=== PATIENT | male | born 1965 | race Caucasian/White ===

== ENCOUNTER 2023-03-24 15:06 | Outpatient (AMB) | payer OTHER, SELFPAY ==
--- NOTE | 2023-03-24 15:18 | HO.NEPHOV_ITS ---
HPI HPI Comments History of Present Illness Details Matt is a longstanding diabetic who has multiple other medical issues including coronary artery disease needing CABG. He also has peripheral arterial disease. Recently he was found to have renal cell cancer and underwent nephrectomy. He was told by his primary care physician in [place] that his serum creatinine has gotten worse. He denies any nausea, vomiting or diarrhea. He does not have any hematuria, weight loss, flank pain, renal stones, edema, epistaxis, hemoptysis, paroxysmal nocturnal dyspnea, orthopnea, chest pain, excessive nonsteroidal anti-inflammatory use or any history of drug use. He has not on any HARSHAL inhibitor or ARB. His recent serum creatinine numbers were not available for review at the time of this office visit. His son works in [employer]. He is concerned about his recent rise in serum creatinine even though he does not know what the numbers are. [facility] Medical History (Updated 03/27/23 @ 20:46 by Arley Valdovinos MD) Renal cancer Peripheral arterial disease Diabetes AYANNA (obstructive sleep apnea) Dyslipidemia Labile hypertension Ischemic cardiomyopathy CAD (coronary artery disease) Surgical History History of nephrectomy Hx of CABG Family History Mother Heart disease Hypertension Diabetes Maternal Grandfather Heart disease Diabetes Hypertension Social History (Updated 03/24/23 @ 15:24 by Alejandra Almeida MA) Alcohol intake: current Patient Tobacco Use Status: Former Tobacco user Vital Signs 03/24/23 15:19 Height 6 ft Weight 260 lb BMI 35.3 BP 130/80 Blood Pressure Location Lt brachial Position Sitting Pulse 69 Pulse Source Pulse Oximeter Pulse Oximetry (%) 95 Oxygen Delivery Method Room Air Physical Exam Vital Signs: Last Vital Signs Pulse 69 03/24/23 15:19 BP 130/80 03/24/23 15:19 Pulse Ox 95 03/24/23 15:19 Oxygen Delivery Method Room Air 03/24/23 15:19 BMI result Body Mass Index 35.3 Const General: comfortable and no acute distress Orientation/consciousness: patient oriented x3 HEENT Head: Yes normocephalic Mouth: Normal oral and palatal mucosa present Eyes EOM: EOMs intact bilaterally Neck Neck: Yes supple Resp Auscultation: clear to auscultation bilaterally Cardio Jugular venous distension: no JVD Rate: regular rate GI Palpation (GI): Soft to palpation Auscultation: normal bowel sounds General: Yes no CVA tenderness Back/Spine/Pelvis Back: no CVA tenderness Skin General skin exam: no rashes or lesions noted Neuro General: patient oriented x3 and moves all extremities Extrem General: Yes no pedal edema Assessment & Plan Assessment & Plan (1) Acquired solitary kidney: Code(s): Z90.5 - Acquired absence of kidney (2) Peripheral arterial disease: Code(s): I73.9 - Peripheral vascular disease, unspecified (3) Hypertension: Code(s): I10 - Essential (primary) hypertension Qualifiers: Hypertension type: primary hypertension Qualified Code(s): I10 - Essential (primary) hypertension (4) CKD (chronic kidney disease) stage 3, GFR 30-59 ml/min: Code(s): N18.30 - Chronic kidney disease, stage 3 unspecified Qualifiers: Chronic kidney disease stage 3 subtype: stage 3a (GFR 45-59) Qualified Code(s): N18.31 - Chronic kidney disease, stage 3a Plan Geovanny has CKD stage 3 at baseline. He recently underwent unilateral nephrectomy for renal cell cancer. As per the patient, [facility] had mentioned that his serum creatinine has gone up. I have not seen the results of it. I have ordered follow-up blood work. He will need 24 hour urine collection for GFR estimation. He will be a great candidate for HARSHAL inhibitor and or Farxiga/ Jardiance ( He is not type 1 diabetic). His blood pressure needs to be maintained at goal. He needs to keep his A1c under 7. He is on statins. I did not make any medication changes today but rather is awaiting on all the forthcoming data for optimizing his management. All questions answered. Follow-up given. Orders: Orders Calcium 03/24/23 I10 - Essential (primary) hypertension, I73.9 - Peripheral vascular disease, unspecified, Z90.5 - Acquired absence of kidney Creatinine 03/24/23 I10 - Essential (primary) hypertension, I73.9 - Peripheral vascular disease, unspecified, Z90.5 - Acquired absence of kidney Blood Urea Nitrogen 03/24/23 I10 - Essential (primary) hypertension, I73.9 - Peripheral vascular disease, unspecified, Z90.5 - Acquired absence of kidney Electrolytes 03/24/23 I10 - Essential (primary) hypertension, I73.9 - Peripheral vascular disease, unspecified, Z90.5 - Acquired absence of kidney Hemoglobin A1c 03/24/23 I10 - Essential (primary) hypertension, I73.9 - Peripheral vascular disease, unspecified, Z90.5 - Acquired absence of kidney Protein Creatinine Ratio, Ur 03/24/23 I10 - Essential (primary) hypertension, I73.9 - Peripheral vascular disease, unspecified, Z90.5 - Acquired absence of kidney Coding Level of Care Code Est Pt Level 4 (33500) Diagnoses Acquired solitary kidney Z90.5 Peripheral arterial disease I73.9 Primary hypertension I10 Hypertension type: primary hypertension Stage 3a chronic kidney disease N18.31 Chronic kidney disease stage 3 subtype: stage 3a (GFR 45-59) Results Reviewed Nephrology Results: No Data to Display
[2023-03-24 15:19] VITALS: BP 130/80; PULSE 69; O2SAT 95; BMI 35.3
== END 2023-03-24 15:50 | disposition home or self-care (01) ==
PROVIDERS: PCP General Practice; Visit Provider Internal Medicine Nephrology
DX: Z90.5 Acquired absence of kidney (principal); I73.9 Peripheral vascular disease, unspecified; I10 Essential (primary) hypertension; N18.31 Chronic kidney disease, stage 3a
CPT/HCPCS: 99214

== ENCOUNTER → 2023-03-24 15:06 | Outpatient (BNVA) | payer OTHER, SELFPAY | PROVIDERS: PCP General Practice; Visit Provider Internal Medicine Nephrology | DX: I12.9 Hypertensive chronic kidney disease with stage 1 through stage 4 chronic kidney disease, or unspecified chronic kidney disease (principal); N18.31 Chronic kidney disease, stage 3a; I73.9 Peripheral vascular disease, unspecified; Z90.5 Acquired absence of kidney | CPT/HCPCS: 99212 ==

== ENCOUNTER 2023-04-26 15:27 | Outpatient (AMB) | payer OTHER, SELFPAY ==
[2023-04-26 16:04] VITALS: BP 128/80; PULSE 62; O2SAT 96; BMI 35.5
--- NOTE | 2023-04-26 16:04 | HO.NEPHOV_ITS ---
HPI HPI Comments History of Present Illness Details Matt is a longstanding diabetic who has multiple other medical issues including coronary artery disease needing CABG. He also has peripheral arterial disease. Recently he was found to have renal cell cancer and underwent L nephrectomy. He was told by his primary care physician in [place] that his serum creatinine has gotten worse ( last one 2.3). He denies any nausea, vomiting or diarrhea. He does not have any hematuria, weight loss, flank pain, renal stones, edema, epistaxis, hemoptysis, paroxysmal nocturnal dyspnea, orthopnea, chest pain, excessive nonsteroidal anti-inflammatory use or any history of drug use. He has not on any HARSHAL inhibitor or ARB. His son works in [employer]. He is concerned about his recent rise in serum creatinine. He has not had any recent blood work. He had no medications including trulicity. He was told that he is going to be started on Victoza soon. He had no new complaints. [facility] Medical History (Updated 03/27/23 @ 20:46 by Arley Valdovinos MD) Renal cancer Peripheral arterial disease Diabetes AYANNA (obstructive sleep apnea) Dyslipidemia Labile hypertension Ischemic cardiomyopathy CAD (coronary artery disease) Surgical History History of nephrectomy Hx of CABG Family History Mother Heart disease Hypertension Diabetes Maternal Grandfather Heart disease Diabetes Hypertension Social History Alcohol intake: current Patient Tobacco Use Status: Former Tobacco user Vital Signs 04/26/23 16:04 Height 6 ft Weight 262 lb BMI 35.5 BP 128/80 Blood Pressure Location Rt brachial Position Sitting Pulse 62 Pulse Source Pulse Oximeter Pulse Oximetry (%) 96 Oxygen Delivery Method Room Air Physical Exam Vital Signs: Last Vital Signs Pulse 62 04/26/23 16:04 BP 128/80 04/26/23 16:04 Pulse Ox 96 04/26/23 16:04 Oxygen Delivery Method Room Air 04/26/23 16:04 BMI result Body Mass Index 35.5 Const General: comfortable and no acute distress Orientation/consciousness: patient oriented x3 HEENT Head: Yes normocephalic Mouth: Normal oral and palatal mucosa present Eyes EOM: EOMs intact bilaterally Neck Neck: Yes supple Resp Auscultation: clear to auscultation bilaterally Cardio Jugular venous distension: no JVD Rate: regular rate GI Palpation (GI): Soft to palpation Auscultation: normal bowel sounds General: Yes no CVA tenderness Back/Spine/Pelvis Back: no CVA tenderness Skin General skin exam: no rashes or lesions noted Neuro General: patient oriented x3 and moves all extremities Extrem General: Yes no pedal edema Assessment & Plan Assessment & Plan (1) CKD (chronic kidney disease) stage 3, GFR 30-59 ml/min: Code(s): N18.30 - Chronic kidney disease, stage 3 unspecified Qualifiers: Chronic kidney disease stage 3 subtype: stage 3a (GFR 45-59) Qualified Code(s): N18.31 - Chronic kidney disease, stage 3a (2) Hypertension: Code(s): I10 - Essential (primary) hypertension Qualifiers: Hypertension type: primary hypertension Qualified Code(s): I10 - Essential (primary) hypertension Plan Geovanny has CKD stage 3 at baseline. He recently underwent unilateral nephrectomy for renal cell cancer. His last serum creatinine was 2.3. I have ordered follow-up blood work and 24 hour urine collection for GFR estimation. He will be a great candidate for HARSHAL inhibitor and or Farxiga/ Jardiance ( He is not type 1 diabetic). His blood pressure needs to be maintained at goal. He needs to keep his A1c under 7. He is on statins. I did not make any medication changes today but rather is awaiting on all the forthcoming data for optimizing his management. All questions answered. Follow-up given Orders: Orders Hemoglobin A1c Today I10 - Essential (primary) hypertension, N18.30 - Chronic kidney disease, stage 3 unspecified Creatinine Clearance Urine Today I10 - Essential (primary) hypertension, N18.30 - Chronic kidney disease, stage 3 unspecified Creatinine Today I10 - Essential (primary) hypertension, N18.30 - Chronic kidney disease, stage 3 unspecified Blood Urea Nitrogen Today I10 - Essential (primary) hypertension, N18.30 - Chronic kidney disease, stage 3 unspecified Electrolytes Today I10 - Essential (primary) hypertension, N18.30 - Chronic kidney disease, stage 3 unspecified Coding Level of Care Code Est Pt Level 4 (97960) Diagnoses Stage 3a chronic kidney disease N18.31 Chronic kidney disease stage 3 subtype: stage 3a (GFR 45-59) Primary hypertension I10 Hypertension type: primary hypertension Results Reviewed Nephrology Results: No Data to Display
== END 2023-04-26 16:30 | disposition home or self-care (01) ==
PROVIDERS: PCP General Practice; Referring Provider Internal Medicine Nephrology; Visit Provider Internal Medicine Nephrology
DX: N18.31 Chronic kidney disease, stage 3a (principal); I10 Essential (primary) hypertension
CPT/HCPCS: 99214

== ENCOUNTER → 2023-04-26 15:27 | Outpatient (BNVA) | payer OTHER, SELFPAY | PROVIDERS: PCP General Practice; Visit Provider Internal Medicine Nephrology | DX: I12.9 Hypertensive chronic kidney disease with stage 1 through stage 4 chronic kidney disease, or unspecified chronic kidney disease (principal); N18.31 Chronic kidney disease, stage 3a | CPT/HCPCS: 99212 ==

== ENCOUNTER 2023-05-24 15:05 | Outpatient (AMB) | payer OTHER, SELFPAY ==
[2023-05-24 15:47] VITALS: BP 142/80; PULSE 96; O2SAT 99; BMI 34.5
--- NOTE | 2023-05-24 15:47 | HO.NEPHOV_ITS ---
HPI HPI Comments History of Present Illness Details Matt is a longstanding diabetic who has multiple other medical issues including coronary artery disease needing CABG. He also has peripheral arterial disease. Recently he was found to have renal cell cancer and underwent L nephrectomy. His serum creatinine has improved to 1.8. His serum K is 5.5. He denies any nausea, vomiting or diarrhea. He does not have any hematuria, weight loss, flank pain, renal stones, edema, epistaxis, hemoptysis, paroxysmal nocturnal dyspnea, orthopnea, chest pain, excessive nonsteroidal anti- inflammatory use or any history of drug use. He has not on any HARSHAL inhibitor or ARB. His son works in [employer]. He had no medications including trulicity. So he was started on Victoza. He had no new complaints. [facility] Medical History (Updated 05/24/23 @ 16:33 by Arley Valdovinos MD) Renal cancer Peripheral arterial disease Diabetes AYANNA (obstructive sleep apnea) Dyslipidemia Labile hypertension Ischemic cardiomyopathy CAD (coronary artery disease) Surgical History History of nephrectomy Hx of CABG Family History Mother Heart disease Hypertension Diabetes Maternal Grandfather Heart disease Diabetes Hypertension Social History Alcohol intake: current Patient Tobacco Use Status: Former Tobacco user Vital Signs 05/24/23 15:47 Height 6 ft Weight 254 lb 6 oz BMI 34.5 BP 142/80 H Blood Pressure Location Rt brachial Position Sitting Pulse 96 Pulse Source Pulse Oximeter Pulse Oximetry (%) 99 Oxygen Delivery Method Room Air Physical Exam Vital Signs: Last Vital Signs Pulse 96 05/24/23 15:47 BP 142/80 H 05/24/23 15:47 Pulse Ox 99 05/24/23 15:47 Oxygen Delivery Method Room Air 05/24/23 15:47 BMI result Body Mass Index 34.5 Const General: comfortable and no acute distress Orientation/consciousness: patient oriented x3 HEENT Head: Yes normocephalic Mouth: Normal oral and palatal mucosa present Eyes EOM: EOMs intact bilaterally Neck Neck: Yes supple Resp Auscultation: clear to auscultation bilaterally Cardio Jugular venous distension: no JVD Rate: regular rate GI Palpation (GI): Soft to palpation Auscultation: normal bowel sounds General: Yes no CVA tenderness Back/Spine/Pelvis Back: no CVA tenderness Skin General skin exam: no rashes or lesions noted Neuro General: patient oriented x3 and moves all extremities Extrem General: Yes no pedal edema Assessment & Plan Assessment & Plan (1) CKD (chronic kidney disease) stage 3, GFR 30-59 ml/min: Code(s): N18.30 - Chronic kidney disease, stage 3 unspecified Qualifiers: Chronic kidney disease stage 3 subtype: stage 3a (GFR 45-59) Qualified Code(s): N18.31 - Chronic kidney disease, stage 3a (2) Peripheral arterial disease: Code(s): I73.9 - Peripheral vascular disease, unspecified (3) Acquired solitary kidney: Code(s): Z90.5 - Acquired absence of kidney (4) Hypertension: Code(s): I10 - Essential (primary) hypertension Qualifiers: Hypertension type: primary hypertension Qualified Code(s): I10 - Essential (primary) hypertension (5) Hyperkalemia: Code(s): E87.5 - Hyperkalemia Jose Armando Small has CKD stage 3 at baseline. He recently underwent unilateral nephrectomy for renal cell cancer. His last serum creatinine was 2.3. He had follow-up blood work and 24 hour urine collection for GFR estimation at [place] which is pending at the time of this visit. He will be a great candidate for HARSHAL inhibitor and or Farxiga/ Jardiance ( He is not type 1 diabetic). His blood pressure needs to be maintained at goal. He needs to keep his A1c under 7. He is on statins. I started him on Kayexalate 15 Gram once a week. I did not make any medication changes today but rather is awaiting on all the forthcoming data for optimizing his management. All questions answered. Follow-up given Orders: Orders Blood Urea Nitrogen Today E87.5 - Hyperkalemia, I10 - Essential (primary) hypertension, I73.9 - Peripheral vascular disease, unspecified, N18.30 - Chronic kidney disease, stage 3 unspecified, Z90.5 - Acquired absence of kidney Creatinine Today E87.5 - Hyperkalemia, I10 - Essential (primary) hypertension, I73.9 - Peripheral vascular disease, unspecified, N18.30 - Chronic kidney disease, stage 3 unspecified, Z90.5 - Acquired absence of kidney Electrolytes Today E87.5 - Hyperkalemia, I10 - Essential (primary) hypertension, I73.9 - Peripheral vascular disease, unspecified, N18.30 - Chronic kidney disease, stage 3 unspecified, Z90.5 - Acquired absence of kidney Coding Level of Care Code Est Pt Level 4 (64751) Diagnoses Stage 3a chronic kidney disease N18.31 Chronic kidney disease stage 3 subtype: stage 3a (GFR 45-59) Peripheral arterial disease I73.9 Acquired solitary kidney Z90.5 Primary hypertension I10 Hypertension type: primary hypertension Hyperkalemia E87.5 Results Reviewed Nephrology Results: No Data to Display
== END 2023-05-24 16:18 | disposition home or self-care (01) ==
PROVIDERS: PCP General Practice; Visit Provider Internal Medicine Nephrology
DX: N18.31 Chronic kidney disease, stage 3a (principal); I73.9 Peripheral vascular disease, unspecified; Z90.5 Acquired absence of kidney; I10 Essential (primary) hypertension; E87.5 Hyperkalemia
CPT/HCPCS: 99214

== ENCOUNTER → 2023-05-24 15:05 | Outpatient (BNVA) | payer OTHER, SELFPAY | PROVIDERS: PCP General Practice; Visit Provider Internal Medicine Nephrology | DX: I12.9 Hypertensive chronic kidney disease with stage 1 through stage 4 chronic kidney disease, or unspecified chronic kidney disease (principal); N18.31 Chronic kidney disease, stage 3a | CPT/HCPCS: 99212 ==

== ENCOUNTER 2023-08-23 15:49 | Outpatient (AMB) | payer OTHER, SELFPAY ==
--- NOTE | 2023-08-23 16:11 | HO.NEPHOV_ITS ---
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 Accompanied by: Self / Same As Patient Allergies acetaminophen [From Percocet] Allergy (Verified 08/23/23 16:16) Unknown amlodipine Allergy (Verified 08/23/23 16:16) Unknown atorvastatin Allergy (Verified 08/23/23 16:16) Unknown hydrochlorothiazide Allergy (Verified 08/23/23 16:16) Unknown indomethacin Allergy (Verified 08/23/23 16:16) Unknown lisinopril Allergy (Verified 08/23/23 16:16) Unknown oxycodone [From Percocet] Allergy (Verified 08/23/23 16:16) Unknown HPI Comments Details: Matt is a longstanding diabetic who has multiple other medical issues including coronary artery disease needing CABG. He also has peripheral arterial disease. He was found to have renal cell cancer and underwent L nephrectomy. His serum creatinine is 2.3. He denies any nausea, vomiting or diarrhea. He does not have any hematuria, weight loss, flank pain, renal stones, edema, epistaxis, hemoptysis, paroxysmal nocturnal dyspnea, orthopnea, chest pain, excessive nonsteroidal anti-inflammatory use or any history of drug use. He has not on any HARSHAL inhibitor or ARB. His son works in [employer]. He is trying to go back on [employer]. He had no new complaints. [facility] Medical History (Updated 05/24/23 @ 16:33 by Arley Valdovinos MD) Renal cancer Peripheral arterial disease Diabetes AYANNA (obstructive sleep apnea) Dyslipidemia Labile hypertension Ischemic cardiomyopathy CAD (coronary artery disease) Surgical History History of nephrectomy Hx of CABG Family History Mother Heart disease Hypertension Diabetes Maternal Grandfather Heart disease Diabetes Hypertension Social History Alcohol intake: current Patient Tobacco Use Status: Former Tobacco user Physical Exam Vital Signs: Last Vital Signs Pulse 72 08/23/23 16:12 BP 134/80 08/23/23 16:12 Pulse Ox 97 08/23/23 16:12 Oxygen Delivery Method Room Air 08/23/23 16:12 BMI result Body Mass Index 34.9 Const General: comfortable and no acute distress Orientation/consciousness: patient oriented x3 HEENT Head: Yes normocephalic Mouth: Normal oral and palatal mucosa present Eyes EOM: EOMs intact bilaterally Neck Neck: Yes supple Resp Auscultation: clear to auscultation bilaterally Cardio Jugular venous distension: no JVD Rate: regular rate GI Palpation (GI): Soft to palpation Auscultation: normal bowel sounds General: Yes no CVA tenderness Back/Spine/Pelvis Back: no CVA tenderness Skin General skin exam: no rashes or lesions noted Neuro General: patient oriented x3 and moves all extremities Extrem General: Yes no pedal edema Results Reviewed Nephrology Results: No Data to Display Assessment & Plan Assessment & Plan (1) CKD (chronic kidney disease) stage 3, GFR 30-59 ml/min: Code(s): N18.30 - Chronic kidney disease, stage 3 unspecified Category: Medical Qualifiers: Chronic kidney disease stage 3 subtype: stage 3a (GFR 45-59) Qualified Code(s): N18.31 - Chronic kidney disease, stage 3a (2) Acquired solitary kidney: Code(s): Z90.5 - Acquired absence of kidney Category: Medical (3) Hypertension: Code(s): I10 - Essential (primary) hypertension Category: Medical Qualifiers: Hypertension type: primary hypertension Qualified Code(s): I10 - Essential (primary) hypertension Plan Geovanny has CKD stage 3 at baseline. He recently underwent unilateral nephrectomy for renal cell cancer. His last serum creatinine is 2.3. He will be a great candidate for HARSHAL inhibitor and or Farxiga/ Jardiance ( He is not type 1 diabetic). His blood pressure needs to be maintained at goal. He needs to keep his A1c under 7. He is on statins. He is on Kayexalate 15 Gram once a week. I did not make any medication changes today but rather is awaiting on all the forthcoming data for optimizing his management. All questions answered. Follow -up given Orders: Orders Blood Urea Nitrogen Today I10 - Essential (primary) hypertension, N18.31 - Chronic kidney disease, stage 3a, Z90.5 - Acquired absence of kidney Creatinine Today I10 - Essential (primary) hypertension, N18.31 - Chronic kidney disease, stage 3a, Z90.5 - Acquired absence of kidney Electrolytes Today I10 - Essential (primary) hypertension, N18.31 - Chronic kidney disease, stage 3a, Z90.5 - Acquired absence of kidney Coding Level of Care Code Est Pt Level 4 (27234) Diagnoses Stage 3a chronic kidney disease N18.31 Chronic kidney disease stage 3 subtype: stage 3a (GFR 45-59) Acquired solitary kidney Z90.5 Primary hypertension I10 Hypertension type: primary hypertension
[2023-08-23 16:12] VITALS: BP 134/80; PULSE 72; O2SAT 97; BMI 34.9
== END 2023-08-23 16:45 | disposition home or self-care (01) ==
PROVIDERS: PCP General Practice; Visit Provider Internal Medicine Nephrology
DX: N18.31 Chronic kidney disease, stage 3a (principal); Z90.5 Acquired absence of kidney; I10 Essential (primary) hypertension
CPT/HCPCS: 99214

== ENCOUNTER → 2023-08-23 15:49 | Outpatient (BNVA) | payer OTHER, SELFPAY | PROVIDERS: PCP General Practice; Visit Provider Internal Medicine Nephrology | DX: I12.9 Hypertensive chronic kidney disease with stage 1 through stage 4 chronic kidney disease, or unspecified chronic kidney disease (principal); N18.31 Chronic kidney disease, stage 3a; Z90.5 Acquired absence of kidney | CPT/HCPCS: 99212 ==

== ENCOUNTER 2023-12-22 13:56 | Outpatient (AMB) | payer OTHER, SELFPAY ==
--- NOTE | 2023-12-22 14:11 | HO.NEPHOV ---
Vital Signs 12/22/23 14:12 Height 6 ft Weight 249 lb BMI 33.8 BP 138/70 Blood Pressure Location Rt brachial Position Sitting Pulse 66 Pulse Source Pulse Oximeter Pulse Oximetry (%) 96 Oxygen Delivery Method Room Air Intake Visit Reasons: Acquired solitary kidney- Conf Accounts Payable Or Receivable Clerk Required: No Accompanied by: Self / Same As Patient Allergies acetaminophen [From Percocet] Allergy (Verified 12/22/23 14:13) Unknown amlodipine Allergy (Verified 12/22/23 14:13) Unknown atorvastatin Allergy (Verified 12/22/23 14:13) Unknown hydrochlorothiazide Allergy (Verified 12/22/23 14:13) Unknown indomethacin Allergy (Verified 12/22/23 14:13) Unknown lisinopril Allergy (Verified 12/22/23 14:13) Unknown oxycodone [From Percocet] Allergy (Verified 12/22/23 14:13) Unknown HPI Comments Details: Matt is a longstanding diabetic who has multiple other medical issues including coronary artery disease needing CABG. He recently had NSTEMI which needed stenting in RCA. He also has peripheral arterial disease. He was found to have renal cell cancer and underwent L nephrectomy. Now the right kidney has a spot for which he may need MRI in 6 M. His serum creatinine is 1.87 He denies any nausea, vomiting or diarrhea. He does not have any hematuria, weight loss, flank pain, renal stones, edema, epistaxis, hemoptysis, paroxysmal nocturnal dyspnea, orthopnea, chest pain, excessive nonsteroidal anti-inflammatory use or any history of drug use. He has not on any HARSHAL inhibitor or ARB. His son works in [employer]. He went back on [employer]. He had no new complaints. [facility] Medical History (Updated 05/24/23 @ 16:33 by Arley Valdovinos MD) Renal cancer Peripheral arterial disease Diabetes AYANNA (obstructive sleep apnea) Dyslipidemia Labile hypertension Ischemic cardiomyopathy CAD (coronary artery disease) Surgical History History of nephrectomy Hx of CABG Family History Mother Heart disease Hypertension Diabetes Maternal Grandfather Heart disease Diabetes Hypertension Social History Alcohol intake: current Patient Tobacco Use Status: Former Tobacco user Review of Systems Const All systems reviewed & are unremarkable except as noted in HPI and below Physical Exam Vital Signs: Last Vital Signs Pulse 66 12/22/23 14:12 BP 138/70 12/22/23 14:12 Pulse Ox 96 12/22/23 14:12 Oxygen Delivery Method Room Air 12/22/23 14:12 BMI result Body Mass Index 33.8 Const General: comfortable and no acute distress Orientation/consciousness: patient oriented x3 HEENT Head: Yes normocephalic Mouth: Normal oral and palatal mucosa present Eyes EOM: EOMs intact bilaterally Neck Neck: Yes supple Resp Auscultation: clear to auscultation bilaterally Cardio Jugular venous distension: no JVD Rate: regular rate GI Palpation (GI): Soft to palpation Auscultation: normal bowel sounds General: Yes no CVA tenderness Back/Spine/Pelvis Back: no CVA tenderness Skin General skin exam: no rashes or lesions noted Neuro General: patient oriented x3 and moves all extremities Extrem General: Yes no pedal edema Results Reviewed Nephrology Results: No Data to Display Assessment & Plan Assessment & Plan (1) CKD (chronic kidney disease) stage 3, GFR 30-59 ml/min: Code(s): N18.30 - Chronic kidney disease, stage 3 unspecified Category: Medical Qualifiers: Chronic kidney disease stage 3 subtype: stage 3a (GFR 45-59) Qualified Code(s): N18.31 - Chronic kidney disease, stage 3a (2) Acquired solitary kidney: Code(s): Z90.5 - Acquired absence of kidney Category: Medical (3) Hypertension: Code(s): I10 - Essential (primary) hypertension Category: Medical Qualifiers: Hypertension type: primary hypertension Qualified Code(s): I10 - Essential (primary) hypertension Plan Geovanny has CKD stage 3 at baseline. He recently underwent unilateral nephrectomy for renal cell cancer. His last serum creatinine is 1.87. He has a new spot on the other kidney for which he going to have a F/U MRI in 6 months ( Dr Chavez). He will be a great candidate for HARSHAL inhibitor and or Farxiga/ Jardiance ( He is not type 1 diabetic). His blood pressure needs to be maintained at goal. He needs to keep his A1c under 7. He is on statins. He should continue Kayexalate 30 Gram once a week ( refilled). I did not make any medication changes today but rather is awaiting on all the forthcoming data for optimizing his management. All questions answered. Follow-up given Orders: Orders Creatinine 3 Months I10 - Essential (primary) hypertension, N18.31 - Chronic kidney disease, stage 3a, Z90.5 - Acquired absence of kidney Blood Urea Nitrogen 3 Months I10 - Essential (primary) hypertension, N18.31 - Chronic kidney disease, stage 3a, Z90.5 - Acquired absence of kidney Electrolytes 3 Months I10 - Essential (primary) hypertension, N18.31 - Chronic kidney disease, stage 3a, Z90.5 - Acquired absence of kidney Coding Level of Care Code Est Pt Level 4 (14918) Diagnoses Stage 3a chronic kidney disease N18.31 Chronic kidney disease stage 3 subtype: stage 3a (GFR 45-59) Acquired solitary kidney Z90.5 Primary hypertension I10 Hypertension type: primary hypertension
[2023-12-22 14:12] VITALS: BP 138/70; PULSE 66; O2SAT 96; BMI 33.8
== END 2023-12-22 14:51 | disposition home or self-care (01) ==
PROVIDERS: PCP General Practice; Visit Provider Internal Medicine Nephrology
DX: I12.9 Hypertensive chronic kidney disease with stage 1 through stage 4 chronic kidney disease, or unspecified chronic kidney disease (principal); N18.31 Chronic kidney disease, stage 3a; Z90.5 Acquired absence of kidney
CPT/HCPCS: 99214

== ENCOUNTER → 2023-12-22 13:56 | Outpatient (BNVA) | payer OTHER, SELFPAY | PROVIDERS: PCP General Practice; Visit Provider Internal Medicine Nephrology | DX: I12.9 Hypertensive chronic kidney disease with stage 1 through stage 4 chronic kidney disease, or unspecified chronic kidney disease (principal); N18.31 Chronic kidney disease, stage 3a; Z90.5 Acquired absence of kidney | CPT/HCPCS: 99212 ==

== ENCOUNTER 2024-03-11 11:19 | Outpatient (AMB) | payer OTHER, SELFPAY ==
--- NOTE | 2024-03-11 11:52 | HO.NEPHOV_ITS ---
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/ LVM Breaker Layer Required: No Accompanied by: Self / Same As Patient Allergies acetaminophen [From Percocet] Allergy (Verified 03/11/24 11:53) Unknown amlodipine Allergy (Verified 03/11/24 11:53) Unknown atorvastatin Allergy (Verified 03/11/24 11:53) Unknown hydrochlorothiazide Allergy (Verified 03/11/24 11:53) Unknown indomethacin Allergy (Verified 03/11/24 11:53) Unknown lisinopril Allergy (Verified 03/11/24 11:53) Unknown oxycodone [From Percocet] Allergy (Verified 03/11/24 11:53) Unknown HPI Comments Details: Matt is a longstanding diabetic who has multiple other medical issues including coronary artery disease needing CABG. He recently had NSTEMI which needed stenting in RCA. He also has peripheral arterial disease. He was found to have renal cell cancer and underwent L nephrectomy. Now the right kidney has a spot for which he may need MRI in 6 M. His serum creatinine is 1.87 He denies any nausea, vomiting or diarrhea. He does not have any hematuria, weight loss, flank pain, renal stones, edema, epistaxis, hemoptysis, paroxysmal nocturnal dyspnea, orthopnea, chest pain, excessive nonsteroidal anti-inflammatory use or any history of drug use. He has not on any HARSHAL inhibitor or ARB. His son works in [employer]. His trulicity dose is increased and his lantus was cut back & is off metformin. His last A1c was 6.9. He is going to have ablation end of the month.He had no new complaints [facility] Medical History (Updated 05/24/23 @ 16:33 by Arley Valdovinos MD) Renal cancer Peripheral arterial disease Diabetes AYANNA (obstructive sleep apnea) Dyslipidemia Labile hypertension Ischemic cardiomyopathy CAD (coronary artery disease) Surgical History History of nephrectomy Hx of CABG Family History Mother Heart disease Hypertension Diabetes Maternal Grandfather Heart disease Diabetes Hypertension Social History Alcohol intake: current Patient Tobacco Use Status: Former Tobacco user Review of Systems Const All systems reviewed & are unremarkable except as noted in HPI and below Physical Exam Vital Signs: Last Vital Signs Pulse 64 03/11/24 11:54 BP 134/60 03/11/24 11:54 Pulse Ox 96 03/11/24 11:54 Oxygen Delivery Method Room Air 03/11/24 11:54 BMI result Body Mass Index 33.8 Const General: comfortable and no acute distress Orientation/consciousness: patient oriented x3 HEENT Head: Yes normocephalic Mouth: Normal oral and palatal mucosa present Eyes EOM: EOMs intact bilaterally Neck Neck: Yes supple Resp Auscultation: clear to auscultation bilaterally Cardio Jugular venous distension: no JVD Rate: regular rate GI Palpation (GI): Soft to palpation Auscultation: normal bowel sounds General: Yes no CVA tenderness Back/Spine/Pelvis Back: no CVA tenderness Skin General skin exam: no rashes or lesions noted Neuro General: patient oriented x3 and moves all extremities Extrem General: Yes no pedal edema Results Reviewed Nephrology Results: No Data to Display Assessment & Plan Assessment & Plan (1) CKD (chronic kidney disease) stage 3, GFR 30-59 ml/min: Code(s): N18.30 - Chronic kidney disease, stage 3 unspecified Category: Medical Qualifiers: Chronic kidney disease stage 3 subtype: stage 3a (GFR 45-59) Qualified Code(s): N18.31 - Chronic kidney disease, stage 3a (2) Hyperkalemia: Code(s): E87.5 - Hyperkalemia Category: Medical (3) Hypertension: Code(s): I10 - Essential (primary) hypertension Category: Medical Qualifiers: Hypertension type: primary hypertension Qualified Code(s): I10 - Essential (primary) hypertension (4) Acquired solitary kidney: Code(s): Z90.5 - Acquired absence of kidney Category: Medical Plan Geovanny has CKD stage 3 at baseline. He has H/O unilateral nephrectomy for renal cell cancer. His last two serum creatinine were 1.82 & 2.1. He has a new spot on the other kidney for which he going to have a F/U MRI in 6 months ( Dr Chavez). He will be a great candidate for HARSHAL inhibitor and or Farxiga/ Jardiance ( He is not type 1 diabetic). His blood pressure needs to be maintained at goal. He needs to keep his A1c under 7. He is on statins. He should continue Kayexalate 30 Gram once a week ( refilled). I did not make any medication changes today but rather is awaiting on all the forthcoming data for optimizing his management. All questions answered. Follow-up given Orders: Orders Creatinine 3 Months E87.5 - Hyperkalemia, I10 - Essential (primary) hypertension, N18.31 - Chronic kidney disease, stage 3a, Z90.5 - Acquired absence of kidney Electrolytes 3 Months E87.5 - Hyperkalemia, I10 - Essential (primary) hypertension, N18.31 - Chronic kidney disease, stage 3a, Z90.5 - Acquired absence of kidney Blood Urea Nitrogen 3 Months E87.5 - Hyperkalemia, I10 - Essential (primary) hypertension, N18.31 - Chronic kidney disease, stage 3a, Z90.5 - Acquired absence of kidney Medications: New sodium polystyrene sulfonate 30 grams orally once a week; 3 months 453.6 grams 6RF Coding Level of Care Code Est Pt Level 4 (18720) Diagnoses Stage 3a chronic kidney disease N18.31 Chronic kidney disease stage 3 subtype: stage 3a (GFR 45-59) Hyperkalemia E87.5 Primary hypertension I10 Hypertension type: primary hypertension Acquired solitary kidney Z90.5
[2024-03-11 11:54] VITALS: BP 134/60; PULSE 64; O2SAT 96; BMI 33.8
--- OUTSIDE RECORDS SUMMARY | 2024-03-11 13:01 | XMS_ITS | Encounter Summary ---
Author Name [facility] Organization [facility] Address [address] [place] [address] Care Team Providers Care Buddhist Monk Name Role Phone VICKIEALEXANDER MCCRACKENYAJAIRADERICK Primary Care Provider Unavail able Insurance Providers: All historical and current Section Date Range: From patient's date of to the date document was created. This section includes the names of all active insurance providers for the patient. Insurance Provider Type of Coverage Plan Name Start of Policy Coverage End of Policy Coverage Group Number Member ID Insurance Provider's Telephone Number Policy Rice's Name Patient's Relationship to Policy Rice MEDICARE (WNR) MEDICARE (M) PART A Feb 04, 2020 PART A [id number] [facility] [place] PATIENT MEDICARE (WNR) MEDICARE (M) PART B Feb 04, 2020 PART B [id number] [facility] [place] PATIENT Selected Encounter This section includes the information on record at OR for the Encounter. Date/Time Encounter Type Encounter Description Reason Pro vider Source May 19, 2023 02:54 PM Outpatient Encounter PRIMARY CARE/MEDICINE I[facility] Encounter Template Text not used by OR Plan of Treatment: Future Appointments (+ 6 months) and Future Tests (+/- 45 days) The Plan of Treatment section includes future care activities for the patient from all [facility] treatment[facility]ilities. This section includes future appointments and future orders which are active, pending or scheduled. Future Appointments This section includes appointments that were scheduled to occur 6 months from the date of the Encounter, up to a maximum of 20 appointments. The data comes from all OR treatment facilities. Appointment Date/Time Appointment Type Appointme nt Facility Name May 22, 2023 03:00 PM AMBULATORY - MEDICINE [facility] [place] [facility] Jun 08, 2023 03:00 PM [facility]IC[facility] [place] [facility] Jun 09, 2023 10:40 AM AMBULATORY - MEDICINE [place] [facility] [place] [facility] Jul 03, 2023 01:30 PM AMBULATORY - MEDICINE [facility] Aug 07, 2023 02:30 PM AMBULATORY - MEDICINE [facility] [place] [facility] Aug 08, 2023 04:00 PM AMBULATORY - MEDICINE [facility] [place] [facility] Aug 22, 2023 03:00 PM AMBULATORY - MEDICINE [facility] [place] [facility] Sep 19, 2023 03:00 PM AMBULATORY - MEDICINE [facility] [place] [facility] Oct 09, 2023 03:00 PM AMBULATORY - MEDICINE [facility] [place] [facility] Oct 23, 2023 11:00 AM AMBULATORY - MEDICINE [facility] [place] [facility] Oct 26, 2023 11:30 AM AMBULATORY - MEDICINE [facility] Nov 09, 2023 11:20 AM AMBULATORY - MEDICINE [place] [facility] [place] [facility] Lab Results: +/- 30 days of the encounter This section includes the Chemistry and Hematology Lab Results on record with OR for the patient. Radiology Reports and Pathology Reports are provided separately, in subsequent sections. Lab Results This section contains the Chemistry/Hematology Results that were resulted 30 days before or 30 daysafter the date of the Encounter. Date/Time Source Result Type Result - Unit Interpretation Reference Range Comment May 18, 2023 02:30 PM [place] ([facility]) CREATININE CLEARANCE (24 HOUR) Specimen Type: URINE No comment entered. Ordering Provider: QUENTIN STOKES Report Released Date/Time: May 17, 2023 08:05 AM Reporting Lab: [facility] [place] [facility] [address] [address] Performing Lab: [facility] [address] [address] VOLUME 3000 mL CREATININE URINE 39.61 mg/dL COMPUTED CREATININE CLEARANCE 44.8 mL/min L 75-125 May 15, 2023 08:21 AM [place] ([facility]) HEMOGLOBIN A1C PANEL Specimen Type: BLOOD Comment: Values obtained from A1C measurements can vary. For atypical A1C assays, a reported value of 7.0 could actually be between 6.72 and 7.28 if measured by a reference method. A reported value of 9.0 could actually be between 8.73 and 9.27. Ref: http://www.ngs p.org/CAPdata. asp Ordering Provider: QUENTIN STOKES Report Released Date/Time: Apr 27, 2023 03:02 PM Reporting Lab: [address] [address] Performing Lab: [address] [address] HEMOGLOBIN A1C 8.9 H 4.0-5.6 May 15, 2023 08:21 AM [place] ([facility]) UREA NITROGEN Specimen Type: SERUM No comment entered. Ordering Provider: QUENTIN STOKES Report Released Date/Time: Apr 27, 2023 03:02 PM Reporting Lab: [address] [address] Performing Lab: [address] [address] UREA NITROGEN 35 mg/dL H 7-25 May 15, 2023 08:21 AM [place] ([facility]) CREATININE (eGFR 2020) Specimen Type: SERUM No comment entered. Ordering Provider: QUENTIN STOKES Report Released Date/Time: Apr 27, 2023 03:02 PM Reporting Lab: [address] [address] Performing Lab: [address] [address] CREATININE, Serum 1.84 mg/dL H 0.50-1.40 eGFR(CKD-EPI 2020) 42 mL/min L >60 May 15, 2023 08:21 AM [place] ([facility]) ELECTROLYTE PANEL Specimen Type: SERUM No comment entered. Ordering Provider: QUENTIN STOKES Report Released Date/Time: Apr 27, 2023 03:02 PM Reporting Lab: [facility] [address] [address] Performing Lab: [facility] [address] [address] SODIUM 137 mmol/L 135-145 POTASSIUM 5.5 mmol/L H 3.5-5.0 CHLORIDE 105 mmol/L 100-110 CO2 26 meq/L 20-30 Social History: Smoking Status (Most current) and Tobacco Use (All prior to encounter date) This section includes the most current, and the historical, smoking and tobacco- related health factors from the OR facility where the Encounter took place. Current Smoking Status This section includes the most current smoking, or tobacco-related health factor, from the OR facility where the Encounter took place. Date/Time Current Smoking Status Comment Filemon honeycutt Aug 19, 2020 02:29 PM VA-TOBACCO FORMER USER [facility] Tobacco Use History This section includes a history of the smoking, or tobacco-related health factors, that were collected on or before the date of the Encounter. The data comes from the OR facility where the Encounter took place. Date/Time Smoking Status/Tobacco Use Comment Ahsan pulido Aug 19, 2020 02:29 PM VA-TOBACCO QUIT 15 YRS OR MORE [facility] Encounter Notes: All associated encounter notes This section contains the clinical notes associated to the Encounter. Date/Time Encounter Note(s) Provider Source May 19, 2023 02:54 PM PRIMARY CARE NOTE: LOCAL TITLE: WALK-IN NOTE PRIMARY CARE (T) STANDARD TITLE: PRIMARY CARE NOTE DATE OF NOTE: MAY 19, 2023@14:54 ENTRY DATE: MAY 19, 2023@14:54:43 AUTHOR: GEORGE RIVERA COSIGNER: URGENCY: STATUS: COMPLETED WALK-IN NOTE PRIMARY CARE (T) Has ADDENDA <====Click to Start Advanced Medical Support Montgomery presents to the Primary Care clinic with the following request: [ ]Medication Renewal/Refill [ ]Consultation with Team RN [ ]Symptoms [ X ]Other The states they are: [ ]Waiting [ X ]Not Waiting No Walk in visit scheduled with PACT Nurse [ X ] At this encounter the 's demographics were verified. [ X ] At this encounter the 's Insurance information was verified. [ X ] At this encounter the below scheduled visits for the were discussed and appointment reminder card was offered. IS REQUESTING TO SPEAK TO BLENDING KETTLE TENDER FOR HIS NEPHROLOGY CONSULT. SAW CALL [phone]. Future appointments: 05/22/2023 15:00 CWM/NO/PHARM/PACT 3 06/08/2023 15:00 CWM/NO/PODIATRY A 07/20/2023 15:00 CWM/GO/PACT 4 /es/ JONATHAN RIVERA [employer] SALES REPRESENTATIVE Signed: 05/19/2023 14:56 Receipt Acknowledged By: 05/19/2023 15:00 /tam/ GINO DUBON RN REGISTERED NURSE 05/19/2023 15:06 /es/ KATHRYN MARIE LPN LICENSED PRACTICAL NURSE 05/19/2023 16:20 /es/ JOI BARRON 05/19/2023 ADDENDUM STATUS: COMPLETED Note placed on CC consult to contact the . /tam/ GINO DUBON RN REGISTERED NURSE Signed: 05/19/2023 15:01 JONATHAN RIVERA ([facility])
--- OUTSIDE RECORDS SUMMARY | 2024-03-11 13:01 | XMS_ITS | Encounter Summary ---
Author Name [facility] Address [address] [place] [address] Care Team Providers Care Event Producer Name Role Phone VICKIEALEXANDER MCCRACKENYAJAIRADERICK Primary Care [...] PART A Feb 04, 2020 PART A [id number] [facility] PATIENT MEDICARE (WNR) MEDICARE (M) PART B Feb 04, 2020 PART B [id number] [address] [facility] PATIENT Selected Encounter This section includes the information on record at [place] for the Encounter. Date/Time Encounter Type Encounter Description Reason Pro vider Source Mar 27, 2023 08:38 AM Outpatient Encounter PRIMARY CARE/MEDICINE I[facility] Encounter Template Text not used by [place] Plan of Treatment: Future Appointments (+ 6 [...] 20 appointments. The data comes from all [place] treatment facilities. Appointment Date/Time Appointment Type Appointme nt Facility Name Apr 20, 2023 03:30 PM [facility] May 22, 2023 03:00 PM [facility] [place] [facility] Jun 08, 2023 03:00 PM [facility] [place] [facility] Jun 09, 2023 10:40 AM [facility] [place] [facility] Jul 03, 2023 01:30 PM AM[facility]ULATORY - MEDICINE [facility] Aug 07, 2023 02:30 PM [facility] [place] [facility] Aug 08, 2023 04:00 PM [facility] [place] Aug 22, 2023 03:00 PM [facility] [place] [facility] Sep 19, 2023 03:00 PM [facility] [place] Lab Results: +/- 30 days of the encounter This section includes the Chemistry and Hematology Lab Results on record with [place] for the patient. Radiology Reports and Pathology Reports are provided separately, in subsequent sections. Lab Results This section contains the Chemistry/Hematology Results that were resulted 30 days before or 30 daysafter the date of the Encounter. Date/Time Source Result Type Result - Unit Interpretation Reference Range Comment Mar 27, 2023 03:20 PM [facility] ([facility]) CALCIUM Specimen Type: SERUM No comment entered. Ordering Provider: QUENTIN STOKES Report Released Date/Time: Mar 27, 2023 09:15 AM Reporting Lab: [facility] [place] [facility] [address] [facility] [address] Performing Lab: [facility] [place] [facility] [address] [facility] [address] CALCIUM 9.2 mg/dL 8.5-10.2 Mar 27, 2023 03:20 PM [facility] ([facility]) CREATININE (eGFR 2020) Specimen Type: SERUM No comment entered. Ordering Provider: QUENTIN STOKES Report Released Date/Time: Mar 27, 2023 09:15 AM Reporting Lab: [facility] [address] [facility] [address] Performing Lab: [address] [address] CREATININE, Serum 2.33 mg/dL H 0.50-1.40 eGFR(CKD-EPI 2020) 32 mL/min L >60 Mar 27, 2023 03:20 PM [facility] ([facility]) UREA NITROGEN Specimen Type: SERUM No comment entered. Ordering Provider: QUENTIN STOKES Report Released Date/Time: Mar 27, 2023 09:15 AM Reporting Lab: [address] [address] Performing Lab: [address] [address] UREA NITROGEN 40 mg/dL H 7-25 Mar 27, 2023 03:20 PM [facility] ([facility]) HEMOGLOBIN A1C PANEL Specimen Type: BLOOD Comment: Values obtained from A1C measurements can vary. For atypical A1C assays, a reported value of 7.0 could actually be between 6.72 and 7.28 if measured by a reference method. A reported value of 9.0 could actually be between 8.73 and 9.27. Ref: http://www.ngs p.org/CAPdata. asp Ordering Provider: QUENTIN STOKES Report Released Date/Time: Mar 27, 2023 09:15 AM Reporting Lab: [address] [address] Performing Lab: [address] [address] HEMOGLOBIN A1C 8.1 H 4.0-5.6 Mar 27, 2023 03:20 PM [facility] ([facility]) ELECTROLYTE PANEL Specimen Type: SERUM No comment entered. Ordering Provider: QUENTIN STOKES Report Released Date/Time: Mar 27, 2023 09:15 AM Reporting Lab: [address] [address] Performing Lab: [address] [address] SODIUM 137 mmol/L 135-145 POTASSIUM 4.7 mmol/L 3.5-5.0 CHLORIDE 104 mmol/L 100-110 CO2 24 meq/L 20-30 Mar 27, 2023 03:20 PM [facility] ([facility]) PROTEIN/CREATININE RATIO PANEL, URINE Specimen Type: URINE No comment entered. Ordering Provider: QUENTIN STOKES Report Released Date/Time: Mar 27, 2023 09:15 AM Reporting Lab: [facility] [address] [facility] [address] Performing Lab: [facility] [address] [facility] [address] CREATININE URINE 87.51 mg/dL UR PROTEIN/CREAT ININE RATIO 0.2 <0.2 PROTEIN, URINE 13.3 mg/dL 0.0-20.0 Social History: Smoking Status (Most current) and Tobacco Use (All prior to encounter date) This section includes the most current, and the historical, smoking and tobacco- related health factors from the [place] facility where the Encounter took place. Current Smoking Status This section includes the most current smoking, or tobacco-related health factor, from the [place] facility where the Encounter took place. Date/Time Current Smoking Status Comment Facil ity Aug 19, 2020 02:29 PM VA-TOBACCO FORMER USER [facility] Tobacco Use History This section includes a history of the smoking, or tobacco-related health factors, that were collected on or before the date of the Encounter. The data comes from the [place] facility where the Encounter took place. Date/Time Smoking Status/Tobacco Use Comment F acmyke Aug 19, 2020 02:29 PM VA-TOBACCO QUIT 15 YRS OR MORE [facility] Encounter Notes: All associated encounter notes This section contains the clinical notes associated to the Encounter. Date/Time Encounter Note(s) Provider Source Mar 27, 2023 08:38 AM ADMINISTRATIVE NOT E: LOCAL TITLE: ADMINISTRATIVE NOTE STANDARD TITLE: ADMINISTRATIVE NOTE DATE OF NOTE: MAR 27, 2023@08:38 ENTRY DATE: MAR 27, 2023@08:38:31 AUTHOR: RUDI RIGGINS EXP COSIGNER: URGENCY: STATUS: COMPLETED ADMINISTRATIVE NOTE Has ADDENDA requsting labs from outside smasher Dr. Arley Valdovinos be ordered by PCP to be drawn at [facility] Orders in PA[facility] RN mailbox. [place] requesting call at [phone] once ordered. /tam/ RUDI RIGGINS [employer] Signed: 03/27/2023 08:40 Receipt Acknowledged By: 03/27/2023 09:12 /es/ KATHRYN MARIE LPN LICENSED PRACTICAL NURSE 03/27/2023 09:26 /es/ GINO DUBON RN REGISTERED NURSE 03/27/2023 ADDENDUM STATUS: COMPLETED orders entered /tam/ KATHRYN MARIE LPN LICENSED PRACTICAL NURSE Signed: 03/27/2023 09:16 RUDI RIGGINS ([facility])
--- OUTSIDE RECORDS SUMMARY | 2024-03-11 13:01 | XMS_ITS ---
Author Name [facility] Organization [facility] Address [address] [place] [address] Care Team Providers Care Data Conversion Developer Name Role Phone KIKE WINDY Primary Care Provider Unavail able Insurance Providers: [...] Policy Rice MEDICARE (WNR) MEDICARE (M) PART B Feb 04, 2020 PART B [id number] [facility]ACIELA STOVER PATIENT MEDICARE (WNR) MEDICARE (M) PART A Feb 04, 2020 PART A [id number] GRACIELA STOVER PATIENT Selected Encounter This section includes the information on record at [place] for the Encounter. Date/Time Encounter Type Encounter Description Reason Provider Source Apr 20, 2023 03:30 PM MTMS BY PHARM ADDL 15 MIN CLINICAL PHARMACY ICD-10-CM E11.9 Type 2 diabetes mellitus without complications SUBHASH GALICIA E Encounter Template Text not used by [place] Assessments - Encounter Diagnoses This section includes the primary and secondary diagnoses documented for the Encounter. Date/Time Primary/Secondary Diagnosis Diagnosis Name Provider Source Apr 20, 2023 03:49 PM PRIMARY Type 2 diabetes mellitus without complications SUBHASH GALICIA [facility] [place] [facility] Plan of Treatment: Future Appointments (+ 6 months) and Future Tests (+/- 45 days) The Plan of Treatment section includes future care activities for the [facility] This section includes future appointments and future orders which are active, pending or scheduled. Future Appointments This section includes appointments that were scheduled to occur 6 months from the date of the Encounter, up to a maximum of 20 appointments. The data comes from all [place] treatment facilities. Appointment Date/Time Appointment Type Appointme nt Facility Name May 22, 2023 03:00 PM AMBULATORY - MEDICINE [facility] [place] [facility] Jun 08, 2023 03:00 PM AMBULATORY - MEDICINE [facility] [place] [facility] Jun 09, 2023 10:40 AM AMBULATORY - MEDICINE [facility] [place] [facility] Jul 03, 2023 01:30 PM [facility]ORY - MEDICINE [facility]) Aug 07, 2023 02:30 PM AMBULATORY - MEDICINE [facility] [place] [facility] Aug 08, 2023 04:00 PM AMBULATORY - MEDICINE [facility] [facility] Aug 22, 2023 03:00 PM AMBULATORY - MEDICINE [facility] [place] [facility] Sep 19, 2023 03:00 PM AMBULATORY - MEDICINE [facility] [facility] Oct 09, 2023 03:00 PM AMBULATORY - MEDICINE [facility] [place] [facility] Lab Results: +/- 30 days of the encounter This section includes the Chemistry and Hematology Lab Results on record with [place] for the patient. Radiology Reports and Pathology Reports are provided separately, in subsequent sections. Lab Results This section contains the Chemistry/Hematology Results that were resulted 30 days before or 30 daysafter the date of the Encounter. Date/Time Source Result Type Result - Unit Interpretation Reference Range Comment May 18, 2023 02:30 PM [place] ([facility]) CREATININE CLEARANCE (24 HOUR) Specimen Type: URINE No comment entered. Ordering Provider: QUENTIN STOKES Report Released Date/Time: May 17, 2023 08:05 AM Reporting Lab: [facility] [place] [address] [address] Performing Lab: [address] [address] VOLUME 3000 mL CREATININE URINE 39.61 mg/dL COMPUTED CREATININE CLEARANCE 44.8 mL/min L 75-125 May 15, 2023 08:21 AM [place] ([facility]) HEMOGLOBIN A1C PANEL Specimen Type: BLOOD [...] 27, 2023 03:02 PM Reporting Lab: [address] [address] Performing Lab: [address] [address] HEMOGLOBIN A1C 8.9 H 4.0-5.6 May 15, 2023 08:21 AM [place] ([facility]) UREA NITROGEN Specimen Type: SERUM No comment entered. Ordering Provider: QUENTIN STOKES Report Released Date/Time: Apr 27, 2023 03:02 PM Reporting Lab: [address] [address] Performing Lab: [address] [address] UREA NITROGEN 35 mg/dL H 7-25 May 15, 2023 08:21 AM [place] ([facility]) ELECTROLYTE PANEL Specimen Type: SERUM No comment entered. Ordering Provider: QUENTIN STOKES Report Released Date/Time: Apr 27, 2023 03:02 PM Reporting Lab: [address] [address] Performing Lab: [address] [address] SODIUM 137 mmol/L 135-145 POTASSIUM 5.5 mmol/L H 3.5-5.0 CHLORIDE 105 mmol/L 100-110 CO2 26 meq/L 20-30 May 15, 2023 08:21 AM [facility] ([facility]) CREATININE (eGFR 2020) Specimen Type: SERUM No comment entered. Ordering Provider: QUENTIN STOKES Report Released Date/Time: Apr 27, 2023 03:02 PM Reporting Lab: [facility] [address] [facility] [address] Performing Lab: [facility]USE[address] [address] CREATININE, Serum 1.84 mg/dL H 0.50-1.40 eGFR(CKD-EPI 2020) 42 mL/min L >60 Mar 27, 2023 03:20 PM [facility] ([facility]) CALCIUM Specimen Type: SERUM No comment entered. Ordering Provider: QUENTIN STOKES Report Released Date/Time: Mar 27, 2023 09:15 AM Reporting Lab: [facility] [address] [address] Performing Lab: [facility]ITALUSE[address] [address] CALCIUM 9.2 mg/dL 8.5-10.2 Mar 27, 2023 03:20 PM [facility] ([facility]) CREATININE (eGFR 2020) Specimen Type: SERUM No comment entered. Ordering Provider: QUENTIN STOKES Report Released Date/Time: Mar 27, 2023 09:15 AM Reporting Lab: [facility] [address] Performing Lab: [facility]USE[address] [address] CREATININE, Serum 2.33 mg/dL H 0.50-1.40 eGFR(CKD-EPI 2020) 32 mL/min L >60 Mar 27, 2023 03:20 PM [facility] ([facility]) UREA NITROGEN Specimen Type: SERUM No comment entered. Ordering Provider: QUENTIN STOKES Report Released Date/Time: Mar 27, 2023 09:15 AM Reporting Lab: [facility]USE[address] [address] Performing Lab: [facility]N [address] [address] UREA NITROGEN 40 mg/dL H 7-Mar 27, 2023 03:20 PM [place] ([facility]) HEMOGLOBIN A1C PANEL Specimen Type: BLOOD [...] Mar 27, 2023 09:15 AM Reporting Lab: [address] [address] Performing Lab: [place] [id number] HEMOGLOBIN A1C 8.1 H 4.0-5.6 Mar 27, 2023 03:20 PM [place] ([facility]) ELECTROLYTE PANEL Specimen Type: SERUM No comment entered. Ordering Provider: QUENTIN STOKES Report Released Date/Time: Mar 27, 2023 09:15 AM Reporting Lab: [address] [address] Performing Lab: [address] [address] SODIUM 137 mmol/L 135-145 POTASSIUM 4.7 mmol/L 3.5-5.0 CHLORIDE 104 mmol/L 100-110 CO2 24 meq/L -Mar 27, 2023 03:20 PM [place] ([facility]) PROTEIN/CREATININE RATIO PANEL, URINE Specimen Type: URINE No comment entered. Ordering Provider: QUENTIN STOKES Report Released Date/Time: Mar 27, 2023 09:15 AM Reporting Lab: [address] [address] Performing Lab: [address] [address] CREATININE URINE 87.51 mg/dL UR PROTEIN/CREAT ININE RATIO 0.2 <0.2 PROTEIN, URINE 13.3 mg/dL 0.0-20.0 Social History: Smoking Status (Most current) and Tobacco Use (All prior to encounter date) This section includes the most current, and the historical, smoking and tobacco- related health factors from the [place] facility where the Encounter took place. Current Smoking Status This section includes the most current smoking, or tobacco-related health factor, from the [place] facility where the Encounter took place. Date/Time Current Smoking Status Comment Filemon honeycutt Aug 19, 2020 02:29 PM VA-TOBACCO FORMER USER [facility] Tobacco Use History This section includes a history of the smoking, or tobacco-related health factors, that were collected on or before the date of the Encounter. The data comes from the [place] facility where the Encounter took place. Date/Time Smoking Status/Tobacco Use Comment Ahsan pulido Aug 19, 2020 02:29 PM VA-TOBACCO QUIT 15 YRS OR MORE [facility] Encounter Notes: All associated encounter notes This section contains the clinical notes associated to the Encounter. Date/Time Encounter Note(s) Provider Source Apr 20, 2023 03:30 PM PHARMACY OUTPATIENT NOTE: LOCAL TITLE: PHARMACY CLINIC NOTE STANDARD TITLE: PHARMACY OUTPATIENT NOTE DATE OF NOTE: APR 20, 2023@15:30 ENTRY DATE: APR 20, 2023@15:14:29 AUTHOR: LEV GALICIA COSIGNER: URGENCY: STATUS: COMPLETED DEIRDRE STOVER, 57 yo WHITE MALE, was seen for follow-up diabetes management treatment. Pt was last seen on 07/25/22, at which point insulin glargine 28 units daily was decreased to 26 units daily, and liraglutide 1.8mg daily and metformin 1g SA BID were continued. Pt had then cancelled on f/u appts due to emergent issues with kidney CA. Today, pt reports taking his DM medications as follows: insulin glargine 30 units daily and metformin 1500mg SA qAM and 500mg SA qPM. 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 He is not currently on any CA tx for his kidney, but he is closely followed by non-VA nephrology. About 5 months ago, pt's non-VA provider d/c'ed liraglutide and switched him to dulaglutide 1.5mg weekly. He took dulaglutide for 3 months until he ran out of the supply 2 months ago. Pt does not recall having any issues (e.g., skin rash) while taking liraglutide last year. He noticed his BG readings being higher since being off of GLP1. He denies any recent s/sx of hypoglycemia. Target Goals: A1C: 7%; FB-130 mg/dL OBJECTIVE: Allergies/ADR: NORVASC, INDOCIN, PERCOCET Active and Recently Outpatient Medications (including Supplies): Active Outpatient Medications Status 1) CARVEDILOL 25MG TAB TAKE ONE TABLET BY MOUTH TWICE ACTIVE DAILY 2) CHOLECALCIF 50MCG (D3-2,000UNIT) TAB TAKE ONE TABLET ACTIVE BY MOUTH ONCE DAILY FOR VITAMIN SUPPLEMENTATION not taking 3) CLOPIDOGREL BISULFATE 75MG TAB TAKE ONE TABLET BY ACTIVE MOUTH ONCE DAILY TO PREVENT BLOOD CLOTS STOP BRILLINTA WHEN YOU START THIS MEDICATION 4) FELODIPINE 5MG SA TAB TAKE ONE TABLET BY MOUTH AT ACTIVE BEDTIME DO NOT TAKE WITH GRAPEFRUIT JUICE taking 2.5mg qAM and 5mg qPM 5) NEEDLE,PEN 32G,4MM USE 1 NEEDLE SUBCUTANEOUSLY ONCE ACTIVE DAILY NEEDED FOR USE WITH PEN DEVICE 6) NITROGLYCERIN 0.4MG SL TAB DISSOLVE ONE TABLET UNDER ACTIVE THE TONGUE EVERY 5 MINUTES NEEDED FOR CHEST PAIN; IF NO RELIEF AFTER 3 DOSES, CALL 911 OR GO TO NEAREST EMERGENCY ROOM 7) PANTOPRAZOLE NA 40MG EC TAB TAKE ONE TABLET BY MOUTH ACTIVE EVERY MORNING 30 MINUTES BEFORE BREAKFAST FOR EXCESSIVE PRODUCTION OF STOMACH ACID 8) ROSUVASTATIN CA 5MG TAB TAKE ONE TABLET BY MOUTH ONCE ACTIVE DAILY FOR CHOLESTEROL Inactive Outpatient Medications Status 1) CEFPODOXIME PROXETIL 100MG TAB TAKE TWO TABLETS BY MOUTH TWICE DAILY FOR 3 DAYS 2) DOCUSATE NA 50MG/SENNOSIDES 8.6MG TAB TAKE 1 TABLET BY MOUTH ONCE DAILY NEEDED FOR CONSTIPATION 3) INSULIN,GLARGINE-YFGN 100UNIT/ML PEN 3ML INJECT 26 UNITS SUBCUTANEOUSLY ONCE DAILY (REPLACES LANTUS) taking 30 units daily 4) ISOSORBIDE MONONITRATE 30MG SA TAB TAKE ONE-HALF TABLET BY MOUTH ONCE DAILY not taking 5) METFORMIN HCL 500MG 24HR SA TAB TAKE TWO TABLETS BY MOUTH TWICE DAILY FOR TYPE 2 DIABETES MELLITUS taking 1500mg qAM and 500mg qPM Active Non-VA Medications Status 1) Non-VA ASPIRIN 81MG EC TAB 81MG BY MOUTH ONCE DAILY ACTIVE 2) Non-VA FELODIPINE 5MG SA TAB 5MG BY MOUTH ONCE DAILY ACTIVE duplicate - taking 2.5mg qAM and 5mg qPM Also taking: MVI 1 daily Diabetes Medication Regimen: -- Oral meds: metformin 1500mg SA qAM and 500mg SA qPM -- Insulin: insulin glargine 28 units qPM -- Other: liraglutide 1.8mg daily Note: pt previously on non-VA dulaglutide 1.5mg daily, but PA-F for semaglutide was not approved due to requiring trial of SGLT2i first; he denies any AEs with dulaglutide in past Note: pt had rash on max dose of semaglutide Note: trial of empagliflozin resulted in intolerable dizziness Labs: LAB CUMULATIVE SELECTED Collection DT Spec GLUCOSE BUN CREATIN Sodium K+/Pot CL CO2 03/27/2023 15:20 SERUM 40 H 2.33 H 137 4.7 104 24 02/16/2023 14:33 SERUM 201 H 41 H 2.12 H 137 4.7 104 24 07/22/2022 15:48 SERUM 188 H 21 1.25 138 4.7 104 24 03/08/2022 15:12 SERUM 167 H 26 H 1.41 H 135 4.6 103 25 11/15/2021 08:30 SERUM 203 H 33 H 1.71 H 139 5.2 H 105 24 eGFR CKD-EPI 202003/27/23 15:20 32 L SERUM eGFR CKD-EPI 202007/22/22 15:48 56 L SERUM eGFR CKD-EPI 202003/08/22 15:12 58 L SERUM eGFR CKD-EPI 202011/15/21 08:30 46 L SERUM LIVER PANEL TREND Collection DT Spec AST ALT T BILI ALK DARRICK T. PROT ALBUMIN 07/22/2022 15:48 SERUM 17 39 0.5 124 6.9 3.9 08/10/2021 07:18 SERUM 13 18 0.4 100 7.3 3.9 03/19/2021 07:16 SERUM 21 31 0.4 142 6.9 3.4 L 09/09/2020 11:52 SERUM 14 18 0.5 91 7.0 3.7 HEMOGLOBIN A1C TREND Collection DT Spec HGBA1c 03/27/2023 15:20 BLOOD 8.1 H 02/16/2023 14:33 BLOOD 8.2 H 07/22/2022 15:48 BLOOD 7.0 H 03/08/2022 15:12 BLOOD 9.1 H 11/15/2021 08:30 BLOOD 7.8 H LIPID PANEL TREND Collection DT Spec CHOL HDL CHO/HDL LDL-c TRIG 07/22/2022 15:48 SERUM 159 38 L 4.2 83 190 H 03/19/2021 07:16 SERUM 134 31 L 4.3 60 217 H 09/09/2020 11:52 SERUM 137 38 L 3.6 80 93 Vitals: Ht: 72 in [182.9 cm] (02/22/2022 15:12) Wt: 252 lb [114.31 kg] (02/20/2023 13:00) BMI: BMI: 34.2 BP: 147/77 (02/20/2023 13:04) HR: 69 (02/20/2023 13:00) Pain: 2 (02/20/2023 13:00) SMB:00- 05:30- 08:00- 11:00- 12:30- 17:00- 18:30- 21:30- 05:30 08:00 11:00 12:30 17:00 18:30 21:30 00:00 # of tests 0 2 9 3 9 0 0 0 Average 0 187 183 141 160 0 0 0 SD 11.3 22.4 36.5 35.9 Hi/Lo 0 0 0 0 0 0 0 0 e 01/24/2023 143 Christianne 02/16/2023 186 Christianne 02/23/2023 144 03/08/2023 113 Christianne 03/09/2023 127 03/10/2023 182 03/14/2023 175 03/20/2023 121 03/22/2023 138 158 Christianne 03/23/2023 151 04/04/2023 139 04/05/2023 191 145 208 Christianne 04/06/2023 179 04/11/2023 195 04/12/2023 196 04/17/2023 238 04/18/2023 197 04/19/2023 200 Christianne 04/20/2023 195 165 SMBG assessment: pt testing before eating. Readings more elevated recently over the last 1-2 months after running out of TrNERITES. No lows Prev avgs: FBG 134, post-b 137, pre-lunch 117. Diet Patterns: patient eats on avg. 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 Other: lives w/ girlfriend Personal Goals: I don't think about it - gets anxious when he thinks too much about it (his DM/BG control) HYPOGLYCEMIC Events: 0 in last 2 weeks - Hypoglycemia recognition & treatment reviewed: Yes ASSESSMENT/PLAN: DIABETES A1c is above goal of <7% (8.1% on 03/27/23) - Medication management - DECREASE metformin 1500mg SA qAM and 500mg SA qPM to 500mg SA BID (eGFR 31) - RESUME liraglutide from 1.8mg daily - CONTINUE insulin glargine 30 units daily - Advised to notify telegraphic typewriter installer if any AEs (like skin rash) occur while on GLP1 - Noted pt may be restarted on SGLT2I by non-VA nephrology - pt will notify clinic if any med changes are made. Will likely need a dose decrease of BP meds and insulin dose of SGLT2I is started (pt had dizziness/passing out with past use of empagliflozin + other cardiac meds) - Increase SMBG to 1-2x/day - FBG, pre-dinner, bedtime. Counseled to wait at least 2 hours after eating to test PPG. Pt tests his BG on his forearm - Monitor for s/sx hypoglycemia and contact clinic if BG consistently <70mg/dL - pt has juice - Healthy dietary and lifestyle modifications encouraged - advised to continue regular physical activity as tolerated - Repeat A1c: Oct 2022 HTN: above goal; on felodipine, carvedilol; defer to PCP/cardiology/nephrology Lipids: at goal; on rosuvastatin 5mg daily ASA: on ASA/clopidogrel Microalb: Feb 16, 2023@14:33 URINE mALB/Cr: 91.4 H mg/G; not on ACEi/ARB Podiatry: 02/03/23 Optometry: due now Clinic's Next Scheduled Follow-up: 05/23/23 @1530 *FtF* Future appointments: 06/08/2023 15:00 CWM/NO/PODIATRY A 07/20/2023 15:00 CWM/GO/PACT 4 Time Spent: 30 minutes PBM PharmD Pharmacotherapy Rem V12: PHARMACIST INTERVENTIONS: TYPE 2 DIABETES MELLITUS Medication Intervention(s) Adjust dose or frequency of current medication due to other reason Initiate new medication Medication reconciliation (changes to active VA and non-VA medication lists to reconcile differences) Changes to medication lists made Update dose, frequency, duration and/or dosage form of medication Discontinue or remove medication Add or renew medication /es/ Lev Galicia, PharmD Clinical Licensed Professional Counselor Signed: 04/20/2023 16:15 LEV GALICIA [facility]
--- OUTSIDE RECORDS SUMMARY | 2024-03-11 13:01 | XMS_ITS | Encounter Summary ---
Author Name [facility] [place] Organization [place] Address [address] [place] [address] Care Team Providers Care Chief Nuclear Medicine Technologist Name Role Phone VICKIEALEXANDER MCCRACKENYAJAIRADERICK Primary Care [...] PART A Feb 04, 2020 PART A [id number] [address] [facility] ST[facility] PATIENT MEDICARE (WNR) MEDICARE (M) PART B Feb 04, 2020 PART B [id number] [address] [facility] GRAC[facility] STOVER PATIENT Selected Encounter This section includes the information on record at [place] for the Encounter. Date/Time Encounter Type Encounter Description Reason Pro vider Source Mar 22, 2023 12:20 PM Outpatient Encounter COMMUNITY CARE CONSULT IHE Encounter Template Text not used by [facility] Plan of Treatment: Future Appointments (+ 6 [...] 20 appointments. The data comes from all [place] treatment facilities. Appointment Date/Time Appointment Type Appointme nt Facility Name Mar 24, 2023 12:00 PM [place]ORY [place] [facility] [place] [facility] Apr 20, 2023 03:30 PM [place] [facility] May 22, 2023 03:00 PM [place] [facility] [facility] Jun 08, 2023 03:00 PM [place] [facility] Jun 09, 2023 10:40 AM [place] [facility] [facility] Jul 03, 2023 01:30 PM AMBULATORY - MEDICINE [facility] ([facility] Aug 07, 2023 02:30 PM [place] [facility] [facility] Aug 08, 2023 04:00 PM [place] [facility] [facility] Aug 22, 2023 03:00 PM [place] [facility] Sep 19, 2023 03:00 PM [place]ORY [place]INE [place] [facility] Lab Results: +/- 30 days of the encounter This section includes the Chemistry and Hematology Lab Results on record with [place] for the patient. Radiology Reports and Pathology Reports are provided separately, in subsequent sections. Lab Results This section contains the Chemistry/Hematology Results that were resulted 30 days before or 30 daysafter the date of the Encounter. Date/Time Source Result Type Result - Unit Interpretation Reference Range Comment Mar 27, 2023 03:20 PM [place] ([place]) CALCIUM Specimen Type: SERUM No comment entered. Ordering Provider: QUENTIN STOKES Report Released Date/Time: Mar 27, 2023 09:15 AM Reporting Lab: [facility] [address] [address] Performing Lab: [place] [facility] [address] [address] CALCIUM 9.2 mg/dL 8.5-10.2 Mar 27, 2023 03:20 PM [place] ([facility]) CREATININE (eGFR 2020) Specimen Type: SERUM No comment entered. Ordering Provider: QUENTIN STOKES Report Released Date/Time: Mar 27, 2023 09:15 AM Reporting [facility]: [facility] [address] [address] Performing Lab: [facility] [address] [address] CREATININE, Serum 2.33 mg/dL H 0.50-1.40 eGFR(CKD-EPI 2020) 32 mL/min L >60 Mar 27, 2023 03:20 PM [place] ([facility]) UREA NITROGEN Specimen Type: SERUM No comment entered. Ordering Provider: QUENTIN STOKES Report Released Date/Time: Mar 27, 2023 09:15 AM Reporting Lab: [facility] [address] [address] Performing Lab: [address] [address] UREA NITROGEN 40 mg/dL H 7-25 Mar 27, 2023 03:20 PM [place] ([facility]) HEMOGLOBIN A1C PANEL Specimen Type: BLOOD [...] Mar 27, 2023 09:15 AM Reporting Lab: [address] [address] Performing Lab: [address] [address] HEMOGLOBIN A1C 8.1 H 4.0-5.6 Mar 27, 2023 03:20 PM [place] ([facility]) ELECTROLYTE PANEL Specimen Type: SERUM No comment entered. Ordering Provider: QUENTIN STOKES Report Released Date/Time: Mar 27, 2023 09:15 AM Reporting Lab: [address] [address] Performing Lab: [facility] [address] [address] SODIUM 137 mmol/L 135-145 POTASSIUM 4.7 mmol/L 3.5-5.0 CHLORIDE 104 mmol/L 100-110 CO2 24 meq/L 20-30 Mar 27, 2023 03:20 PM [place] ([facility]) PROTEIN/CREATININE RATIO PANEL, URINE Specimen Type: URINE No comment entered. Ordering Provider: QUENTIN STOKES Report Released Date/Time: Mar 27, 2023 09:15 AM Reporting Lab: [facility] [address] [address] Performing Lab: [address] [address] CREATININE URINE 87.51 mg/dL UR PROTEIN/CREAT ININE RATIO 0.2 <0.2 PROTEIN, URINE 13.3 mg/dL 0.0-20.0 Social History: Smoking Status (Most current) and Tobacco Use (All prior to encounter date) This section includes the most current, and the historical, smoking and tobacco- related health factors from the [place] facility where the Encounter took place. Current Smoking Status This section includes the most current smoking, or tobacco-related health factor, from the [place] facility where the Encounter took place. Date/Time Current Smoking Status Comment Filemon honeycutt Aug 19, 2020 02:29 PM VA-TOBACCO FORMER USER [facility] Tobacco Use History This section includes a history of the smoking, or tobacco-related health factors, that were collected on or before the date of the Encounter. The data comes from the [place] facility where the Encounter took place. Date/Time Smoking Status/Tobacco Use Comment F tess Aug 19, 2020 02:29 PM VA-TOBACCO QUIT 15 YRS OR MORE [facility] Encounter Notes: All associated encounter notes This section contains the clinical notes associated to the Encounter. Date/Time Encounter Note(s) Provider Source Mar 22, 2023 12:20 PM ADMINISTRATIVE NOTE: LOCAL TITLE: ADMINISTRATIVE NOTE STANDARD TITLE: ADMINISTRATIVE NOTE DATE OF NOTE: MAR 22, 2023@12:20 ENTRY DATE: MAR 22, 2023@12:20:29 AUTHOR: JOI CRUZ COSIGNER: URGENCY: STATUS: COMPLETED ADMINISTRATIVE NOTE Has ADDENDA PLEASE ENTER NEW CONSULT FOR NEW NEPHROLOGY PROVIDER [facility] [address] [place] [address] [phone] NPI--[id number] APPT--03/24/2023 REASON---N18.9 /tam/ JOI BARRON Signed: 03/22/2023 12:21 Receipt Acknowledged By: 07/03/2023 14:04 /tam/ Franklin Stokes MD MD PRIMARY CARE PHYSICIAN 03/22/2023 13:12 /tam/ GINO DUBON RN REGISTERED NURSE 03/22/2023 ADDENDUM STATUS: COMPLETED CC consult placed and awaiting review. /tam/ GINO DUBON RN REGISTERED NURSE Signed: 03/22/2023 13:12 JOI CRUZ CNTRL [facility]
--- OUTSIDE RECORDS SUMMARY | 2024-03-11 13:01 | XMS_ITS | Encounter Summary ---
Author Name [facility] [place] Organization [place] Address [address] [place] [address] Care Team Providers Care Child Welfare Consultant Name Role Phone WINDY STOKES Primary Care Provider Unavail able Insurance Providers: [...] PART A Feb 04, 2020 PART A [id number] [address] [facility] ST[facility] PATIENT MEDICARE (WNR) MEDICARE (M) PART B Feb 04, 2020 PART B [id number] [address] [facility] GRACI[facility]A STOVER PATIENT Selected Encounter This section includes the information on record at [place] for the Encounter. Date/Time Encounter Type Encounter Description Reason Pro vider Source May 11, 2023 08:12 AM Outpatient Encounter ADMIN PAT ACTIVTIES (MASNONCT) IHE Encounter Template Text not used by [place] Plan of Treatment: Future Appointments (+ 6 [...] 20 appointments. The data comes from all [place] treatment facilities. Appointment Date/Time Appointment Type Appointme nt Facility Name May 22, 2023 03:00 PM AMBULATORY - MEDICINE [place] [facility] [place] [facility] Jun 08, 2023 03:00 PM AMBULATORY - MEDICINE [place] [facility] [place] [facility] Jun 09, 2023 10:40 AM AMBULATORY - MEDICINE [place] [facility] [place] [facility] Jul 03, 2023 01:30 PM AMBULATORY - MEDICINE [facility] Aug 07, 2023 02:30 PM AMBULATORY - MEDICINE [place] [facility] [facility] Aug 08, 2023 04:00 PM AMBULATORY - MEDICINE [place] [facility] [place] [facility] Aug 22, 2023 03:00 PM AMBULATORY - MEDICINE [place] [facility] [place] [facility] Sep 19, 2023 03:00 PM AMBULATORY - MEDICINE [place] [facility] [place] [facility] Oct 09, 2023 03:00 PM AMBULATORY - MEDICINE [place] [facility] [place] [facility] Oct 23, 2023 11:00 AM AMBULATORY - MEDICINE [place] [facility] [place] [facility] Oct 26, 2023 11:30 AM AMBULATORY - MEDICINE [facility] ([facility]) Nov 09, 2023 11:20 AM AMBULATORY - MEDICINE [place] [facility] [place] [facility] Lab Results: +/- 30 days of the encounter This section includes the Chemistry and Hematology Lab Results on record with [place] for the patient. Radiology Reports and Pathology Reports are provided separately, in subsequent sections. Lab Results This section contains the Chemistry/Hematology Results that were resulted 30 days before or 30 daysafter the date of the Encounter. Date/Time Source Result Type Result - Unit Interpretation Reference Range Comment May 18, 2023 02:30 PM [place] ([facility]) CREATININE CLEARANCE (24 HOUR) Specimen Type: URINE No comment entered. Ordering Provider: QUENTIN STOKES Report Released Date/Time: May 17, 2023 08:05 AM Reporting [facility]: [facility] [address] [address] Performing Lab: [facility] [address] [address] VOLUME 3000 mL CREATININE URINE 39.61 mg/dL COMPUTED CREATININE CLEARANCE 44.8 mL/min L 75-125 May 15, 2023 08:21 AM [place] ([facility]) UREA NITROGEN Specimen Type: SERUM No comment entered. Ordering Provider: QUENTIN STOKES Report Released Date/Time: Apr 27, 2023 03:02 PM Reporting Lab: [address] [address] Performing Lab: [place] [id number] UREA NITROGEN 35 mg/dL H 7-May 15, 2023 08:21 AM [place] ([facility]) HEMOGLOBIN A1C PANEL Specimen Type: BLOOD [...] Apr 27, 2023 03:02 PM Reporting Lab: [address] [address] Performing Lab: [address] [address] HEMOGLOBIN A1C 8.9 H 4.0-5.6 May 15, 2023 08:21 AM [place] ([facility]) ELECTROLYTE PANEL Specimen Type: SERUM No comment entered. Ordering Provider: QUENTIN STOKES Report Released Date/Time: Apr 27, 2023 03:02 PM Reporting Lab: [address] [address] Performing Lab: [address] [address] SODIUM 137 mmol/L 135-145 POTASSIUM 5.5 mmol/L H 3.5-5.0 CHLORIDE 105 mmol/L 100-110 CO2 26 meq/L -May 15, 2023 08:21 AM [place] ([place]) CREATININE (eGFR 2020) Specimen Type: SERUM No comment entered. Ordering Provider: QUENTIN STOKES Report Released Date/Time: Apr 27, 2023 03:02 PM Reporting Lab: [facility] [address] [facility] [address] Performing Lab: [facility] [address] [facility] [address] CREATININE, Serum 1.84 mg/dL H 0.50-1.40 eGFR(CKD-EPI 2020) 42 mL/min L >60 Social History: Smoking Status (Most current) and Tobacco Use (All prior to encounter date) This section includes the most current, and the historical, smoking and tobacco- related health factors from the [place] facility where the Encounter took place. Current Smoking Status This section includes the most current smoking, or tobacco-related health factor, from the [place] facility where the Encounter took place. Date/Time Current Smoking Status Comment Facil yinka Aug 19, 2020 02:29 PM VA-TOBACCO FORMER USER [facility] Tobacco Use History This section includes a history of the smoking, or tobacco-related health factors, that were collected on or before the date of the Encounter. The data comes from the [place] facility where the Encounter took place. Date/Time Smoking Status/Tobacco Use Comment F tess Aug 19, 2020 02:29 PM VA-TOBACCO QUIT 15 YRS OR MORE [facility] Encounter Notes: All associated encounter notes This section contains the clinical notes associated to the Encounter. Date/Time Encounter Note(s) Provider Source May 11, 2023 08:12 AM PHARMACY NOTE: LOCAL TITLE: V1 PHARMACY CUSTOMER CARE MEDICATION RENEWAL STANDARD TITLE: PHARMACY NOTE DATE OF NOTE: MAY 11, 2023@08:12 ENTRY DATE: MAY 11, 2023@08:12:17 AUTHOR: ADRIAN CELAYA COSIGNER: URGENCY: STATUS: COMPLETED V1 PHARMACY CUSTOMER CARE MEDICATION RENEWAL Has ADDENDA Date: May Division: [facility] referred by Pharmacy Call Center for medication renewal: Non-controlled/maintena nce medication Medications requested: [id number] FELODIPINE 2.5MG SA TAB * This medication is discontinued per the medication profile, however the requested to fill it through the [place]. The [place] can be reached at to discuss further. Patient is out of medication and would appreciate expedited delivery if available. Please contact the outpatient pharmacy for assistance with shipment. Defer to primary care provider To be mailed . Please review and renew if appropriate. *This note was generated by [facility] Pharmacy Customer Care. If you have any questions or need assistance, do not contact this author. Please refer all questions to your local, on-site pharmacy departments. /fabian CELAYA CPhT Trauma Registrar, [place]/Pharmacy Customer Care Signed: 05/11/2023 08:16 05/11/2023 ADDENDUM STATUS: COMPLETED Please disregard. New Rx is on hold. Will forward request to pharmacy to fill. /fabian CELAYA CPhT Trauma Registrar, [place]/Pharmacy Customer Care Signed: 05/11/2023 08:22 ADRIAN CELAYA [place] [facility]
--- OUTSIDE RECORDS SUMMARY | 2024-03-11 13:01 | XMS_ITS ---
Author Name [facility] [place] Organization [place] Address [address] [place] [address] Care Team Providers Care Manager Digital Name Role Phone VICKIENAWAF NAVADERICK Primary Care Provider Unavail able Insurance Providers: [...] PART A Feb 04, 2020 PART A [id number] [address] [facility] ST[facility] PATIENT MEDICARE (WNR) MEDICARE (M) PART B Feb 04, 2020 PART B [id number] NE[address] [facility] GRACI[facility]A STOVER PATIENT Selected Encounter This section includes the information on record at [place] for the Encounter. Date/Time Encounter Type Encounter Description Reason Pro vider Source Mar 13, 2023 12:00 AM Outpatient Encounter COMMUNITY CARE CONSULT IHE Encounter [...] 20 appointments. The data comes from all [place] treatment facilities. Appointment Date/Time Appointment Type Appointme nt Facility Name Mar 24, 2023 12:00 PM AMBULATORY - MEDICINE [place] [place] [facility] Apr 20, 2023 03:30 PM AMBULATORY - MEDICINE [place] [facility] [place] [facility] May 22, 2023 03:00 PM AMBULATORY - MEDICINE [place] [facility] [place] [facility] Jun 08, 2023 03:00 PM AMBULATORY - MEDICINE [place] [facility] [place] [facility] Jun 09, 2023 10:40 AM AMBULATORY - MEDICINE [place] [facility] Jul 03, 2023 01:30 PM AMBULATORY - MEDICINE [facility] ([facility] Aug 07, 2023 02:30 PM AMBULATORY - MEDICINE [place] [facility] Aug 08, 2023 04:00 PM AMBULATORY - MEDICINE [place] [facility] [facility] Aug 22, 2023 03:00 PM AMBULATORY - MEDICINE [place] [place] [facility] Lab Results: +/- 30 days of the encounter This section includes the Chemistry and Hematology Lab Results on record with [place] for the patient. Radiology Reports and Pathology [...] Mar 27, 2023 09:15 AM Reporting Lab: [place] [facility] [place] [facility] [address] [facility] [address] Performing Lab: [place] [facility] [place] [facility] [address] [facility] [address] CALCIUM 9.2 mg/dL 8.5-10.2 Mar 27, 2023 03:20 PM [place] ([facility]) CREATININE (eGFR 2020) Specimen Type: SERUM No comment entered. Ordering Provider: QUENTIN STOKES Report Released Date/Time: Mar 27, 2023 09:15 AM Reporting Lab: [place] [facility] [address] [facility] [address] Performing Lab: [facility] [address] [address] CREATININE, Serum 2.33 mg/dL H 0.50-1.40 eGFR(CKD-EPI 2020) 32 mL/min L >60 Mar 27, 2023 03:20 PM [place] ([facility]) UREA NITROGEN Specimen Type: SERUM No comment entered. Ordering Provider: QUENTIN STOKES Report Released Date/Time: Mar 27, 2023 09:15 AM Reporting Lab: [address] [address] Performing Lab: [address] [address] UREA NITROGEN 40 mg/dL H 7-25 Mar [...] Mar 27, 2023 09:15 AM Reporting Lab: [address] [address] Performing Lab: [address] [address] HEMOGLOBIN A1C 8.1 H 4.0-5.6 Mar 27, 2023 03:20 PM [place] ([facility]) ELECTROLYTE PANEL Specimen Type: SERUM No comment entered. Ordering Provider: QUENTIN STOKES Report Released Date/Time: Mar 27, 2023 09:15 AM Reporting Lab: [address] [address] Performing Lab: [address] [address] SODIUM 137 mmol/L 135-145 POTASSIUM 4.7 mmol/L 3.5-5.0 CHLORIDE 104 mmol/L 100-110 CO2 24 meq/L -30 Mar 27, 2023 03:20 PM [place] ([facility]) PROTEIN/CREATININE RATIO PANEL, URINE Specimen Type: URINE No comment entered. Ordering Provider: QUENTIN STOKES Report Released Date/Time: Mar 27, 2023 09:15 AM Reporting Lab: [address] [address] Performing Lab: [address] [address] CREATININE URINE 87.51 mg/dL UR PROTEIN/CREATI NINE RATIO 0.2 <0.2 PROTEIN, URINE 13.3 mg/dL 0.0-20.0 Feb 16, 2023 02:33 PM [place] ([facility]) VITAMIN B12 Specimen Type: SERUM No comment entered. Ordering Provider: QUENTIN STOKES Report Released Date/Time: Feb 01, 2023 10:00 AM Reporting Lab: [address] [address] Performing Lab: [address] [address] VITAMIN B12 428 pg/mL 200-900 Feb 16, 2023 02:33 PM [place] ([facility]) VITAMIN D (25-OH) Specimen Type: SERUM No comment entered. Ordering Provider: QUENTIN STOKES Report Released Date/Time: Feb 01, 2023 10:00 AM Reporting Lab: [address] [address] Performing Lab: [address] [address] VITAMIN D (25-OH) <13 ng/mL L 20-50 Feb 16, 2023 02:33 PM [place] ([facility]) FERRITIN Specimen Type: SERUM No comment entered. Ordering Provider: QUENTIN STOKES Report Released Date/Time: Feb 01, 2023 10:00 AM Reporting Lab: [address] [address] Performing Lab: [facility] [address] FERRITIN 27 ng/mL 20-300 Feb 16, 2023 02:33 PM [place] ([facility]) HEMOGLOBIN A1C PANEL Specimen Type: BLOOD Comment: Values obtained from A1C measurements can vary. For atypical A1C assays, a reported value of 7.0 could actually be between 6.72 and 7.28 if measured by a reference method. A reported value of 9.0 could actually be between 8.73 and 9.27. Ref: http://www.ngs p.org/CAPdata. asp Ordering Provider: QUENTIN STOKES Report Released Date/Time: Feb 01, 2023 10:00 AM Reporting Lab: [facility] [address] [address] Performing Lab: [facility] [address] [address] HEMOGLOBIN A1C 8.2 H 4.0-5.6 Feb 16, 2023 02:33 PM [place] ([facility]) IRON & TIBC PANEL Specimen Type: SERUM No comment entered. Ordering Provider: QUENTIN STOKES Report Released Date/Time: Feb 01, 2023 10:00 AM Reporting Lab: [facility] [address] [address] Performing Lab: [facility] [address] [address] TIBC 396 ug/dL 204-475 IRON 132 ug/dL 40-160 Transferrin Saturation 33.3 20.0-50.0 Feb 16, 2023 02:33 PM [place] ([facility]) MICROALBUMIN CREATININE RATIO PANEL Specimen Type: URINE No comment entered. Ordering Provider: QUENTIN STOKES Report Released Date/Time: Feb 01, 2023 10:00 AM Reporting Lab: [facility] [address] [address] Performing Lab: [facility] [address] [address] MICROALBUMIN/C REATININE RATIO 91.4 mg/g H 0-29.9 MICROALBUMIN,Q UANTITATIVE 4.8 mg/dL RR UNAVAIL CREATININE URINE 52.51 mg/dL Feb 16, 2023 02:33 PM [place] ([facility]) BASIC METABOLIC PANEL (non-fasting) Specimen Type: SERUM No comment entered. Ordering Provider: QUENTIN STOKES Report Released Date/Time: Feb 01, 2023 10:00 AM Reporting Lab: [address] [address] Performing Lab: [address] [address] UREA NITROGEN 41 mg/dL H 7-25 GLUCOSE 201 mg/dL H 65-100 SODIUM 137 mmol/L 135-145 POTASSIUM 4.7 mmol/L 3.5-5.0 CHLORIDE 104 mmol/L 100-110 CO2 24 meq/L 20-30 CREATININE, Serum 2.12 mg/dL H 0.50-1.40 eGFR(CKD-EPI 2020) 36 mL/min L >60 Feb 16, 2023 02:33 PM [place] ([facility]) CBC AND DIFF (AUTO) Specimen Type: BLOOD No comment entered. Ordering Provider: QUENTIN STOKES Report Released Date/Time: Feb 01, 2023 10:00 AM Reporting Lab: [address] [address] Performing Lab: [address] [address] WBC 5.57 10*3/uL 4.50-11.00 RBC 4.16 10*6/uL L 4.23-5.66 HGB 12.6 g/dL L 12.8-17 HCT 37.8 L 39.2-50.4 MCV 90.9 fL 82-99 MCHC 33.3 g/dL 30.8-35.1 PLT 187 10*3/uL 140-360 RDW-CV 12.4 12.0-16.0 [place], Abs 0.50 10*3/uL 0.30-1.10 MCH 30.3 pg 26.2-32.6 Neut % 50.3 43.7-75.8 Lymph % 32.5 14.0-42.3 [place] % 9.0 5.1-13.7 Eos % 5.0 0.4-6.8 Baso % 0.7 0.1-2.0 Neut, Abs 2.80 10*3/uL 2.20-7.60 Lymph, Abs 1.81 10*3/uL 1.00-3.20 Eos, Abs 0.28 10*3/uL 0.03-0.44 Baso, Abs 0.04 10*3/uL 0.01-0.13 Immature Gran % 2.5 H 0.0-0.7 Immature Gran, Abs 0.14 10*3/uL H 0.00-0.06 Social History: Smoking Status (Most current) and Tobacco Use (All prior to encounter date) This section includes the most current, and the historical, smoking and tobacco- related health factors from the [place] facility where the Encounter took place. Current Smoking Status This section includes the most current smoking, or tobacco-related health factor, from the [place] facility where the Encounter took place. Date/Time Current Smoking Status Comment Facil yinka Aug 19, 2020 02:29 PM VA-TOBACCO FORMER USER [facility] Tobacco Use History This section includes a history of the smoking, or tobacco-related health factors, that were collected on or before the date of the Encounter. The data comes from the [place] facility where the Encounter took place. Date/Time Smoking Status/Tobacco Use Comment F tess Aug 19, 2020 02:29 PM [place]-TOBACCO QUIT 15 YRS OR MORE [facility] Encounter Notes: All associated encounter notes This section contains the clinical notes associated to the Encounter. Date/Time Encounter Note(s) Provider Source Mar 13, 2023 12:00 AM NONVA CONSULT: LOCAL TITLE: COMMUNITY CARE-CONSULT RESULT NOTE STANDARD TITLE: NONVA CONSULT DATE OF NOTE: MAR 13, 2023 ENTRY DATE: MAR 23, 2023@08:47:26 AUTHOR: BRINDA CRABTREE EXP COSIGNER: URGENCY: STATUS: COMPLETED VistA Imaging - Scanned Document SCANNED DOCUMENT SIGNATURE NOT REQUIRED Electronically Filed: 03/23/2023 by: BRINDA CRABTREE SALES REPRESENTATIVE PRINTING BRINDA CRABTREE [facility]
--- OUTSIDE RECORDS SUMMARY | 2024-03-11 13:01 | XMS_ITS ---
Author Name [facility] Organization [facility] Address [address] [place] [address] Care Team Providers Care Piccoloist Name Role Phone VICKIENAWAF WINDY Primary Care Provider Unavail able Insurance [...] PART A Feb 04, 2020 PART A [id number] [facility] [place] PATIENT MEDICARE (WNR) MEDICARE (M) PART B Feb 04, 2020 PART B [id number] [address] GRAC[facility]A STOVER PATIENT Selected Encounter This section includes the information on record at [place] for the Encounter. Date/Time Encounter Type Encounter Description Reason Pro vider Source Mar 29, 2023 03:08 PM Outpatient Encounter TELEPHONE/REHAB AND SUPPORT IHE Encounter Template Text not used by [place] Plan of Treatment: Future Appointments (+ 6 [...] 20 appointments. The data comes from all [place] treatment facilities. Appointment Date/Time Appointment Type Appointme nt Facility Name Apr 20, 2023 03:30 PM AMBULATORY - MEDICINE [facility] [place] [facility] May 22, 2023 03:00 PM AMBULATORY - MEDICINE [facility] [place] [facility] Jun 08, 2023 03:00 PM AMBULATORY - MEDICINE [facility] [place] [facility] Jun 09, 2023 10:40 AM AMBULATORY - MEDICINE [facility] [place] [facility] Jul 03, 2023 01:30 PM AMBULATORY - MEDICINE [facility] ([facility] Aug 07, 2023 02:30 PM AMBULATORY - MEDICINE [facility] [place] [facility] Aug 08, 2023 04:00 PM AMBULATORY - MEDICINE [facility] [place] [facility] Aug 22, 2023 03:00 PM AMBULATORY - MEDICINE [facility] [place] [facility] Sep 19, 2023 03:00 PM AMBULATORY - MEDICINE [facility] [place] [facility] Lab Results: +/- 30 days of the encounter This section includes the Chemistry and Hematology Lab Results on record with [place] for the patient. Radiology Reports and Pathology [...] Mar 27, 2023 09:15 AM Reporting Lab: [facility] [place] [facility] [address] [address] Performing Lab: [facility] [address] [address] CALCIUM 9.2 mg/dL 8.5-10.2 Mar 27, 2023 03:20 PM [facility] ([facility]) CREATININE (eGFR 2020) Specimen Type: SERUM No comment entered. Ordering Provider: QUENTIN STOKES Report Released Date/Time: Mar 27, 2023 09:15 AM Reporting Lab: [facility] [address] [address] Performing Lab: [address] [address] CREATININE, Serum 2.33 mg/dL H 0.50-1.40 eGFR(CKD-EPI 2020) 32 mL/min L >60 Mar 27, 2023 03:20 PM [facility] ([facility]) UREA NITROGEN Specimen Type: SERUM No comment entered. Ordering Provider: QUENTIN STOKES Report Released Date/Time: Mar 27, 2023 09:15 AM Reporting Lab: [address] [address] Performing Lab: [address] [address] UREA NITROGEN 40 mg/dL H 7-25 Mar [...] Mar 27, 2023 09:15 AM Reporting Lab: [address] [address] Performing Lab: [address] [address] HEMOGLOBIN A1C 8.1 H 4.0-5.6 Mar 27, 2023 03:20 PM [facility] ([facility]) ELECTROLYTE PANEL Specimen Type: SERUM No comment entered. Ordering Provider: QUENTIN STOKES Report Released Date/Time: Mar 27, 2023 09:15 AM Reporting Lab: [address] [address] Performing Lab: [address] [address] SODIUM 137 mmol/L 135-145 POTASSIUM 4.7 mmol/L 3.5-5.0 CHLORIDE 104 mmol/L 100-110 CO2 24 meq/L 20-30 Mar 27, 2023 03:20 PM [place] ([facility]) PROTEIN/CREATININE RATIO PANEL, URINE Specimen Type: URINE No comment entered. Ordering Provider: QUENTIN STOKES Report Released Date/Time: Mar 27, 2023 09:15 AM Reporting Lab: [facility] [address] [address] Performing Lab: [facility] [address] [facility] [address] CREATININE URINE 87.51 mg/dL UR PROTEIN/CREAT ININE RATIO 0.2 <0.2 PROTEIN, URINE 13.3 mg/dL 0.0-20.0 Social History: Smoking Status (Most current) and Tobacco Use (All prior to encounter date) This section includes the most current, and the historical, smoking and tobacco- related health factors from the [place] facility where the Encounter took place. Current Smoking Status This section includes the most current smoking, or tobacco-related health factor, from the [place] facility where the Encounter took place. 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 The data comes from the [place] facility where the Encounter took place. Date/Time Smoking Status/Tobacco Use Comment F acility Aug 19, 2020 02:29 PM VA-TOBACCO QUIT 15 YRS OR MORE [facility] Encounter Notes: All associated encounter notes This section contains the clinical notes associated to the Encounter. Date/Time Encounter Note(s) Provider Source Mar 29, 2023 03:08 PM AUDIOLOGY E & M NO TE: LOCAL TITLE: AUDIOLOGY CLINIC STANDARD TITLE: AUDIOLOGY E & M NOTE DATE OF NOTE: MAR 29, 2023@15:08 ENTRY DATE: MAR 29, 2023@15:08:56 AUTHOR: LARRY PENA COSIGNER: URGENCY: STATUS: COMPLETED AUDIOLOGY CLINIC Has ADDENDA [place] stopped in to request filters. verified address w/. 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 /tam/ SEDRICK REDDING [facility] Luggage Attendant Signed: 03/31/2023 07:43 LARRY PENA [facility]
--- OUTSIDE RECORDS SUMMARY | 2024-03-11 13:01 | XMS_ITS ---
Author Name [facility] Organization [facility] Address [address] [place] [address] Care Team Providers Care Wine And Spirits Clerk Name Role Phone WINDY STOKES Primary Care [...] PART A Feb 04, 2020 PART A [id number] GRACIELA STOVER PATIENT MEDICARE (WNR) MEDICARE (M) PART B Feb 04, 2020 PART B [id number] [address] [facility] GRACIELA STOVER PATIENT Selected Encounter This section includes the information on record at [facility] for the Encounter. Date/Time Encounter Type Encounter Description Reason Provider Source May 22, 2023 03:00 PM MTMS BY PHARM ADDL 15 MIN CLINICAL PHARMACY ICD-10-CM E11.9 Type 2 diabetes mellitus without complications MODESTA MCDONNELL [facility] Encounter Template Text not used by [facility] Assessments - Encounter Diagnoses This section includes the primary and secondary diagnoses documented for the Encounter. Date/Time Primary/Secondary Diagnosis Diagnosis Name Provider Source May 23, 2023 04:27 PM PRIMARY Type 2 diabetes mellitus without complications MODESTA MCDONNELL [facility] [place] [facility] Plan of Treatment: Future Appointments (+ 6 months) and Future Tests (+/- 45 days) The Plan of Treatment section includes future care activities for the [facility] This section includes future appointments and future orders which are active, pending or scheduled. Future Appointments This section includes appointments that were scheduled to occur 6 months from the date of the Encounter, up to a maximum of 20 appointments. The data comes from all [facility] treatment facilities. Appointment Date/Time Appointment Type Appointme nt Facility Name Jun 08, 2023 03:00 PM AMBULATORY - MEDICINE [facility] [place] [facility] Jun 09, 2023 10:40 AM AMBULATORY - MEDICINE [facility] [place] [facility] Jul 03, 2023 01:30 PM AMBULATORY - MEDICINE [facility] Aug 07, 2023 02:30 PM AMBULATORY - MEDICINE [facility] [place] [facility] Aug 08, 2023 04:00 PM AMBULATORY - MEDICINE [facility] [place] [facility] Aug 22, 2023 03:00 PM AMBULATORY - MEDICINE [facility] [place] [facility] Sep 19, 2023 03:00 PM AMBULATORY - MEDICINE [facility] [place] [facility] Oct 09, 2023 03:00 PM AMBULATORY - MEDICINE [facility] [place] [facility] Oct 23, 2023 11:00 AM AMBULATORY - MEDICINE [facility] [place] [facility] Oct 26, 2023 11:30 AM AMBULATORY - MEDICINE [facility] Nov 09, 2023 11:20 AM AMBULATORY - MEDICINE [facility] [place] [facility] Nov 20, 2023 03:00 PM AMBULATORY - MEDICINE [facility] [place] [facility] Lab Results: +/- 30 days of the encounter This section includes the Chemistry and Hematology Lab Results on record with [facility] for the patient. Radiology Reports and Pathology Reports are provided separately, in subsequent sections. Lab Results This section contains the Chemistry/Hematology Results that were resulted 30 days before or 30 daysafter the date of the Encounter. Date/Time Source Result Type Result - Unit Interpretation Reference Range Comment May 18, 2023 02:30 PM [facility] ([facility]) CREATININE CLEARANCE (24 HOUR) Specimen Type: URINE No comment entered. Ordering Provider: QUENTIN STOKES Report Released Date/Time: May 17, 2023 08:05 AM Reporting Lab: [address] [address] Performing Lab: [address] [address] VOLUME 3000 mL CREATININE URINE 39.61 mg/dL COMPUTED CREATININE CLEARANCE 44.8 mL/min L 75-125 May 15, 2023 08:21 AM [place] ([facility]) HEMOGLOBIN A1C PANEL Specimen Type: BLOOD Comment: [...] Apr 27, 2023 03:02 PM Reporting Lab: [address] [address] Performing Lab: [address] [address] HEMOGLOBIN A1C 8.9 H 4.0-5.6 May 15, 2023 08:21 AM [facility] ([facility]) UREA NITROGEN Specimen Type: SERUM No comment entered. Ordering Provider: QUENTIN STOKES Report Released Date/Time: Apr 27, 2023 03:02 PM Reporting Lab: [address] [address] Performing Lab: [address] [address] UREA NITROGEN 35 mg/dL H 7-25 May 15, 2023 08:21 AM [place] ([facility]) CREATININE (eGFR 2020) Specimen Type: SERUM No comment entered. Ordering Provider: QUENTIN STOKES Report Released Date/Time: Apr 27, 2023 03:02 PM Reporting Lab: [address] [address] Performing Lab: [facility] [address] [facility] [address] CREATININE, Serum 1.84 mg/dL H 0.50-1.40 eGFR(CKD-EPI 2020) 42 mL/min L >60 May 15, 2023 08:21 AM [place] ([facility]) ELECTROLYTE PANEL Specimen Type: SERUM No comment entered. Ordering Provider: QUENTIN STOKES Report Released Date/Time: Apr 27, 2023 03:02 PM Reporting Lab: [facility] [address] [facility] [facility] [address] Performing Lab: [address] [address] SODIUM 137 mmol/L 135-145 POTASSIUM 5.5 mmol/L H 3.5-5.0 CHLORIDE 105 mmol/L 100-110 CO2 26 meq/L 20-30 Social History: Smoking Status (Most current) and Tobacco Use (All prior to encounter date) This section includes the most current, and the historical, smoking and tobacco- related health factors from the [facility] facility where the Encounter took place. Current Smoking Status This section includes the most current smoking, or tobacco-related health factor, from the [facility] facility where the Encounter took place. Date/Time Current Smoking Status Comment Filemon honeycutt Aug 19, 2020 02:29 PM VA-TOBACCO FORMER USER [facility] Tobacco Use History This section includes a history of the smoking, or tobacco-related health factors, that were collected on or before the date of the Encounter. The data comes from the [facility] facility where the Encounter took place. Date/Time Smoking Status/Tobacco Use Comment F tess Aug 19, 2020 02:29 PM VA-TOBACCO QUIT 15 YRS OR MORE [facility] Encounter Notes: All associated encounter notes This section contains the clinical notes associated to the Encounter. Date/Time Encounter Note(s) Provider Source May 24, 2023 09:23 AM ADDENDUM: LOCAL TITLE: Addendum STANDARD TITLE: ADDENDUM DATE OF NOTE: MAY 24, 2023@09:23 ENTRY DATE: MAY 24, 2023@09:23:02 AUTHOR: MAYI FRITZ EXP COSIGNER: URGENCY: STATUS: COMPLETED Per CPP: Please make f/u visit with pt. Pt will be seeing nephro this week and deciding about dc metformin and or start SGLT2i. CPP suggested maybe he could coordinate a visit on 06/07 since he will be at [facility] for another visit? /tam/ MODESTA MCDONNELL PHARMD,BCPS CLINICAL PHARMACY PRACTITIONER Signed: 05/23/2023 16:29 Will ask digging machine operator to please schedule f/u with Dr. Mcdonnell if he is interested in FTF f/u in [facility]. Thank you. /tam/ Mayi Fritz PharmD Clinical Pharmacy Practitioner Signed: 05/24/2023 09:23 Receipt Acknowledged By: 05/24/2023 09:43 /tam/ GINO COREAS Clinical Electrical Engineering Technician --- Original Document --- 05/22/23 PHARMACY CLINIC NOTE: DEIRDRE STOVER, 57 yo WHITE MALE, was seen for follow-up diabetes management treatment. Pt was last seen on 04/20/23,at which point metformin was decreased to 500 mg SA BID. Liraglutide 1.8 mg once daily was resumed and insulin glargine 30 units once daily was continued. Today, pt reports he went ~ 9 weeks without any GLP1a since he was taking dulaglutide which was on backorder. He reports his bg today was 113 mg/dL, sometimes higher - fbg usually 170-180 mg/dL. He did not bring glucometer today. He notes he has only been on liraglutide for 2-3 weeks. He denies any hypoglycemia. Pt notes he is following at [facility]. He is seeing him in the next few days and will follow up in regards to continuing metformin. He will also as about SGLT2i as Dr. Gilbert had ordered a lot of labs to review prior to initiating such medication. Target Goals: A1C: 7%; FB-130 mg/dL OBJECTIVE: [...] Diabetes Medication Regimen: -- Oral meds: metformin 500 mg SA BID -- Insulin: insulin glargine 30 units qPM -- Other: liraglutide 1.8mg daily Note: pt previously on non-VA dulaglutide 1.5mg daily, but PA-F for semaglutide was not approved due to requiring trial of SGLT2i first; he denies any AEs with dulaglutide in past Note: pt had rash on max dose of semaglutide Note: trial of empagliflozin resulted in intolerable dizziness Labs: CHEM 7 TREND LAB CUMULATIVE SELECTED Collection DT Spec GLUCOSE BUN CREATIN Sodium K+/Pot CL CO2 05/15/2023 08:21 SERUM 35 H 1.84 H 137 5.5 H 105 26 03/27/2023 15:20 SERUM 40 H 2.33 H 137 4.7 104 24 02/16/2023 14:33 SERUM 201 H 41 H 2.12 H 137 4.7 104 24 07/22/2022 15:48 SERUM 188 H 21 1.25 138 4.7 104 24 03/08/2022 15:12 SERUM 167 H 26 H 1.41 H 135 4.6 103 25 LAB CUMULATIVE SELECTED 2 No selection items chosen for this component. CHEM 7 Results Collection DT Spec Sodium K+/Pot CL CO2 GLUCOSE BUN 05/15/2023 08:21 SERUM 137 5.5 H 105 26 35 H 03/27/2023 15:20 SERUM 137 4.7 104 24 40 H 02/16/2023 14:33 SERUM 137 4.7 104 24 201 H 41 H 07/22/2022 15:48 SERUM 138 4.7 104 24 188 H 21 03/08/2022 15:12 SERUM 135 4.6 103 25 167 H 26 H 11/15/2021 08:30 SERUM 139 5.2 H 105 24 203 H 33 H 08/10/2021 07:18 SERUM 139 4.9 106 24 199 H 27 H 03/19/2021 07:16 SERUM 132 L 5.3 H 98 L 27 339 H 28 H 09/09/2020 11:52 SERUM 139 4.2 102 27 86 21 eGFR CKD-EPI 202005/15/23 08:21 42 L SERUM LIVER PANEL TREND Collection DT Spec AST ALT T BILI ALK DARRICK T. PROT ALBUMIN 07/22/2022 15:48 SERUM 17 39 0.5 124 6.9 3.9 08/10/2021 07:18 SERUM 13 18 0.4 100 7.3 3.9 03/19/2021 07:16 SERUM 21 31 0.4 142 6.9 3.4 L 09/09/2020 11:52 SERUM 14 18 0.5 91 7.0 3.7 HEMOGLOBIN A1C TREND Collection DT Spec HGBA1c 05/15/2023 08:21 BLOOD 8.9 H 03/27/2023 15:20 BLOOD 8.1 H 02/16/2023 14:33 BLOOD 8.2 H 07/22/2022 15:48 BLOOD 7.0 H 03/08/2022 15:12 BLOOD 9.1 H LIPID PANEL TREND Collection DT Spec [...] SMB:00- 05:30- 08:00- 11:00- 12:30- 17:00- 18:30- :30- 05:30 08:00 11:00 12:30 17:00 18:30 21:30 00:00 # of tests 0 2 9 3 9 0 0 0 Average 0 187 183 141 160 0 0 0 SD 11.3 22.4 36.5 35.9 Hi/Lo 0 0 0 0 0 0 0 0 01/24/2023 143 [place] 02/16/2023 186 [facility]ne 02/23/2023 144 03/08/2023 113 [place]ne 03/09/2023 127 03/10/2023 182 03/14/2023 175 03/20/2023 121 Mon03/22/2023 138 158 [place]ne 03/23/2023 151 04/04/2023 139 Mon04/05/2023 191 145 208 Christianne 04/06/2023 179 04/11/2023 195 04/12/2023 196 04/17/2023 238 04/18/2023 197 Mon04/19/2023 200 [place] 04/20/2023 195 165 SMBG assessment: pt testing before eating. Readings more elevated recently over the last 1-2 months after running out of Trulicity. No lows Prev avgs: FBG 134, post-b 137, pre-lunch 117. Diet Patterns: patient eats on avg. 3x/day: Wake: 3am B: 6am; chilean muffin w/ PB or butter L: 12pm; [...] DIABETES A1c is above goal of <7% (8.9% on 05/15/23) - Medication management - CONTINUE metformin 500mg SA BID (eGFR 42) - CONTINUE liraglutide from 1.8mg daily - CONTINUE insulin glargine 30 units daily - No medication changes at this time. Pt will f/u with neprology this week to determine future changes. - Elevated a1c likely d/t missing doses of GLP1a - Encouraged pt to bring glucometer to next visit - Advised to notify insurance underwriter sales if any AEs (like skin rash) occur [...] mg/G; not on ACEi/ARB Podiatry: 02/03/23 Optometry: Dr. Krystyna [place] [facility] Next Scheduled Follow-up: 06/08/23- FTF if possible Future appointments: 06/08/2023 15:00 CWM/NO/PODIATRY A 07/20/2023 15:00 CWM/GO/PACT 4 Time Spent: 30 minutes PBM PharmD Pharmacotherapy Rem V12: PHARMACIST INTERVENTIONS: TYPE 2 DIABETES MELLITUS Medication monitoring, no dosage change required, continue to monitor and assess /fabian MCDONNELL PHARMD,JESSICA CLINICAL PHARMACY PRACTITIONER Signed: 05/23/2023 16:27 05/23/2023 ADDENDUM STATUS: COMPLETED Please make f/u visit with pt. Pt will be seeing nephro this week and deciding about dc metformin and or start SGLT2i. CPP suggested maybe he could coordinate a visit on 06/07 since he will be at [facility] for another visit? /fabian MCDONNELL PHARMD, BCPS CLINICAL PHARMACY PRACTITIONER Signed: 05/23/2023 16:29 Receipt Acknowledged By: 05/24/2023 09:22 /fabian Frtiz PharmD Clinical Pharmacy Practitioner for MAYI CLEMENTE [facility] [place] [facility] May 23, 2023 04:28 PM ADDENDUM: LOCAL TITLE: Addendum STANDARD TITLE: ADDENDUM DATE OF NOTE: MAY 23, 2023@16:28:03 ENTRY DATE: MAY 23, 2023@16:28:04 AUTHOR: MODESTA MCDONNELL EXP COSIGNER: URGENCY: STATUS: COMPLETED Please make f/u visit with pt. Pt will be seeing nephro this week and deciding about dc metformin and or start SGLT2i. CPP suggested maybe he could coordinate a visit on 06/07 since he will be at [facility] for another visit? /fabian MCDONNELL PHARMD, BCPS CLINICAL PHARMACY PRACTITIONER Signed: 05/23/2023 16:29 Receipt Acknowledged By: 05/24/2023 09:22 /fabian Fritz PharmD Clinical Pharmacy Practitioner for LEV GALICIA --- Original Document --- 05/22/23 PHARMACY CLINIC NOTE: DEIRDRE STOVER, 57 yo WHITE MALE, was seen for follow-up diabetes management treatment. Pt was last seen on 04/20/23,at which point metformin was decreased to 500 mg SA BID. Liraglutide 1.8 mg once daily was resumed and insulin glargine 30 units once daily was continued. Today, pt reports he went ~ 9 weeks without any GLP1a since he was taking dulaglutide which was on backorder. He reports his bg today was 113 mg/dL, sometimes higher - fbg usually 170-180 mg/dL. He did not bring glucometer today. He notes he has only been on liraglutide for 2-3 weeks. He denies any hypoglycemia. Pt notes he is following at [facility] nephrology. He is seeing him in the next few days and will follow up in regards to continuing metformin. He will also as about SGLT2i as Dr. Gilbert had ordered a lot of labs to review prior to initiating such medication. Target Goals: A1C: 7%; FB-130 mg/dL OBJECTIVE: [...] Diabetes Medication Regimen: -- Oral meds: metformin 500 mg SA BID -- Insulin: insulin glargine 30 units qPM -- Other: liraglutide 1.8mg daily Note: pt previously on non-VA dulaglutide 1.5mg daily, but PATreF for semaglutide was not approved due to requiring trial of SGLT2i first; he denies any AEs with dulaglutide in past Note: pt had rash on max dose of semaglutide Note: trial of empagliflozin resulted in intolerable dizziness Labs: CHEM 7 TREND LAB CUMULATIVE SELECTED Collection DT Spec GLUCOSE BUN CREATIN Sodium K+/Pot CL CO2 05/15/2023 08:21 SERUM 35 H 1.84 H 137 5.5 H 105 26 03/27/2023 15:20 SERUM 40 H 2.33 H 137 4.7 104 24 02/16/2023 14:33 SERUM 201 H 41 H 2.12 H 137 4.7 104 24 07/22/2022 15:48 SERUM 188 H 21 1.25 138 4.7 104 24 03/08/2022 15:12 SERUM 167 H 26 H 1.41 H 135 4.6 103 25 LAB CUMULATIVE SELECTED 2 No selection items chosen for this component. CHEM 7 Results Collection DT Spec Sodium K+/Pot CL CO2 GLUCOSE BUN 05/15/2023 08:21 SERUM 137 5.5 H 105 26 35 H 03/27/2023 15:20 SERUM 137 4.7 104 24 40 H 02/16/2023 14:33 SERUM 137 4.7 104 24 201 H 41 H 07/22/2022 15:48 SERUM 138 4.7 104 24 188 H 21 03/08/2022 15:12 SERUM 135 4.6 103 25 167 H 26 H 11/15/2021 08:30 SERUM 139 5.2 H 105 24 203 H 33 H 08/10/2021 07:18 SERUM 139 4.9 106 24 199 H 27 H 03/19/2021 07:16 SERUM 132 L 5.3 H 98 L 27 339 H 28 H 09/09/2020 11:52 SERUM 139 4.2 102 27 86 21 eGFR CKD-EPI 202005/15/23 08:21 42 L SERUM LIVER PANEL TREND Collection DT Spec AST ALT T BILI ALK DARRICK T. PROT ALBUMIN 07/22/2022 15:48 SERUM 17 39 0.5 124 6.9 3.9 08/10/2021 07:18 SERUM 13 18 0.4 100 7.3 3.9 03/19/2021 07:16 SERUM 21 31 0.4 142 6.9 3.4 L 09/09/2020 11:52 SERUM 14 18 0.5 91 7.0 3.7 HEMOGLOBIN A1C TREND Collection DT Spec HGBA1c 05/15/2023 08:21 BLOOD 8.9 H 03/27/2023 15:20 BLOOD 8.1 H 02/16/2023 14:33 BLOOD 8.2 H 07/22/2022 15:48 BLOOD 7.0 H 03/08/2022 15:12 BLOOD 9.1 H LIPID PANEL TREND Collection DT Spec [...] (02/20/2023 13:00) Pain: 2 (02/20/2023 13:00) SMB:00- :- 08:00- 11:00- :30- 17:00- :- :- 05:30 08:00 11:00 12:30 17:00 18:30 21:30 00:00 # of tests 0 2 9 3 9 0 0 0 Average 0 187 183 141 160 0 0 0 SD 11.3 22.4 36.5 35.9 Hi/Lo 0 0 0 0 0 0 0 0 01/24/2023 143 [place] 02/16/2023 186 [place] 02/23/2023 144 03/08/2023 113 [place] 03/09/2023 127 03/10/2023 182 03/14/2023 175 03/20/2023 121 03/22/2023 138 158 [facility] 03/23/2023 151 04/04/2023 139 [facility] 04/05/2023 191 145 208 [place] 04/06/2023 179 04/11/2023 195 04/12/2023 196 04/17/2023 238 04/18/2023 197 04/19/2023 200 [facility] 04/20/2023 195 165 SMBG assessment: pt testing before eating. Readings more elevated recently over the last 1-2 months after running out of Trulicity. No lows Prev avgs: FBG 134, post-b 137, pre-lunch 117. Diet Patterns: patient eats on avg. 3x/day: Wake: 3am B: 6am; chilean muffin w/ PB or butter L: 12pm; [...] DIABETES A1c is above goal of <7% (8.9% on 05/15/23) - Medication management - CONTINUE metformin 500mg SA BID (eGFR 42) - CONTINUE liraglutide from 1.8mg daily - CONTINUE insulin glargine 30 units daily - No medication changes at this time. Pt will f/u with neprology this week to determine future changes. - Elevated a1c likely d/t missing doses of GLP1a - Encouraged pt to bring glucometer to next visit - Advised to notify insurance underwriter sales if any AEs (like skin rash) occur [...] mg/G; not on ACEi/ARB Podiatry: 02/03/23 Optometry: Dr. Krystyna [place] [facility] Next Scheduled Follow-up: 06/08/23- FTF if possible Future appointments: 06/08/2023 15:00 CWM/NO/PODIATRY A 07/20/2023 15:00 CWM/GO/PACT 4 Time Spent: 30 minutes PBM PharmD Pharmacotherapy Rem V12: PHARMACIST INTERVENTIONS: TYPE 2 DIABETES MELLITUS Medication monitoring, no dosage change required, continue to monitor and assess /tam/ MODESTA MCDONNELL PHARMD,BCPS CLINICAL PHARMACY PRACTITIONER Signed: 05/23/2023 16:27 MODESTA MCDONNELL [facility] [place] [facility] May 22, 2023 02:45 PM PHARMACY OUTPATIEN T NOTE: LOCAL TITLE: PHARMACY CLINIC NOTE STANDARD TITLE: PHARMACY OUTPATIENT NOTE DATE OF NOTE: MAY 22, 2023@14:45 ENTRY DATE: MAY 22, 2023@14:45:31 AUTHOR: MODESTA MCDONNELL COSIGNER: URGENCY: STATUS: COMPLETED PHARMACY CLINIC NOTE Has ADDENDA DEIRDRE STOVER, 57 yo WHITE MALE, was seen for follow-up diabetes management treatment. Pt was last seen on 04/20/23,at which point metformin was decreased to 500 mg SA BID. Liraglutide 1.8 mg once daily was resumed and insulin glargine 30 units once daily was continued. Today, pt reports he went ~ 9 weeks without any GLP1a since he was taking dulaglutide which was on backorder. He reports his bg today was 113 mg/dL, sometimes higher - fbg usually 170-180 mg/dL. He did not bring glucometer today. He notes he has only been on liraglutide for 2-3 weeks. He denies any hypoglycemia. Pt notes he is following at [facility] nephrology. He is seeing him in the next few days and will follow up in regards to continuing metformin. He will also as about SGLT2i as Dr. Gilbert had ordered a lot of labs to review prior to initiating such medication. Target Goals: A1C: 7%; FB-130 mg/dL OBJECTIVE: [...] Diabetes Medication Regimen: -- Oral meds: metformin 500 mg SA BID -- Insulin: insulin glargine 30 units qPM -- Other: liraglutide 1.8mg daily Note: pt previously on non-VA dulaglutide 1.5mg daily, but PA-F for semaglutide was not approved due to requiring trial of SGLT2i first; he denies any AEs with dulaglutide in past Note: pt had rash on max dose of semaglutide Note: trial of empagliflozin resulted in intolerable dizziness Labs: CHEM 7 TREND LAB CUMULATIVE SELECTED Collection DT Spec GLUCOSE BUN CREATIN Sodium K+/Pot CL CO2 05/15/2023 08:21 SERUM 35 H 1.84 H 137 5.5 H 105 26 03/27/2023 15:20 SERUM 40 H 2.33 H 137 4.7 104 24 02/16/2023 14:33 SERUM 201 H 41 H 2.12 H 137 4.7 104 24 07/22/2022 15:48 SERUM 188 H 21 1.25 138 4.7 104 24 03/08/2022 15:12 SERUM 167 H 26 H 1.41 H 135 4.6 103 25 LAB CUMULATIVE SELECTED 2 No selection items chosen for this component. CHEM 7 Results Collection DT Spec Sodium K+/Pot CL CO2 GLUCOSE BUN 05/15/2023 08:21 SERUM 137 5.5 H 105 26 35 H 03/27/2023 15:20 SERUM 137 4.7 104 24 40 H 02/16/2023 14:33 SERUM 137 4.7 104 24 201 H 41 H 07/22/2022 15:48 SERUM 138 4.7 104 24 188 H 21 03/08/2022 15:12 SERUM 135 4.6 103 25 167 H 26 H 11/15/2021 08:30 SERUM 139 5.2 H 105 24 203 H 33 H 08/10/2021 07:18 SERUM 139 4.9 106 24 199 H 27 H 03/19/2021 07:16 SERUM 132 L 5.3 H 98 L 27 339 H 28 H 09/09/2020 11:52 SERUM 139 4.2 102 27 86 21 eGFR CKD-EPI 202005/15/23 08:21 42 L SERUM LIVER PANEL TREND Collection DT Spec AST ALT T BILI ALK DARRICK T. PROT ALBUMIN 07/22/2022 15:48 SERUM 17 39 0.5 124 6.9 3.9 08/10/2021 07:18 SERUM 13 18 0.4 100 7.3 3.9 03/19/2021 07:16 SERUM 21 31 0.4 142 6.9 3.4 L 09/09/2020 11:52 SERUM 14 18 0.5 91 7.0 3.7 HEMOGLOBIN A1C TREND Collection DT Spec HGBA1c 05/15/2023 08:21 BLOOD 8.9 H 03/27/2023 15:20 BLOOD 8.1 H 02/16/2023 14:33 BLOOD 8.2 H 07/22/2022 15:48 BLOOD 7.0 H 03/08/2022 15:12 BLOOD 9.1 H LIPID PANEL TREND Collection DT Spec [...] 2 (02/20/2023 13:00) SMB:00- 05:30- 08:00- 11:00- :- 17:- :- :- : 08:00 11: 12: 17:00 18:30 21:30 00:00 # of tests 0 2 9 3 9 0 0 0 Average 0 187 183 141 160 0 0 0 SD 11.3 22.4 36.5 35.9 Hi/Lo 0 0 0 0 0 0 0 0 01/24/2023 143 [place] 02/16/2023 186 [facility] 02/23/2023 144 03/08/2023 113 [facility] 03/09/2023 127 03/10/2023 182 03/14/2023 175 03/20/2023 121 03/22/2023 138 158 [facility] 03/23/2023 151 04/04/2023 139 [facility] 04/05/2023 191 145 208 [facility] 04/06/2023 179 04/11/2023 195 04/12/2023 196 04/17/2023 238 04/18/2023 197 [facility] 04/19/2023 200 [facility] 04/20/2023 195 165 SMBG assessment: pt testing before eating. Readings more elevated recently over the last 1-2 months after running out of Trulicity. No lows Prev avgs: FBG 134, post-b 137, pre-lunch 117. Diet Patterns: patient eats on avg. 3x/day: Wake: 3am B: 6am; chilean muffin w/ PB or butter L: 12pm; [...] DIABETES A1c is above goal of <7% (8.9% on 05/15/23) - Medication management - CONTINUE metformin 500mg SA BID (eGFR 42) - CONTINUE liraglutide from 1.8mg daily - CONTINUE insulin glargine 30 units daily - No medication changes at this time. Pt will f/u with neprology this week to determine future changes. - Elevated a1c likely d/t missing doses of GLP1a - Encouraged pt to bring glucometer to next visit - Advised to notify insurance underwriter sales if any AEs (like skin rash) occur [...] mg/G; not on ACEi/ARB Podiatry: 02/03/23 Optometry: Dr. Krystyna [place] [facility] Next Scheduled Follow-up: 06/08/23- FTF if possible Future appointments: 06/08/2023 15:00 CWM/NO/PODIATRY A 07/20/2023 15:00 CWM/GO/PACT 4 Time Spent: 30 minutes PBM PharmD Pharmacotherapy Rem V12: PHARMACIST INTERVENTIONS: TYPE 2 DIABETES MELLITUS Medication monitoring, no dosage change required, continue to monitor and assess /fabian MCDONNELL PHARMD,JESSICA CLINICAL PHARMACY PRACTITIONER Signed: 05/23/2023 16:27 05/23/2023 ADDENDUM STATUS: COMPLETED Please make f/u visit with pt. Pt will be seeing nephro this week and deciding about dc metformin and or start SGLT2i. CPP suggested maybe he could coordinate a visit on 06/07 since [facility] be [facility]? /fabian MCDONNELL PHARMD,JESSICA CLINICAL PHARMACY PRACTITIONER Signed: 05/23/2023 16:29 Receipt Acknowledged By: 05/24/2023 09:22 /fabian Fritz PharmD Clinical Pharmacy Practitioner for LEV GALICIA 05/24/2023 ADDENDUM STATUS: COMPLETED Per CPP: Please make f/u visit with pt. Pt will be seeing nephro this week and deciding about dc metformin and or start SGLT2i. CPP suggested maybe he could coordinate a visit on 06/07 since he will be at [facility] for another visit? /tma/ MODESTA MCDONNELL PHARMD,[facility] CLINICAL PHARMACY PRACTITIONER Signed: 05/23/2023 16:29 Will ask digging machine operator to please schedule f/u with Dr. Mcdonnell if he is interested in [facility] f/u in [facility]. Thank you. /tam/ Mayi Fritz PharmD Clinical Pharmacy Practitioner Signed: 05/24/2023 09:23 Receipt Acknowledged By: 05/24/2023 09:43 /tam/ GINO COREAS Clinical Electrical Engineering Technician 05/24/2023 ADDENDUM STATUS: COMPLETED pt scheduled for 06/12/23 @ 3:00 /fabian COREAS Clinical Electrical Engineering Technician Signed: 05/24/2023 09:44 [facility]
--- OUTSIDE RECORDS SUMMARY | 2024-03-11 13:01 | XMS_ITS ---
Author Name [facility] [place] [facility] [place] Address [address] [place] [address] Care Team Providers Care Customer Support Consultant Name Role Phone KIKE WINDY Primary Care [...] PART A Feb 04, 2020 PART A [id number] GRACIELA STOVER PATIENT MEDICARE (WNR) MEDICARE (M) PART B Feb 04, 2020 PART B [id number] GRACIELA STOVER PATIENT Selected Encounter This section includes the information on record at [place] for the Encounter. Date/Time Encounter Type Encounter Description Reason Provider Source Jun 08, 2023 03:00 PM OFFICE O/P EST MOD 30 MIN PODIATRY ICD-10-CM E11.621 Type 2 diabetes mellitus with foot ulcer YUNIOR MAY Encounter Template Text not used by [place] Assessments - Encounter Diagnoses This section includes the primary and secondary diagnoses documented for the Encounter. Date/Time Primary/Secondary Diagnosis Diagnosis Name Provider Source Jun 08, 2023 03:54 PM PRIMARY Type 2 diabetes mellitus with foot ulcer LUDY MAY [place] [facility] Jun 08, 2023 03:54 PM SECONDARY Other hammer toe(s) (acquired), right foot LUDY MAY [place] [facility] [facility] Jun 08, 2023 03:54 PM SECONDARY Type 2 diabetes mellitus with oth circulatory complications LUDY MAY [place] [facility] Jun 08, 2023 03:54 PM SECONDARY Type 2 diabetes w diabetic autonomic (poly)neuropathy LUDY MAY [facility] [place] Plan of Treatment: Future Appointments (+ 6 months) and Future Tests (+/- 45 days) The Plan of Treatment section includes future care activities for the patient from all [place] [facility] This section includes future appointments and future orders which are active, pending or scheduled. Future Appointments This section includes appointments that were scheduled to occur 6 months from the date of the Encounter, up to a maximum of 20 appointments. The data comes from all [place] treatment facilities. Appointment Date/Time Appointment Type Appointme nt Facility Name Jun 09, 2023 10:40 AM AMBULATORY - MEDICINE [place] [facility] [place] [facility] Jul 03, 2023 01:30 PM AMBULATORY - MEDICINE [facility] ([facility]) Aug 07, 2023 02:30 PM AMBULATORY - MEDICINE [place] [facility] [place] [facility] Aug 08, 2023 04:00 PM AMBULATORY - MEDICINE [place] [facility] Aug 22, 2023 03:00 PM AMBULATORY - MEDICINE [place] [facility] [facility] Sep 19, 2023 03:00 PM [facility]UL[facility]INE [facility] [place] [facility] Oct 09, 2023 03:00 PM AMBULATORY - MEDICINE [facility] [place] [facility] Oct 23, 2023 11:00 AM AMBULATORY - MEDICINE [facility] [place] [facility] Oct 26, 2023 11:30 AM AMBULATORY - MEDICINE [facility] ([facility]) Nov 09, 2023 11:20 AM AMBULATORY - MEDICINE [facility] [place] [facility] Nov 20, 2023 03:00 PM AMBULATORY - MEDICINE [facility] [place] [facility] Nov 27, 2023 01:30 PM AMBULATORY - MEDICINE [facility] Lab Results: +/- 30 days of the encounter This section includes the Chemistry and Hematology Lab Results on record with [place] for the patient. Radiology Reports and Pathology Reports are provided separately, in subsequent sections. Lab Results This section contains the Chemistry/Hematology Results that were resulted 30 days before or 30 daysafter the date of the Encounter. Date/Time Source Result Type Result - Unit Interpretation Reference Range Comment May 18, 2023 02:30 PM [facility] ([facility]) CREATININE CLEARANCE (24 HOUR) Specimen Type: URINE No comment entered. Ordering Provider: QUENTIN STOKES Report Released Date/Time: May 17, 2023 08:05 AM Reporting Lab: [address] [address] Performing Lab: [address] [address] VOLUME 3000 mL CREATININE URINE 39.61 mg/dL COMPUTED CREATININE CLEARANCE 44.8 mL/min L 75-125 May 15, 2023 08:21 AM [facility] ([facility]) HEMOGLOBIN A1C PANEL Specimen Type: BLOOD Comment: [...] Apr 27, 2023 03:02 PM Reporting Lab: [address] [address] Performing Lab: [address] [address] HEMOGLOBIN A1C 8.9 H 4.0-5.6 May 15, 2023 08:21 AM [place] ([facility]) UREA NITROGEN Specimen Type: SERUM No comment entered. Ordering Provider: QUENTIN STOKES Report Released Date/Time: Apr 27, 2023 03:02 PM Reporting Lab: [address] [address] Performing Lab: [facility] [address] [facility] [address] UREA NITROGEN 35 mg/dL H 7-25 May 15, 2023 08:21 AM [place] ([facility]) ELECTROLYTE PANEL Specimen Type: SERUM No comment entered. Ordering Provider: QUENTIN STOKES Report Released Date/Time: Apr 27, 2023 03:02 PM Reporting Lab: [address] [address] Performing Lab: [address] [address] SODIUM 137 mmol/L 135-145 POTASSIUM 5.5 mmol/L H 3.5-5.0 CHLORIDE 105 mmol/L 100-110 CO2 26 meq/L -May 15, 2023 08:21 AM [place] ([facility]) CREATININE (eGFR 2020) Specimen Type: SERUM No comment entered. Ordering Provider: QUENTIN STOKES Report Released Date/Time: Apr 27, 2023 03:02 PM Reporting Lab: [facility] [address] [facility] [address] Performing Lab: [address] [address] CREATININE, Serum 1.84 mg/dL H 0.50-1.40 eGFR(CKD-EPI 2020) 42 mL/min L >60 Social History: Smoking Status (Most current) and Tobacco Use (All prior to encounter date) This section includes the most current, and the historical, smoking and tobacco- related health factors from the [place] facility where the Encounter took place. Current Smoking Status This section includes the most current smoking, or tobacco-related health factor, from the [place] facility where the Encounter took place. Date/Time Current Smoking Status Comment Filemon [email or web address] Aug 19, 2020 02:29 PM VA-TOBACCO FORMER USER [facility] Tobacco Use History This section includes a history of the smoking, or tobacco-related health factors, that were collected on or before the date of the Encounter. The data comes from the [place] facility where the Encounter took place. Date/Time Smoking Status/Tobacco Use Comment Ahsan acmyke Aug 19, 2020 02:29 PM [place]-TOBACCO QUIT 15 YRS OR MORE [place] [facility] [place] [facility] Encounter Notes: All associated encounter notes This section contains the clinical notes associated to the Encounter. Date/Time Encounter Note(s) Provider Source Jun 08, 2023 03:55 PM PODIATRY NOTE: LOCAL TITLE: PODIATRY PAVE FOOT EXAM STANDARD TITLE: PODIATRY NOTE DATE OF NOTE: JUN 08, 2023@15:55 ENTRY DATE: JUN 08, 2023@15:56:03 AUTHOR: YUNIOR MAYER: URGENCY: STATUS: COMPLETED Good night thank you PAVE FOOT EXAM A foot risk level was completed. The following risk level was identified for this patient: ===== +POD RISK SCORE+ *--LEVEL 3 - (HIGH RISK)* ANY of the following: Severe obstructive peripheral arterial disease Ulceration; OR history of ulceration, osteomyelitis, or amputation Charcot joint w/foot deformity Chronic kidney disease, stage 4 or higher (Decreased sensation, foot deformity, and minor foot infection may be present or absent) LEVEL 3 FOOT EDUCATION: 1. Advised patient that extra depth footwear with soft molded inserts and braces may be required. 2. Advised patient not to walk barefoot. Instructed the patient to pay close attention to the style and fit of shoes. 3. Explained the importance of daily foot checks. Explained that loss of sensation leads to callouses. Callouses break down, which result in ulcers that may lead to gangrene and amputation. 4. Stressed the importance of daily foot hygiene. Warm (not hot) bathing of the feet, complete drying and thorough inspection for changes in the condition of the skin constitute daily foot care. Demonstrated how to do a thorough foot check. 5. Emphasized the use of clean, non-restrictive socks/stockings and well fitting shoes. 6. Stressed the importance of immediate follow-up of any foot injuries or ulcers. Explained that he/she should be non-weight bearing whenever there are lesions on the foot, to prevent cellular damage. Level of Understanding: Good Patient/Family Response to Foot Care Teaching Patient walks barefoot: Never Patient/caregiver able to clean feet at least once daily: Yes Patient/caregiver has difficulty examining feet: No /es/ YUNIOR MAY DPM PODIATRY ATTENDING Signed: 06/08/2023 15:56 YUNIOR MAY [place] [facility] [facility] Jun 08, 2023 03:19 PM PODIATRY NOTE: LOCAL TITLE: PODIATRY NOTE STANDARD TITLE: PODIATRY NOTE DATE OF NOTE: JUN 08, 2023@15:19 ENTRY DATE: JUN 08, 2023@15:19:32 AUTHOR: YUNIOR MAY EXP COSIGNER: URGENCY: STATUS: COMPLETED PODIATRY NOTE Has ADDENDA Podiatry High Risk Foot Encounter [facility] provider: Yunior May DPM Date: JUN 08, 2023 DEIRDRE STOVER MALE [id number] [address] [place] [address] FROM July TO Jan Primary Care:WINDY STOKES Subjective: Patient is a 57-year-old male type II diabetic with poor control hemoglobin A1c 8.7 recently however patient states that because feet hurt all the time he is not able to exercise and this is having impact on this. He has had a 6 way bypass he states [CABG] 10 or 11 years ago, he has also had multiple balloon procedures in both legs and is followed by Dr.Ching PALACIOS, [facility] vascular surgeon, has told him that he may eventually require amputation of this right second toe. He has had a history of a ulcerated left hallux it 1 time distal for which he shows pictures with a full-thickness ulcer measuring roughly and visual about 2 cm in diameter, another picture last year showed ulceration plantar medial left hallux. Patient has also had history of renal tumor and had kidney removed, and currently has chronic kidney disease stage III, hypertension, and GERD. Patient states that he is going to contact his vascular surgeon regarding his current toe ulcer because vascular surgeon told him to call if anything develops. He is thinking about having the toe amputated as he is in chronic pain but aside from this he denies any fever chills nausea vomiting and currently reports no drainage from the area. He has been keeping it clean and dressed with a Band-Aid. Patient was last seen February 03, 2023. PMH: Active problems - Computerized Problem List is the source for the followin. CAD - Coronary Artery Disease ([facility] [id number]) 2. Diabetes Mellitus Type 2 ([facility] [id number]) 3. HTN - Hypertension ([facility] [id number]) 4. Hyperlipidemia ([facility] [id number]) 5. GERD - Gastro-Esophageal Reflux Disease ([facility] [id number]) 6. Chronic Kidney Disease Stage 3 ([facility] [id number]) 7. H/O: Deep Vein Thrombosis ([facility] [id number]) 8. Peripheral Vascular Disease ([facility] [id number]) 9. Foot Ulcer ([facility] [id number]) 10. Osteomyelitis ([facility] 99850406) Diabetic/ HRF/ PVD LE History: [ ] pvd [ ] pvd interventions [ ] neuropathy [ ] meds: [ ] wound active [ ] infection active [ ] wound history yes [ ] amputation hx [ ] deformity [ ] charcot [ ] surgical deformity intervention PMH list CPRS: Active problems - Computerized Problem List is the source for the followin. Clear cell carcinoma of kidney 2. Anemia ([facility] [id number]) 3. CAD - Coronary Artery Disease ([facility] [id number]) 4. Diabetes Mellitus Type 2 ([facility] 15030900) 5. HTN - Hypertension ([facility] 11895323) 6. Hyperlipidemia ([facility] 09195301) 7. GERD - Gastro-Esophageal Reflux Disease ([facility] [id number]) 8. Chronic Kidney Disease Stage 3 ([facility] [id number]) 9. H/O: Deep Vein Thrombosis ([facility] [id number]) 10. Peripheral Vascular Disease ([facility] [id number]) 11. Foot Ulcer ([facility] 67006266) 12. Osteomyelitis ([facility] 69946154) Active Out Patient medications: Active Outpatient Medications (including Supplies): Active Outpatient Medications Status 1) CARVEDILOL 25MG TAB TAKE ONE TABLET BY MOUTH TWICE ACTIVE DAILY 2) CLOPIDOGREL BISULFATE 75MG TAB TAKE ONE TABLET BY ACTIVE MOUTH ONCE DAILY TO PREVENT BLOOD CLOTS STOP BRILLINTA WHEN YOU START THIS MEDICATION 3) FELODIPINE 2.5MG SA TAB TAKE ONE TABLET BY MOUTH ACTIVE EVERY MORNING AND TAKE TWO TABLETS EVERY EVENING DO NOT TAKE WITH GRAPEFRUIT JUICE 4) INSULIN,GLARGINE-YFGN 100UNIT/ML PEN 3ML INJECT 30 ACTIVE UNITS SUBCUTANEOUSLY ONCE DAILY 5) LIRAGLUTIDE (VICTOZA) 6MG/ML INJ PEN 3ML INJECT 1.8MG ACTIVE SUBCUTANEOUSLY ONCE DAILY FOR TYPE 2 DIABETES 6) METFORMIN HCL 500MG 24HR SA TAB TAKE ONE TABLET BY HOLD MOUTH TWICE DAILY 7) NEEDLE,PEN 32G,4MM USE 1 NEEDLE SUBCUTANEOUSLY ONCE ACTIVE DAILY NEEDED FOR USE WITH PEN DEVICE 8) NITROGLYCERIN 0.4MG SL TAB DISSOLVE ONE TABLET UNDER ACTIVE THE TONGUE EVERY 5 MINUTES NEEDED FOR CHEST PAIN; IF NO RELIEF AFTER 3 DOSES, CALL 911 OR GO TO NEAREST EMERGENCY ROOM 9) PANTOPRAZOLE NA 40MG EC TAB TAKE ONE TABLET BY MOUTH ACTIVE EVERY MORNING 30 MINUTES BEFORE BREAKFAST FOR EXCESSIVE PRODUCTION OF STOMACH ACID 10) ROSUVASTATIN CA 5MG TAB TAKE ONE TABLET BY MOUTH ONCE ACTIVE DAILY FOR CHOLESTEROL Active Non-VA Medications Status 1) Non-VA ASPIRIN 81MG EC TAB 81MG BY MOUTH ONCE DAILY ACTIVE 2) Non-VA MULTIVITAMIN/MINERALS CAP/TAB ONE CAP/TAB BY ACTIVE MOUTH ONCE DAILY 12 Total Medications Imaging reports: Lab Data: CREATININE-EGFR 05/15/23 08:21 1.84 H 03/27/23 15:20 2.33 H 02/16/23 14:33 2.12 H No Data Available for EGFR 1 yr HEMOGLOBIN A1C TREND Collection DT Spec HGBA1c 05/15/2023 08:21 BLOOD 8.9 H 03/27/2023 15:20 BLOOD 8.1 H 02/16/2023 14:33 BLOOD 8.2 H 07/22/2022 15:48 BLOOD 7.0 H 03/08/2022 15:12 BLOOD 9.1 H ALBUMIN Collection DT Specimen Test Name Result Units Ref Range 07/22/2022 15:48 SERUM ALBUMIN 3.9 g/dL 3.5 - 5.0 BMI:BMI: 34.2 PE:General: Generally well-appearing 57-year-old male awake alert oriented x3 neatly dressed, groomed pleasant cooperative with exam. NAD Bilateral feet are warm and pink Dorsalis pedal pulses are palpable Posterior tibial pulses are faint but palpable There is distribution of pedal hair midfoot bilaterally CFT is immediate to all toes Sensation is diminished but patient is generally able to perceive a [place] monofilament at all distal toes bilaterally though on the left hallux where there is scar tissue he does not have as much sensation. Muscle bulk and tone otherwise appears to be normal Foot structure mild flexible pes cavus reduces to normal arch and weightbearing There are flexible hammertoes and 543 with a semirigid hammertoe #2 on the right that does not reduce at the proximal interphalangeal joint. This digit has a distal ulcer that after debridement of surrounding hyperkeratotic tissue measures 2 mm x 1 mm by less than a millimeter deep base is pink and almost epithelial. Left foot with calluses distal medial hallux at the IP joint-calluses preulcerative with hemorrhagic material though removed with 15 blade. Left hallux is somewhat shorter and in slight contracture The nails are all dystrophic but reduced well x 10. PAVE:3 Impression: -Mild peripheral neuropathy -Mild peripheral vascular disease -Hammertoe contractures -Poorly controlled diabetic -History of osteomyelitis -Current shallow ulcer right foot lesser toe #2 without clinical sign of infection. -Clinical exam suggest patient could have arthroplasty for rigidly contracted toe with ulcer to correct this problem and prevent amputation, as well as possible percutaneous tenotomy of third and fourth toes right foot. -Patient would benefit from upgraded footwear but is reluctant to change Unna boots presently. Plan: -Cleaned and debrided surrounding nonviable tissue around ulcer right second toe, bacitracin and Band-Aid applied patient instructed to provide same care to toe on a daily basis. He wants to follow-up with his vascular surgeon at [facility] for this issue but I have also recommended that he may not require an amputation and could have elective corrective surgery on this side. -I did mention [place] as my preferred location to send him for elective surgery however I would want to hear from his vascular team concretely that his circulation is adequate for this, which I believe it is. -Patient could be followed up here postoperatively -But presently patient's hemoglobin A1c is too high for elective surgical consideration and need to be down at least under 8. Recall: Patient will follow up with his vascular surgeon this week or next, wound care as described above until follow-up in wound care clinic here in 2 months. If not going to see vascular surgeon I would have recall patient within a week or 2. Return sooner if any clinical signs of infection such as redness, swelling drainage fever chills nausea , or go to nearest hospital emergency / urgent care for evaluation. -As part of the service the pertinent primary care, specialty care and urgent care notes have been reviewed as well as the patient's medication list, problem list, and current imaging as well as past imaging, laboratory data and other pertinent contributory consults. -All new and discontinued medications have been discussed in detail with the patient and or caregiver, including indications for additions and deletions, as well as possible side effects, interactions as foreseen, and risk of not taking as prescribed If applicable, the patient was advised clearly on application of wound care agents how to apply and when to apply. The patient was able to recitethis information back to the prescriber with good understanding and agreed to the plan of care as indicated above. -Plan of care discuss with the patient and or caregiver, including medical decision making which includes discussion of abnormal lab results, imaging and other diagnostic modalities as well as results of the physical exam and framing consultant opinions and recommendations as sought. Alternatives to surgery or outlined care above as appropriate have also been discussed. -The patient/ caregiver has displayed good understanding of above and with no further questions at this time. Patient is aware of next appointment and agrees to follow-up interval. Patient agrees to seek sooner follow up if any irregular events occur in between such as cardinal signs of infection, increased pain or deformity. -The on this visit was given information [employer] service and encouraged to enroll if not already having done so. /tam/ YUNIOR MAY DPM PODIATRY ATTENDING Signed: 06/08/2023 15:54 06/08/2023 ADDENDUM STATUS: COMPLETED Preulcerative callus left hallux also debrided today, to intact base with no ulcer and without incident. All sharps were removed from the field post procedure. Diabetic foot education was provided Patient had diabetes foot care education at this encounter. The patient was educated on the following: DO - Wear panty hose or socks. - Wear comfortable shoes that fit well. - Wear shoes or slippers at all times. - Keep skin soft. Put lotion on top and bottom of feet. - Use only luke warm water when washing your feet. - Look at feet daily for open sores, cuts or color changes. Using a hand held mirror is helpful when looking at the bottom of your feet. - Keep feet dry, especially between the toes. Use powder if needed. - Have feet checked by your doctor or foot doctor regularly. - If you have an open sore, drainage, color changes, increased warmth or pain, notify your doctor promptly. - Cut toenails straight across. *Check with your doctor if you have nerve disease DO NOT - Go barefoot. - Let feet get dry and cracked. - Use hot water when washing your feet. - Wear torn or tight shoes. - Wear tight socks or knee-highs. - Use heating pads, hot water bottles or iodine; they may cause harm. - Use corn medicine or razors. Level of Understanding: Good. /tam/ YUNIOR MAY DPM PODIATRY ATTENDING Signed: 06/08/2023 15:55 YUNIOR MAY [place] [facility]
--- OUTSIDE RECORDS SUMMARY | 2024-03-11 13:02 | XMS_ITS | Encounter Summary ---
Author Name [facility] [place] [facility] [place] Organization [facility] [place] Address [address] [place] [address] Care Team Providers Care Management Trainer Name Role Phone VICKIENAWAF NAVADERICK Primary Care [...] PART B Feb 04, 2020 PART B [id number] [address] [facility] ST[facility] PATIENT MEDICARE (WNR) MEDICARE (M) PART A Feb 04, 2020 PART A [id number] [address] GRAC[facility]A STOVER PATIENT Selected Encounter This section includes the information on record at [place] for the Encounter. Date/Time Encounter Type Encounter Description Reason Pro vider Source July 20, 2023 12:00 AM Outpatient Encounter COMMUNITY CARE [...] Date/Time Appointment Type Appointme nt Facility Name Aug 07, 2023 02:30 PM AM[facility]ULATORY [facility] [place] [facility] Aug 08, 2023 04:00 PM AM[facility]UL[facility] [place] [facility] Aug 22, 2023 03:00 PM AM[facility]ULATORY [facility]IC[facility] [place] [facility] Sep 19, 2023 03:00 PM AM[facility]ULATORY [facility] [place] [facility] Oct 09, 2023 03:00 PM AM[facility] [place] [facility] Oct 23, 2023 11:00 AM AM[facility]ULATORY [facility]IC[facility] [place] [facility] Oct 26, 2023 11:30 AM AMBULATORY - MEDICINE [facility] Nov 09, 2023 11:20 AM AMBULATORY [facility] MEDICINE [facility] [place] [facility] Nov 20, 2023 03:00 PM AMBULATORY [facility]ICINE [facility] [place] [facility] Nov 27, 2023 01:30 PM AMBULATORY [facility] MEDICINE [facility] [place] [facility] Dec 22, 2023 01:45 PM AMBULATORY [facility] MEDICINE [facility] [place] [facility] Jan 01, 2024 08:30 AM AMBULATORY - PS[facility]CHIATRY [facility] ([facility] Jan 08, 2024 11:00 AM AMBULATORY - [place]ATRY [place] [facility] [place] [facility] Jan 08, 2024 01:30 PM AMBULATORY - MEDICINE [place] [facility] [place] [facility] Lab Results: +/- 30 days of [...] Result - Unit Interpretation Reference Range Comment Aug 17, 2023 03:31 PM [facility] ([facility]) UREA NITROGEN Specimen Type: SERUM No comment entered. Ordering Provider: MELL STOKES Report Released Date/Time: Jul 03, 2023 01:39 PM Reporting Lab: [facility] [place] [facility] [address] [facility] [address] Performing Lab: [address] [address] UREA NITROGEN 42 mg/dL H 7-25 Aug 17, 2023 03:31 PM [facility] ([facility]) CREATININE (eGFR 2020) Specimen Type: SERUM No comment entered. Ordering Provider: MELL STOKES Report Released Date/Time: Jul 03, 2023 01:39 PM Reporting Lab: [address] [address] Performing Lab: [address] [address] CREATININE, Serum 2.37 mg/dL H 0.50-1.40 eGFR(CKD-EPI 2020) 31 mL/min L >60 Aug 17, 2023 03:31 PM [facility] ([facility]) ELECTROLYTE PANEL Specimen Type: SERUM No comment entered. Ordering Provider: MELL STOKES Report Released Date/Time: Jul 03, 2023 01:39 PM Reporting Lab: [address] [address] Performing Lab: [address] [address] SODIUM 135 mmol/L 135-145 POTASSIUM 4.7 mmol/L 3.5-5.0 CHLORIDE 103 mmol/L 100-110 CO2 22 meq/L 20-30 Social History: Smoking Status (Most [...] 19, 2020 02:29 PM VA-TOBACCO FORMER USER [facility] Tobacco Use History This section includes a history of the smoking, or tobacco-related health factors, that were collected on or before the date of the Encounter. The data comes from the [place] facility where the Encounter took place. Date/Time Smoking Status/Tobacco Use Comment F [email or web address] Aug 19, 2020 02:29 PM [place]-TOBACCO QUIT 15 YRS OR MORE [facility] Encounter Notes: All associated encounter notes This section contains the clinical notes associated to the Encounter. Date/Time Encounter Note(s) Provider Source July 20, 2023 12:00 AM NONVA CONSULT: LOCAL TITLE: COMMUNITY CARE-CONSULT RESULT NOTE STANDARD TITLE: NONVA CONSULT DATE OF NOTE: JULY 20, 2023 ENTRY DATE: AUG 31, 2023@14:21:36 AUTHOR: DIANA FERRIS EXP COSIGNER: URGENCY: STATUS: COMPLETED VistA Imaging - Scanned Document SCANNED DOCUMENT SIGNATURE NOT REQUIRED Electronically Filed: 08/31/2023 by: DIANA ROSENBAUM [facility]
--- OUTSIDE RECORDS SUMMARY | 2024-03-11 13:02 | XMS_ITS ---
Author Name [facility] [place] [facility] [place] Organization [facility] [place] Address [address] [place] [address] Care Team Providers Care Accounting Assistant Name Role Phone VICKIENAWAF NAVADERICK Primary Care [...] PART A Feb 04, 2020 PART A [id number] [address] [facility] ST[facility] PATIENT MEDICARE (WNR) MEDICARE (M) PART B Feb 04, 2020 PART B [id number] [address] [facility] GRACIELA STOVER PATIENT Selected Encounter This section includes the information on record at [place] for the Encounter. Date/Time Encounter Type Encounter Description Reason Pro vider Source Aug 08, 2023 12:00 AM Outpatient Encounter COMMUNITY CARE [...] 20 appointments. The data comes from all [place] treatment facilities. Appointment Date/Time Appointment Type Appointme nt Facility Name Aug 22, 2023 03:00 PM AMBULATORY [facility]IC[facility] [place] [facility] Sep 19, 2023 03:00 PM AMBULATORY [facility] MEDICINE [facility] [place] [facility] Oct 09, 2023 03:00 PM AMBULATORY [facility]IC[facility] [place] [facility] Oct 23, 2023 11:00 AM AMBULATORY [facility]ICINE [facility] [place] [facility] Oct 26, 2023 11:30 AM AMBULATORY - MEDICINE [facility] Nov 09, 2023 11:20 AM AMBULATORY - MEDICINE [facility] [place] [facility] Nov 20, 2023 03:00 PM AMBULATORY - MEDICINE [facility] [place] [facility] Nov 27, 2023 01:30 PM AMBULATORY - MEDICINE [facility] [place] [facility] Dec 22, 2023 01:45 PM AMBULATORY - MEDICINE [facility] [place] [facility] Jan 01, 2024 08:30 AM AMBULATORY - PSYCHIATRY [facility] ([facility] Jan 08, 2024 11:00 AM AMBULATORY - [facility]IATRY [facility] [place] [facility] Jan 08, 2024 01:30 PM AMBULATORY - MEDICINE [place] [facility] [place] [facility] Jan 22, 2024 11:00 AM AMBULATORY - PS[facility]IATRY [facility] [place] [facility] Feb 05, 2024 02:00 PM AMBULATORY - PS[place]IATRY [place] [facility] [place] [facility] Lab Results: +/- 30 days of the encounter This section includes the Chemistry and Hematology Lab Results on record with [place] for the patient. Radiology Reports and Pathology Reports are provided separately, in subsequent sections. Lab Results This section contains the Chemistry/Hematology Results that were resulted 30 days before or 30 daysafter the date of the Encounter. Date/Time Source Result Type Result - Unit Interpretation Reference Range Comment Aug 22, 2023 03:24 PM [place] [facility] [place] [facility] FOLATE (WROX) Specimen Type: SERUM No comment entered. Ordering Provider: ZORA GALICIA Report Released Date/Time: Aug 22, 2023 03:15 PM Reporting Lab: [facility] [place] [facility] [address] [address] Performing Lab: [facility] [place] [facility] [address] [facility] [facility] [place] [address] FOLATE (WROX) 18.31 ng/mL >5.2 Aug 22, 2023 03:24 PM [facility] [place] [facility] VITAMIN D (25-OH) Specimen Type: SERUM No comment entered. Ordering Provider: ZORA GALICIA Report Released Date/Time: Aug 22, 2023 03:15 PM Reporting Lab: [facility] [place] [facility] [address] [facility] [address] Performing Lab: [facility] [place] [facility] [address] [facility] [address] VITAMIN D (25-OH) 27 ng/mL 20-50 Aug 22, 2023 03:24 PM [facility] FERRITIN Specimen Type: SERUM No comment entered. Ordering Provider: ZORA GALICIA Report Released Date/Time: Aug 22, 2023 03:15 PM Reporting Lab: [facility] [place] [facility] [address] [facility] [address] Performing Lab: [facility] [place] [facility] [address] [facility] [address] FERRITIN 25 ng/mL 20-300 Aug 22, 2023 03:24 PM [facility] IRON & TIBC PANEL Specimen Type: SERUM No comment entered. Ordering Provider: ZORA GALICIA Report Released Date/Time: Aug 22, 2023 03:15 PM Reporting Lab: [facility] [place] [facility] [address] [facility] [address] Performing Lab: [facility] [place] [facility] [address] [facility] [address] TIBC 422 ug/dL 204-475 IRON 118 ug/dL 40-160 Transferrin Saturation 27.9 20.0-50.0 Aug 22, 2023 03:24 PM [facility] [place] [facility] VITAMIN B12 Specimen Type: SERUM No comment entered. Ordering Provider: ZORA GALICIA Report Released Date/Time: Aug 22, 2023 03:15 PM Reporting Lab: [place] [facility] [place] [facility] [address] [facility] [address] Performing Lab: [place] [facility] [place] [address] [address] VITAMIN B12 761 pg/mL 200-900 Aug 22, 2023 03:24 PM [facility] HEMOGLOBIN A1C PANEL Specimen Type: BLOOD Comment: Values obtained from A1C measurements can vary. For atypical A1C assays, a reported value of 7.0 could actually be between 6.72 and 7.28 if measured by a reference method. A reported value of 9.0 could actually be between 8.73 and 9.27. Ref: http://www.ngs p.org/CAPdata. asp Ordering Provider: ZORA GALICIA Report Released Date/Time: Aug 22, 2023 03:15 PM Reporting [facility] [place] [address] [address] Performing Lab[facility] [place] [address] [address] HEMOGLOBIN A1C 7.9 H 4.0-5.6 Aug 22, 2023 03:24 PM [facility] TSH Specimen Type: SERUM No comment entered. Ordering Provider: ZORA GALICIA Report Released Date/Time: Aug 22, 2023 03:15 PM Reporting Lab: [place] [facility] [place] [address] [address] Performing Lab: [facility] [place] [address] [address] TSH 2.30 u[IU]/mL 0.35-5.00 Aug 22, 2023 03:24 PM [facility] [place] [facility] CBC Specimen Type: BLOOD No comment entered. Ordering Provider: ZORA GALICIA Report Released Date/Time: Aug 22, 2023 03:15 PM Reporting Lab[facility] [place] [address] [address] Performing Lab: [facility] [address] [address] WBC 8.07 10*3/uL 4.50-11.00 RBC 4.16 10*6/uL L 4.23-5.66 HGB 13.1 g/dL 12.8-17 HCT 37.0 L 39.2-50.4 MCV 88.9 fL 82-99 MCHC 35.4 g/dL H 30.8-35.1 PLT 221 10*3/uL 140-360 RDW-CV 12.2 12.0-16.0 MCH 31.5 pg 26.2-32.6 Aug 17, 2023 03:31 PM [facility] ([facility]) UREA NITROGEN Specimen Type: SERUM No comment entered. Ordering Provider: QUENTIN STOKES Report Released Date/Time: Jul 03, 2023 01:39 PM Reporting Lab: [address] [address] Performing Lab: [address] [address] UREA NITROGEN 42 mg/dL H 7-Aug 17, 2023 03:31 PM [facility] ([facility]) CREATININE (eGFR 2020) Specimen Type: SERUM No comment entered. Ordering Provider: QUENTIN STOKES Report Released Date/Time: Jul 03, 2023 01:39 PM Reporting Lab: [address] [address] Performing Lab: [address] [address] CREATININE, Serum 2.37 mg/dL H 0.50-1.40 eGFR(CKD-EPI 2020) 31 mL/min L >60 Aug 17, 2023 03:31 PM [facility] ([facility]) ELECTROLYTE PANEL Specimen Type: SERUM No comment entered. Ordering Provider: QUENTIN STOKES Report Released Date/Time: Jul 03, 2023 01:39 PM Reporting Lab: [address] [address] Performing Lab: [address] [address] SODIUM 135 mmol/L 135-145 POTASSIUM 4.7 mmol/L 3.5-5.0 CHLORIDE 103 mmol/L 100-110 CO2 22 meq/L 20-30 Social History: Smoking Status (Most current) and Tobacco Use (All prior to encounter date) This section includes the most current, and the historical, smoking and tobacco- related health factors from the [place] facility where the Encounter took place. Current Smoking Status This section includes the most current smoking, or tobacco-related health factor, from the [place] facility where the Encounter took place. Date/Time Current Smoking Status Comment Facil ity Aug 19, 2020 02:29 PM VA-TOBACCO FORMER USER [facility] Tobacco Use History This section includes a history of the smoking, or tobacco-related health factors, that were collected on or before the date of the Encounter. The data comes from the [place] facility where the Encounter took place. Date/Time Smoking Status/Tobacco Use Comment F acmyke Aug 19, 2020 02:29 PM VA-TOBACCO QUIT 15 YRS OR MORE [facility] Encounter Notes: All associated encounter notes This section contains the clinical notes associated to the Encounter. Date/Time Encounter Note(s) Provider Source Aug 08, 2023 12:00 AM NONVA CONSULT: LOCAL TITLE: COMMUNITY CARE-CONSULT RESULT NOTE STANDARD TITLE: NONVA CONSULT DATE OF NOTE: AUG 08, 2023 ENTRY DATE: AUG 28, 2023@08:04:43 AUTHOR: BRINDA CRABTREE EXP COSIGNER: URGENCY: STATUS: COMPLETED VistA Imaging - Scanned Document SCANNED DOCUMENT SIGNATURE NOT REQUIRED Electronically Filed: 08/28/2023 by: BRINDA CRABTREE MANAGER QA BRINDA CRABTREE [facility] Aug 08, 2023 12:00 AM NONVA CONSULT: LOCAL TITLE: COMMUNITY CARE-CONSULT RESULT NOTE STANDARD TITLE: NONVA CONSULT DATE OF NOTE: AUG 08, 2023 ENTRY DATE: NOV 16, 2023@15:02:05 AUTHOR: JERRY DIAZ EXP COSIGNER: URGENCY: STATUS: COMPLETED VistA Imaging - Scanned Document SCANNED DOCUMENT SIGNATURE NOT REQUIRED Electronically Filed: 11/16/2023 by: ANDERS DIAZ Slimer ANDERS DIAZRFartun SHETH
--- OUTSIDE RECORDS SUMMARY | 2024-03-11 13:02 | XMS_ITS ---
Author Name [facility] [place] Organization [facility] [place] [place] Address [address] [place] [address] Care Team Providers Care Television Installer Name Role Phone WINDY STOKES Primary Care [...] PART A Feb 04, 2020 PART A [id number] [address] GRACIELA STOVER PATIENT MEDICARE (WNR) MEDICARE (M) PART B Feb 04, 2020 PART B [id number] [address] GRACIELA STOVER PATIENT Selected Encounter This section includes the information on record at [place] for the Encounter. Date/Time Encounter Type Encounter Description Reason Provider Source Aug 07, 2023 02:30 PM PARING/CUTG B9 HYPRKER LES 1 PODIATRY ICD-10-CM S98.141S Partial traumatic amp of one right lesser toe, YUNIOR Whitten Angélica Encounter Template Text not used by [facility] Assessments - Encounter Diagnoses This section includes the primary and secondary diagnoses documented for the Encounter. 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, sequela YUNIOR MAY [place] [facility] [place] [facility] Aug 07, 2023 02:49 PM SECONDARY Corns and callosities YUNIOR MAY [place] [facility] [place] [facility] Aug 07, 2023 02:49 PM SECONDARY Other hammer toe(s) (acquired), left foot Y[place]IOR MAY [place] [facility] [place] [facility] Aug 07, 2023 02:49 PM SECONDARY Other hammer toe(s) (acquired), right foot YUNIOR MAY [place] [facility] [place] [facility] Aug 07, 2023 02:49 PM SECONDARY Type 2 diabetes w diabetic autonomic (poly)neuropathy [facility] [place] [facility] Plan of Treatment: Future Appointments (+ 6 months) and Future Tests (+/- 45 days) The Plan of Treatment section includes future care activities for the patient [facility] [place] [facility] This section includes future appointments and future orders which are active, pending or scheduled. Future Appointments This section includes appointments that were scheduled to occur 6 months from the date of the Encounter, up to a maximum of 20 appointments. The data comes from all [place] treatment facilities. Appointment Date/Time Appointment Type Appointme nt Facility Name Aug 08, 2023 04:00 PM AM[place]UL[place]ORY [place] [facility] [place] [facility] Aug 22, 2023 03:00 PM [facility]UL[facility] [place] [facility] [place] [facility] Sep 19, 2023 03:00 PM AMBULATORY - [facility]ICINE [facility] [place] [facility] Oct 09, 2023 03:00 PM AM[facility]ULATORY [facility]ICINE [facility] [place] [facility] Oct 23, 2023 11:00 AM AM[facility]ULATORY [facility] [place] [facility] [place] [facility] Oct 26, 2023 11:30 AM AMBULATORY - MEDICINE [facility] Nov 09, 2023 11:20 AM AMBULATORY - MEDICINE [place] [facility] [place] [facility] Nov 20, 2023 03:00 PM AMBULATORY - MEDICINE [facility] [place] [facility] Nov 27, 2023 01:30 PM AMBULATORY - [facility]ICINE [facility] [place] [facility] Dec 22, 2023 01:45 PM AMBULATORY - [facility]ICINE [facility] [place] [facility] Jan 01, 2024 08:30 AM AMBULATORY - PSYCHIATRY [facility]) Jan 08, 2024 11:00 AM AMBULATORY - PS[place]CHIATRY [place] [facility] [place] [facility] Jan 08, 2024 01:30 PM AM[place]UL[place] [facility] [place] [facility] Jan 22, 2024 11:00 AM AMBULATORY - [place] [facility] [place] [facility] Feb 05, 2024 02:00 PM [facility] Lab Results: +/- 30 days of the encounter This section includes the Chemistry and Hematology Lab Results on record with [facility] for the patient. Radiology Reports and Pathology Reports are provided separately, in subsequent sections. Lab Results This section contains the Chemistry/Hematology Results that were resulted 30 days before or 30 daysafter the date of the Encounter. Date/Time Source Result Type Result - Unit Interpretation Reference Range Comment Aug 22, 2023 03:24 PM [facility] FOLATE (WROX) Specimen Type: SERUM No comment entered. Ordering Provider: ZORA GALICIA Report Released Date/Time: Aug 22, 2023 03:15 PM Reporting [facility]: [facility] [address] [facility] [address] Performing Lab: [facility] [address] [facility] [address] FOLATE (WROX) 18.31 ng/mL >5.2 Aug 22, 2023 03:24 PM [facility] VITAMIN D (25-OH) Specimen Type: SERUM No comment entered. Ordering Provider: ZORA GALICIA Report Released Date/Time: Aug 22, 2023 03:15 PM Reporting Lab: [facility] [address] [facility] [address] Performing Lab: [facility] [address] [facility] [address] VITAMIN D (25-OH) 27 ng/mL 20-50 Aug 22, 2023 03:24 PM [facility] IRON & TIBC PANEL Specimen Type: SERUM No comment entered. Ordering Provider: ZORA GALICIA Report Released Date/Time: Aug 22, 2023 03:15 PM Reporting Lab: [address] [address] Performing Lab: [address] [address] TIBC 422 ug/dL 204-475 IRON 118 ug/dL 40-160 Transferrin Saturation 27.9 20.0-50.0 Aug 22, 2023 03:24 PM [facility] VITAMIN B12 Specimen Type: SERUM No comment entered. Ordering Provider: ZORA GALICIA Report Released Date/Time: Aug 22, 2023 03:15 PM Reporting Lab: [address] [address] Performing Lab: [address] [address] VITAMIN B12 761 pg/mL 200-900 Aug 22, 2023 03:24 PM [facility] FERRITIN Specimen Type: SERUM No comment entered. Ordering Provider: ZORA GALICIA Report Released Date/Time: Aug 22, 2023 03:15 PM Reporting Lab: [address] [address] Performing Lab: [address] [address] FERRITIN 25 ng/mL 20-300 Aug 22, 2023 03:24 PM [facility] HEMOGLOBIN A1C PANEL Specimen Type: BLOOD Comment: [...] Aug 22, 2023 03:15 PM Reporting Lab: [address] [place] [address] Performing Lab: [place] [facility] [address] [facility] [address] HEMOGLOBIN A1C 7.9 H 4.0-5.6 Aug 22, 2023 03:24 PM [facility] TSH Specimen Type: SERUM No comment entered. Ordering Provider: ZORA GALICIA Report Released Date/Time: Aug 22, 2023 03:15 PM Reporting Lab: [place] [facility] [place] [facility] [address] [facility] [address] Performing Lab: [facility] [address] [address] TSH 2.30 u[IU]/mL 0.35-5.00 Aug 22, 2023 03:24 PM [facility] CBC Specimen Type: BLOOD No comment entered. Ordering Provider: ZORA GALICIA Report Released Date/Time: Aug 22, 2023 03:15 PM Reporting Lab: [facility] [address] [facility] [address] Performing Lab: [facility] [address] [address] WBC 8.07 10*3/uL 4.50-11.00 RBC 4.16 10*6/uL L 4.23-5.66 HGB 13.1 g/dL 12.8-17 HCT 37.0 L 39.2-50.4 MCV 88.9 fL 82-99 MCHC 35.4 g/dL H 30.8-35.1 PLT 221 10*3/uL 140-360 RDW-CV 12.2 12.0-16.0 MCH 31.5 pg 26.2-32.6 Aug 17, 2023 03:31 PM [facility]) UREA NITROGEN Specimen Type: SERUM No comment entered. Ordering Provider: QUENTIN STOKES Report Released Date/Time: Jul 03, 2023 01:39 PM Reporting Lab: [facility] [address] [address] Performing Lab: [facility] [address] UREA NITROGEN 42 mg/dL H 7-25 Aug 17, 2023 03:31 PM [facility]) CREATININE (eGFR 2020) Specimen Type: SERUM No comment entered. Ordering Provider: QUENTIN STOKES Report Released Date/Time: Jul 03, 2023 01:39 PM Reporting Lab: [address] [address] Performing Lab: [address] [address] CREATININE, Serum 2.37 mg/dL H 0.50-1.40 eGFR(CKD-EPI 2020) 31 mL/min L >60 Aug 17, 2023 03:31 PM [facility] ([facility]) ELECTROLYTE PANEL Specimen Type: SERUM No comment entered. Ordering Provider: QUENTIN STOKES Report Released Date/Time: Jul 03, 2023 01:39 PM Reporting Lab: [address] [address] Performing Lab: [address] [address] SODIUM 135 mmol/L 135-145 POTASSIUM 4.7 mmol/L 3.5-5.0 CHLORIDE 103 mmol/L 100-110 CO2 22 meq/L 20-30 Vital Signs: All taken on the encounter date This section contains inpatient and outpatient Vital Signs collected on the date of the Encounter. Date/Time Temperature Pulse Blood Pressure Respiratory Rate SP02 Pain Height Weight Body Mass Index Source Aug 07, 2023 02:27 PM 97.7 71 181/82 18 97 0 [facility] Social History: Smoking Status (Most current) and [...] 19, 2020 02:29 PM VA-TOBACCO FORMER USER [facility] Tobacco Use History This section includes a history of the smoking, or tobacco-related health factors, that were collected on or before the date of the Encounter. The data comes from the [place] facility where the Encounter took place. Date/Time Smoking Status/Tobacco Use Comment F tess Aug 19, 2020 02:29 PM VA-TOBACCO QUIT 15 YRS OR MORE [place] [facility] Encounter Notes: All associated encounter notes This section contains the clinical notes associated to the Encounter. Date/Time Encounter Note(s) Provider Source Aug 07, 2023 02:34 PM PODIATRY NOTE: LOCAL TITLE: PODIATRY NOTE STANDARD TITLE: PODIATRY NOTE DATE OF NOTE: AUG 07, 2023@14:34 ENTRY DATE: AUG 07, 2023@14:34:51 AUTHOR: YUNIOR MAY COSIGNER: URGENCY: STATUS: COMPLETED Podiatry High Risk Foot Encounter [facility] provider: Yunior May [facility] Date: AUG 07, 2023 DEIRDRE STOVER MALE [id number] [address] [place] [address] FROM July TO Jan Primary Care:WINDY STOKES Visit objective: Follow-up diabetic foot ulcer second toe right neuropathy PVD. Patient was going to check with his vascular surgeon regarding elective arthroplasty surgery however it turned out that patient ended up having the distal second toe amputated about 2 weeks ago. Patient states that his pain went away immediately and has never returned. He states his wound is healing nicely. He has a Callus on the left hallux but reports no weeping or drainage. He states he is now able to walk more normally because his right foot is not hurting him Diabetic/ HRF/ PVD LE History: [x] pvd [ ] pvd interventions [x] neuropathy [ ] meds: [ ] wound active [ ] infection active [ ] wound history yes [x] amputation hx 2 weeks ago rosas Barron 2nd toe right [ ] deformity [ ] charcot [ ] surgical deformity intervention PMH list CPRS: Active problems - Computerized Problem List is the source for the followin. Clear cell carcinoma of kidney 2. Anemia ([facility]CT 582122709) 3. CAD - Coronary Artery Disease (SCT 49986039) 4. Diabetes Mellitus Type 2 (SCT 73364314) 5. HTN - Hypertension ([facility] 21822282) 6. Hyperlipidemia ([facility] [id number]) 7. GERD - Gastro-Esophageal Reflux Disease ([facility] [id number]) 8. Chronic Kidney Disease Stage 3 ([facility] [id number]) 9. H/O: Deep Vein Thrombosis ([facility] [id number]) 10. Peripheral Vascular Disease ([facility] [id number]) 11. Foot Ulcer ([facility] [id number]) 12. Osteomyelitis ([facility] [id number]) Active Out Patient medications: Active Outpatient Medications [...] 6MG/ML INJ PEN 3ML INJECT 1.8MG ACTIVE (S) SUBCUTANEOUSLY ONCE DAILY FOR TYPE 2 DIABETES [...] ALBUMIN 3.9 g/dL 3.5 - 5.0 BMI:BMI: 35.2 PE:General: Well-appearing well-developed well-nourished male a 57 years awake alert oriented x3 pleasant cooperative ambulating normally in work boots with stock insoles. Right foot with semirigid hammertoes 3 4 and 5 semirigid hallux mallet toe all of the prior without lesions, and now a well-healing partial second toe amputation. This wound is dry and stable well coapted no erythema or edema sutures are intact and the incision appears to be healed. There are no other additional high pressure lesions or calluses on the foot, the foot is warm and pink and well-perfused Left foot with similar picture but with callus of the plantar medial aspect of the hallux without signs of additional stress such as hemorrhagic tissue or tissue breakdown. The remaining second through 5 toes although hammered and deformity revealed no additional lesions or calluses. The left foot appears to be warm pink and well-perfused Sensation however is markedly diminished BL and with LOPS at the toes x 10 PAVE:3 Impression: Patient was vascular issues followed by vascular surgeon at [facility] Dr. MARIELA MD who was performed angioplasties bilaterally and more recently amputated the right second toe which is healing well. Patient remains at high risk due to deformity and neuropathy Plan: -Evaluated surgical site although in the domain of the vascular surgeon it appears well-healing and stable today with no clinical sign of breakdown infection or other complication. -Debrided callus left hallux carefully and without incident using sterile instrumentation which was disposed of after procedure -No dressing was required for this -Patient will see vascular surgeon tomorrow -Patient will benefit from a custom molded insert we will place a prosthetics consult for this -Patient will benefit from ongoing surveillance in the clinic he will be seen in 2 months but should return sooner return to clinic or emergency room p.r.n. any signs of infection such as increased redness swelling fever chills or nausea increased drainage pain redness streaking of the lower leg, or flulike symptoms. -Patient may eventually need additional surgery to the remaining digits, in the form of percutaneous tenotomy should he start to develop stroke symptoms of these toes, however for the left hallux which is rigidly contracted he may require an arthroplasty if he runs into trouble. -As part of the service the pertinent [...] as results of the physical exam and senior health consultant opinions and recommendations as sought. Alternatives [...] -The on this visit was given information [facility] service and encouraged to enroll if not already having done so. /tam/ YUNIOR MAY DPM PODIATRY ATTENDING Signed: 08/07/2023 14:49 YUNIOR MAY [place] [facility]
--- OUTSIDE RECORDS SUMMARY | 2024-03-11 13:02 | XMS_ITS ---
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 Date/Time Encounter Type Encounter Description Reason Provider Source Sep 19, 2023 03:00 PM MTMS BY PHARM EST 15 MIN CLINICAL PHARMACY ICD-10-CM E11.9 Type 2 diabetes mellitus without complications SUBHASH GALICIA E Encounter Template Text not used by [place] Assessments - Encounter Diagnoses This section includes the primary and secondary diagnoses documented for the Encounter. Date/Time Primary/Secondary Diagnosis Diagnosis Name Provider Source Sep 19, 2023 03:14 PM PRIMARY Type 2 diabetes mellitus without complications SUBHASH GALICIA [place] [facility] [place] [facility] Plan of Treatment: Future Appointments (+ 6 months) and Future Tests (+/- 45 days) The Plan of Treatment section includes future care activities for the [facility] [place] [facility] This section includes future appointments and future orders which are active, pending or scheduled. Future Appointments This section includes appointments that were scheduled to occur 6 months from the date of the Encounter, up to a maximum of 20 appointments. The data comes from all [place] treatment facilities. Appointment Date/Time Appointment Type Appointme nt Facility Name Oct 09, 2023 03:00 PM AMBULATORY - [place]ICINE [place] [facility] [place] [facility] Oct 23, 2023 11:00 AM [place] [facility] [place] [facility] Oct 26, 2023 11:30 AM AMBULATORY - MEDICINE [facility] Nov 09, 2023 11:20 AM [place]ORY [place]IC[place] [facility] [place] [facility] Nov 20, 2023 03:00 PM AM[place]ORY [place] [facility] [place] [facility] Nov 27, 2023 01:30 PM [place]ORY [place] [facility] [place] [facility] Dec 22, 2023 01:45 PM AM[place] [facility] [place] [facility] Jan 01, 2024 08:30 AM AMBULATORY - PSYCHIATRY [facility] Jan 08, 2024 11:00 AM AMBULATORY [place]AT[place] [facility] [place] [facility] Jan 08, 2024 01:30 PM AM[place]UL[place]ORY [place] [facility] [place] [facility] Jan 22, 2024 11:00 AM AMBULATORY [place] [facility] [place] [facility] Feb 05, 2024 02:00 PM AMBULATORY [place] [facility] [place] [facility] Feb 19, 2024 09:00 AM AMBULATORY [place] [facility] [place] [facility] Feb 19, 2024 11:00 AM AMBULATORY [place] [facility] [place] [facility] Mar 01, 2024 01:30 PM AMBULATORY [place] [facility] [place] [facility] Mar 04, 2024 03:00 PM AM[place]ORY [place] [facility] [place] [facility] Mar 18, 2024 11:00 AM AMBULATORY - PSYCHIATRY [facility] Lab Results: +/- 30 days of the encounter This section includes the Chemistry and Hematology Lab Results on record with [place] for the patient. Radiology Reports and Pathology Reports are provided separately, in subsequent sections. Lab Results This section contains the Chemistry/Hematology Results that were resulted 30 days before or 30 daysafter the date of the Encounter. Date/Time Source Result Type Result - Unit Interpretation Reference Range Comment Sep 22, 2023 09:28 AM [facility] LIPID PANEL FASTING Specimen Type: SERUM No comment entered. Ordering Provider: ZORA GALICIA Report Released Date/Time: Sep 19, 2023 03:09 PM Reporting Lab: [facility] [address] [facility] [address] Performing Lab: [address] [address] CHOLESTEROL 188 mg/dL TRIGLYCERIDE 181 mg/dL H 0-150 LDL calculated 118 mg/dL 0-129 CHOL/HDL 5.5 HDL CHOLESTEROL 34 mg/dL L 40-60 Aug 22, 2023 03:24 PM [facility] FOLATE (WROX) Specimen Type: SERUM No comment entered. Ordering Provider: ZORA GALICIA Report Released Date/Time: Aug 22, 2023 03:15 PM Reporting Lab: [facility] [address] [facility] [address] Performing Lab: [facility] [address] [facility] [address] FOLATE (WROX) 18.31 ng/mL >5.2 Aug 22, 2023 03:24 PM [facility] VITAMIN D (25-OH) Specimen Type: SERUM No comment entered. Ordering Provider: ZORA GALICIA Report Released Date/Time: Aug 22, 2023 03:15 PM Reporting Lab: [facility] [address] [facility] [address] Performing Lab: [address] [address] VITAMIN D (25-OH) 27 ng/mL 20-50 Aug 22, 2023 03:24 PM [facility] FERRITIN Specimen Type: SERUM No comment entered. Ordering Provider: ZORA GALICIA Report Released Date/Time: Aug 22, 2023 03:15 PM Reporting Lab: [address] [address] Performing Lab: [address] [address] FERRITIN 25 ng/mL 20-300 Aug 22, 2023 03:24 PM [facility] IRON & TIBC PANEL Specimen Type: SERUM No comment entered. Ordering Provider: ZORA GALICIA Report Released Date/Time: Aug 22, 2023 03:15 PM Reporting Lab: [address] [address] Performing Lab: [address] [address] TIBC 422 ug/dL 204-475 IRON 118 ug/dL 40-160 Transferrin Saturation 27.9 20.0-50.0 Aug 22, 2023 03:24 PM [facility] VITAMIN B12 Specimen Type: SERUM No comment entered. Ordering Provider: ZORA GALICIA Report Released Date/Time: Aug 22, 2023 03:15 PM Reporting Lab: [address] [address] Performing Lab: [address] [address] VITAMIN B12 761 pg/mL 200-900 Aug 22, 2023 03:24 PM [facility] HEMOGLOBIN A1C PANEL Specimen Type: BLOOD [...] Aug 22, 2023 03:15 PM Reporting [facility] [address] [address] Performing Lab: [facility] [address] HEMOGLOBIN A1C 7.9 H 4.0-5.6 Aug 22, 2023 03:24 PM [facility] TSH Specimen Type: SERUM No comment entered. Ordering Provider: ZORA GALICIA Report Released Date/Time: Aug 22, 2023 03:15 PM Reporting [facility]: [facility] [address] [address] Performing Lab: [facility] [address] TSH 2.30 u[IU]/mL 0.35-5.00 Aug 22, 2023 03:24 PM [facility] CBC Specimen Type: BLOOD No comment entered. Ordering Provider: ZORA GALICIA Report Released Date/Time: Aug 22, 2023 03:15 PM Reporting Lab: [facility] [address] [address] Performing Lab: [facility] [address] [address] WBC 8.07 10*3/uL 4.50-11.00 RBC 4.16 10*6/uL L 4.23-5.66 HGB 13.1 g/dL 12.8-17 HCT 37.0 L 39.2-50.4 MCV 88.9 fL 82-99 MCHC 35.4 g/dL H 30.8-35.1 PLT 221 10*3/uL 140-360 RDW-CV 12.2 12.0-16.0 MCH 31.5 pg 26.2-32.6 Social History: Smoking Status (Most current) and Tobacco Use (All prior to encounter date) This section includes the most current, and the historical, smoking and tobacco- related health factors from the [place] facility where the Encounter took place. Current Smoking Status This section includes the most current smoking, or tobacco-related health factor, from the [place] facility where the Encounter took place. Date/Time Current Smoking Status Comment Filemon honeycutt Aug 19, 2020 02:29 PM VA-TOBACCO FORMER USER [facility] Tobacco Use History This section includes a history of the smoking, or tobacco-related health factors, that were collected on or before the date of the Encounter. The data comes from the [place] facility where the Encounter took place. Date/Time Smoking Status/Tobacco Use Comment Ahsan pulido Aug 19, 2020 02:29 PM VA-TOBACCO QUIT 15 YRS OR MORE [facility] Encounter Notes: All associated encounter notes This section contains the clinical notes associated to the Encounter. Date/Time Encounter Note(s) Provider Source Sep 26, 2023 02:53 PM MEDICATION MGT NOTE: LOCAL TITLE: AFTER VISIT SUMMARY STANDARD TITLE: MEDICATION MGT NOTE DICT DATE: SEP 26, 2023@14:53:36 ENTRY DATE: SEP 26, 2023@14:53:36 DICTATED BY: LEV GALICIA EXP COSIGNER: URGENCY: STATUS: COMPLETED The patient was provided with a copy of an after-visit summary at the conclusion of the visit. The after-visit summary includes information pertaining to the patient's encounter, including diagnoses, vital signs, medications, and new orders, as well as a list of any upcoming appointments and information regarding the patient's ongoing care. The patient's medications were reviewed with the patient by the provider and were provided to the patient as an updated list of medications. The patient was instructed to inform the provider of any medication changes or discrepancies that were noted. Otherwise, the patient was instructed to continue the medications as prescribed. A copy of the after-visit summary provided to the patient is available in [employer]. SCANNED DOCUMENT SIGNATURE NOT REQUIRED Electronically Filed: 09/26/2023 by: RUDI RIGGINS ADVANCED MARRIAGE THERAPIST LEV GALICIA [facility] Sep 19, 2023 12:59 PM PHARMACY OUTPATIENT NOTE: LOCAL TITLE: PHARMACY CLINIC NOTE STANDARD TITLE: PHARMACY OUTPATIENT NOTE DATE OF NOTE: SEP 19, 2023@12:59 ENTRY DATE: SEP 19, 2023@13:00 AUTHOR: LEV GALICIA EXP COSIGNER: URGENCY: STATUS: COMPLETED DEIRDRE STOVER, 57 yo WHITE MALE, was seen for follow-up diabetes management treatment. Pt was last seen on 08/22/23, at which point liraglutide 1.8mg daily was discontinued, dulaglutide 1.5mg weekly was initiated, and insulin glargine 30 units daily and metformin 500mg SA daily were continued. Today, pt reports taking his DM medication as prescribed. Pt denies any issues or AEs on his current DM medication regimen, including after switching GLP1s. Pt took his third dose of dulaglutide this past Monday. He has been snacking less and has noticed some weight loss/looser clothes since starting dulaglutide. He denies any recent s/sx of hypoglycemia. Target Goals: A1C: 7%; FB-130 mg/dL OBJECTIVE: Allergies/ADR: NORVASC, INDOCIN, PERCOCET, SEMAGLUTIDE (pruritis, rash) Active and Recently Outpatient Medications (including Supplies): Active Outpatient Medications Status 1) ACCU-CHEK GUIDE (GLUCOSE) TEST STRIP USE 1 STRIP TO ACTIVE TEST BLOOD SUGARS TWICE DAILY 2) CARVEDILOL 25MG TAB TAKE ONE TABLET BY MOUTH TWICE ACTIVE DAILY 3) CLOPIDOGREL BISULFATE 75MG TAB TAKE ONE TABLET BY ACTIVE MOUTH ONCE DAILY TO PREVENT BLOOD CLOTS STOP BRILLINTA WHEN YOU START THIS MEDICATION 4) DULAGLUTIDE 1.5MG/0.5ML INJ PEN INJECT 1.5MG ACTIVE (S) SUBCUTANEOUSLY ONCE A WEEK FOR TYPE 2 DIABETES MELLITUS (REPLACES LIRAGLUTIDE [VICTOZA]) 5) FELODIPINE 2.5MG SA TAB TAKE ONE TABLET BY MOUTH ACTIVE EVERY MORNING AND TAKE TWO TABLETS EVERY EVENING DO NOT TAKE WITH GRAPEFRUIT JUICE 6) INSULIN,GLARGINE-YFGN 100UNIT/ML PEN 3ML INJECT 30 ACTIVE UNITS SUBCUTANEOUSLY ONCE DAILY 7) METFORMIN HCL 500MG 24HR SA TAB TAKE ONE TABLET BY ACTIVE MOUTH ONCE DAILY FOR TYPE 2 DIABETES MELLITUS 8) NEEDLE,PEN 31G,5MM USE 1 NEEDLE SUBCUTANEOUSLY ONCE ACTIVE DAILY FOR USE WITH PEN DEVICE 9) NITROGLYCERIN 0.4MG SL TAB DISSOLVE ONE TABLET UNDER ACTIVE THE TONGUE EVERY 5 MINUTES NEEDED FOR CHEST PAIN; IF NO RELIEF AFTER 3 DOSES, CALL 911 OR GO TO NEAREST EMERGENCY ROOM 10) PANTOPRAZOLE NA 40MG EC TAB TAKE ONE TABLET BY MOUTH ACTIVE EVERY MORNING 30 MINUTES BEFORE BREAKFAST FOR EXCESSIVE PRODUCTION OF STOMACH ACID 11) ROSUVASTATIN CA 5MG TAB TAKE ONE TABLET BY MOUTH ONCE ACTIVE DAILY FOR CHOLESTEROL Active Non-VA Medications Status 1) Non-VA ASPIRIN 81MG EC TAB 81MG BY MOUTH ONCE DAILY ACTIVE 2) Non-VA MULTIVITAMIN/MINERALS CAP/TAB ONE CAP/TAB BY ACTIVE MOUTH ONCE DAILY Diabetes Medication Regimen: -- Oral meds: metformin 500mg SA daily -- Insulin: insulin glargine 30 units qPM -- Other: dulaglutide 1.5mg weekly Note: pt previously on non-VA dulaglutide 1.5mg daily, but PA-F for semaglutide was not approved due to requiring trial of SGLT2i first; he denies any AEs with dulaglutide in past Note: pt had rash on max dose of semaglutide Note: trial of empagliflozin resulted in intolerable dizziness Labs: LAB CUMULATIVE SELECTED Collection DT Spec GLUCOSE BUN CREATIN Sodium K+/Pot CL CO2 08/17/2023 15:31 SERUM 42 H 2.37 H 135 4.7 103 22 05/15/2023 08:21 SERUM 35 H 1.84 H 137 5.5 H 105 26 03/27/2023 15:20 SERUM 40 H 2.33 H 137 4.7 104 24 02/16/2023 14:33 SERUM 201 H 41 H 2.12 H 137 4.7 104 24 07/22/2022 15:48 SERUM 188 H 21 1.25 138 4.7 104 24 eGFR CKD-EPI 202008/17/23 15:31 31 L SERUM eGFR CKD-EPI 202005/15/23 08:21 42 L SERUM [...] HEMOGLOBIN A1C TREND Collection DT Spec HGBA1c 08/22/2023 15:24 BLOOD 7.9 H 05/15/2023 08:21 BLOOD 8.9 H 03/27/2023 15:20 BLOOD 8.1 H 02/16/2023 14:33 BLOOD 8.2 H 07/22/2022 15:48 BLOOD 7.0 H LIPID PANEL TREND Collection DT Spec CHOL HDL CHO/HDL LDL-c TRIG 07/22/2022 15:48 SERUM 159 38 L 4.2 83 190 H 03/19/2021 07:16 SERUM 134 31 L 4.3 60 217 H 09/09/2020 11:52 SERUM 137 38 L 3.6 80 93 Vitals: Ht: 72 in [182.9 cm] (02/22/2022 15:12) Wt: 258.8 lb [117.39 kg] (07/03/2023 13:28) BMI: BMI: 35.2 BP: 181/82 (08/07/2023 14:27) HR: 71 (08/07/2023 14:27) Pain: 0 (08/07/2023 14:27) SMBG: forgot meter. Pt reports his FBG was 130 today. Pt reports his FBG has been ranging from 115-175 over the last couple of weeks. Denies lows. Prev SMB:00- :30- 08:00- 11:00- 12:30- 17:00- 18:30- :30- 05:30 08:00 11:00 12:30 17:00 18:30 21:30 00:00 # of tests 0 6 7 1 3 0 0 0 Average 0 203 165 169 160 0 0 0 SD 41.3 20.3 0 22.3 Hi/Lo 0 0 0 0 0 0 0 0 05/26/2023 185 05/27/2023 169 05/29/2023 140 06/04/2023 168 Christianne 06/08/2023 224 Christianne 07/06/2023 166 08/01/2023 254 08/02/2023 184 08/08/2023 159 150 08/11/2023 127 08/16/2023 171 Christianne 08/17/2023 175 08/19/2023 169 08/22/2023 240 182 156 Diet Patterns: patient eats on avg. 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 Other: lives w/ girlfriend Personal Goals: I don't think about it - gets anxious when he thinks too much about it (his DM/BG control) HYPOGLYCEMIC Events: 0 in last 2 weeks - Hypoglycemia recognition & treatment reviewed: Yes ASSESSMENT/PLAN: DIABETES A1c is above goal of <7% (7.9% on 08/22/23, decreased from 8.9% on 05/15/23) - Medication management - CONTINUE dulaglutide 1.5mg weekly on Sundays - CONTINUE insulin glargine 30 units qPM - CONTINUE metformin 500mg SA daily (eGFR 31; dosed by nephrology) - Advised pt to notify fha underwriter if any AEs (like skin rash) occur while on GLP1 - Noted pt may be restarted on SGLT2I by non-VA nephrology - pt will notify clinic if any med changes are mad - Continue to SMBG 1-2x/day - FBG, pre-dinner, bedtime. Pt tests his BG on his forearm - Monitor for s/sx hypoglycemia and contact clinic if BG consistently <70mg/dL - pt has juice - Healthy dietary and lifestyle modifications encouraged - advised to continue regular physical activity as tolerated - Repeat A1c: Nov 2023 (prior to f/u) HTN: above goal; on felodipine, carvedilol; defer to PCP/cardiology/nephrology Lipids: at goal; on rosuvastatin 5mg daily ASA: on ASA/clopidogrel Microalb: Feb 16, 2023@14:33 URINE mALB/Cr: 91.4 H mg/G; not on ACEi/ARB Podiatry: 08/07/23 Optometry: Dr. Krystyna [place] [facility] Next Scheduled Follow-up: 11/28/23 @1500 *FtF* Future appointments: 10/09/2023 15:00 CWM/NO/WOUND PROV A 11/27/2023 13:00 CWM/GO/PACT 4 Time Spent: 15 minutes PBM PharmD Pharmacotherapy Rem V12: PHARMACIST INTERVENTIONS: TYPE 2 DIABETES MELLITUS Medication monitoring, no dosage change required, continue to monitor and assess Medication reconciliation (changes to active VA and non-VA medication lists to reconcile differences) No changes to medication lists made (medication review completed, no discrepancies identified) /tam/ Leonid ManuelD Clinical Director On [employer] Signed: 09/19/2023 16:07 LEV GALICIA [place] [facility]
--- OUTSIDE RECORDS SUMMARY | 2024-03-11 13:02 | XMS_ITS | Encounter Summary ---
Author Name [facility] [place] [facility] [place] [facility] [place] Address [address] [place] [address] Care Team Providers Care Casting Cleaner Name Role Phone KIKE WINDY Primary Care [...] PART A Feb 04, 2020 PART A [id number] GRACI[facility]A STOVER PATIENT MEDICARE (WNR) MEDICARE (M) PART B Feb 04, 2020 PART B [id number] [facility] GRACIELA STOVER PATIENT Selected Encounter This section includes the information on record at [place] for the Encounter. Date/Time Encounter Type Encounter Description Reason Provider Source Aug 22, 2023 03:00 PM MTMS BY PHARM ADDL 15 MIN CLINICAL PHARMACY ICD-10-CM E11.9 Type 2 diabetes mellitus without complications SUBHASH GALICIA E Encounter Template Text not used by [place] Assessments - Encounter Diagnoses This section includes the primary and secondary diagnoses documented for the Encounter. Date/Time Primary/Secondary Diagnosis Diagnosis Name Provider Source Aug 22, 2023 03:22 PM PRIMARY Type 2 diabetes mellitus without complications SUBHASH GALICIA [place] [facility] [place] [facility] Plan of Treatment: Future Appointments (+ 6 months) and Future Tests (+/- 45 days) The Plan of Treatment section includes future care activities for the patient from all [place] [facility]. This section includes future appointments and future orders which are active, pending or scheduled. Future Appointments This section includes appointments that were scheduled to occur 6 months from the date of the Encounter, up to a maximum of 20 appointments. The data comes from all [place] treatment facilities. Appointment Date/Time Appointment Type Appointme nt Facility Name Sep 19, 2023 03:00 PM [place] [facility] [place] [facility] Oct 09, 2023 03:00 PM [place] [facility] [place] [facility] Oct 23, 2023 11:00 AM [place] [facility] [place] [facility] Oct 26, 2023 11:30 AM AMBULATORY - MEDICINE [facility] ([facility]) Nov 09, 2023 11:20 AM [place] [facility] [place] [facility] Nov 20, 2023 03:00 PM [place] [facility] [place] [facility] Nov 27, 2023 01:30 PM [place] [facility] [place] [facility] Dec 22, 2023 01:45 PM [place] [facility] [place] [facility] Jan 01, 2024 08:30 AM AMBULATORY - PSYCHIATRY [facility] ([facility]) Jan 08, 2024 11:00 AM [place] [facility] [place] [facility] Jan 08, 2024 01:30 PM [place] [facility] [place] [facility] Jan 22, 2024 11:00 AM [place] [facility] [place] [facility] Feb 05, 2024 02:00 PM [place] [facility] [place] [facility] Feb 19, 2024 09:00 AM [place] [facility] [place] [facility] Feb 19, 2024 11:00 AM [place] [facility] [place] [facility] Lab Results: +/- 30 days of the encounter This section includes the Chemistry and Hematology Lab Results on record with [place] for the patient. Radiology Reports and Pathology Reports are provided separately, in subsequent sections. Lab Results This section contains the Chemistry/Hematology Results that were resulted 30 days before or 30 daysafter the date of the Encounter. Date/Time Source Result Type Result - Unit Interpretation Reference Range Comment Aug 22, 2023 03:24 PM [facility] [place] [facility] FOLATE (WROX) Specimen Type: SERUM No comment entered. Ordering Provider: ZORA GALICIA Report Released Date/Time: Aug 22, 2023 03:15 PM Reporting Lab: [facility] [place] [facility] [address] [facility] [address] Performing Lab: [place] [facility] [place] [facility] [address] [facility] [address] FOLATE (WROX) 18.31 ng/mL >5.2 Aug 22, 2023 03:24 PM [facility] [place] [facility] VITAMIN D (25-OH) Specimen Type: SERUM No comment entered. Ordering Provider: ZORA GALICIA Report Released Date/Time: Aug 22, 2023 03:15 PM Reporting Lab: [facility] [place] [facility] [address] [facility] [address] Performing Lab: [facility] [place] [facility] [address] [facility] [address] VITAMIN D (25-OH) 27 ng/mL 20-50 Aug 22, 2023 03:24 PM [facility] [place] [facility] FERRITIN Specimen Type: SERUM No comment entered. Ordering Provider: ZORA GALICIA Report Released Date/Time: Aug 22, 2023 03:15 PM Reporting Lab: [facility] [place] [facility] [address] [facility] [address] Performing Lab: [facility] [place] [facility] [address] [facility] [address] FERRITIN 25 ng/mL 20-300 Aug 22, 2023 03:24 PM [facility] [place] [facility] IRON & TIBC PANEL Specimen Type: SERUM No comment entered. Ordering Provider: ZORA GALICIA Report Released Date/Time: Aug 22, 2023 03:15 PM Reporting Lab: [facility] [place] [facility] [address] [facility] [address] Performing Lab: [place] [facility] [place] [facility] [address] [facility] [address] TIBC 422 ug/dL 204-475 IRON 118 ug/dL 40-160 Transferrin Saturation 27.9 20.0-50.0 Aug 22, 2023 03:24 PM [facility] VITAMIN B12 Specimen Type: SERUM No comment entered. Ordering Provider: ZORA GALICIA Report Released Date/Time: Aug 22, 2023 03:15 PM Reporting Lab: [place] [facility] [place] [facility] [address] [facility] [address] Performing Lab: [facility] [address] [address] VITAMIN B12 761 pg/mL 200-900 Aug 22, 2023 03:24 PM [facility] HEMOGLOBIN A1C PANEL Specimen Type: BLOOD Comment: [...] Aug 22, 2023 03:15 PM Reporting Lab: [facility] [address] [address] Performing Lab: [facility] [address] [facility] [address] HEMOGLOBIN A1C 7.9 H 4.0-5.6 Aug 22, 2023 03:24 PM [facility] TSH Specimen Type: SERUM No comment entered. Ordering Provider: ZORA GALICIA Report Released Date/Time: Aug 22, 2023 03:15 PM Reporting Lab: [facility] [address] [address] Performing Lab: [facility] [address] [address] TSH 2.30 u[IU]/mL 0.35-5.00 Aug 22, 2023 03:24 PM [facility] CBC Specimen Type: BLOOD No comment entered. Ordering Provider: ZORA GALICIA Report Released Date/Time: Aug 22, 2023 03:15 PM Reporting Lab: [address] [address] [facility] [address] [address] WBC 8.07 10*3/uL 4.50-11.00 RBC 4.16 10*6/uL L 4.23-5.66 HGB 13.1 g/dL 12.8-17 HCT 37.0 L 39.2-50.4 MCV 88.9 fL 82-99 MCHC 35.4 g/dL H 30.8-35.1 PLT 221 10*3/uL 140-360 RDW-CV 12.2 12.0-16.0 MCH 31.5 pg 26.2-32.6 Aug 17, 2023 03:31 PM [place] ([facility]) UREA NITROGEN Specimen Type: SERUM No comment entered. Ordering Provider: QUENTIN STOKES Report Released Date/Time: Jul 03, 2023 01:39 PM Reporting Lab: [address] [address] Performing Lab: [address] [address] UREA NITROGEN 42 mg/dL H 7-Aug 17, 2023 03:31 PM [place] ([facility]) CREATININE (eGFR 2020) Specimen Type: SERUM No comment entered. Ordering Provider: QUENTIN STOKES Report Released Date/Time: Jul 03, 2023 01:39 PM Reporting Lab: [address] [address] Performing Lab: [address] [address] CREATININE, Serum 2.37 mg/dL H 0.50-1.40 eGFR(CKD-EPI 2020) 31 mL/min L >60 Aug 17, 2023 03:31 PM [place] ([facility]) ELECTROLYTE PANEL Specimen Type: SERUM No comment entered. Ordering Provider: QUENTIN STOKES Report Released Date/Time: Jul 03, 2023 01:39 PM Reporting Lab: [facility] [address] [facility] [address] Performing Lab: [facility] [address] [facility] [address] SODIUM 135 mmol/L 135-145 POTASSIUM 4.7 mmol/L 3.5-5.0 CHLORIDE 103 mmol/L 100-110 CO2 22 meq/L 20-30 Social History: Smoking Status (Most current) and Tobacco Use (All prior to encounter date) This section includes the most current, and the historical, smoking and tobacco- related health factors from the [place] facility where the Encounter took place. Current Smoking Status This section includes the most current smoking, or tobacco-related health factor, from the [place] facility where the Encounter took place. Date/Time Current Smoking Status Comment Filemon honeycutt Aug 19, 2020 02:29 PM [facility]AC[facility] FORMER USER [facility] Tobacco Use History This section includes a history of the smoking, or tobacco-related health factors, that were collected on or before the date of the Encounter. The data comes from the [place] facility where the Encounter took place. Date/Time Smoking Status/Tobacco Use Comment F tess Aug 19, 2020 02:29 PM [place]-TO[place] QU[place] 15 YRS OR MORE [facility] Encounter Notes: All associated encounter notes This section contains the clinical notes associated to the Encounter. Date/Time Encounter Note(s) Provider Source Aug 22, 2023 03:00 PM PHARMACY OUTPATIENT NOTE: LOCAL TITLE: PHARMACY CLINIC NOTE STANDARD TITLE: PHARMACY OUTPATIENT NOTE DATE OF NOTE: AUG 22, 2023@15:00 ENTRY DATE: AUG 22, 2023@14:30:06 AUTHOR: LEV GALICIA COSIGNER: URGENCY: STATUS: COMPLETED DEIRDRE STOVER, 57 yo WHITE MALE, was seen for follow-up diabetes management treatment. Pt was last seen on 05/22/23, at which point insulin glargine 30 units daily, liraglutide 1.8mg daily, and metformin 500mg SA BID were continued. Today, pt reports taking his DM medication as prescribed, except he is now taking metformin 500mg SA once daily. Pt's non-VA ski topper decreased the dose of metformin 2-3 months ago due to pt's declined kidney fx. Pt states no other medication changes were made by his ski topper at their last visit; he has has f/u with them later this month. Pt feels that the liraglutide is not helping his BGs as much as it should. He recalls that his BG was better controlled in the past when he was on non-VA dulaglutide. Pt denies any recent s/sx of hypoglycemia or dizziness on his current regimen. He confirms good adherence to his doses. 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 His jewelry mechanic advised him that he may need further surgery done on the rest of his toes, which is causing pt a lot of distress. Target Goals: A1C: 7%; FB-130 mg/dL OBJECTIVE: Allergies/ADR: NORVASC, INDOCIN, PERCOCET, SEMAGLUTIDE (pruritis, rash) Active and Recently Outpatient Medications (including Supplies): Active Outpatient Medications Status 1) CARVEDILOL 25MG TAB TAKE ONE TABLET BY MOUTH TWICE ACTIVE DAILY 2) FELODIPINE 2.5MG SA TAB TAKE ONE TABLET BY MOUTH ACTIVE EVERY MORNING AND TAKE TWO TABLETS EVERY EVENING DO NOT TAKE WITH GRAPEFRUIT JUICE 3) INSULIN,GLARGINE-YFGN 100UNIT/ML PEN 3ML INJECT 30 ACTIVE UNITS SUBCUTANEOUSLY ONCE DAILY 4) LIRAGLUTIDE (VICTOZA) 6MG/ML INJ PEN 3ML INJECT 1.8MG ACTIVE SUBCUTANEOUSLY ONCE DAILY 5) METFORMIN HCL 500MG 24HR SA TAB TAKE ONE TABLET BY HOLD MOUTH TWICE DAILY taking 500mg SA once daily - per nephrology 6) NEEDLE,PEN 32G,4MM USE 1 NEEDLE SUBCUTANEOUSLY ONCE ACTIVE DAILY NEEDED FOR USE WITH PEN DEVICE 7) NITROGLYCERIN 0.4MG SL TAB DISSOLVE ONE TABLET UNDER ACTIVE THE TONGUE EVERY 5 MINUTES NEEDED FOR CHEST PAIN; IF NO RELIEF AFTER 3 DOSES, CALL 911 OR GO TO NEAREST EMERGENCY ROOM 8) PANTOPRAZOLE NA 40MG EC TAB TAKE ONE TABLET BY MOUTH ACTIVE EVERY MORNING 30 MINUTES BEFORE BREAKFAST FOR EXCESSIVE PRODUCTION OF STOMACH ACID 9) ROSUVASTATIN CA 5MG TAB TAKE ONE TABLET BY MOUTH ONCE ACTIVE DAILY FOR CHOLESTEROL Inactive Outpatient Medications Status 1) CLOPIDOGREL BISULFATE 75MG TAB TAKE ONE TABLET BY MOUTH ONCE DAILY TO PREVENT BLOOD CLOTS STOP BRILLINTA WHEN YOU START THIS MEDICATION Active Non-VA Medications Status 1) Non-VA ASPIRIN [...] 71 (08/07/2023 14:27) Pain: 0 (08/07/2023 14:27) SMB:00- 05:30- 08:00- 11:00- 12:30- 17:00- 18:30- [...] on avg. 3x/day: Wake: 3am B: 6am; libyan muffin w/ PB or butter L: 12pm; [...] (8.9% on 05/15/23) - Medication management - DISCONTINUE liraglutide from 1.8mg daily - INITIATE dulaglutide 1.5mg weekly - will enter NF - CONTINUE insulin glargine 30 units qPM - CONTINUE metformin 500mg SA daily (eGFR 31; dosed by nephrology) - Pt wants to retrial dulaglutide as he had tried in the past with good effect and no AEs. Will enter NF. Advised to notify medical technical writer if any AEs (like skin rash) occur while on GLP1 - Noted pt may be restarted on SGLT2I by non-VA nephrology - pt will notify clinic if any med changes are mad - Increase SMBG to 1-2x/day - FBG, pre-dinner, bedtime. Counseled to wait at least 2 hours after eating to test PPG. Pt tests his BG on his forearm - Monitor for s/sx hypoglycemia and contact clinic if BG consistently <70mg/dL - pt has juice - Healthy dietary and lifestyle modifications encouraged - advised to continue regular physical activity as tolerated - Repeat A1c: today HTN: above goal; on felodipine, carvedilol; defer to PCP/cardiology/nephrology Lipids: at goal; on rosuvastatin 5mg daily ASA: on ASA/clopidogrel Microalb: Feb 16, 2023@14:33 URINE mALB/Cr: 91.4 H mg/G; not on ACEi/ARB Podiatry: 08/07/23 Optometry: [facility]. Krystyna [facility] Next Scheduled Follow-up: 09/19/23 @1500 *FtF* Future appointments: 10/09/2023 15:00 CWM/NO/WOUND PROV A 11/27/2023 13:00 CWM/GO/PACT 4 Time Spent: 30 minutes PBM PharmD Pharmacotherapy Rem V12: PHARMACIST INTERVENTIONS: TYPE 2 DIABETES MELLITUS Medication Intervention(s) Discontinue and/or change to different medication Discontinue and/or change to different medication due to other reason Medication reconciliation (changes to active VA and non-VA medication lists to reconcile differences) Changes to medication lists made Update dose, frequency, duration and/or dosage form of medication /tam/ Lev Galicia PharmD Clinical Graphic Designer Signed: 08/22/2023 16:36 [facility] [place] [facility]
--- OUTSIDE RECORDS SUMMARY | 2024-03-11 13:02 | XMS_ITS ---
Author Name [facility] [place] [facility] [place] [facility] [place] Address [address] [place] [address] Care Team Providers Care Telephone Lines Repairer Name Role Phone WINDY STOKES Primary Care [...] PART B Feb 04, 2020 PART B [id number] [address] [facility] PATIENT MEDICARE (WNR) MEDICARE (M) PART A Feb 04, 2020 PART A [id number] [facility] [facility] GRAC[facility] STOVER PATIENT Selected Encounter This section includes the information on record at [place] for the Encounter. Date/Time Encounter Type Encounter Description Reason Pro vider Source Aug 22, 2023 03:00 PM Outpatient Encounter ADMIN PAT ACTIVTIES (MASNONCT) IHE Encounter Template Text not used by [place] Plan of Treatment: Future Appointments (+ 6 [...] 20 appointments. The data comes from all [place] treatment facilities. Appointment Date/Time Appointment Type Appointme nt Facility Name Sep 19, 2023 03:00 PM AM[facility]ULATORY [facility]ICINE [facility] [place] [facility] Oct 09, 2023 03:00 PM [facility]ULATORY [facility]IC[facility] [place] [facility] Oct 23, 2023 11:00 AM [facility]ULATORY [facility] [place] [facility] Oct 26, 2023 11:30 AM AMBULATORY - MEDICINE [facility] Nov 09, 2023 11:20 AM AMBULATORY [facility]ICINE [facility] [place] [facility] Nov 20, 2023 03:00 PM AMBULATORY - MEDICINE [facility] [place] [facility] Nov 27, 2023 01:30 PM AM[facility]ULATORY - [facility]ICINE [facility] [place] [facility] Dec 22, 2023 01:45 PM AMBULATORY - MEDICINE [facility] [place] [facility] Jan 01, 2024 08:30 AM AMBULATORY - PSYCHIATRY [facility] ([facility]) Jan 08, 2024 11:00 AM AMBULATORY - PS[facility]CHIATRY [facility] [place] [facility] Jan 08, 2024 01:30 PM AMBULATORY - [place]ICINE [place] [facility] [place] [facility] Jan 22, 2024 11:00 AM AMBULATORY - PS[facility]CHIATRY [facility] [place] [facility] Feb 05, 2024 02:00 PM AMBULATORY - PS[facility]CHIATRY [facility] [place] [facility] Feb 19, 2024 09:00 AM AMBULATORY - MEDICINE [place] [facility] [place] [facility] Feb 19, 2024 11:00 AM AMBULATORY - PS[place]CHIATRY [place] [facility] [place] [facility] Lab Results: +/- 30 days of the encounter This section includes the Chemistry and Hematology Lab Results on record with [place] for the patient. Radiology Reports and Pathology Reports are provided separately, in subsequent sections. Lab Results This section contains the Chemistry/Hematology Results that were resulted 30 days before or 30 daysafter the date of the Encounter. Date/Time Source Result Type Result - Unit Interpretation Reference Range Comment Aug 22, 2023 03:24 PM [facility] [place] [facility] FOLATE (WROX) Specimen Type: SERUM No comment entered. Ordering Provider: ZORA GALICIA Report Released Date/Time: Aug 22, 2023 03:15 PM Reporting [facility] [address] [address] Performing Lab: [place] [facility] [place] [facility] [address] [address] FOLATE (WROX) 18.31 ng/mL >5.2 Aug 22, 2023 03:24 PM [facility] VITAMIN D (25-[place]) Specimen Type: SERUM No comment entered. Ordering Provider: ZORA GALICIA Report Released Date/Time: Aug 22, 2023 03:15 PM Reporting Lab: [facility] [address] [address] Performing Lab: [facility] [address] [address] VITAMIN D (25-OH) 27 ng/mL 20-50 Aug 22, 2023 03:24 PM [facility] FERRITIN Specimen Type: SERUM No comment entered. Ordering Provider: ZORA GALICIA Report Released Date/Time: Aug 22, 2023 03:15 PM Reporting Lab: [facility] [address] [address] Performing Lab: [facility] [address] [address] FERRITIN 25 ng/mL 20-300 Aug 22, 2023 03:24 PM [facility] IRON & TIBC PANEL Specimen Type: SERUM No comment entered. Ordering Provider: ZORA GALICIA Report Released Date/Time: Aug 22, 2023 03:15 PM Reporting Lab: [facility] [address] [address] Performing Lab: [facility] [address] [address] TIBC 422 ug/dL 204-475 IRON 118 ug/dL 40-160 Transferrin Saturation 27.9 20.0-50.0 Aug 22, 2023 03:24 PM [facility] VITAMIN B12 Specimen Type: SERUM No comment entered. Ordering Provider: ZORA GALICIA Report Released Date/Time: Aug 22, 2023 03:15 PM Reporting Lab: [facility] [place] [facility] [address] [address] Performing Lab: [facility] [address] [address] VITAMIN B12 761 pg/mL 200-900 Aug 22, 2023 03:24 PM [facility] HEMOGLOBIN A1C PANEL Specimen Type: BLOOD Comment: [...] Aug 22, 2023 03:15 PM Reporting Lab: [place] [facility] [place] [facility] [address] [address] Performing Lab: [place] [facility] [place] [place] [facility] [address] [address] HEMOGLOBIN A1C 7.9 H 4.0-5.6 Aug 22, 2023 03:24 PM [facility] TSH Specimen Type: SERUM No comment entered. Ordering Provider: ZORA GALICIA Report Released Date/Time: Aug 22, 2023 03:15 PM Reporting Lab: [place] [facility] [place] [facility] [address] [address] Performing Lab: [place] [facility] [place] [facility] [address] [address] TSH 2.30 u[IU]/mL 0.35-5.00 Aug 22, 2023 03:24 PM [facility] CBC Specimen Type: BLOOD No comment entered. Ordering Provider: ZORA GALICIA Report Released Date/Time: Aug 22, 2023 03:15 PM Reporting Lab: [facility] [address] [address] Performing Lab: [facility] [address] [address] WBC 8.07 10*3/uL 4.50-11.00 RBC 4.16 10*6/uL [...] Jul 03, 2023 01:39 PM Reporting Lab: [facility] [address] [address] Performing Lab: [address] [address] UREA NITROGEN 42 mg/dL H 7-Aug 17, 2023 03:31 PM [facility] ([facility]) CREATININE (eGFR 2020) Specimen Type: SERUM No comment entered. Ordering Provider: QUENTIN STOKES Report Released Date/Time: Jul 03, 2023 01:39 PM Reporting Lab: [facility] [address] [address] Performing Lab: [facility] [address] [address] CREATININE, Serum 2.37 mg/dL H 0.50-1.40 eGFR(CKD-EPI 2020) 31 mL/min L >60 Aug 17, 2023 03:31 PM [facility] ([facility]) ELECTROLYTE PANEL Specimen Type: SERUM No comment entered. Ordering Provider: QUENTIN STOKES Report Released Date/Time: Jul 03, 2023 01:39 PM Reporting Lab: [facility] [address] [address] Performing Lab: [facility] [address] [address] SODIUM 135 mmol/L 135-145 POTASSIUM 4.7 mmol/L 3.5-5.0 CHLORIDE 103 mmol/L 100-110 CO2 22 meq/L 20-30 Social History: Smoking Status (Most current) and Tobacco Use (All prior to encounter date) This section includes the most current, and the historical, smoking and tobacco- related health factors from the [facility] where the Encounter took place. Current Smoking Status This section includes the most current smoking, or tobacco-related health factor, from the [place] facility where the Encounter took place. Date/Time Current Smoking Status Comment Facil ity Aug 19, 2020 02:29 PM VA-TOBACCO FORMER USER [facility] Tobacco Use History This section includes a history of the smoking, or tobacco-related health factors, that were collected on or before the date of the Encounter. The data comes from the [place] facility where the Encounter took place. Date/Time Smoking Status/Tobacco Use Comment F acility Aug 19, 2020 02:29 PM VA-TOBACCO QUIT 15 YRS OR MORE [facility] Encounter Notes: All associated encounter notes This section contains the clinical notes associated to the Encounter. Date/Time Encounter Note(s) Provider Source Aug 22, 2023 04:36 PM MEDICATION MGT NOT E: LOCAL TITLE: OUTPATIENT MEDICATION REQUEST STANDARD TITLE: MEDICATION MGT NOTE DATE OF NOTE: AUG 22, 2023@16:36 ENTRY DATE: AUG 22, 2023@16:36:39 AUTHOR: LEV GALICIA EXP COSIGNER: URGENCY: STATUS: COMPLETED Medication Request Date of Request: Aug Is this a New Medication? No 8) PANTOPRAZOLE NA 40MG EC TAB TAKE ONE TABLET BY MOUTH ACTIVE EVERY MORNING 30 MINUTES BEFORE BREAKFAST FOR EXCESSIVE PRODUCTION OF STOMACH ACID 1) CLOPIDOGREL BISULFATE 75MG TAB TAKE ONE TABLET BY MOUTH ONCE DAILY TO PREVENT BLOOD CLOTS STOP BRILLINTA WHEN YOU START THIS MEDICATION - Requests renewal for mail The following actions were performed: PACT Team RN and Provider added as additional Signers to this request *Please let patient know that this request may take up to 72 hours to process.* /tam/ Lev L Kosofsky, PharmD Clinical Accounting File Clerk Signed: 08/22/2023 16:37 Receipt Acknowledged By: 08/29/2023 16:34 /es/ Windy Stokes MD MD PRIMARY CARE PHYSICIAN 08/24/2023 08:19 /tam/ GINO DUBON RN REGISTERED NURSE [facility]
--- OUTSIDE RECORDS SUMMARY | 2024-03-11 13:02 | XMS_ITS | Encounter Summary ---
Author Name [facility] [place] Address [address] [place] [address] Care Team Providers Care Inbound Ingredient Logistics Specialist Name Role Phone VICKIENAWAF NAVADERICK Primary Care [...] PART A Feb 04, 2020 PART A [id number] [address] [facility] STOVER PATIENT MEDICARE (WNR) MEDICARE (M) PART B Feb 04, 2020 PART B [id number] NE[address] [facility] GRACIELA STOVER PATIENT Selected Encounter This section includes the information on record at [place] for the Encounter. Date/Time Encounter Type Encounter Description Reason Pro vider Source Mar 24, 2023 12:00 PM Outpatient Encounter COMMUNITY CARE CONSULT IHE [...] 20 appointments. The data comes from all [place] treatment facilities. Appointment Date/Time Appointment Type Appointme nt Facility Name Apr 20, 2023 03:30 PM AMBULATORY [facility]IC[facility] [place] [facility] May 22, 2023 03:00 PM AMBULATORY - MEDICINE [facility] [place] [facility] Jun 08, 2023 03:00 PM AMBULATORY - MEDICINE [facility] [place] [facility] Jun 09, 2023 10:40 AM AMBULATORY - MEDICINE [place] [facility] [place] [facility] Jul 03, 2023 01:30 PM AMBULATORY - MEDICINE [facility] ([facility]) Aug 07, 2023 02:30 PM AMBULATORY - MEDICINE [place] [facility] [place] [facility] Aug 08, 2023 04:00 PM AMBULATORY - MEDICINE [place] [facility] [place] [facility] Aug 22, 2023 03:00 PM AMBULATORY - MEDICINE [place] [facility] [place] [facility] Sep 19, 2023 03:00 PM AMBULATORY - MEDICINE [place] [facility] [place] [facility] Lab Results: +/- 30 days of the encounter This section includes the Chemistry and Hematology Lab Results on record with [place] for the patient. Radiology Reports and Pathology [...] Mar 27, 2023 09:15 AM Reporting Lab: [place] [facility] [place] [facility] [address] [address] Performing Lab: [place] [facility] [place] [facility] [address] [facility] [address] CALCIUM 9.2 mg/dL 8.5-10.2 Mar 27, 2023 03:20 PM [facility] ([facility]) CREATININE (eGFR 2020) Specimen Type: SERUM No comment entered. Ordering Provider: QUENTIN STOKES Report Released Date/Time: Mar 27, 2023 09:15 AM Reporting Lab: [facility] [address] [facility] [address] [facility] [address] [address] CREATININE, Serum 2.33 mg/dL H 0.50-1.40 eGFR(CKD-EPI 2020) 32 mL/min L >60 Mar 27, 2023 03:20 PM [facility] ([facility]) UREA NITROGEN Specimen Type: SERUM No comment entered. Ordering Provider: QUENTIN STOKES Report Released Date/Time: Mar 27, 2023 09:15 AM Reporting Lab: [address] [address] Performing Lab: [address] [address] UREA NITROGEN 40 mg/dL H 7-25 Mar 27, 2023 03:20 PM [facility] ([facility]) HEMOGLOBIN A1C PANEL Specimen Type: BLOOD [...] Mar 27, 2023 09:15 AM Reporting Lab: [address] [address] Performing Lab: [address] [address] HEMOGLOBIN A1C 8.1 H 4.0-5.6 Mar 27, 2023 03:20 PM [facility] ([facility]) ELECTROLYTE PANEL Specimen Type: SERUM No comment entered. Ordering Provider: QUENTIN STOKES Report Released Date/Time: Mar 27, 2023 09:15 AM Reporting Lab: [address] [address] Performing Lab: [address] [address] SODIUM 137 mmol/L 135-145 POTASSIUM 4.7 mmol/L 3.5-5.0 CHLORIDE 104 mmol/L 100-110 CO2 24 meq/L 20-30 Mar 27, 2023 03:20 PM [facility] ([facility]) PROTEIN/CREATININE RATIO PANEL, URINE Specimen Type: URINE No comment entered. Ordering Provider: QUENTIN STOKES Report Released Date/Time: Mar 27, 2023 09:15 AM Reporting Lab: [facility] [address] [facility] [address] Performing Lab: [facility] [address] [facility] [address] CREATININE URINE 87.51 mg/dL UR PROTEIN/CREAT ININE RATIO 0.2 <0.2 PROTEIN, URINE 13.3 mg/dL 0.0-20.0 Social History: Smoking Status (Most current) and Tobacco Use (All prior to encounter date) This section includes the most current, and the historical, smoking and tobacco- related health factors from the [place] facility where the Encounter took place. Current Smoking Status This section includes the most current smoking, or tobacco-related health factor, from the [place] facility where the Encounter took place. Date/Time Current Smoking Status Comment Filemon ity Aug 19, 2020 02:29 PM VA-TOBACCO FORMER USER [facility] Tobacco Use History This section includes a history of the smoking, or tobacco-related health factors, that were collected on or before the date of the Encounter. The data comes from the [place] facility where the Encounter took place. Date/Time Smoking Status/Tobacco Use Comment F acility Aug 19, 2020 02:29 PM VA-TOBACCO QUIT 15 YRS OR MORE [facility] Encounter Notes: All associated encounter notes This section contains the clinical notes associated to the Encounter. Date/Time Encounter Note(s) Provider Source Mar 24, 2023 12:00 PM NONVA CONSULT: LOCAL TITLE: COMMUNITY CARE-CONSULT RESULT NOTE STANDARD TITLE: NONVA CONSULT DATE OF NOTE: MAR 24, 2023@12:00 ENTRY DATE: AUG 24, 2023@13:22:38 AUTHOR: MARTIN GARCIA COSIGNER: URGENCY: STATUS: COMPLETED VistA Imaging - Scanned Document SCANNED DOCUMENT SIGNATURE NOT REQUIRED Electronically Filed: 08/24/2023 by: MARTIN GRIMES [facility]
--- OUTSIDE RECORDS SUMMARY | 2024-03-11 13:02 | XMS_ITS | Encounter Summary ---
Author Name [facility] Address [address] [place] [address] Care Team Providers Care Burlap Bag Sewer Name Role Phone FRANKLIN STOKES Primary Care Provider Unavail able Insurance [...] PART A Feb 04, 2020 PART A [id number] GRACIELA STOVER PATIENT MEDICARE (WNR) MEDICARE (M) PART B Feb 04, 2020 PART B [id number] GRACIELA STOVER PATIENT Selected Encounter This section includes the information on record at [place] for the Encounter. Date/Time Encounter Type Encounter Description Reason Provider Source Jul 03, 2023 01:30 PM OFFICE O/P EST HI 40 MIN PRIMARY CARE/MEDICINE ICD-10-CM C64.2 Malignant neoplasm of left kidney, except renal pelvis QUENTIN STOKES Encounter Template Text not used by [facility] Assessments - Encounter Diagnoses This section includes the primary and secondary diagnoses documented for the Encounter. Date/Time Primary/Secondary Diagnosis Diagnosis Name Provider Source July 05, 2023 12:57 AM PRIMARY Malignant neoplasm of left kidney, except renal pelvis MELL STOKES ([facility]) July 05, 2023 12:57 AM SECONDARY Anemia, unspecified MELL STOKES ([facility]) July 05, 2023 12:57 AM SECONDARY Athscl heart disease of douglas coronary artery w/o ang pctrs MELL STOKES ([facility]) July 05, 2023 12:57 AM SECONDARY Chronic kidney disease, stage 3 unspecified MELL STOKES ([facility]) July 05, 2023 12:57 AM SECONDARY Essential (primary) hypertension MELL STOKES ([facility]) July 05, 2023 12:57 AM SECONDARY Gastro-esophageal reflux disease without esophagitis MELL STOKES ([facility]) July 05, 2023 12:57 AM SECONDARY Hyperlipidemia, unspecified MELL STOKES ([facility]) July 05, 2023 12:57 AM SECONDARY Peripheral vascular disease, unspecified MELL STOKES ([facility]) July 05, 2023 12:57 AM SECONDARY Type 2 diabetes mellitus without complications MELL STOKES ([facility]) Plan of Treatment: Future Appointments (+ 6 months) and Future Tests (+/- 45 days) The Plan of Treatment section includes future care activities for the patient from all [facility]. This section includes future appointments and future orders which are active, pending or scheduled. Future Appointments This section includes appointments that were scheduled to occur 6 months from the date of the Encounter, up to a maximum of 20 appointments. The data comes from all [place] treatment facilities. Appointment Date/Time Appointment Type Appointme nt Facility Name Aug 07, 2023 02:30 PM AMBULATORY - MEDICINE [place] [facility] [place] [facility] Aug 08, 2023 04:00 PM AMBULATORY - MEDICINE [place] [facility] [place] [facility] Aug 22, 2023 03:00 PM AMBULATORY - MEDICINE [place] [facility] [place] [facility] Sep 19, 2023 03:00 PM AMBULATORY - MEDICINE [place] [facility] [place] [facility] Oct 09, 2023 03:00 PM AMBULATORY - MEDICINE [place] [facility] [place] [facility] Oct 23, 2023 11:00 AM AMBULATORY - MEDICINE [place] [facility] [place] [facility] Oct 26, 2023 11:30 AM AMBULATORY - MEDICINE [facility] ([facility]) Nov 09, 2023 11:20 AM AMBULATORY - MEDICINE [place] [facility] [place] [facility] Nov 20, 2023 03:00 PM AMBULATORY - MEDICINE [place] [facility] [place] [facility] Nov 27, 2023 01:30 PM AMBULATORY - MEDICINE [place] [facility] [place] [facility] Dec 22, 2023 01:45 PM AMBULATORY - MEDICINE [place] [facility] [place] [facility] Jan 01, 2024 08:30 AM AMBULATORY - PSYCHIATRY [facility] ([facility]) Vital Signs: All taken on the encounter date This section contains inpatient and outpatient Vital Signs collected on the date of the Encounter. Date/Time Temperature Pulse Blood Pressure Respiratory Rate SP02 Pain Height Weight Body Mass Index Source Jul 03, 2023 01:32 PM 166/82 [facility] ([facility]) Jul 03, 2023 01:28 PM 97.9 68 170/90 16 97 8 258.8 35 [facility] ([facility]) Social History: Smoking Status (Most current) and Tobacco Use (All prior to encounter date) This section includes the most current, and the historical, smoking and tobacco- related health factors from the [place] facility where the Encounter took place. Current Smoking Status This section includes the most current smoking, or tobacco-related health factor, from the [place] facility where the Encounter took place. Date/Time Current Smoking Status Comment Facil ity Nov 08, 2022 01:30 PM VA-TOBACCO FORMER USER [facility] ([facility]) Tobacco Use History This section includes a history of the smoking, or tobacco-related health factors, that were collected on or before the date of the Encounter. The data comes from the [place] facility where the Encounter took place. Date/Time Smoking Status/Tobacco Use Comment F acility Nov 08, 2022 01:30 PM VA-TOBACCO QUIT 5 TO < 15 YRS [facility] ([facility]) Oct 18, 2021 10:30 AM VA-TOBACCO FORMER USER [facility] ([facility]) Oct 18, 2021 10:30 AM VA-TOBACCO QUIT 15 YRS OR MORE [facility] ([facility]) Sep 21, 2020 02:00 PM VA-TOBACCO FORMER USER [facility] ([facility]) Sep 21, 2020 02:00 PM VA-TOBACCO QUIT 15 YRS OR MORE [facility] ([facility]) Encounter Notes: All associated encounter notes This section contains the clinical notes associated to the Encounter. Date/Time Encounter Note(s) Provider Source Jul 03, 2023 06:20 PM PHYSICIAN NOTE: LOCAL TITLE: NOTE STANDARD TITLE: PHYSICIAN NOTE DATE OF NOTE: JUL 03, 2023@18:20 ENTRY DATE: JULY 05, 2023@00:31:40 AUTHOR: FRANKLIN STOKES EXP COSIGNER: URGENCY: STATUS: COMPLETED Chief complaint:Pt is a 57 year old who comes in for follow up of medical problems as noted below. CC: 4 Mo f/u Last Seen in PCP: Feb 2023 HPI: 57 y/o M with PMH of recent L. kidney RCC (Bx Oct 2022) s/p L nephrectomy Nov 2022, IDDM (A1c 8.9), CAD s/p CABG 2014, at age 47, 3 stents 2016 on Plavix, iCM EF 50%, chronic CP, HTN, HLD, DVT was on Apixaban July 2020, PVD s/p R post tibial angioplasty, chronic OM R toe, CKD3, GERD, came to clinic today for F2F visit. is feeling fine and has no new complains now. Still has pain in his right 2nd toe from chronic OM for years. Scheduled for partial toe amputation in 2 weeks with outside vascular for chronic distal phalanx OM BP elevated in office on repeated checks. Home FBS are 140-150, psot prandial BG 90. Has some BW gain form last visit. Did labs and wants to discuss. Pt denies any recent travel, sick contacts, fever, chills, cough, palpitations, CP, SOB, DAVIS, numbness, tingling , weakness, dizziness, abd pain, N/V/D, dysuria, constipation, LE edema, BW changes. No changes in ET, can walk 4+ blocks, can climb 1-2 flight of stairs, denies any orthopnea, PND. Pt is compliant with medications. 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 Clear cell carcinoma of kidney Left upper pole 2. Anemia (SCT 353592448) 3. CAD - Coronary Artery Disease (SCT 84252559) 4. Diabetes Mellitus Type 2 (SCT 04016887) 5. HTN - Hypertension (SCT 48333159) 6. Hyperlipidemia (SCT 99378589) 7. GERD - Gastro-Esophageal Reflux Disease (SCT 245774699) 8. Chronic Kidney Disease Stage 3 (SCT 385238706) 9. H/O: Deep Vein Thrombosis (SCT 327346197) 10. Peripheral Vascular Disease (SCT 112579221) 11. Foot Ulcer (SCT 91302980) 12. Osteomyelitis (SCT 54538556) Allergies: NORVASC, INDOCIN, PERCOCET, SEMAGLUTIDE The following VA and Non-VA meds were reconciled with patient: Active and Recently Outpatient Medications (excluding Supplies): Active Outpatient Medications Status 1) CARVEDILOL [...] TABLET BY HOLD MOUTH TWICE DAILY 7) NITROGLYCERIN 0.4MG SL TAB DISSOLVE ONE [...] ONE CAP/TAB BY ACTIVE MOUTH ONCE DAILY 11 Total Medications No Active Remote Medications for this patient On examination: 166/82 (07/03/2023 13:32)97.9 F [36.6 C] (07/03/2023 13:28)16 (07/03/2023 13:28)68 (07/03/2023 13:28)8 (07/03/2023 13:28)X3 BMI: 35.2258.8 lb [117.39 kg] (07/03/2023 13:28) PE: GA: AOx3, middle age male, in NAD, pleasant, HEENT: NC/AT, MMM; Neck: supple, no LNs, no JVD; HRT: normal S1/S2, no MRGs Chest: CTA b/l normal breath sounds, no wheezing Abd: soft, NTTP, BS+ Extremities: L leg edema 1+, chronic 2/2 old injury, R leg no edema, no issues 2nd right toe: missing distal phalanx, open chronic wound, no discharge, no redness Labs : Mar to may 15, 2023 CBC: H/H BMP: BUN/Creat 35/1.8, GFR 42; K+ 5.5 A1c: 8.9 Microalb/create ratio : 91 Ca++ WnL Imaging/Tests: MRI Abd Aug 2022 outside: Increased in size LUP kidney mass 4.2cm Small up to 5mm cystic foci in pancreas, 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 K+ 5.5 ran out of Trulicity, now restarted Liraglutide 1.8mg inj daily -on lantus pen 30 units -on Metformin 500mg bid (renally dosed) -was on Trulicity 1.5mg q1 week inj BG at home improved now since on all meds CAD s/p CABG 2014, 3 stents 2016 on Plavix, iCM EF 50%, chronic CP, HTN, HLD, DVT was on Apixaban July 2020, PVD s/p R post tibial angioplasty : f/b outside cardiology Dr Kiser, Jyoti Upton , VISITOR SERVICE ASSISTANT and vascular Dr Beatrice Bess, both [facility] planned for 2nd right toe amputation for non healing chronic OM of distal phalanx -on rosuvastatin 5mg LDL near goal BP elevated on repeated check, says nervous anxious RE amputation -on carvedilol 25mg bid -was on imdur 30mg but stopped per outside cardio -was on Apixaban 5mg bid but stopped, claimed was very superficial DVT, was on int for 3-4 months only -on Asa 81 mg -on Plavix 75mg -re-start felodipine 2.5mg in am ansd 5mg inpm. Can increase am dose to 5mg as well so 5mg bid Pt claims he feels tired on felodipine, will try AMANDA (toe) R 0.2, L 0.29 f/b Dr Modesto Rose CKD3: f/b CC Dr Gilbert some improvement in kidney function, GFR now 42 ANA M on CKD probably due to left nephrectomy and worsening IDDM GFR was 56, no 36 not on HARSHAL/ARBS, not on diuretics L RCC: Low dwayne CA, Bc Oct 2022 Had nephrectomy in 2 weeks. No spread per CC Surv by CC q 6 mo No need for any other Rx GERD: stable. -on pantoprazole 40mg Anemia: Low ferritin: improving On irons pills CBC low normal H/H Vit D low: -s/w 2000units daily Constipation s/w psyllium and miralax prn -s/w docusate /senna prefers than powder Anxiety, depression, insomnia: offered MH but pt refused again Records reviewed. New labs, imaging reviewed, discussed, questions answered. Meds refilled. [facility] verbalized understanding of the plan and agreed to it. HM: Colonoscopy: last in 2016, WNL repeat in 10 yrs 2026, no records Vaccines: refused all Influenza: Tdap: [id number]: [id number]: Shingrix: did not get, refused today HBV/HAV Vaccine: Covid-19 vaccine: refused now again!, per pt 3 family members developed acute infection after vaccine, needed hospitalization. RTC 4 mo or sooner PRN F2F visit Fasting labs prior Addendum: PACT 4 TEAM: See RTC above Avg Risk Colorectal Cancer Screen: AVERAGE RISK colorectal cancer screening is due based on information available to this clinical reminder Patient has arranged or is choosing to arrange this care independent of and without assistance from this [place]. Medication Reconciliation: Outpatient: Has the patient been taking medications as documented in the EMLR? YES: The patient has been taking medications as documented in the EMLR. Essential Medication List for Review used to complete this medication reconciliation. INCLUDED IN THIS LIST: Alphabetical list of active outpatient prescriptions dispensed from this [place] (local) and dispensed from another [place] or DoD facility (remote) as well as inpatient orders (local, pending and active), local clinic medications, locally documented non-VA medications, and local prescriptions that have or been discontinued in the past 90 days. - All changes in medications, including all non-VA/Herbal/OTC medications were entered into CPRS. - If there were any medications the patient should no longer take, they were discontinued. - The patient/caregiver was instructed to update this list, discard old lists, and take this list to the next appointment, whether with a VA or non-VA provider. HTN Assess for Elevated BP>=140/90: The patient's medication regimen was adjusted to improve blood pressure control. /tam/ Farnklin Stokes MD MD PRIMARY CARE PHYSICIAN Signed: 07/05/2023 00:57 FRANKLIN STOKES ([facility]) Jul 03, 2023 02:18 PM LETTERS: LOCAL TITLE: PATIENT LETTER (T) STANDARD TITLE: LETTERS DATE OF NOTE: JUL 03, 2023@14:18 ENTRY DATE: JUL 03, 2023@14:18:19 AUTHOR: FRANKLIN STOKES EXP COSIGNER: URGENCY: STATUS: COMPLETED DEPARTMENT OF [facility] Toll Free Number Primary Care Telephone Assistance can be reached at extension [phone] [facility] scheduling can be reached at extension [phone] [facility] scheduling can be reached at ext [phone] DEIRDRE STOVER [address] [place], [place], [facility] Dear , Your recent test results are as follows: ---- B12 & FOLATE ---- SERUM Feb 16 Reference 2022 14:33 Units Ranges -- B12 428 pg/mL 200 - 900 FOLATE ng/mL Ref: >=5.2 FOLAT ng/mL 3 - 20 Comments: h h. Evaluation for B12 SR-REF: Levels above 300 or 400 pg/mL are rarely associated with B12 deficiency induced hematological or neurological disease, respectively. Further testing is suggested for SYMPTOMATIC patients with B12 level between 100 and 300 pg/mL (hematological abnormalities) and between 100 and 400 pg/mL (neurological abnormalities). Ordering Provider: Franklin Stokes Report Released..: Feb 17, 2023@16:34 Reporting Lab....: [facility] [CLIA# [id number]] [address] [place] [phone] Performing Lab...: [facility] [place] [facility] [CLIA# [id number]] [address] [place] [phone] ---- GENERAL CHEMISTRY ---- SERUM May 14 Mar 27 Feb 16 Reference 2023 2023 2022 08:21 15:20 14:33 Units Ranges -- GLUCOSE 201 H mg/dL 65 - 100 BUN 35 H 40 H 41 H mg/dL 7 - 25 CREATININE 1.84 H 2.33 H 2.12 H mg/dL .5 - 1.4 eGFR(IDMS) Ref: >=60 CREAT mg/dL .5 - 1.5 eGFR See Eval Ref: See Eval Sodium 137 137 137 mmol/L 135 - 145 K+/Pot 5.5 H 4.7 4.7 mmol/L 3.5 - 5 CL 105 104 104 mmol/L 100 - 110 CO2 26 24 24 mEq/L 20 - 30 CA 9.2 mg/dL 8.5 - 10.2 UricAci mg/dL 3.5 - 7.2 NH3/Amm PO4 mg/dL 2.5 - 5 T. PROT g/dL 6 - 8.3 ALBUMIN g/dL 3.5 - 5 T BILI mg/dL .2 - 1.2 D. BILI mg/dL 0 - .5 AST U/L 5 - 34 ALT U/L <6 - 55 GGT U/L 10 - 65 ALK DARRICK U/L 40 - 150 AMYLASE U/L 25 - 125 MAG mg/dL 1.6 - 2.6 ACETONE Ref: Neg T3 Total ng/dL 35 - 193 Comments: ritchie bundy Ordering Provider: Franklin Stokes Report Released..: May 15, 2023@15:23 Reporting Lab....: [facility] [CLIA# [id number]] [address] [place] [address] Performing Lab...: [facility] [place] [facility] [CLIA# [id number]] [address] [place] [phone] e. Ordering Provider: Franklin Stokes Report Released..: Mar 28, 2023@16:01 Reporting Lab....: [facility] [CLIA# [id number]] [address] [place] [address] Performing Lab...: [facility] [CLIA# [id number]] [address] [place] [address] h. Evaluation for GLUCOSE: Reference range prior to 10/20/03 was 65-110 mg/dL Ordering Provider: Franklin Stokes Report Released..: Feb 17, 2023@16:34 Reporting Lab....: [facility] [CLIA# [id number]] [address] [place] [address] Performing Lab...: [facility] [CLIA# [id number]] [address] [place] [phone] ---- HEMOGLOBIN A1C ---- BLOOD May 14 Mar 27 Feb 16 Reference 2023 2023 2022 08:21 15:20 14:33 Units Ranges -- HgbA1c Hgb-A1c % 4.4 - 6.1 Hgb-A1c % 3 - 6.1 HGB A1C % 4.4 - 6.4 Hgb-A1C % 3.4 - 6.1 HGB-A1c 8.9 H 8.1 H 8.2 H % 4 - 5.6 Comments: c d f c. Values obtained from A1C measurements can vary. For atypical A1C assays, a reported value of 7.0 could actually be between 6.72 and 7.28 if measured by a reference method. A reported value of 9.0 could actually be between 8.73 and 9.27. Ref: http://www.ngsp.org/CAPdat a.asp Evaluation for HGBA1c: Reference Ranges: 4.0 - 5.6: normal, 5.7 - 6.4: pre-diabetes, >=6.5 % diabetic range- if patient has not yet been diagnosed with diabetes see [facility] Diabetes Guidelines for more guidance. http://www.healthquality. a.gov/guidelines/CD/diabet es/ Ordering Provider: Franklin Stokes Report Released..: May 15, 2023@15:16 Reporting Lab....: [facility] [CLIA# [id number]] [address] [place] [phone] Performing Lab...: [facility] [CLIA# [id number]] [address] [place] [phone] d. Values obtained from A1C measurements can vary. For atypical A1C assays, a reported value of 7.0 could actually be between 6.72 and 7.28 if measured by a reference method. A reported value of 9.0 could actually be between 8.73 and 9.27. Ref: http://www.ngsp.org/CAPdat a.asp Ordering Provider: Franklin Stokes Report Released..: Mar 28, 2023@15:17 Reporting Lab....: [facility] [CLIA# [id number]] [address] [place] [phone] Performing Lab...: [facility] [CLIA# [id number]] [address] [place] [phone] f. Values obtained from A1C measurements can vary. For atypical A1C assays, a reported value of 7.0 could actually be between 6.72 and 7.28 if measured by a reference method. A reported value of 9.0 could actually be between 8.73 and 9.27. Ref: http://www.ngsp.org/CAPdat a.asp Ordering Provider: Franklin Stokes Report Released..: Feb 17, 2023@15:43 Reporting Lab....: [facility] [place] [facility] [CLIA# [id number]] [address] [place] [phone] Performing Lab...: [facility] [place] [facility] [CLIA# [id number]] [address] [place] [phone] ---- CREATININE CLEARANCE ---- URINE May 17 Reference 2023 14:30 Units Ranges -- VOLUME mL CreatCl 44.8 L ml/min 75 - 125 Comments: miladis a. Evaluation for CRE ANGELY: Computed Creatinine Clearance Ordering Provider: Franklin Stokes Report Released..: May 23, 2023@09:18 Reporting Lab....: [facility] [CLIA# [id number]] [address] [place] [phone] Performing Lab...: [facility] [CLIA# [id number]] [address] [place] [phone] ---- IRON ---- SERUM Feb 16 Reference 2022 14:33 Units Ranges -- IRON 132 ug/dL 40 - 160 TIBC 396 ug/dL 204 - 475 FERRIT 27 ng/mL 20 - 300 Comments: h h. Ordering Provider: Franklin Stokes Report Released..: Feb 17, 2023@16:34 Reporting Lab....: [facility] [place] [facility] [CLIA# [id number]] [address] [place] [address] Performing Lab...: [facility] [CLIA# [id number]] [address] [place] [address] ---- CBC and AUTO DIFF ---- BLOOD Feb 162022 14:33 Units Ranges -- WBC 5.57 K/cmm 4.5 - 11 RBC 4.16 L M/cmm 4.23 - 5.66 HGB 12.6 L g/dL 12.8 - 17 HCT 37.8 L % 39.2 - 50.4 MCV 90.9 fl 82 - 99 MCH 30.3 pg 26.2 - 32.6 MCHC 33.3 g/dL 30.8 - 35.1 RDW 12.4 % 12 - 16 PLT 187 K/cmm 140 - 360 LYMPH % % 16 - 40 MONO % % 0 - 14 GRAN % % 48 - 80 Neut% 50.3 % 43.7 - 75.8 Lymph% 32.5 % 14 - 42.3 Nuckolls% 9.0 % 5.1 - 13.7 Eos% 5.0 % .4 - 6.8 Baso% 0.7 % .1 - 2 NeutAbs 2.80 K/cmm 2.2 - 7.6 LymAbs 1.81 K/cmm 1 - 3.2 MonoAbs 0.50 K/cmm .3 - 1.1 EosAbs 0.28 K/cmm .03 - .44 BasoAbs 0.04 K/cmm .01 - .13 Comments: dao becerril Ordering Provider: Franklin Stokes Report Released..: Feb 17, 2023@15:33 Reporting Lab....: [facility] [CLIA# [id number]] [address] [place] [phone] Performing Lab...: [place] [facility] [employer] [facility] [CLIA# [id number]] [address] [place] [address] ---- MISCELLANEOUS TESTS ---- DATE TIME SPECIMEN TEST VALUE Ref ranges -- May 18, 2023@14:30 URINE VOLUME: 3000 mL May 18, 2023@14:30 URINE CREATININE URINE: 39.61 mg/dL Evaluation for CreaUr: Reference range not available on random urine creatinine. Ordering Provider: Franklin Stokes Report Released..: May 23, 2023@09:18 Reporting Lab....: [place] [employer] [facility]N [employer] SecuritiesUSETS [facility] [CLIA# [id number]] [address] [place] [address] Performing Lab...: [place] Quality Solicitors [employer]N [facility]CH[facility] [CLIA# [id number]] [address] [place] [phone] May 15, 2023@08:21 SERUM eGFR(CKD-EPI 2020): 42 L mL/min Ref: >=60 Ordering Provider: Franklin Stokes Report Released..: May 15, 2023@15:23 Reporting Lab....: [place] [employer] ScienceN L[facility]CH[facility] [CLIA# [id number]] [address] [place] [phone] Performing Lab...: [place] Quality S[employer]N [employer] SecuritiesUSETS [facility] [CLIA# [id number]] [address] [place] [phone] May 15, 2023@08:21 URINE : *CREATININE URINE Not Performed: May 16, 2023@16:36 by [id number] *VISITOR SERVICE ASSISTANT Reason: PROCESSING ERROR Ordering Provider: Franklin Stokes Reporting Lab....: [facility] [CLIA# [id number]] [address] [place] [address] Mar 27, 2023@15:20 URINE CREATININE URINE: 87.51 mg/dL Mar 27, 2023@15:20 URINE Prot/Crea: 0.2 Ref: <0.2 Mar 27, 2023@15:20 URINE PROTEIN, URINE: 13.3 mg/dL 0.0 - 20.0 Evaluation for CreaUr: Reference range not available on random urine creatinine. Evaluation for Prot/Crea: For URINE PROTEIN/CREATININE RATIO: <0.2 is suggestive of normal total protein excretion. >3.5 is suggestive of nephrotic range proteinuria. Ordering Provider: Franklin Stokes Report Released..: Mar 28, 2023@15:36 Reporting Lab....: [facility] [CLIA# [id number]] [address] [place] [phone] Performing Lab...: [facility] [CLIA# [id number]] [address] [place] [phone] Mar 27, 2023@15:20 SERUM eGFR(CKD-EPI 2020): 32 L mL/min Ref: >=60 Ordering Provider: Franklin Stokes Report Released..: Mar 28, 2023@16:01 Reporting Lab....: [facility] [CLIA# [id number]] [address] [place] [phone] Performing Lab...: [facility] [CLIA# [id number]] [address] [place] [phone] Feb 16, 2023@14:33 URINE mALB/Cr: 91.4 H mg/G 0 - 29.9 Feb 16, 2023@14:33 URINE MICROALBUMIN,QUANTITATIVE: 4.8 mg/dL Ref: RR UNAVAIL Feb 16, 2023@14:33 URINE CREATININE URINE: 52.51 mg/dL Evaluation for mALB/Cr: Reference Range = LESS THAN 30 MG MICROALBUMIN PER GRAM OF CREATININE (CALCULATED VALUE). Evaluation for CreaUr: Reference range not available on random urine creatinine. Ordering Provider: Franklin Stokes Report Released..: Feb 17, 2023@16:13 Reporting Lab....: [place] J[facility] [place] [facility] [CLIA# [id number]] [address] [place] [phone] Performing Lab...: [place] [facility] [CLIA# [id number]] [address] [place] [address] [id number] Feb 16, 2023@14:33 URINE : *CREATININE CLEARANCE (24 HOUR) Not Performed: Feb 16, 2023@14:42 by *VISITOR SERVICE ASSISTANT Reason: entry error Ordering Provider: Franklin Stokes Reporting Lab....: [place] [facility]CL[facility]# [id number]] [address] [place] [phone] Feb 16, 2023@14:33 BLOOD Immature Gran %: 2.5 H % 0.0 - 0.7 Feb 16, 2023@14:33 BLOOD Immature Gran, Abs: 0.14 H K/cmm 0.00 - 0.06 Ordering Provider: Franklin Stokes Report Released..: Feb 17, 2023@15:33 Reporting Lab....: [place] [facility]IANNA [facility]EN [facility] [CLIA# [id number]] [address] [place] [phone] Performing Lab...: [place] [facility] [CLIA# [id number]] [address] [place] [phone] Feb 16, 2023@14:33 SERUM Transferrin Saturation: 33.3 % 20.0 - 50.0 Feb 16, 2023@14:33 SERUM VITAMIN D (25-OH): <13 L ng/mL 20 - 50 Feb 16, 2023@14:33 SERUM eGFR(CKD-EPI 2020): 36 L mL/min Ref: >=60 Evaluation for VIT D25 SR-REF: Vitamin D (ng/mL) Health Status <12 Associated with Vitamin D deficiency, leading to rickets in infants and children and osteomalacia in adults 12-20 Generally considered inadequate for both bone and overall health in healthy individuals. >= 20 Generally considered adequate for bone and overall health in healthy individuals >50 Emerging evidence links potential adverse effects to such levels, particularly >60 ng/mL. REFERENCE: [place] [employer], Food and Nutrition Board. Dietary reference intakes for calcium and vitamin D. [place], [place]. The National Academy Press 2010. Ordering Provider: Franklin Stokes Report Released..: Feb 17, 2023@16:34 Reporting Lab....: [facility] [CLIA# [id number]] [address] [place] [phone] Performing Lab...: [facility] [CLIA# [id number]] [address] [place] [phone] == Please call if you have any questions or concerns. Sincerely, Your Primary Care Team [facility] [address] [address] [place] [address] [phone] [facility] [address],2[address] [place] [address] [place] [address] [phone] [facility] [address] [facility],1st Floor [address] [place] [address] [place] [address] [phone] FRANKLIN STOKES ([facility]) Jul 03, 2023 01:31 PM PREVENTIVE MEDICIN E NURSING NOTE: LOCAL TITLE: CLINICAL REMINDERS/NURSING STANDARD TITLE: PREVENTIVE MEDICINE NURSING NOTE DATE OF NOTE: JUL 03, 2023@13:31 ENTRY DATE: JUL 03, 2023@13:31:05 AUTHOR: KATHRYN MARIE COSIGNER: URGENCY: STATUS: COMPLETED Homelessness/Food Insecurity Screen: In the past 2 months, have you been living in stable housing that you own, rent, or stay in as part of a household? Yes - Living in stable housing. Are you worried or concerned that in the next 2 months you may NOT have stable housing that you own, rent, or stay in as part of a household? No - Not worried about housing near future [employer] reports the following: Within the past 12 months, you worried whether your food would run out before you got money to buy more. Never true Within the past 12 months, the food you bought just didn't last and you didn't have money to get more. Never true RHS Screen: RHS Screen Environmental Check Upon inquiry, the individual reports that the environment is safe to proceed. Informed Consent to Screen and Document The individual consents to proceed with screening. The individual consents to documentation of responses. PRIMARY SCREEN: In the past 12 months, how often did a current or former intimate partner (e.g., boyfriend, girlfriend, , , sexual partner): 1. Scream or curse at you Never 2. Insult or talk down to you Never 3. Threaten you with harm Never 4. Physically hurt you Never 5. Force or pressure you to have sexual contact against your will, or when you were unable to say no Never ?? The HITS tool (items 1-4 above) is [place] copyright protected by Kaleb Llamas MD, and the user has full rights to use it throughout the [place] system. PRIMARY SCREEN RESULT: The Primary Screen is NEGATIVE. The individual answered never to all forms of IPV above (i.e., answered never to all 5 items) The individual accepts education and/or resources: No EDUCATION: The individual indicated readiness to learn. Education offered during this session as noted above. The individual indicated understanding by asking relevant questions and making appropriate comments. No barriers to learning were observed or identified. /tam/ KATHRYN MARIE LPN LICENSED PRACTICAL NURSE Signed: 07/03/2023 13:39 KATHRYN MARIE (CB[facility])
--- OUTSIDE RECORDS SUMMARY | 2024-03-11 13:02 | XMS_ITS | Encounter Summary ---
Author Name [facility] [place] [facility] [place] Address [address] [place] [address] Care Team Providers Care Senior Insight Manager International Name Role Phone VICKIENAWAF NAVADERICK Primary Care [...] PART A Feb 04, 2020 PART A [id number] [facility] PATIENT MEDICARE (WNR) MEDICARE (M) PART B Feb 04, 2020 PART B [id number] [address] [facility] GRACIELA STOVER PATIENT Selected Encounter This section includes the information on record at [place] for the Encounter. Date/Time Encounter Type Encounter Description Reason Pro vider Source Aug 23, 2023 12:00 AM Outpatient Encounter COMMUNITY CARE [...] 20 appointments. The data comes from all [place] treatment facilities. Appointment Date/Time Appointment Type Appointme [...] 26, 2023 11:30 AM AMBULATORY - MEDICINE [facility] Nov 09, 2023 11:20 AM [facility]IC[facility] [place] [facility] Nov 20, 2023 03:00 PM [facility]ULAT[facility]IC[facility] [place] [facility] Nov 27, 2023 01:30 PM [facility]ULAT[facility]IC[facility] [place] [facility] Dec 22, 2023 01:45 PM AMBULATORY [facility]ICINE [facility] [place] [facility] Jan 01, 2024 08:30 AM AMBULATORY - [facility]RY [facility] Jan 08, 2024 11:00 AM AMBULATORY - [facility]IATRY [facility] [place] [facility] Jan 08, 2024 01:30 PM AMBULATORY - [facility]ICINE [facility] [place] [facility] Jan 22, 2024 11:00 AM AMBULATORY - [facility] [place] [facility] Feb 05, 2024 02:00 PM AMBULATORY - [facility]AT[facility] [place] [facility] Feb 19, 2024 09:00 AM AMBULATORY - [facility]IC[facility] [place] [facility] Feb 19, 2024 11:00 AM AMBULATORY - [facility] [place] [facility] Lab Results: +/- 30 days of the encounter This section includes the Chemistry and Hematology Lab Results on record with [place] for the patient. Radiology Reports and Pathology Reports are provided separately, in subsequent sections. Lab Results This section contains the Chemistry/Hematology Results that were resulted 30 days before or 30 daysafter the date of the Encounter. Date/Time Source Result Type Result - Unit Interpretation Reference Range Comment Sep 22, 2023 09:28 AM [facility] [place] [facility] LIPID PANEL FASTING Specimen Type: SERUM No comment entered. Ordering Provider: ZORA GALICIA Report Released Date/Time: Sep 19, 2023 03:09 PM Reporting Lab: [facility] [address] [facility] [phone] Performing Lab: [place] [facility] [place] [facility] [address] [facility] [phone] CHOLESTEROL 188 mg/dL TRIGLYCERIDE 181 mg/dL H 0-150 LDL calculated 118 mg/dL 0-129 CHOL/HDL 5.5 HDL CHOLESTEROL 34 mg/dL L 40-60 Aug 22, 2023 03:24 PM [facility] FOLATE (WROX) Specimen Type: SERUM No comment entered. Ordering Provider: ZORA GALICIA Report Released Date/Time: Aug 22, 2023 03:15 PM Reporting Lab: [facility] [address] [facility] [address] Performing Lab: [facility] [address] [facility] [address] FOLATE (WROX) 18.31 ng/mL >5.2 Aug 22, 2023 03:24 PM [facility] VITAMIN D (25-OH) Specimen Type: SERUM No comment entered. Ordering Provider: ZORA GALICIA Report Released Date/Time: Aug 22, 2023 03:15 PM Reporting Lab: [facility] [address] [facility] [address] Performing Lab: [facility] [address] [facility] [address] VITAMIN D (25-OH) 27 ng/mL 20-50 Aug 22, 2023 03:24 PM [facility] IRON & TIBC PANEL Specimen Type: SERUM No comment entered. Ordering Provider: ZORA GALICIA Report Released Date/Time: Aug 22, 2023 03:15 PM Reporting Lab: [facility] [address] [facility] [address] Performing Lab: [facility] [address] [facility] [address] TIBC 422 ug/dL 204-475 IRON 118 ug/dL 40-160 Transferrin Saturation 27.9 20.0-50.0 Aug 22, 2023 03:[address] [facility] VITAMIN B12 Specimen Type: SERUM No comment entered. Ordering Provider: ZORA GALICIA Report Released Date/Time: Aug 22, 2023 03:15 PM Reporting Lab: [facility]N [facility] [address] [facility] [address] Performing Lab: [facility]N [facility] [address] [facility] [address] VITAMIN B12 761 pg/mL 200-900 Aug 22, 2023 03:[address] [facility] FERRITIN Specimen Type: SERUM No comment entered. Ordering Provider: ZORA GALICIA Report Released Date/Time: Aug 22, 2023 03:15 PM Reporting Lab: [facility]ITALN [address] [address] Performing Lab: [facility]N [facility] [address] [address] FERRITIN 25 ng/mL 20-300 Aug 22, 2023 03:24 PM [facility] HEMOGLOBIN A1C PANEL Specimen Type: BLOOD [...] Aug 22, 2023 03:15 PM Reporting Lab: [facility] [address] [facility] [address] Performing Lab: [facility] [address] [facility] [address] HEMOGLOBIN A1C 7.9 H 4.0-5.6 Aug 22, 2023 03:24 PM [facility] TSH Specimen Type: SERUM No comment entered. Ordering Provider: KOSOFSKY,ZORA [place] Report Released Date/Time: Aug 22, 2023 03:15 PM Reporting Lab: [facility]ITALRNOR[facility]ENTERTRN [facility] [address] [facility] [address] Performing Lab: [facility]ITALR[facility]ITALN [facility] [address] [address] TSH 2.30 u[IU]/mL 0.35-5.00 Aug 22, 2023 03:[address] [facility] CBC Specimen Type: BLOOD No comment entered. Ordering Provider: ZORA GALICIA [place] Report Released Date/Time: Aug 22, 2023 03:15 PM Reporting Lab: [facility]ITALR[facility]ITALN [facility] [address] [facility] [address] Performing Lab: [facility]ITALR[facility]ITALN [facility] [address] WBC 8.07 10*3/uL 4.50-11.00 RBC 4.16 10*6/uL [...] Jul 03, 2023 01:39 PM Reporting Lab: [facility]RBA[facility]N [facility] [address] Performing Lab: [facility] [address] UREA NITROGEN 42 mg/dL H 7-25 Aug 17, 2023 03:31 PM [facility] ([facility]) CREATININE (eGFR 2020) Specimen Type: SERUM No comment entered. Ordering Provider: QUENTIN STOKES Report Released Date/Time: Jul 03, 2023 01:39 PM Reporting Lab: [facility]ITALR[facility]PO[facility] HOSPITALN [address] [address] Performing Lab: [address] [address] CREATININE, Serum 2.37 mg/dL H 0.50-1.40 eGFR(CKD-EPI 2020) 31 mL/min L >60 Aug 17, 2023 03:31 PM [place] ([facility]) ELECTROLYTE PANEL Specimen Type: SERUM No comment entered. Ordering Provider: QUENTIN STOKES Report Released Date/Time: Jul 03, 2023 01:39 PM Reporting Lab: [address] [address] Performing Lab: [address] [address] SODIUM 135 mmol/L 135-145 POTASSIUM 4.7 mmol/L 3.5-5.0 CHLORIDE 103 mmol/L 100-110 CO2 22 meq/L 20-30 Social History: Smoking Status (Most current) and Tobacco Use (All prior to encounter date) This section includes the most current, and the historical, smoking and tobacco- related health factors from the [place] facility where the Encounter took place. Current Smoking Status This section includes the most current smoking, or tobacco-related health factor, from the [place] facility where the Encounter took place. Date/Time Current Smoking Status Comment Filemon [email or web address] Aug 19, 2020 02:29 PM VA-TOBACCO FORMER USER [facility] Tobacco Use History This section includes a history of the smoking, or tobacco-related health factors, that were collected on or before the date of the Encounter. The data comes from the [place] facility where the Encounter took place. Date/Time Smoking Status/Tobacco Use Comment F [email or web address] Aug 19, 2020 02:29 PM VA-TOBACCO QUIT 15 YRS OR MORE [facility] Encounter Notes: All associated encounter notes This section contains the clinical notes associated to the Encounter. Date/Time Encounter Note(s) Provider Source Aug 23, 2023 12:00 AM NONVA CONSULT: LOCAL TITLE: COMMUNITY CARE-CONSULT RESULT NOTE STANDARD TITLE: NONVA CONSULT DATE OF NOTE: AUG 23, 2023 ENTRY DATE: AUG 25, 2023@10:55:42 AUTHOR: BOURDON,KATHRYN EXP COSIGNER: URGENCY: STATUS: COMPLETED VistA Imaging - Scanned Document SCANNED DOCUMENT SIGNATURE NOT REQUIRED Electronically Filed: 08/25/2023 by: KATHRYN WISEFartun [facility]ILITYAlexandra [facility]
--- OUTSIDE RECORDS SUMMARY | 2024-03-11 13:02 | XMS_ITS | Encounter Summary ---
Author Name [facility] [place] Organization [place] Address [address] [place] [address] Care Team Providers Care Building Construction Supervisor Name Role Phone ARLENEALEXANDER PIRESOLIVIER Primary Care Provider Unavail able Insurance Providers: [...] PART A Feb 04, 2020 PART A [id number] [facility] PATIENT MEDICARE (WNR) MEDICARE (M) PART B Feb 04, 2020 PART B [id number] [address] [facility] PATIENT Selected Encounter This section includes the information on record at [place] for the Encounter. Date/Time Encounter Type Encounter Description Reason Provider Source Aug 25, 2023 09:31 AM QNHP OL DIG ASSMT&MGMT 11-20 CLINICAL PHARMACY ICD-10-CM E11.9 Type 2 diabetes mellitus without complications KWASI JULIO [facility] Encounter Template Text not used by [place] Assessments - Encounter Diagnoses This section includes the primary and secondary diagnoses documented for the Encounter. Date/Time Primary/Secondary Diagnosis Diagnosis Name Provider Source Aug 25, 2023 09:35 AM PRIMARY Type 2 diabetes mellitus without complications KWASI JULIO MCFADDIN Plan of Treatment: Future Appointments (+ 6 months) and Future Tests (+/- 45 days) The Plan of Treatment section includes future care activities for the patient from all [place] treatment[facility]. This section includes future appointments and future orders which are active, pending or scheduled. Future Appointments This section includes appointments that were scheduled to occur 6 months from the date of the Encounter, up to a maximum of 20 appointments. The data comes from all [place] treatment facilities. Appointment Date/Time Appointment Type Appointme nt Facility Name Sep 19, 2023 03:00 PM AM[facility]ULATORY [place] [facility] [place] [facility] [place] [facility] Oct 09, 2023 03:00 PM AM[facility]ULATORY [facility] [place] [facility] Oct 23, 2023 11:00 AM AMBULATORY - MEDICINE [place] [facility] Oct 26, 2023 11:30 AM AMBULATORY - MEDICINE [facility] ([facility] Nov 09, 2023 11:20 AM AMBULATORY - MEDICINE [place] [facility] Nov 20, 2023 03:00 PM AMBULATORY - MEDICINE [place] [facility] [place] [facility] Nov 27, 2023 01:30 PM AM[facility]ULATORY [facility] [place] [facility] Dec 22, 2023 01:45 PM AMBULATORY [facility]IC[facility] [place] [facility] Jan 01, 2024 08:30 AM AMBULATORY - PSYCHIATRY [facility] ([facility]) Jan 08, 2024 11:00 AM AMBULATORY - [facility]ATRY [place] [facility] [place] [facility] Jan 08, 2024 01:30 PM AMBULATORY - MEDICINE [place] [facility] Jan 22, 2024 11:00 AM AMBULATORY - PS[place]IATRY [facility] [place] [facility] Feb 05, 2024 02:00 PM AMBULATORY - PS[facility]IATRY [facility] [place] [facility] Feb 19, 2024 09:00 AM AMBULATORY - MEDICINE [facility] [place] [facility] Feb 19, 2024 11:00 AM AMBULATORY - PSYCHIATRY [place] [facility] [facility] Lab Results: +/- 30 days of the encounter This section includes the Chemistry and Hematology Lab Results on record with [place] for the patient. Radiology Reports and Pathology Reports are provided separately, in subsequent sections. Lab Results This section contains the Chemistry/Hematology Results that were resulted 30 days before or 30 daysafter the date of the Encounter. Date/Time Source Result Type Result - Unit Interpretation Reference Range Comment Sep 22, 2023 09:28 AM [facility] LIPID PANEL FASTING Specimen Type: SERUM No comment entered. Ordering Provider: ZORA GALICIA Report Released Date/Time: Sep 19, 2023 03:09 PM Reporting Lab: [facility] [address] [facility] [address] Performing Lab: [facility]ENTERUSESTON[facility] [address] [facility] [address] CHOLESTEROL 188 mg/dL TRIGLYCERIDE 181 mg/dL H 0-150 LDL calculated 118 mg/dL 0-129 CHOL/HDL 5.5 HDL CHOLESTEROL 34 mg/dL L 40-60 Aug 22, 2023 03:24 PM [facility] FOLATE (WROX) Specimen Type: SERUM No comment entered. Ordering Provider: ZORA GALICIA Report Released Date/Time: Aug 22, 2023 03:15 PM Reporting Lab: [facility] [address] [facility] [address] Performing Lab: [facility] [address] [facility] [facility] [address] FOLATE (WROX) 18.31 ng/mL >5.2 Aug 22, 2023 03:24 PM [facility] VITAMIN D (25-OH) Specimen Type: SERUM No comment entered. Ordering Provider: ZORA GALICIA Report Released Date/Time: Aug 22, 2023 03:15 PM Reporting Lab: [facility]ITALRVETERANS AFFAIRS MEDICAL CENTER-BIRMINGHAMN [facility] [address] [facility] [address] Performing Lab: [facility]ENTERUSETS [address] [address] VITAMIN D (25-OH) 27 ng/mL 20-50 Aug 22, 2023 03:24 PM [facility] FERRITIN Specimen Type: SERUM No comment entered. Ordering Provider: ZORA GALICIA Report Released Date/Time: Aug 22, 2023 03:15 PM Reporting Lab: [facility] HOSPITALRREGIONAL MEDICAL CENTER [facility] JACKSONVILLETRN [facility] [address] [facility] [address] Performing Lab: [facility] HOSPITALRL TRN [facility]ENTERUSETS [address] [address] FERRITIN 25 ng/mL 20-300 Aug 22, 2023 03:24 PM [facility] IRON & TIBC PANEL Specimen Type: SERUM No comment entered. Ordering Provider: ZORA GALICIA Report Released Date/Time: Aug 22, 2023 03:15 PM Reporting Lab: [facility]ITALRVETERANS AFFA[facility] MED[facility] C[facility]-BIRMINGHAMN [facility]ENTERUSEST[facility] [address] [facility] [address] Performing Lab: [facility]PITALRVETERANS AFFAIRS MEDICAL C[facility]-BIRMINGHAMN [facility] CENTERUSETS [address] [address] TIBC 422 ug/dL 204-475 IRON 118 ug/dL 40-160 Transferrin Saturation 27.9 20.0-50.0 Aug 22, 2023 03:24 PM [facility] VITAMIN B12 Specimen Type: SERUM No comment entered. Ordering Provider: ZOAR GALICIA Report Released Date/Time: Aug 22, 2023 03:15 PM Reporting Lab: [facility]PITALRVETERANS AFFAIRS MED[facility] C[facility]-BIRMINGHAMN [facility] CENTERUSETS [address] [address] Performing Lab: [facility]PITALRVETERANS AFFAIRS MEDICAL C[facility]-BIRMINGHAMN [facility] CENTERUSETS [address] [address] VITAMIN B12 761 pg/mL 200-900 Aug 22, 2023 03:24 PM [facility] HEMOGLOBIN A1C PANEL Specimen Type: BLOOD Comment: [...] Aug 22, 2023 03:15 PM Reporting Lab: [facility]N [facility]ENTERUSETS [address] [address] Performing Lab: [facility]ITALRVETERANS AFFAIRS MED[facility] C[facility]-BIRMINGHAMN [facility] [address] [facility] [address] HEMOGLOBIN A1C 7.9 H 4.0-5.6 Aug 22, 2023 03:24 PM [facility] HOSPITALRL [facility]N [facility]ENTERUSEST[facility] TSH Specimen Type: SERUM No comment entered. Ordering Provider: ZORA GALICIA Report Released Date/Time: Aug 22, 2023 03:15 PM Reporting Lab: [facility]PITALRVETERANS AFFAIRS MEDICAL CENTER-BIRMINGHAMN [facility]ENTERUSETS [facility] [address] [facility] [address] Performing Lab: [facility] HOSPITALRL WSTRN [facility] CENTERUSETS [address] [address] TSH 2.30 u[IU]/mL 0.35-5.00 Aug 22, 2023 03:24 PM [facility]OSPITALRL [facility]ILITYN [facility]ENTERUSEST[facility] CBC Specimen Type: BLOOD No comment entered. Ordering Provider: ZORA GALICIA Report Released Date/Time: Aug 22, 2023 03:15 PM Reporting Lab: [facility]ITALRVETERANS AFFAIRS MEDICAL C[facility]-BIRMINGHAMN [facility] CENTERUSETS [address] [address] Performing Lab: [facility] HOSPITALRL [facility]ACILITYN [facility] CENTERUSETS [address] [address] WBC 8.07 10*3/uL 4.50-11.00 RBC 4.16 10*6/uL L 4.23-5.66 HGB 13.1 g/dL 12.8-17 HCT 37.0 L 39.2-50.4 MCV 88.9 fL 82-99 MCHC 35.4 g/dL H 30.8-35.1 PLT 221 10*3/uL 140-360 RDW-CV 12.2 12.0-16.0 MCH 31.5 pg 26.2-32.6 Aug 17, 2023 03:31 PM [facility] (CB[facility]) UREA NITROGEN Specimen Type: SERUM No comment entered. Ordering Provider: QUENTIN STOKES Report Released Date/Time: Jul 03, 2023 01:39 PM Reporting Lab: [facility]OSPITALRVETERANS AFFAIRS MEDICAL CENTER-BIRMINGHAMN [facility] CENTERUSE[address] [address] Performing Lab: [facility]ITALN [facility] CENTERUSE[address] [address] UREA NITROGEN 42 mg/dL H 7-25 Aug 17, 2023 03:31 PM [facility] ([facility]) CREATININE (eGFR 2020) Specimen Type: SERUM No comment entered. Ordering Provider: QUENTIN STOKES Report Released Date/Time: Jul 03, 2023 01:39 PM Reporting Lab: [address] [address] Performing Lab: [address] [address] CREATININE, Serum 2.37 mg/dL H 0.50-1.40 eGFR(CKD-EPI 2020) 31 mL/min L >60 Aug 17, 2023 03:31 PM [facility] ([facility]) ELECTROLYTE PANEL Specimen Type: SERUM No comment entered. Ordering Provider: QUENTIN STOKES Report Released Date/Time: Jul 03, 2023 01:39 PM Reporting Lab: [address] [address] Performing Lab: [address] [address] SODIUM 135 mmol/L 135-145 POTASSIUM 4.7 mmol/L 3.5-5.0 CHLORIDE 103 mmol/L 100-110 CO2 22 meq/L 20-30 Encounter Notes: All associated encounter notes This section contains the clinical notes associated to the Encounter. Date/Time Encounter Note(s) Provider Source Aug 25, 2023 09:31 AM MEDICATION MGT CON SULT: LOCAL TITLE: CONSULT REPORT/NON FORMULARY PADR STANDARD TITLE: MEDICATION MGT CONSULT DATE OF NOTE: AUG 25, 2023@09:31 ENTRY DATE: AUG 25, 2023@09:31:56 AUTHOR: KWASI JULIO EXP COSIGNER: URGENCY: STATUS: COMPLETED The medical record has been reviewed with regard to this restricted drug request. Medication requested: DULAGLUTIDE 1.5MG/0.5ML INJ PEN Medication indication: Diabetes Mellitus Medical history relevant to this request: -DM, A1c > 7% -Past ADR to semaglutide -Currently on liraglutide -Previous success with dulaglutide -Otherwise using metformin, insulin glargine-yfgn The request is approved - A documented therapeutic failure of the preferred formulary alternative(s) exists /tam/ Kwasi Julio, PharmD Clinical Pharmacist Practitioner Signed: 08/25/2023 09:38 KWASI JULIO MCFADDIN
--- OUTSIDE RECORDS SUMMARY | 2024-03-11 13:02 | XMS_ITS | Encounter Summary ---
Author Name [place] Address [address] [place] [address] Care Team Providers Care Research Physician Name Role Phone ARLENELEXIS WINDY Primary Care Provider Unavail able Insurance [...] PART A Feb 04, 2020 PART A [id number] [address] [facility] PATIENT MEDICARE (WNR) MEDICARE ([place]) PART B Feb 04, 2020 PART B [id number] [address] [facility] ST[facility] PATIENT Selected Encounter This section includes the information on record at [place] for the Encounter. Date/Time Encounter Type Encounter Description Reason Pro vider Source July 05, 2023 12:00 AM Outpatient Encounter EVENT (HISTORICAL) IHE Encounter Template Text not used by [place] Plan of Treatment: Future Appointments (+ 6 [...] - MEDICINE [facility] [place] [facility] Aug 08, 2023 04:00 PM AMBULATORY - MEDICINE [facility] [place] [facility] Aug 22, 2023 03:00 PM AMBULATORY - MEDICINE [facility] [place] [facility] Sep 19, 2023 03:00 PM AMBULATORY - MEDICINE [facility] [place] [facility] Oct 09, 2023 03:00 PM AMBULATORY - MEDICINE [place] [facility] [place] [facility] Oct 23, 2023 11:00 AM AMBULATORY - [place]ICINE [place] [facility] Oct 26, 2023 11:30 AM AMBULATORY - MEDICINE [facility] Nov 09, 2023 11:20 AM AMBULATORY - [place]ICINE [place] [facility] Nov 20, 2023 03:00 PM AMBULATORY - [place]ICINE [place] [facility] Nov 27, 2023 01:30 PM AMBULATORY - [place]ICINE [place] [facility] Dec 22, 2023 01:45 PM AMBULATORY - [place]ICINE [place] [facility] Jan 01, 2024 08:30 AM AMBULATORY - PSYCHIATRY [facility] Social History: Smoking Status (Most current) and [...] 19, 2020 02:29 PM [place]-TOBACCO FORMER USER [facility] Tobacco Use History This section includes a history of the smoking, or tobacco-related health factors, that were collected on or before the date of the Encounter. The data comes from the [place] facility where the Encounter took place. Date/Time Smoking Status/Tobacco Use Comment F acility Aug 19, 2020 02:29 PM VA-TOBACCO QUIT 15 YRS OR MORE [place] [facility]
--- OUTSIDE RECORDS SUMMARY | 2024-03-11 13:03 | XMS_ITS ---
Author Name [facility] [place] Organization [place] Address [address] [place] [address] Care Team Providers Care Storeroom Supervisor Name Role Phone VICKIENAWAF NAVADERICK Primary Care [...] PART A Feb 04, 2020 PART A [id number] [address] [facility] PATIENT MEDICARE (WNR) MEDICARE ([place]) PART B Feb 04, 2020 PART B [id number] NE[address] [facility] GR[facility] ST[facility] PATIENT Selected Encounter This section includes the information on record at [place] for the Encounter. Date/Time Encounter Type Encounter Description Reason Pro vider Source Oct 09, 2023 01:47 PM Outpatient Encounter COMMUNITY CARE CONSULT IHE [...] 20 appointments. The data comes from all [place] treatment facilities. Appointment Date/Time Appointment Type Appointme nt Facility Name Oct 23, 2023 11:00 AM AMBULATORY [place]IC[facility] [place] [facility] [place] [facility] Oct 26, 2023 11:30 AM AMBULATORY - MEDICINE [facility] Nov 09, 2023 11:20 AM AMBULATORY - MEDICINE [place] [facility] [place] [place] [facility] Nov 20, 2023 03:00 PM AMBULATORY - MEDICINE [place] [facility] [place] [facility] Nov 27, 2023 01:30 PM AMBULATORY - MEDICINE [place] [facility] [place] [facility] Dec 22, 2023 01:45 PM AMBULATORY - MEDICINE [place] [facility] [place] [facility] Jan 01, 2024 08:30 AM AMBULATORY - PSYCHIATRY [facility] Jan 08, 2024 11:00 AM AMBULATORY - PSYCHIATRY [place] [facility] [place] [facility] Jan 08, 2024 01:30 PM AMBULATORY - MEDICINE [place] [facility] [place] [facility] Jan 22, 2024 11:00 AM AMBULATORY - PSYCHIATRY [facility] [place] [facility] Feb 05, 2024 02:00 PM AMBULATORY - PS[place]CHIATRY [facility] [place] [facility] Feb 19, 2024 09:00 AM AMBULATORY - MEDICINE [place] [facility] [place] [facility] Feb 19, 2024 11:00 AM AMBULATORY - PS[place]CHIATRY [facility] [place] [facility] Mar 01, 2024 01:30 PM AMBULATORY - MEDICINE [place] [facility] [place] [facility] Mar 04, 2024 03:00 PM AMBULATORY - MEDICINE [place] [facility] [place] [place] [facility] Mar 18, 2024 11:00 AM AMBULATORY - PS[place]CHIATRY [place] [facility] [place] [facility] Apr 01, 2024 09:00 AM AMBULATORY - MEDICINE [place] [facility] [place] [facility] Apr 01, 2024 11:00 AM AMBULATORY - PS[place]CHIATRY [place] [facility] [place] [facility] Lab Results: +/- 30 days of [...] Range Comment Sep 22, 2023 09:28 AM [facility] LIPID PANEL FASTING Specimen Type: SERUM No comment entered. Ordering Provider: SUBHASH GALICIA ICA Report Released Date/Time: Sep 19, 2023 03:09 PM Reporting Lab: [facility] [address] [facility] [address] Performing Lab: [facility] [address] [facility] [address] CHOLESTEROL 188 mg/dL TRIGLYCERIDE 181 mg/dL H 0-150 LDL calculated 118 mg/dL 0-129 CHOL/HDL 5.5 HDL CHOLESTEROL 34 mg/dL L 40-60 Vital Signs: All taken on the encounter date This section contains inpatient and outpatient Vital Signs collected on the date of the Encounter. Date/Time Temperature Pulse Blood Pressure Respiratory Rate SP02 Pain Height Weight Body Mass Index Source Oct 09, 2023 02:56 PM 97.6 [facility] Social History: Smoking Status (Most current) and Tobacco Use (All prior to encounter date) This section includes the most current, and the historical, smoking and tobacco- related health factors from the [place] facility where the Encounter took place. Current Smoking Status This section includes the most current smoking, or tobacco-related health factor, from the [place] facility where the Encounter took place. Date/Time Current Smoking Status Comment Filemon ity Aug 19, 2020 02:29 PM VA-TOBACCO FORMER USER [facility] Tobacco Use History This section includes a history of the smoking, or tobacco-related health factors, that were collected on or before the date of the Encounter. The data comes from the [place] facility where the Encounter took place. Date/Time Smoking Status/Tobacco Use Comment F acmyke Aug 19, 2020 02:29 PM [place]-TOBAC[place] QUIT 15 YRS OR MORE [facility] Encounter Notes: All associated encounter notes This section contains the clinical notes associated to the Encounter. Date/Time Encounter Note(s) Provider Source Oct 09, 2023 01:47 PM NONVA NOTE: LOCAL TITLE: [facility] COORD PLAN STANDARD TITLE: NONVA NOTE DATE OF NOTE: OCT 09, 2023@13:47 ENTRY DATE: OCT 09, 2023@13:47:39 AUTHOR: MILTON GIRALDO COSIGNER: URGENCY: STATUS: COMPLETED Emergency Notification Intake Date Presenting to the Facility: Oct Method of Contact: Notified from ECR worklist Notification ID: [id number] [facility] Referral #: [facility] Name: Hospital: [facility] Address: City: [place] State: [place] Zip Code: Phone : Community Facility Point of Contact: Name: Corrina Phone: Chief complaint: Short of breath - chest pains Primary Diagnosis: Cardiac observation Disposition Admitted Route of Admission: ER Date of Admission: Oct Admitting Diagnosis: Cardiac observation Community Care Provider: Andrea Level of Care: /tam/ MILTON BARRON Signed: 10/09/2023 13:48 Receipt Acknowledged By: 10/10/2023 10:29 /es/ Franklin Chatterjee MD MD PRIMARY CARE PHYSICIAN * AWAITING SIGNATURE * SAAD DICKSON * AWAITING SIGNATURE * KALE PHELAN 10/09/2023 13:51 /es/ GINO DUBON RN REGISTERED NURSE 10/12/2023 13:46 /es/ REJI GREENE Registered Nurse Eyeglass Frames Inspector * AWAITING SIGNATURE * SUSAN FUNEZ DAWN MARIE MEDFIELD
--- OUTSIDE RECORDS SUMMARY | 2024-03-11 13:03 | XMS_ITS | Encounter Summary ---
Author Name [facility] [place] Organization [place] Address [address] [place] [address] Care Team Providers Care Health Insurance Specialist Name Role Phone VICKIENAWAF NAVADERICK Primary [...] PART A Feb 04, 2020 PART A [id number] [address] [facility] PATIENT MEDICARE (WNR) MEDICARE (M) PART B Feb 04, 2020 PART B [id number] [address] [facility] PATIENT Selected Encounter This section includes the information on record at [place] for the Encounter. Date/Time Encounter Type Encounter Description Reason Pro vider Source Oct 02, 2023 09:12 AM Outpatient Encounter COMMUNITY CARE CONSULT IHE [...] - MEDICINE [facility] [place] [facility] Oct 23, 2023 11:00 AM AMBULATORY - MEDIC[facility] [place] [facility] Oct 26, 2023 11:30 AM AMBULATORY - MEDICINE [facility] ([facility] Nov 09, 2023 11:20 AM AMBULATORY - [facility]IC[facility] [place] [facility] Nov 20, 2023 03:00 PM AMBULATORY - MEDICINE [facility] [place] [facility] Nov 27, 2023 01:30 PM AMBULATORY - [facility]ICINE [facility] [place] [facility] Dec 22, 2023 01:45 PM AMBULATORY - MEDICINE [facility] [place] [facility] Jan 01, 2024 08:30 AM AMBULATORY - PSYCHIATRY [facility] ([facility]) Jan 08, 2024 11:00 AM AMBULATORY - [facility]IATRY [facility] [place] [facility] Jan 08, 2024 01:30 PM AMBULATORY - MEDICINE [facility] [place] [facility] Jan 22, 2024 11:00 AM AMBULATORY - PS[facility]IATRY [facility] [place] [facility] Feb 05, 2024 02:00 PM AMBULATORY - [facility]IATRY [facility] [place] [facility] Feb 19, 2024 09:00 AM AMBULATORY - MEDICINE [facility] [place] [facility] Feb 19, 2024 11:00 AM AMBULATORY - [facility]AT[facility] [place] [facility] Mar 01, 2024 01:30 PM AMBULATORY - MEDICINE [facility] [place] [facility] Mar 04, 2024 03:00 PM AMBULATORY - MEDICINE [facility] [place] [facility] Mar 18, 2024 11:00 AM AMBULATORY - PS[facility]IATRY [facility] [place] [facility] Apr 01, 2024 09:00 AM AMBULATORY - MEDICINE [facility] [place] [facility] Apr 01, 2024 11:00 AM AMBULATORY - PS[facility]IATRY [facility] [place] [facility] Lab Results: +/- 30 days of [...] Range Comment Sep 22, 2023 09:28 AM [facility] LIPID PANEL FASTING Specimen Type: SERUM No comment entered. Ordering Provider: SUBHASH GALICIA ICA Report Released Date/Time: Sep 19, 2023 03:09 PM Reporting Lab: [facility] [address] [address] Performing Lab: [address] [address] CHOLESTEROL 188 mg/dL TRIGLYCERIDE 181 mg/dL H 0-150 LDL calculated 118 mg/dL 0-129 CHOL/HDL 5.5 HDL CHOLESTEROL 34 mg/dL L 40-60 Social History: Smoking Status (Most current) and Tobacco Use (All prior to encounter date) This section includes the most current, and the historical, smoking and tobacco- related health factors from the [place] facility where the Encounter took place. Current Smoking Status This section includes the most current smoking, or tobacco-related health factor, from the [place] facility where the Encounter took place. Date/Time Current Smoking Status Comment Filemon honeycutt Aug 19, 2020 02:29 PM [place]-TOBACCO FORMER USER [facility] Tobacco Use History This section includes a history of the smoking, or tobacco-related health factors, that were collected on or before the date of the Encounter. The data comes from the [place] facility where the Encounter took place. Date/Time Smoking Status/Tobacco Use Comment F acmyke Aug 19, 2020 02:29 PM [place]-TOBACCO QUIT 15 YRS OR MORE [facility] Encounter Notes: All associated encounter notes This section contains the clinical notes associated to the Encounter. Date/Time Encounter Note(s) Provider Source Oct 02, 2023 09:12 AM NONVA NOTE: LOCAL TITLE: [facility] PRESENTING CARE COORD PLAN STANDARD TITLE: NONVA NOTE DATE OF NOTE: OCT 02, 2023@09:12 ENTRY DATE: OCT 02, 2023@09:12:51 AUTHOR: MILTON GIRALDO EXP COSIGNER: URGENCY: STATUS: COMPLETED Emergency Notification Intake Date Presenting to the Facility: Sep Method of Contact: Notified from ECR worklist Notification ID: [id number] [facility] Referral #: [id number] [facility] Hospital Name: Hospital: [facility] Address: City: [place] State: [place] Zip Code: Phone : Community Facility Point of Contact: Name: Janny Phone: Chief complaint: unstable angina Primary Diagnosis: I20.0 Disposition Admitted Route of Admission: ER Date of Admission: Sep Admitting Diagnosis: I20.0 Community Care Provider: Andrea Level of Care: /es/ MILTON BARRON Signed: 10/02/2023 09:16 Receipt Acknowledged By: 10/10/2023 10:36 /es/ Franklin Chatterjee MD MD PRIMARY CARE PHYSICIAN 10/03/2023 14:06 /es/ SAAD PANCHAL,RN,CNL Plate Roller 10/02/2023 09:28 /es/ GINO DUBON RN REGISTERED NURSE MILTON GIRALDO [facility]ITA[place]
--- OUTSIDE RECORDS SUMMARY | 2024-03-11 13:03 | XMS_ITS ---
Author Name [facility] [place] Organization [place] Address [address] [place] [address] Care Team Providers Care Breaker Engineer Name Role Phone VICKIENAWAF NAVADERICK Primary Care [...] PART A Feb 04, 2020 PART A [id number] [address] [facility] PATIENT MEDICARE (WNR) MEDICARE (M) PART B Feb 04, 2020 PART B [id number] [address] [facility]AC[facility] STOVER PATIENT Selected Encounter This section includes the information on record at [place] for the Encounter. Date/Time Encounter Type Encounter Description Reason Pro vider Source Sep 29, 2023 09:19 AM Outpatient Encounter COMMUNITY CARE CONSULT IHE [...] 20 appointments. The data comes from all [place] treatment facilities. Appointment Date/Time Appointment Type Appointme nt Facility Name Oct 09, 2023 03:00 PM AMBULATORY [facility]ICINE [facility] [place] [facility] Oct 23, 2023 11:00 AM AMBULATORY - MEDICINE [facility] [place] [facility] Oct 26, 2023 11:30 AM AMBULATORY - MEDICINE [facility] ([facility]) Nov 09, 2023 11:20 AM AMBULATORY - MEDICINE [facility] [place] [facility] Nov 20, 2023 03:00 PM AMBULATORY - MEDICINE [facility] [place] [facility] Nov 27, 2023 01:30 PM AMBULATORY - MEDICINE [facility] [place] [facility] Dec 22, 2023 01:45 PM AMBULATORY - MEDICINE [facility] [place] [facility] Jan 01, 2024 08:30 AM AMBULATORY - PSYCHIATRY [facility] ([facility]) Jan 08, 2024 11:00 AM AMBULATORY - PS[facility]CHIATRY [facility] [place] [facility] Jan 08, 2024 01:30 PM AMBULATORY - MEDICINE [facility] [place] [facility] Jan 22, 2024 11:00 AM AMBULATORY - PS[facility]CHIATRY [facility] [place] [facility] Feb 05, 2024 02:00 PM AMBULATORY - PS[facility]CHIATRY [facility] [place] [facility] Feb 19, 2024 09:00 AM AMBULATORY - MEDICINE [facility] [place] [facility] Feb 19, 2024 11:00 AM AMBULATORY - PS[facility]CHIATRY [facility] [place] [facility] Mar 01, 2024 01:30 PM AMBULATORY - MEDICINE [facility] [place] [facility] Mar 04, 2024 03:00 PM AMBULATORY - MEDICINE [facility] [place] [facility] Mar 18, 2024 11:00 AM AMBULATORY - PS[facility]CHIATRY [facility] [place] [facility] Lab Results: +/- 30 days of the encounter This section includes the Chemistry and Hematology Lab Results on record with [place] for the patient. Radiology Reports and Pathology Reports are provided separately, in subsequent sections. Lab Results This section contains the Chemistry/Hematology Results that were resulted 30 days before or 30 daysafter the date of the Encounter. Date/Time Source Result Type Result - Unit Interpretation Reference Range Comment Sep 22, 2023 09:28 AM [facility] LIPID PANEL FASTING Specimen Type: SERUM No comment entered. Ordering Provider: SUBHASH GALICIA ICA Report Released Date/Time: Sep 19, 2023 03:09 PM Reporting Lab: [facility] [address] [facility] [address] Performing Lab: [facility] [address] [facility] [facility] [address] CHOLESTEROL 188 mg/dL TRIGLYCERIDE 181 mg/dL H 0-150 LDL calculated 118 mg/dL 0-129 CHOL/HDL 5.5 HDL CHOLESTEROL 34 mg/dL L 40-60 Social History: Smoking Status (Most current) and Tobacco Use (All prior to encounter date) This section includes the most current, and the historical, smoking and tobacco- related health factors from the [place] facility where the Encounter took place. Current Smoking Status This section includes the most current smoking, or tobacco-related health factor, from the [place] facility where the Encounter took place. Date/Time Current Smoking Status Comment Filemon honeycutt Aug 19, 2020 02:29 PM VA-TOBACCO FORMER USER [facility] Tobacco Use History This section includes a history of the smoking, or tobacco-related health factors, that were collected on or before the date of the Encounter. The data comes from the [place] facility where the Encounter took place. Date/Time Smoking Status/Tobacco Use Comment Ahsan pulido Aug 19, 2020 02:29 PM VA-TOBACCO QUIT 15 YRS OR MORE [facility] Encounter Notes: All associated encounter notes This section contains the clinical notes associated to the Encounter. Date/Time Encounter Note(s) Provider Source Sep 29, 2023 09:19 AM NONVA NOTE: LOCAL TITLE: [facility] PRESENTING CARE COORD PLAN STANDARD TITLE: NONVA NOTE DATE OF NOTE: SEP 29, 2023@09:19 ENTRY DATE: SEP 29, 2023@09:19:31 AUTHOR: MILTON GIRALDO COSIGNER: URGENCY: STATUS: COMPLETED [facility]F PRESENTING CARE COORD PLAN NOTE Has ADDENDA Emergency Notification Intake Date Presenting to the Facility: Sep Method of Contact: Notified from Convoe worklist Notification ID: [id number] [facility] Referral #: [id number] [facility] Name: Hospital: [facility] Address: City: [place]: [place] Zip Code: Phone : Community Facility Point of Contact: Name: Leonie Phone: Chief complaint: I25.5, R07.9 Primary Diagnosis: Disposition Admitted Route of Admission: ER Date of Admission: Sep Admitting Diagnosis: I25.5, R07.9 Community Care Provider: Andrea Level of Care: /tam/ MILTON BARRON Signed: 09/29/2023 09:27 Receipt Acknowledged By: 10/10/2023 10:35 /es/ Franklin Chatterjee MD MD PRIMARY CARE PHYSICIAN 09/29/2023 09:53 /tam/ SAAD DICKSON MSN,RN,CNL Outbound Sales Executive 09/29/2023 10:48 /es/ GINO DUBON RN REGISTERED NURSE 09/29/2023 ADDENDUM STATUS: COMPLETED hospitalized at [facility] on 09/26 for increase in chronic chest pain, was to have a cardiac catheterization done as scheduled but [facility] transfered him to [facility] 09/27 for a planned catheterization. /fabian DICKSON MSN,RN,CNL Outbound Sales Executive Signed: 09/29/2023 10:01 MIL[facility]DO [facility]
--- OUTSIDE RECORDS SUMMARY | 2024-03-11 13:03 | XMS_ITS ---
Author Name [facility] [place] Address [address] [place] [address] Care Team Providers Care Electrical And Instrument Technician Name Role Phone VICKIEALEXANDER MCCRACKENYAJAIRADERICK Primary Care [...] PART A Feb 04, 2020 PART A [id number] [address] [facility] ST[facility] PATIENT MEDICARE (WNR) MEDICARE (M) PART B Feb 04, 2020 PART B [id number] [address] [facility] GRAC[facility] STOVER PATIENT Selected Encounter This section includes the information on record at [place] for the Encounter. Date/Time Encounter Type Encounter Description Reason Pro vider Source Oct 09, 2023 02:14 PM Outpatient Encounter PRIMARY CARE/MEDICINE IHE Encounter Template Text not used by [place] Plan of Treatment: Future Appointments (+ 6 [...] 20 appointments. The data comes from all [place] treatment facilities. Appointment Date/Time Appointment Type Appointme nt Facility Name Oct 23, 2023 11:00 AM AMBULATORY - MEDICINE [facility] [place] [facility] Oct 26, 2023 11:30 AM AMBULATORY - MEDICINE [facility] ([facility]) Nov 09, 2023 11:20 AM AMBULATORY - MEDICINE [facility] [place] [facility] Nov 20, 2023 03:00 PM AMBULATORY - MEDICINE [facility] [place] [facility] Nov 27, 2023 01:30 PM AMBULATORY - MEDICINE [facility] [place] [facility] Dec 22, 2023 01:45 PM AMBULATORY - MEDICINE [facility] [place] [facility] Jan 01, 2024 08:30 AM AMBULATORY - PSYCHIATRY [facility] ([facility]) Jan 08, 2024 11:00 AM AMBULATORY - PSYCHIATRY [facility] [place] [facility] Jan 08, 2024 01:30 PM AMBULATORY - MEDICINE [facility] [place] [facility] Jan 22, 2024 11:00 AM AMBULATORY - PS[facility]CHIATRY [facility] [place] [facility] Feb 05, 2024 02:00 PM AMBULATORY - PSYCHIATRY [facility] [place] [facility] Feb 19, 2024 09:00 AM AMBULATORY - MEDICINE [facility] [place] [facility] Feb 19, 2024 11:00 AM AMBULATORY - PS[facility]CHIATRY [facility] [place] [facility] Mar 01, 2024 01:30 PM AMBULATORY - MEDICINE [facility] [place] [facility] Mar 04, 2024 03:00 PM AMBULATORY - MEDICINE [facility] [place] [facility] Mar 18, 2024 11:00 AM AMBULATORY - PS[facility]CHIATRY [facility] [place] [facility] Apr 01, 2024 09:00 AM AMBULATORY - MEDICINE [facility] [place] [facility] Apr 01, 2024 11:00 AM AMBULATORY - PSYCHIATRY [facility] [place] [facility] Lab Results: +/- 30 days [...] Range Comment Sep 22, 2023 09:28 AM [facility] LIPID PANEL FASTING Specimen Type: SERUM No comment entered. Ordering Provider: SUBHASH GALICIA ICA Report Released Date/Time: Sep 19, 2023 03:09 PM Reporting Lab: [facility] [address] [facility] [address] Performing Lab: [facility] [address] [facility] [address] CHOLESTEROL 188 mg/dL TRIGLYCERIDE 181 mg/dL H [...] Source Oct 09, 2023 02:56 PM 97.6 [facility] Social History: Smoking Status (Most current) and Tobacco Use (All prior to encounter date) This section includes the most current, and the historical, smoking and tobacco- related health factors from the [place] facility where the Encounter took place. Current Smoking Status This section includes the most current smoking, or tobacco-related health factor, from the [place] facility where the Encounter took place. Date/Time Current Smoking Status Comment Filemon honeycutt Aug 19, 2020 02:29 PM [place]-TOBACCO FORMER USER [facility] Tobacco Use History This section includes a history of the smoking, or tobacco-related health factors, that were collected on or before the date of the Encounter. The data comes from the [place] facility where the Encounter took place. Date/Time Smoking Status/Tobacco Use Comment F acmyke Aug 19, 2020 02:29 PM [place]-TOBAC[place] QUIT 15 YRS OR MORE [facility] Encounter Notes: All associated encounter notes This section contains the clinical notes associated to the Encounter. Date/Time Encounter Note(s) Provider Source Oct 09, 2023 02:14 PM NONVA NOTE: LOCAL TITLE: NON-VA HOSPITALIZATIONS/ER STANDARD TITLE: NONVA NOTE DATE OF NOTE: OCT 09, 2023@14:14 ENTRY DATE: OCT 09, 2023@14:14:53 AUTHOR: GINO DUBON EXP COSIGNER: URGENCY: STATUS: COMPLETED ADMIT 10/06/23 DISCHARGE 10/08/23 [facility] Discharge Diagnosis Angina pectoris, unstable (I20.0) Type 2 diabetes mellitus (E11.9) CKD (chronic kidney disease), stage II (N18.2) Hypertension (I10) Obstructive sleep apnea on CPAP (G47.33) Hyperlipidemia, unspecified (E78.5) CAD in [place] artery (I25.10) HTN (hypertension) (I10) HLD (hyperlipidemia) (E78.5) Dyspnea on exertion (R06.09) _ Discharge Medications Aspirin (aspirin 81 mg oral tablet, chewable) 81 Milligram By Mouth Daily for 30 Days Carvedilol (carvedilol 25 mg oral tablet) 1 tablet By Mouth 2 times a day Clopidogrel (Plavix 75 mg oral tablet) 75 Milligram 1 tablet By Mouth Daily for 14 Days dulaglutide (Trulicity Pen 1.5 mg/0.5 mL subcutaneous solution) 0.5 Milliliter 1.5 Milligram Subcutaneous Injection Every week rotate injection sites Durable Medical Equipment (Freestyle Lite Test Strips) See Instructions for 30 Days use as directed for Type 2 Diabetes Mellitustest once a dayicd 10 e11.9 Durable Medical Equipment (Pen [place], 31 G x 5 mm BD Ultra Fine III) See Instructions Use with Lantus solostar pen Diagnosis E11.9 Felodipine (felodipine 5 mg oral tablet, extended release) 1 tab(s) 5 Milligram By Mouth Daily at bedtime Insulin Glargine (Lantus 100 u/ml subcutaneous solution) 30 unit(s) Subcutaneous Injection Daily at bedtime for 30 Days Metformin (metFORMIN 500 mg oral tablet) 1 tab(s) 500 Milligram By Mouth 2 times a day Nitroglycerin (nitroglycerin 0.4 mg sublingual tablet) 1 tab(s) 0.4 Milligram Sublingual Every 5 minutes as needed for chest pain Pantoprazole (Protonix 40 mg oral delayed release tablet) 1 tab(s) 40 Milligram By Mouth Daily for 90 Days ranolazine (ranolazine 500 mg oral tablet, extended release) 1 tab(s) 500 Milligram By Mouth 2 times a day Rosuvastatin (rosuvastatin 5 mg oral tablet) 1 tab(s) 5 Milligram By Mouth Daily Triamcinolone Nasal (triamcinolone 55 mcg/inh nasal spray) 1 spray(s) 55 Microgram Nares, Both Daily Hospital Course 57-year-old male, with PMHX of CAD, previous CABG, ischemic cardiomyopathy, HTN, DM, AYANNA, CKD IIIb, hyperlipidemia with recent PCI on 10/02/[address] Robertson with stent placed in the mid RCA admitted for chest pain. Objective Assessment and Plan Discharge Planning: Angina pectoris, unstable (I20.0) CKD (chronic kidney disease), stage II (N18.2) Hyperlipidemia, unspecified (E78.5) Hypertension (I10) Obstructive sleep apnea on CPAP (G47.33) Type 2 diabetes mellitus (E11.9) Assessment: 57-year-old male with medical history significant for CAD status post CABG x 6 in 2014 (MOORE-LAD, SVG-D1, SVG-D2, Ra-OM, SVG to PDA and PLV sequential), MADELIN x 2 to OM and recent MADELIN to RCA on 10/02/2023, ischemic cardiomyopathy, hypertension with orthostatic hypotension (improved after splitting dose of felodipine), hyperlipidemia, AYANNA intolerant to CPAP, diabetes, PAD status post right posterior tibial angioplasty in 2020 and renal cancer status post nephrectomy who presented episodic chest pain and shortness of breath lasting seconds to an hour troponins have been elevated but flat. ECG with nonspecific changes. Seen by Cardio, optimized meds but patient not willing to do imdur because it made him dizzy in the past plus he notice no change with imdur he received yesterday and today. Ranolazine is not [place] by [place] insurance so couldn't prescribe on discharge. Echo done, penidng report but no pericardial effusion and nothing concerning per wet read by cardiology. Patient feels his pain is more after he eats, already on protonix. He will f/u with PCP as outpatient. Asked to make appointment with GI if postprandial chest pain continues. Chest Pain with typical/atypical features Recent PCI to LAD last week on DAPT History of CAD s/p CABG, PCI to OM Ischemic cardiomyopathy with improving EF, not in heart failure c/w aspirin, plavix, carvedilol, prn nitro, felodipine ranolazine not covered about insurance not willing to try imdur at present, will red-iscuss with cardio as outpatient consider seeing GI as oupatient is pain is mostly postprandial c/w protonix Hyperlipidemia, unspecified (E78.5): Continue Crestor as mentioned above Obstructive sleep apnea on CPAP (G47.33): CPAP at night Hypertension (I10): Continue Coreg, felodipine CKD (chronic kidney disease), stage II (N18.2): Stable. Continue to monitor. Avoid nephrotoxins. Type 2 diabetes mellitus (E11.9): POC glucose monitoring and insulin sliding scale. Holding oral hypoglycemic agents. Patient on Trulicity every Monday. His FSG 110, and NPO now, will hold additional long acting at the moment, and do sliding scale as needed Ordered 15 units Lantus tonight if pt still NPO please decide based on FSG. NPO for possible procedure SS POC x4 daily Follow-Up Appointments Added Follow Up Time Frame Comments Rashel PALACIOS, David Jackson 2 to 3 weeks an appointment has been requested for you - please call the office if you do not hear by Tuesday 10/10 to schedule an inpatient followup Patient Instructions You were admitted with concern of anginal episodes. Cardiology evaluated, recommend optimizing medications like starting imdur and ranolazine. You have had dizziness with imdur before so you didn't want to continue. Ranolazine (Renexa) is not covered by your [place] insurance. Talk to your finisher fine diamond dies/PCP about getting prior auth for Renexa. IF you note your chest pain is mostly after eating talk to your PCP and make an appointment with GI for further work up. BLOOD BANK Blood Type O Positive () 10/07/2023 00:12 Antibody Screen Negative () 10/07/2023 00:12 BLOOD COUNT & DIFF WBC 5.6 k/mm3 () 10/08/2023 06:50 RBC 4.04 m/mm3 (Low) 10/08/2023 06:50 Hgb 12.5 Gm/dL (Low) 10/08/2023 06:50 Hct 36.1 % (Low) 10/08/2023 06:50 MCV 89.4 femtoliters () 10/08/2023 06:50 MCH 30.9 pg () 10/08/2023 06:50 MCHC 34.6 g/dL () 10/08/2023 06:50 Platelet Count 171 k/mm3 () 10/08/2023 06:50 RDW-SD 40.2 femtoliters () 10/08/2023 06:50 MPV 10.0 femtoliters () 10/08/2023 06:50 Nucleated RBC (Automated) 0.0 #/100 WBC'S () 10/08/2023 06:50 Abs. NRBC 0.0 k/mm3 () 10/08/2023 06:50 CARDIAC Nt-Probnp 525 pg/mL (High) 10/07/2023 02:04 High Sensitivity Troponin (HSTnT) 27 ng/L (High) 10/07/2023 13:35 CHEM GENERAL Sodium 140 mmol/L () 10/08/2023 06:50 Potassium 5.0 mmol/L () 10/08/2023 06:50 Chloride 105 mmol/L () 10/08/2023 06:50 Bicarbonate Level 24 mmol/L () 10/08/2023 06:50 Anion Gap 11 () 10/08/2023 06:50 Glucose Level 154 mg/dL (High) 10/08/2023 06:50 Glucose, POC 146 mg/dL (High) 10/08/2023 12:15 BUN 25 mg/dL (High) 10/08/2023 06:50 Creatinine-Blood 1.57 mg/dL (High) 10/08/2023 06:50 Estimated GFR Creatinine 51 ML/MIN/1.73 M2 () 10/08/2023 06:50 Calcium 9.3 mg/dL () 10/08/2023 06:50 Protein, Total 6.3 Gm/dL () 10/07/2023 02:04 Albumin 4.1 Gm/dL () 10/07/2023 02:04 AG Ratio 1.9 () 10/07/2023 02:04 Alkaline Phosphatase 107 units/L () 10/07/2023 02:04 AST (SGOT) 17 units/L () 10/07/2023 02:04 ALT (SGPT) 24 units/L () 10/07/2023 02:04 Bilirubin, Total 0.4 mg/dL () 10/07/2023 02:04 COAG INR 1.1 () 10/07/2023 02:04 Protime (PT) 11.2 seconds () 10/07/2023 02:04 APTT 25.5 seconds () 10/07/2023 02:04 URINE OTHER Est Creatinine Clearance 57.06 mL/min () 10/08/2023 08:02 /tam/ GINO DUBON RN REGISTERED NURSE Signed: 10/09/2023 14:19 Receipt Acknowledged By: 10/10/2023 11:03 /tam/ Franklin Chatterjee MD MD PRIMARY CARE PHYSICIAN GINO DUBON ([facility])
--- OUTSIDE RECORDS SUMMARY | 2024-03-11 13:03 | XMS_ITS ---
Author Name [facility] [place] Address [address] [place] [address] Care Team Providers Care Advanced Manufacturing Consultant Name Role Phone FRANKLIN STOKES Primary Care [...] PART A Feb 04, 2020 PART A [id number] GRACIELA STOVER PATIENT MEDICARE (WNR) MEDICARE (M) PART B Feb 04, 2020 PART B [id number] [address] [facility] GRACIELA STOVER PATIENT Selected Encounter This section includes the information on record at [place] for the Encounter. Date/Time Encounter Type Encounter Description Reason Pro vider Source Sep 28, 2023 11:02 AM Outpatient Encounter ADMIN PAT ACTIVTIES (MASNONCT) [...] - MEDICINE [facility] [place] [facility] Oct 23, 2023 11:00 AM AMBULATORY - [facility]IC[facility] [place] [facility] Oct 26, 2023 11:30 AM AMBULATORY - MEDICINE [facility] ([facility] Nov 09, 2023 11:20 AM AMBULATORY - [facility]IC[facility] [place] [facility] Nov 20, 2023 03:00 PM AMBULATORY - [facility]IC[facility] [place] [facility] Nov 27, 2023 01:30 PM AMBULATORY - [facility]ICINE [facility] [place] [facility] Dec 22, 2023 01:45 PM AMBULATORY - [facility]ICINE [facility] [place] [facility] Jan 01, 2024 08:30 AM AMBULATORY - PS[facility]ATRY [facility] ([facility]) Jan 08, 2024 11:00 AM AMBULATORY - [facility] [place] [facility] Jan 08, 2024 01:30 PM AMBULATORY - [facility]ICINE [facility] [place] [facility] Jan 22, 2024 11:00 AM AMBULATORY - [facility] [place] [facility] Feb 05, 2024 02:00 PM AMBULATORY - PS[facility]ATRY [facility] [place] [facility] Feb 19, 2024 09:00 AM AMBULATORY - [facility]IC[facility] [place] [facility] Feb 19, 2024 11:00 AM AMBULATORY - [facility] [place] [facility] Mar 01, 2024 01:30 PM AMBULATORY - MEDICINE [facility] [place] [facility] Mar 04, 2024 03:00 PM AMBULATORY - MEDICINE [facility] [place] [facility] Mar 18, 2024 11:00 AM AMBULATORY - [facility]IAT[facility] [place] [facility] Lab Results: +/- 30 days [...] Range Comment Sep 22, 2023 09:28 AM [facility] LIPID PANEL FASTING Specimen Type: SERUM No comment entered. Ordering Provider: SUBHASH GALICIA ICA Report Released Date/Time: Sep 19, 2023 03:09 PM Reporting Lab: [facility] [address] [facility] [address] Performing Lab: [facility] [address] [facility] [facility] [address] CHOLESTEROL 188 mg/dL TRIGLYCERIDE 181 mg/dL H [...] 19, 2020 02:29 PM VA-TOBACCO FORMER USER [facility] Tobacco Use History This section includes a history of the smoking, or tobacco-related health factors, that were collected on or before the date of the Encounter. The data comes from the [place] facility where the Encounter took place. Date/Time Smoking Status/Tobacco Use Comment F tess Aug 19, 2020 02:29 PM VA-TOBACCO QUIT 15 YRS OR MORE [facility] Encounter Notes: All associated encounter notes This section contains the clinical notes associated to the Encounter. Date/Time Encounter Note(s) Provider Source Sep 28, 2023 11:27 AM ADDENDUM: LOCAL TITLE: Addendum STANDARD TITLE: ADDENDUM DATE OF NOTE: SEP 28, 2023@11:27:53 ENTRY DATE: SEP 28, 2023@11:27:54 AUTHOR: KATHRYN MARIE EXP COSIGNER: URGENCY: STATUS: COMPLETED Please assist /tam/ KATHRYN MARIE LPN LICENSED PRACTICAL NURSE Signed: 09/28/2023 11:28 Receipt Acknowledged By: 09/28/2023 13:40 /es/ SUSAN THOMPSON AMSA --- Original Document --- 09/28/23 CCC: SCHEDULING ADMINISTRATION: Patient Demographics Patient Name: DEIRDRE STOVER Patient Primary Phone: [phone] Patient Primary [address]: [address] [place] [address] Patient : 1965 Patient Age: 57 Current Location: [facility] Call Back Number: [id number] Caller/Recipient Relation to Patient: Caregiver Caller Name: Segundo Scheduling Cannot Complete Scheduling Action Reason: Consult Review Required Requested Service(s): Primary Care Scheduling Note Reason: Cannot Complete Appointment Request Open Request: None of the above Administrative Administrative Note Reason: Outside Care Performed Administrative Note Comments: [facility] Inpatient Medical floor called and stated that the patient needed a discharge follow up appointment, as he was admitted yesterday for chest pain. Please review the notes and schedule the patient accordingly for follow up. He can best be reached at: [phone] Thank you. /tam/ LEV AGUILERA 1 [facility] AMSA Signed: 09/28/2023 11:02 Receipt Acknowledged By: * AWAITING SIGNATURE * FRANKLIN STOKES 09/28/2023 11:27 /es/ KATHRYN MARIE LPN LICENSED PRACTICAL NURSE 09/28/2023 12:18 /es/ GINO DUBON RN REGISTERED NURSE KATHRYN MARIE [place] [facility] Sep 28, 2023 11:02 AM ADMINISTRATIVE NOT E: LOCAL TITLE: CCC: SCHEDULING ADMINISTRATION STANDARD TITLE: ADMINISTRATIVE NOTE DATE OF NOTE: SEP 28, 2023@11:02:28 ENTRY DATE: SEP 28, 2023@11:02:29 AUTHOR: LEV CLARK COSIGNER: URGENCY: STATUS: COMPLETED CCC: SCHEDULING ADMINISTRATION Has ADDENDA Patient Demographics Patient Name: DEIRDRE STOVER Patient Primary Phone: [phone] Patient Primary [address]: [address] [place] [id number] Patient : 1965 Patient Age: 57 Current Location: [facility] Call Back Number: [id number] Caller/Recipient Relation to Patient: Caregiver Caller Name: Segundo Scheduling Cannot Complete Scheduling Action Reason: Consult Review Required Requested Service(s): Primary Care Scheduling Note Reason: Cannot Complete Appointment Request Open Request: None of the above Administrative Administrative Note Reason: Outside Care Performed Administrative Note Comments: [facility] Medical floor called and stated that the patient needed a discharge follow up appointment, as he was admitted yesterday for chest pain. Please review the notes and schedule the patient accordingly for follow up. He can best be reached at: [phone] Thank you. /es/ LEV AGUILERA 1 [facility] ANDERSON Signed: 09/28/2023 11:02 Receipt Acknowledged By: 10/12/2023 07:25 /es/ Franklin Stokes MD MD PRIMARY CARE PHYSICIAN 09/28/2023 11:27 /es/ KATHRYN MARIE LPN LICENSED PRACTICAL NURSE 09/28/2023 12:18 /es/ GINO DUBON RN REGISTERED NURSE 09/28/2023 ADDENDUM STATUS: COMPLETED Please assist /es/ KATHRYN MARIE LPN LICENSED PRACTICAL NURSE Signed: 09/28/2023 11:28 Receipt Acknowledged By: 09/28/2023 13:40 /es/ [facility]
--- OUTSIDE RECORDS SUMMARY | 2024-03-11 13:03 | XMS_ITS ---
Author Name [facility] [place] Organization [place] Address [address] [place] [address] Care Team Providers Care Material Yard Clerk Name Role Phone VICKIENAWAF NAVADERICK Primary Care [...] PART A Feb 04, 2020 PART A [id number] [address] GRACIELA STOVER PATIENT MEDICARE (WNR) MEDICARE (M) PART B Feb 04, 2020 PART B [id number] [address] [facility] GRACIELA STOVER PATIENT Selected Encounter This section includes the information on record at [place] for the Encounter. Date/Time Encounter Type Encounter Description Reason Pro vider Source Sep 29, 2023 09:57 AM Outpatient Encounter TELEPHONE CASE MANAGEMENT [facility] Encounter Template Text not used by [place] Plan of Treatment: Future Appointments (+ 6 [...] 20 appointments. The data comes from all [place] treatment facilities. Appointment Date/Time Appointment Type Appointme nt Facility Name Oct 09, 2023 03:00 PM AMBULATORY - MEDICINE [facility] [place] [facility] Oct 23, 2023 11:00 AM AMBULATORY - MEDICINE [facility] [place] [facility] Oct 26, 2023 11:30 AM AMBULATORY - MEDICINE [facility] ([facility]) Nov 09, 2023 11:20 AM AMBULATORY - MEDICINE [facility] [place] [facility] Nov 20, 2023 03:00 PM AMBULATORY - MEDICINE [facility] [place] [facility] Nov 27, 2023 01:30 PM AMBULATORY - MEDICINE [facility] [place] [facility] Dec 22, 2023 01:45 PM AMBULATORY - MEDICINE [facility] [place] [facility] Jan 01, 2024 08:30 AM AMBULATORY - PSYCHIATRY [facility] ([facility]) Jan 08, 2024 11:00 AM AMBULATORY - PS[facility]CHIATRY [facility] [place] [facility] Jan 08, 2024 01:30 PM AMBULATORY - MEDICINE [facility] [place] [facility] Jan 22, 2024 11:00 AM AMBULATORY - PS[facility]CHIATRY [facility] [place] [facility] Feb 05, 2024 02:00 PM AMBULATORY - PS[facility]CHIATRY [facility] [place] [facility] Feb 19, 2024 09:00 AM AMBULATORY - MEDICINE [facility] [place] [facility] Feb 19, 2024 11:00 AM AMBULATORY - PS[facility]CHIATRY [facility] [place] [facility] Mar 01, 2024 01:30 PM AMBULATORY - MEDICINE [facility] [place] [facility] Mar 04, 2024 03:00 PM AMBULATORY - MEDICINE [facility] [place] [facility] Mar 18, 2024 11:00 AM AMBULATORY - PSYCHIATRY [facility] [place] [facility] Lab Results: +/- 30 days of the encounter This section includes the Chemistry and Hematology Lab Results on record with [place] for the patient. Radiology Reports and Pathology Reports are provided separately, in subsequent sections. Lab Results This section contains the Chemistry/Hematology Results that were resulted 30 days before or 30 daysafter the date of the Encounter. Date/Time Source Result Type Result - Unit Interpretation Reference Range Comment Sep 22, 2023 09:28 AM [facility] LIPID PANEL FASTING Specimen Type: SERUM No comment entered. Ordering Provider: SUBHASH GALICIA ICA Report Released Date/Time: Sep 19, 2023 03:09 PM Reporting Lab: [facility] [address] [facility] [address] Performing Lab: [facility] [address] [facility] [address] CHOLESTEROL 188 mg/dL TRIGLYCERIDE 181 mg/dL H 0-150 LDL calculated 118 mg/dL 0-129 CHOL/HDL 5.5 HDL CHOLESTEROL 34 mg/dL L 40-60 Social History: Smoking Status (Most current) and Tobacco Use (All prior to encounter date) This section includes the most current, and the historical, smoking and tobacco- related health factors from the [place] facility where the Encounter took place. Current Smoking Status This section includes the most current smoking, or tobacco-related health factor, from the [place] facility where the Encounter took place. Date/Time Current Smoking Status Comment Filemon honeycutt Aug 19, 2020 02:29 PM VA-TOBACCO FORMER USER [facility] Tobacco Use History This section includes a history of the smoking, or tobacco-related health factors, that were collected on or before the date of the Encounter. The data comes from the [place] facility where the Encounter took place. Date/Time Smoking Status/Tobacco Use Comment Ahsan pulido Aug 19, 2020 02:29 PM VA-TOBACCO QUIT 15 YRS OR MORE [facility] Encounter Notes: All associated encounter notes This section contains the clinical notes associated to the Encounter. Date/Time Encounter Note(s) Provider Source Sep 29, 2023 09:57 AM TRANSFER SUMMARIZATION NOTE: LOCAL TITLE: SURGICAL ASSISTANT/OCC/HOSPITAL NOTIFICATION NOTE STANDARD TITLE: TRANSFER SUMMARIZATION NOTE DATE OF NOTE: SEP 29, 2023@09:57 ENTRY DATE: SEP 29, 2023@09:58:02 AUTHOR: SAAD DICKSON COSIGNER: URGENCY: STATUS: COMPLETED hospitalized at [facility] on 09/26 for increase in chronic chest pain, was to have a cardiac catheterization done as scheduled but [facility] transfered him to [facility] 09/27 for a planned catheterization. /tam/ SAAD DICKSON MSN,RN,CNL Senior Project Coordinator Signed: 09/29/2023 10:01 Receipt Acknowledged By: 10/12/2023 02:13 /tam/ Franklin Chatterjee MD MD PRIMARY CARE PHYSICIAN 09/29/2023 10:48 /tam/ GINO DUBON, AURELIA REGISTERED NURSE SAAD DICKSON [place] [facility]
--- OUTSIDE RECORDS SUMMARY | 2024-03-11 13:03 | XMS_ITS ---
Author Name [place] Address [address] [place] [address] Care Team Providers Care Fisheries Technical Officer Name Role Phone VICKIENAWAF NAVADERICK Primary Care [...] PART A Feb 04, 2020 PART A [id number] [address] [facility] GRACIELA STOVER PATIENT MEDICARE (WNR) MEDICARE (M) PART B Feb 04, 2020 PART B [id number] [address] [facility] GRACIELA STOVER PATIENT Selected Encounter This section includes the information on [place] at [place] for the Encounter. Date/Time Encounter Type Encounter Description Reason Pro vider Source Sep 27, 2023 12:00 AM Outpatient Encounter COMMUNITY CARE [...] 20 appointments. The data comes from all [place] treatment facilities. Appointment Date/Time Appointment Type Appointme nt Facility Name Oct 09, 2023 03:00 PM AMBULATORY - MEDICINE [facility] [place] [facility] Oct 23, 2023 11:00 AM AMBULATORY - MEDICINE [facility] [place] [facility] Oct 26, 2023 11:30 AM AMBULATORY - MEDICINE [facility] ([facility]) Nov 09, 2023 11:20 AM AMBULATORY - MEDICINE [facility] [place] [facility] Nov 20, 2023 03:00 PM AMBULATORY - MEDICINE [facility] [place] [facility] Nov 27, 2023 01:30 PM AMBULATORY - MEDICINE [facility] [place] [facility] Dec 22, 2023 01:45 PM AMBULATORY - MEDICINE [facility] [place] [facility] Jan 01, 2024 08:30 AM AMBULATORY - PSYCHIATRY [facility] ([facility] Jan 08, 2024 11:00 AM AMBULATORY - PS[facility]CHIATRY [facility] [place] [facility] Jan 08, 2024 01:30 PM AMBULATORY - MEDICINE [facility] [place] [facility] Jan 22, 2024 11:00 AM AMBULATORY - PS[facility]CHIATRY [facility] [place] [facility] Feb 05, 2024 02:00 PM AMBULATORY - PS[facility]CHIATRY [facility] [place] [facility] Feb 19, 2024 09:00 AM AMBULATORY - MEDICINE [facility] [place] [facility] Feb 19, 2024 11:00 AM AMBULATORY - PS[facility]CHIATRY [facility] [place] [facility] Mar 01, 2024 01:30 PM AMBULATORY - MEDICINE [facility] [place] [facility] Mar 04, 2024 03:00 PM AMBULATORY - MEDICINE [facility] [place] [facility] Mar 18, 2024 11:00 AM AMBULATORY - PS[facility]CHIATRY [facility] [place] [facility] Lab Results: +/- 30 days of the encounter This section includes the Chemistry and Hematology Lab Results on record with [place] for the patient. Radiology Reports and Pathology Reports are provided separately, in subsequent sections. Lab Results This section contains the Chemistry/Hematology Results that were resulted 30 days before or 30 daysafter the date of the Encounter. Date/Time Source Result Type Result - Unit Interpretation Reference Range Comment Sep 22, 2023 09:28 AM [facility] LIPID PANEL FASTING Specimen Type: SERUM No comment entered. Ordering Provider: SUBHASH GALICIA ICA Report Released Date/Time: Sep 19, 2023 03:09 PM Reporting Lab: [facility] [address] [facility] [address] Performing Lab: [facility] [address] [facility] [address] CHOLESTEROL 188 mg/dL TRIGLYCERIDE 181 mg/dL H 0-150 LDL calculated 118 mg/dL 0-129 CHOL/HDL 5.5 HDL CHOLESTEROL 34 mg/dL L 40-60 Social History: Smoking Status (Most current) and Tobacco Use (All prior to encounter date) This section includes the most current, and the historical, smoking and tobacco- related health factors from the [place] facility where the Encounter took place. Current Smoking Status This section includes the most current smoking, or tobacco-related health factor, from the [place] facility where the Encounter took place. Date/Time Current Smoking Status Comment Filemon honeycutt Aug 19, 2020 02:29 PM VA-TOBACCO FORMER USER [facility] Tobacco Use History This section includes a history of the smoking, or tobacco-related health factors, that were collected on or before the date of the Encounter. The data comes from the [place] facility where the Encounter took place. Date/Time Smoking Status/Tobacco Use Comment F tess Aug 19, 2020 02:29 PM VA-TOBACCO QUIT 15 YRS OR MORE [facility] Encounter Notes: All associated encounter notes This section contains the clinical notes associated to the Encounter. Date/Time Encounter Note(s) Provider Source Sep 27, 2023 12:00 AM NONVA CONSULT: LOCAL TITLE: COMMUNITY CARE-CONSULT RESULT NOTE STANDARD TITLE: NONVA CONSULT DATE OF NOTE: SEP 27, 2023 ENTRY DATE: OCT 11, 2023@12:02:40 AUTHOR: BRINDA CRABTREE EXP COSIGNER: URGENCY: STATUS: COMPLETED VistA Imaging - Scanned Document SCANNED DOCUMENT SIGNATURE NOT REQUIRED Electronically Filed: 10/11/2023 by: BRINDA CRABTREE FORENSIC PSYCHOLOGIST BRINDA CRABTREE [facility]
--- OUTSIDE RECORDS SUMMARY | 2024-03-11 13:03 | XMS_ITS ---
Author Name [place] Address [address] [place] [address] Care Team Providers Care Social Science Teacher Name Role Phone VICKIEALEXANDER MCCRACKENYAJAIRADERICK Primary Care [...] PART A Feb 04, 2020 PART A [id number] [address] [facility] GRACIELA STOVER PATIENT MEDICARE (WNR) MEDICARE (M) PART B Feb 04, 2020 PART B [id number] NE42 [facility] GRACIELA STOVER PATIENT Selected Encounter This section includes the information on record at [place] for the Encounter. Date/Time Encounter Type Encounter Description Reason Pro vider Source Sep 21, 2023 03:08 PM Outpatient Encounter PRIMARY CARE/MEDICINE IHE Encounter [...] - MEDICINE [facility] [place] [facility] Oct 23, 2023 11:00 AM AMBULATORY - MEDICINE [facility] [place] [facility] Oct 26, 2023 11:30 AM AMBULATORY - MEDICINE [facility] ([facility] Nov 09, 2023 11:20 AM AMBULATORY - MEDICINE [facility] [place] [facility] Nov 20, 2023 03:00 PM AMBULATORY - MEDICINE [facility] [place] [facility] Nov 27, 2023 01:30 PM AMBULATORY - MEDICINE [facility] [place] [facility] Dec 22, 2023 01:45 PM AMBULATORY - MEDICINE [facility] [place] [facility] Jan 01, 2024 08:30 AM AMBULATORY - PSYCHIATRY [facility] ([facility] Jan 08, 2024 11:00 AM AMBULATORY - [facility]AT[facility] [place] [facility] Jan 08, 2024 01:30 PM AMBULATORY - MEDICINE [facility] [place] [facility] Jan 22, 2024 11:00 AM AMBULATORY - PS[facility]IATRY [facility] [place] [facility] Feb 05, 2024 02:00 PM AMBULATORY - PS[facility]IATRY [facility] [place] [facility] Feb 19, 2024 09:00 AM AMBULATORY - MEDICINE [facility] [place] [facility] Feb 19, 2024 11:00 AM AMBULATORY - PS[facility]IATRY [facility] [place] [facility] Mar 01, 2024 01:30 PM AMBULATORY - MEDICINE [facility] [place] [facility] Mar 04, 2024 03:00 PM AMBULATORY - MEDICINE [facility] [place] [facility] Mar 18, 2024 11:00 AM AMBULATORY - PS[facility]CHIATRY [facility] [place] [facility] Lab Results: +/- 30 days [...] Range Comment Sep 22, 2023 09:28 AM [facility] LIPID PANEL FASTING Specimen Type: SERUM No comment entered. Ordering Provider: SUBHASH GALICIA ICA Report Released Date/Time: Sep 19, 2023 03:09 PM Reporting Lab: [facility] [address] [facility] [address] Performing Lab: [facility] [address] [facility] [address] CHOLESTEROL 188 mg/dL TRIGLYCERIDE 181 mg/dL H [...] 2020 02:29 PM VA-TOBACCO FORMER USER [facility] Tobacco Use History This section includes a history of the smoking, or tobacco-related health factors, that were collected on or before the date of the Encounter. The data comes from the [place] facility where the Encounter took place. Date/Time Smoking Status/Tobacco Use Comment F tess Aug 19, 2020 02:29 PM VA-TOBACCO QUIT 15 YRS OR MORE [facility] Encounter Notes: All associated encounter notes This section contains the clinical notes associated to the Encounter. Date/Time Encounter Note(s) Provider Source Sep 21, 2023 03:08 PM ADMINISTRATIVE NOT E: LOCAL TITLE: ADMINISTRATIVE NOTE STANDARD TITLE: ADMINISTRATIVE NOTE DATE OF NOTE: SEP 21, 2023@15:08 ENTRY DATE: SEP 21, 2023@15:08:53 AUTHOR: RUDI RIGGINS EXP COSIGNER: URGENCY: STATUS: COMPLETED ADMINISTRATIVE NOTE Has ADDENDA Naubinway presents to clinic requesting cardiology consult be renewed. 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 /tam/ RUDI RIGGINS ADVANCED HEAD START ASSISTANT TEACHER Signed: 09/22/2023 09:26 RUDI RIGGINS ([facility])
--- OUTSIDE RECORDS SUMMARY | 2024-03-11 13:03 | XMS_ITS | Encounter Summary ---
Author Name [facility] [facility] [place] Address [address] [place] [address] Care Team Providers Care Pharmacy Technician Infusion Name Role Phone ARLENELEXIS WINDY Primary Care [...] PART A Feb 04, 2020 PART A [id number] [facility] PATIENT MEDICARE (WNR) MEDICARE (M) PART B Feb 04, 2020 PART B [id number] [address] GRACIELA STOVER PATIENT Selected Encounter This section includes the information on record at OR for the Encounter. Date/Time Encounter Type Encounter Description Reason Pro vider Source Sep 27, 2023 12:00 PM Outpatient Encounter EVENT (HISTORICAL) IHE Encounter Template [...] - MEDICINE [facility] Oct 23, 2023 11:00 AM AMBULATORY - [facility]IC[facility] Oct 26, 2023 11:30 AM AMBULATORY - MEDICINE [facility] Nov 09, 2023 11:20 AM AMBULATORY - [facility]IC[facility] Nov 20, 2023 03:00 PM AMBULATORY - [facility] Nov 27, 2023 01:30 PM AMBULATORY - [facility] Dec 22, 2023 01:45 PM AMBULATORY - [facility] Jan 01, 2024 08:30 AM AMBULATORY - [facility]IATRY [facility] ([facility] Jan 08, 2024 11:00 AM AMBULATORY - PS[facility]CHIATRY [facility] Jan 08, 2024 01:30 PM AMBULATORY - [facility] Jan 22, 2024 11:00 AM AMBULATORY - PS[facility]CHIATRY [facility] Feb 05, 2024 02:00 PM AMBULATORY - PS[facility] Feb 19, 2024 09:00 AM AMBULATORY - [facility]ICINE [facility] Feb 19, 2024 11:00 AM AMBULATORY - PS[facility]AT[facility] Mar 01, 2024 01:30 PM AMBULATORY - [facility]ICINE [facility] Mar 04, 2024 03:00 PM AMBULATORY - [facility]INE [facility] Mar 18, 2024 11:00 AM AMBULATORY - PS[facility]CHIATRY [facility] Lab Results: +/- 30 days [...] Range Comment Sep 22, 2023 09:28 AM [facility] LIPID PANEL FASTING Specimen Type: SERUM No comment entered. Ordering Provider: SUBHASH GALICIA ICA Report Released Date/Time: Sep 19, 2023 03:09 PM Reporting Lab: [facility] [address] [id number] Performing Lab: [facility] [address] [id number] CHOLESTEROL 188 mg/dL TRIGLYCERIDE 181 mg/dL H [...] 19, 2020 02:29 PM VA-TOBACCO FORMER USER [facility] Tobacco Use History This section includes a history of the smoking, or tobacco-related health factors, that were collected on or before the date of the Encounter. The data comes from the OR facility where the Encounter took place. Date/Time Smoking Status/Tobacco Use Comment Ahsan pulido Aug 19, 2020 02:29 PM VA-TOBACCO QUIT 15 YRS OR MORE [facility] Encounter Notes: All associated encounter notes This section contains the clinical notes associated to the Encounter. Date/Time Encounter Note(s) Provider Source Sep 27, 2023 12:00 PM NONVA NOTE: LOCAL TITLE: NON-VA HOSPITALIZATIONS/ER STANDARD TITLE: NONVA NOTE DATE OF NOTE: SEP 27, 2023@12:00 ENTRY DATE: OCT 25, 2023@15:05:48 AUTHOR: JERRY DIAZ COSIGNER: URGENCY: STATUS: COMPLETED VistA Imaging - Scanned Document SCANNED DOCUMENT SIGNATURE NOT REQUIRED Electronically Filed: 10/25/2023 by: ANDERS DIAZ Machine Packaging Technician ANDERS DIAZ [facility]
--- OUTSIDE RECORDS SUMMARY | 2024-03-11 13:03 | XMS_ITS | Encounter Summary ---
Author Name [facility] [place] [facility] [place] Address [address] [place] [address] Care Team Providers Care Suction Dredge Dumping Supervisor Name Role Phone VICKIEALEXANDER MCCRACKENYAJAIRADERICK Primary Care [...] PART A Feb 04, 2020 PART A [id number] [facility] PATIENT MEDICARE (WNR) MEDICARE (M) PART B Feb 04, 2020 PART B [id number] [facility] GRACIELA STOVER PATIENT Selected Encounter This section includes the information on record at [place] for the Encounter. Date/Time Encounter Type Encounter Description Reason Pro vider Source Sep 28, 2023 12:10 PM Outpatient Encounter PRIMARY CARE/MEDICINE IHE Encounter Template Text not used by [place] Plan of Treatment: Future Appointments (+ 6 [...] 20 appointments. The data comes from all [place] treatment facilities. Appointment Date/Time Appointment Type Appointme nt Facility Name Oct 09, 2023 03:00 PM AMBULATORY [facility] [place] Oct 23, 2023 11:00 AM [facility] [place] [facility] Oct 26, 2023 11:30 AM AMBULATORY - MEDICINE [facility] ([facility]) Nov 09, 2023 11:20 AM [facility]UL[facility]ORY [facility]IC[facility] [place] [facility] Nov 20, 2023 03:00 PM AMBULATORY [facility]IC[facility] [place] [facility] Nov 27, 2023 01:30 PM AM[facility]ULATORY [facility]IC[facility] [place] [facility] Dec 22, 2023 01:45 PM AMBULATORY [facility]IC[facility] [place] [facility] Jan 01, 2024 08:30 AM AMBULATORY - PSYCHIATRY [facility] ([facility]) Jan 08, 2024 11:00 AM AMBULATORY - PS[facility]IATRY [facility] [place] [facility] Jan 08, 2024 01:30 PM AM[facility]ULATORY [facility]IC[facility] [place] [facility] Jan 22, 2024 11:00 AM AMBULATORY - PS[facility]IAT[facility] [place] [facility] Feb 05, 2024 02:00 PM AMBULATORY - PS[facility]IATRY [facility] [place] [facility] Feb 19, 2024 09:00 AM AMBULATORY [facility] MEDIC[facility] [place] [facility] Feb 19, 2024 11:00 AM AMBULATORY [facility] PS[facility] [place] [facility] Mar 01, 2024 01:30 PM AMBULATORY [facility] MEDIC[facility] [place] [facility] Mar 04, 2024 03:00 PM AMBULATORY - MEDIC[facility] [place] [facility] Mar 18, 2024 11:00 AM AMBULATORY - PS[facility]IATRY [facility] [place] [facility] Lab Results: +/- 30 days of [...] Range Comment Sep 22, 2023 09:28 AM [facility] LIPID PANEL FASTING Specimen Type: SERUM No comment entered. Ordering Provider: SUBHASH GALICIA ICA Report Released Date/Time: Sep 19, 2023 03:09 PM Reporting Lab: [facility] [address] [facility] [id number] Performing Lab: [facility] [address] [facility] [facility] [id number] CHOLESTEROL 188 mg/dL TRIGLYCERIDE 181 mg/dL H 0-150 LDL calculated 118 mg/dL 0-129 CHOL/HDL 5.5 HDL CHOLESTEROL 34 mg/dL L 40-60 Social History: Smoking Status (Most current) and Tobacco Use (All prior to encounter date) This section includes the most current, and the historical, smoking and tobacco- related health factors from the [place] facility where the Encounter took place. Current Smoking Status This section includes the most current smoking, or tobacco-related health factor, from the [place] facility where the Encounter took place. Date/Time Current Smoking Status Comment Fliemon honeycutt Aug 19, 2020 02:29 PM VA-TOBACCO FORMER USER [facility] Tobacco Use History This section includes a history of the smoking, or tobacco-related health factors, that were collected on or before the date of the Encounter. The data comes from the [place] facility where the Encounter took place. Date/Time Smoking Status/Tobacco Use Comment Ahsan pulido Aug 19, 2020 02:29 PM VA-TOBACCO QUIT 15 YRS OR MORE [facility] Encounter Notes: All associated encounter notes This section contains the clinical notes associated to the Encounter. Date/Time Encounter Note(s) Provider Source Oct 06, 2023 01:47 PM ADDENDUM: LOCAL TITLE: Addendum STANDARD TITLE: ADDENDUM DATE OF NOTE: OCT 06, 2023@13:47:24 ENTRY DATE: OCT 06, 2023@13:47:25 AUTHOR: GINO DUBON EXP COSIGNER: URGENCY: STATUS: COMPLETED ADMIT 09/28/23 DISCHARGE 10/03/23 [facility] Discharge Disposition Discharge Disposition: Home: No Services Discharge Diagnosis CAD (coronary artery disease) (I25.10) Hx of CABG (Z95.1) Chronic orthostatic hypotension (I95.1) Ischemic cardiomyopathy (I25.5) History of nephrectomy (Z90.5) Elevated serum creatinine (R74.8) Angina pectoris, unstable (I20.0) GERD (gastroesophageal reflux disease) (K21.9) Hypertension (I10) Type 2 diabetes mellitus (E11.9) Obstructive sleep apnea on CPAP (G47.33) Hyperlipidemia, unspecified (E78.5) CKD (chronic kidney disease), stage II (N18.2) CAD S/P percutaneous coronary angioplasty (I25.10) _ Discharge Medications Aspirin (aspirin 81 mg oral tablet, chewable) 81 Milligram By Mouth Daily for 30 Days Carvedilol (carvedilol 25 mg oral tablet) 1 tablet By Mouth 2 times a day Clopidogrel (Plavix 75 mg oral tablet) 75 Milligram 1 tablet By Mouth Daily for 90 Days Stop Brilinta and start Plavix 75mg daily dulaglutide (Trulicity Pen 1.5 mg/0.5 mL subcutaneous solution) 0.5 Milliliter 1.5 Milligram Subcutaneous Injection Every week rotate injection sites Durable Medical Equipment (Freestyle Lite Test Strips) See Instructions for 30 Days use as directed for Type 2 Diabetes Mellitustest once a dayicd 10 e11.9 Durable Medical Equipment (Pen Stephenson, 31 G x 5 mm BD Ultra [...] Milligram By Mouth Daily for 90 Days Rosuvastatin (rosuvastatin 5 mg oral tablet) 1 tab(s) 5 Milligram By Mouth Daily Triamcinolone Nasal (triamcinolone 55 mcg/inh nasal spray) 1 spray(s) 55 Microgram Nares, Both Daily PCP Follow-Up/Heads-Up Patient was admitted for unstable angina, status post left heart cath with PCI stent placed in mid RCA. Patient to continue DAPT therapy. Future Appointments Monday 11:30 AM EDT Where: [facility] Status: Pending Monday 8:10 AM EDT With: Michael Naranjo MD Where: [address] [address]- Status: Pending Hospital Course This is a 57-year-old male with PMHx of coronary disease status post CABG 10 years ago and PCI about 5 years ago with refractory angina, peripheral vascular disease status post left toe amputation, renal cancer status post left nephrectomy, chronic kidney disease stage II, ischemic cardiomyopathy with ejection fraction of 50%, labile hypertension with orthostatic hypotension and syncope, dyslipidemia, obstructive sleep apnea on CPAP, diabetes type 2 on Tarceva and Lantus, history of DVT (finished a course of Eliquis) who was transferred from [facility] with unstable angina for a nonurgent cardiac catheterization. Patient received water catheterization on 10/01 and was found to have mid RCA proximal 85% stenosis which was stented. During his hospitalization patient had an elevation of creatinine from his baseline of 1.6- 2.0 to for which she received fluid resuscitation which eventually helped his creatinine dropped to his baseline. His hypertension was managed with amlodipine and carvedilol however, patient takes felodipine at home. Felodipine is unavailable in the formulary at the hospital. Patient was pain-free, asymptomatic after left heart catheterization, he was ambulating better and longer without reproducing chest pain. Patient was discharged with cardiology follow-up in 2 to 4 weeks. Objective Assessment and Plan Assessment: This is a 57-year-old male with PMHx of coronary disease status post CABG 10 years ago and PCI about 5 years ago with refractory angina, peripheral vascular disease status post left toe amputation, renal cancer status post left nephrectomy, chronic kidney disease stage II, ischemic cardiomyopathy with ejection fraction of 50%, labile hypertension with orthostatic hypotension and syncope, dyslipidemia, obstructive sleep apnea on CPAP, diabetes type 2 on Tarceva and Lantus, history of DVT (finished a course of Eliquis) who was transferred from [facility] with unstable angina for a nonurgent cardiac catheterization. This is tentatively scheduled for 10/01. Angina pectoris, unstable (I20.0): Coronary Artery Disease (I25.10) Hx of CABG (Z95.1) Denies angina today. Pending catheterization for possible coronary sinus director of public health in hopes of improving his angina. Plan: -Continue aspirin 81 mg a day and Plavix 75 mg daily. -As per cardiology, no heparin drip as cardiac enzymes has remained flat. -The patient will be on a clear liquid diet on 10/01 at midnight without any solids 6h prior to catheterization for LHC -Continue Coreg 25 mg p.o. twice a day with holding parameters and Crestor 5 mg p.o. daily -If tolerates and has no further hypotension, would add amlodipine for HTN management and afterload reduction which would also improve angina Chronic Orthostatic Hypotension(I95.1) Patient is on felodipine as an outpatient. However, medication is unavailable on formulary inpatient. Patient started on amlodipine 5 mg equivalent dose of felodipine. Was not able to get this medication due to orthostasis. Difficult to manage in an ongoing fashion given his resting hypertension, significant orthostatic hypotension. Ischemic cardiomyopathy(I25.5) Per chart review Ejection fraction in the high 40s to low 50s. No signs of congestive heart failure. Plan: -Echocardiogram ordered CKD (chronic kidney disease), stage II (N18.2): Stable. Continue to monitor. Avoid nephrotoxins. Dyslipidemia (E78.5): Continue Crestor as mentioned above Obstructive sleep apnea on CPAP (G47.33): CPAP at night Type 2 diabetes mellitus (E11.9): POC glucose monitoring and insulin sliding scale. Holding oral hypoglycemic agents. Patient on Trulicity every Monday. Continue home dose Lantus after left heart cath and diet resumption. Hypertension (I10): Continue Coreg as mentioned above. Consider amlodipine as substitute to home felodipine if his orthostasis improves. GERD (gastroesophageal reflux disease) (K21.9): Continue with PPI. Patient Instructions You were admitted for unstable angina with plans for left heart catheterization. Dr. Robertson performed your left heart catheterization on 10/01 and you were found to have mid right coronary artery proximal subsection 85% stenosis which was stented. During your hospitalization your felodipine was held as it was unavailable in the formulary. You were given amlodipine for elevated blood pressure. You will be continuing aspirin, Plavix, atorvastatin and you are scheduled to follow-up with Guy Delcid in 2 to 4 weeks. Home Health Face to Face ^HomeHealthFTF Results Discharge Labs BLOOD COUNT & DIFF WBC 7.1 k/mm3 () 10/03/2023 07:22 RBC 4.07 m/mm3 (Low) 10/03/2023 07:22 Hgb 12.7 Gm/dL (Low) 10/03/2023 07:22 Hct 36.1 % (Low) 10/03/2023 07:22 MCV 88.7 femtoliters () 10/03/2023 07:22 MCH 31.2 pg () 10/03/2023 07:22 MCHC 35.2 g/dL () 10/03/2023 07:22 Platelet Count 167 k/mm3 () 10/03/2023 07:22 RDW-SD 39.8 femtoliters () 10/03/2023 07:22 MPV 9.9 femtoliters () 10/03/2023 07:22 Nucleated RBC (Automated) 0.0 #/100 WBC'S () 10/03/2023 07:22 Abs. NRBC 0.0 k/mm3 () 10/03/2023 07:22 CHEM GENERAL Sodium 142 mmol/L () 10/03/2023 07:22 Potassium 4.6 mmol/L () 10/03/2023 07:22 Chloride 108 mmol/L (High) 10/03/2023 07:22 Bicarbonate Level 24 mmol/L () 10/03/2023 07:22 Anion Gap 10 () 10/03/2023 07:22 Glucose Level 96 mg/dL () 10/03/2023 07:22 Glucose, POC 70 mg/dL () 10/03/2023 07:26 BUN 18 mg/dL () 10/03/2023 07:22 Creatinine-Blood 1.62 mg/dL (High) 10/03/2023 07:22 Estimated GFR Creatinine 49 ML/MIN/1.73 M2 () 10/03/2023 07:22 Calcium 9.0 mg/dL () 10/03/2023 07:22 Magnesium 2.3 mg/dL () 10/02/2023 08:28 COAG POC ACT-LR 308.0 seconds () 10/02/2023 15:05 HEME OTHER URINE OTHER Est Creatinine Clearance 55.30 mL/min () 10/03/2023 08:11 /es/ GINO DUBON RN REGISTERED NURSE Signed: 10/06/2023 13:54 Receipt Acknowledged By: 10/12/2023 07:26 /es/ Franklin Stokes MD MD PRIMARY CARE PHYSICIAN --- Original Document --- 09/28/23 NON-VA HOSPITALIZATIONS/ER: ADMIT 09/27/23 [facility] CARDIOLOGY CONSULT: DR. Ji Hummel Cardiology Shared Clinical Summary 1. Coronary artery disease with prior 6-vessel CABG; (MOORE to LAD, SVG to D1, SVG to D2, radial to OM, SVG to PDA, and PLV sequential), done 2014. With MADELIN x 2 to OM (07/2017). Chronic CP since. Some atypical, some more consistent with stable angina. Increased CP with hypertensive episodes. 2. Ischemic cardiomyopathy with an ejection fraction of 50% 3. Labile hypertension with orthostatic hypotension and syncope. 4. Dyslipidemia 5. YAANNA, intolerant of CPAP 6. Diabetes. Prev. not controlled, has kept it under good control the past couple of years. 7. Peripheral arterial disease. Right posterior tibial angioplasty June 2020. Dr. Barron 8. Chronic chest pain 9. Multiple medication intolerances 10. Left leg DVT 08/2020 done with Eliquis course. On ASA and plavix. 11. History of left toe wounds with osteomyelitis 12. Renal cancer with status post nephrectomy Indication for Consult Chest pain, SOb, Dizziness History of Present Illness/Interval History 57-year-old man with known coronary disease status post surgical revascularization with 6 vessel CABG in 2014 and subsequent drug-eluting stents to an OM in July 2017. He has mild ischemic cardiomyopathy, diabetes, hypertension with orthostatic hypotension consistent with autonomic dysfunction, peripheral vascular disease with prior revascularization procedures, and nephrectomy for renal cancer who presented to the emergency room yesterday afternoon following 2 hours of chest pain. He was at his work when while walking he became short of breath, lightheaded, and experienced a syncopal event. The ambulance was called because of this. He has a history of chest pain since he was initially diagnosed with coronary disease. He notes that he has begun experiencing worsening exertional dyspnea over the past few months. There are no symptoms of orthopnea. He notes chronic peripheral edema. He also notes exertional lightheadedness. He is known to have orthostatic hypotension as well. He notes palpitations which are not necessarily associated with lightheadedness. Has relatively low threshold claudication after walking 30 to 40 yards. His initial EKG showed no acute changes. Troponins were in the high teens and have been flat. He was seen in the office earlier this month. At that time, because of his relatively new symptoms of exertional dyspnea with a prior workable pharmacologic nuclear stress test approximately 1 year ago, the decision was made to pursue cardiac catheterization. Apparently after this admission, discussion was undertaken with Dr. Kiser, who is the patient's primary loss prevention consultant. Recommendations were made for transfer to [facility] for elective catheterization. The recommendation also was for intravenous heparin if there is a troponin rise. Assessment/Plan 1. Chest pain (Provisional) 2 hours of chest pain negative troponins. The most concerning symptoms for coronary disease are his exertional dyspnea and syncope. Arrangements have been made for transfer to [facility] for cardiac catheterization. He is on aspirin and clopidogrel. I would recommend restarting carvedilol 25 mg twice daily. Would also recommend oral hydration given worsening renal function and single kidney. May require intravenous hydration prior to catheterization. 2. Coronary artery disease As above, recommendations had been made for elective catheterization with consideration for a coronary sinus occlusion device if there is no role for intervention. 3. Hx of CABG 4. Chronic orthostatic hypotension Blood pressure is high at rest. He is on felodipine as an outpatient. Consider starting this if blood pressure remains stable on carvedilol. This will be difficult to manage in an ongoing fashion given his resting hypertension, but significant orthostatic hypotension. 5. Ischemic cardiomyopathy Ejection fraction in the high 40s to low 50s. No signs of congestive heart failure. 6. Hyperlipidemia Continue rosuvastatin. Peripheral artery disease Peripheral pulses are not palpable. Continue Plavix and statin. Cardiology Labs WBC: 5.7 k/mm3 (09/28/23) RBC: 4.3 m/mm3 Low (09/28/23) Hgb: 13.2 Gm/dL Low (09/28/23) Hct: 39 % Low (09/28/23) MCV: 90.7 femtoliters (09/28/23) MCH: 30.7 pg (09/28/23) MCHC: 33.8 g/dL (09/28/23) Platelet Count: 193 k/mm3 (09/28/23) RDW-SD: 39.9 femtoliters (09/28/23) Nucleated RBC (Automated): 0 #/100 WBC'S (09/28/23) Abs. Neut: 3.7 k/mm3 (09/28/23) Abs. Lymph: 1.4 k/mm3 (09/28/23) Abs. [place]: 0.4 k/mm3 (09/28/23) Abs. Eo: 0.2 k/mm3 (09/28/23) Abs. Baso: 0 k/mm3 (09/28/23) Neut %: 64 % (09/28/23) [place] %: 6.8 % (09/28/23) Eos %: 4.2 % (09/28/23) Baso %: 0.4 % (09/28/23) Imm Gran: 0.4 % (09/28/23) Abs. Imm Gran: 0 k/mm3 (09/28/23) Sodium: 142 mmol/L (09/28/23) Potassium: 4.4 mmol/L (09/28/23) Chloride: 106 mmol/L (09/28/23) Bicarbonate Level: 26 mmol/L (09/28/23) Glucose Level: 142 mg/dL High (09/28/23) BUN: 26 mg/dL High (09/28/23) Creatinine-Blood: 1.46 mg/dL High (09/28/23) Calcium: 9.6 mg/dL (09/28/23) Protein, Total: 7.2 Gm/dL (09/28/23) Albumin: 4.4 Gm/dL (09/28/23) Nt-Probnp: 684 pg/mL High (09/27/23) Cholesterol: 176 mg/dL (09/28/23) Triglycerides: 147 mg/dL (09/28/23) HDL Cholesterol: 34 mg/dL Low (09/28/23) LDL Cholesterol: 113 mg/dL (09/28/23) Non HDL Cholesterol: 142 mg/dL (09/28/23) /tam/ GINO DUBON RN REGISTERED NURSE Signed: 09/28/2023 12:15 GINO [facility] ([facility]) Sep 28, 2023 12:10 PM NONVA NOTE: LOCAL TITLE: NON-VA HOSPITALIZATIONS/ER STANDARD TITLE: NONVA NOTE DATE OF NOTE: SEP 28, 2023@12:10 ENTRY DATE: SEP 28, 2023@12:10:32 AUTHOR: GINO DUBON EXP COSIGNER: URGENCY: STATUS: COMPLETED NON-VA HOSPITALIZATIONS/ER Has ADDENDA ADMIT 09/27/23 [facility] CARDIOLOGY CONSULT: DR. Ji Hummel Cardiology Shared Clinical Summary 1. Coronary artery disease with prior 6-vessel CABG; (MOORE to LAD, SVG to D1, SVG to D2, radial to OM, SVG to PDA, and PLV sequential), done 2014. With MADELIN x 2 to OM (07/2017). Chronic CP since. Some atypical, some more consistent with stable angina. Increased CP with hypertensive episodes. 2. Ischemic cardiomyopathy with an ejection fraction of 50% 3. Labile hypertension with orthostatic hypotension and syncope. 4. Dyslipidemia 5. AYANNA, intolerant of CPAP 6. Diabetes. Prev. not controlled, has kept it under good control the past couple of years. 7. Peripheral arterial disease. Right posterior tibial angioplasty June 2020. Dr. Barron 8. Chronic chest pain 9. Multiple medication intolerances 10. Left leg DVT 08/2020 done with Eliquis course. On ASA and plavix. 11. History of left toe wounds with osteomyelitis 12. Renal cancer with status post nephrectomy Indication for Consult Chest pain, SOb, Dizziness History of Present Illness/Interval History 57-year-old man with known coronary disease status post surgical revascularization with 6 vessel CABG in 2014 and subsequent drug-eluting stents to an OM in July 2017. He has mild ischemic cardiomyopathy, diabetes, hypertension with orthostatic hypotension consistent with autonomic dysfunction, peripheral vascular disease with prior revascularization procedures, and nephrectomy for renal cancer who presented to the emergency room yesterday afternoon following 2 hours of chest pain. He was at his work when while walking he became short of breath, lightheaded, and experienced a syncopal event. The ambulance was called because of this. He has a history of chest pain since he was initially diagnosed with coronary disease. He notes that he has begun experiencing worsening exertional dyspnea over the past few months. There are no symptoms of orthopnea. He notes chronic peripheral edema. He also notes exertional lightheadedness. He is known to have orthostatic hypotension as well. He notes palpitations which are not necessarily associated with lightheadedness. Has relatively low threshold claudication after walking 30 to 40 yards. His initial EKG showed no acute changes. Troponins were in the high teens and have been flat. He was seen in the office earlier this month. At that time, because of his relatively new symptoms of exertional dyspnea with a prior workable pharmacologic nuclear stress test approximately 1 year ago, the decision was made to pursue cardiac catheterization. Apparently after this admission, discussion was undertaken with Dr. Kiser, who is the patient's primary loss prevention consultant. Recommendations were made for transfer to [facility] for elective catheterization. The recommendation also was for intravenous heparin if there is a troponin rise. Assessment/Plan 1. Chest pain (Provisional) 2 hours of chest pain negative troponins. The most concerning symptoms for coronary disease are his exertional dyspnea and syncope. Arrangements have been made for transfer to [facility] for cardiac catheterization. He is on aspirin and clopidogrel. I would recommend restarting carvedilol 25 mg twice daily. Would also recommend oral hydration given worsening renal function and single kidney. May require intravenous hydration prior to catheterization. 2. Coronary artery disease As above, recommendations had been made for elective catheterization with consideration for a coronary sinus occlusion device if there is no role for intervention. 3. Hx of CABG 4. Chronic orthostatic hypotension Blood pressure is high at rest. He is on felodipine as an outpatient. Consider starting this if blood pressure remains stable on carvedilol. This will be difficult to manage in an ongoing fashion given his resting hypertension, but significant orthostatic hypotension. 5. Ischemic cardiomyopathy Ejection fraction in the high 40s to low 50s. No signs of congestive heart failure. 6. Hyperlipidemia Continue rosuvastatin. Peripheral artery disease Peripheral pulses are not palpable. Continue Plavix and statin. Cardiology Labs WBC: 5.7 k/mm3 (09/28/23) RBC: 4.3 m/mm3 Low (09/28/23) Hgb: 13.2 Gm/dL Low (09/28/23) Hct: 39 % Low (09/28/23) MCV: 90.7 femtoliters (09/28/23) MCH: 30.7 pg (09/28/23) MCHC: 33.8 g/dL (09/28/23) Platelet Count: 193 k/mm3 (09/28/23) RDW-SD: 39.9 femtoliters (09/28/23) Nucleated RBC (Automated): 0 #/100 WBC'S (09/28/23) Abs. Neut: 3.7 k/mm3 (09/28/23) Abs. Lymph: 1.4 k/mm3 (09/28/23) Abs. [place]: 0.4 k/mm3 (09/28/23) Abs. Eo: 0.2 k/mm3 (09/28/23) Abs. Baso: 0 k/mm3 (09/28/23) Neut %: 64 % (09/28/23) [place] %: 6.8 % (09/28/23) Eos %: 4.2 % (09/28/23) Baso %: 0.4 % (09/28/23) Imm Gran: 0.4 % (09/28/23) Abs. Imm Gran: 0 k/mm3 (09/28/23) Sodium: 142 mmol/L (09/28/23) Potassium: 4.4 mmol/L (09/28/23) Chloride: 106 mmol/L (09/28/23) Bicarbonate Level: 26 mmol/L (09/28/23) Glucose Level: 142 mg/dL High (09/28/23) BUN: 26 mg/dL High (09/28/23) Creatinine-Blood: 1.46 mg/dL High (09/28/23) Calcium: 9.6 mg/dL (09/28/23) Protein, Total: 7.2 Gm/dL (09/28/23) Albumin: 4.4 Gm/dL (09/28/23) Nt-Probnp: 684 pg/mL High (09/27/23) Cholesterol: 176 mg/dL (09/28/23) Triglycerides: 147 mg/dL (09/28/23) HDL Cholesterol: 34 mg/dL Low (09/28/23) LDL Cholesterol: 113 mg/dL (09/28/23) Non HDL Cholesterol: 142 mg/dL (09/28/23) /tam/ GINO DUBON RN REGISTERED NURSE Signed: 09/28/2023 12:15 10/06/2023 ADDENDUM STATUS: COMPLETED ADMIT 09/28/23 DISCHARGE 10/03/23 [facility] Discharge Disposition Discharge Disposition: Home: No Services Discharge Diagnosis CAD (coronary artery disease) (I25.10) Hx of CABG (Z95.1) Chronic orthostatic hypotension (I95.1) Ischemic cardiomyopathy (I25.5) History of nephrectomy (Z90.5) Elevated serum creatinine (R74.8) Angina pectoris, unstable (I20.0) GERD (gastroesophageal reflux disease) (K21.9) Hypertension (I10) Type 2 diabetes mellitus (E11.9) Obstructive sleep apnea on CPAP (G47.33) Hyperlipidemia, unspecified (E78.5) CKD (chronic kidney disease), stage II (N18.2) CAD S/P percutaneous coronary angioplasty (I25.10) _ Discharge Medications Aspirin (aspirin 81 mg oral tablet, chewable) 81 Milligram By Mouth Daily for 30 Days Carvedilol (carvedilol 25 mg oral tablet) 1 tablet By Mouth 2 times a day Clopidogrel (Plavix 75 mg oral tablet) 75 Milligram 1 tablet By Mouth Daily for 90 Days Stop Brilinta and start Plavix 75mg daily dulaglutide (Trulicity Pen 1.5 mg/0.5 mL subcutaneous solution) 0.5 Milliliter 1.5 Milligram Subcutaneous Injection Every week rotate injection sites Durable Medical Equipment (Freestyle Lite Test Strips) See Instructions for 30 Days use as directed for Type 2 Diabetes Mellitustest once a dayicd 10 e11.9 Durable Medical Equipment (Pen Stephenson, 31 G x 5 mm BD Ultra [...] Milligram By Mouth Daily for 90 Days Rosuvastatin (rosuvastatin 5 mg oral tablet) 1 tab(s) 5 Milligram By Mouth Daily Triamcinolone Nasal (triamcinolone 55 mcg/inh nasal spray) 1 spray(s) 55 Microgram Nares, Both Daily PCP Follow-Up/Heads-Up Patient was admitted for unstable angina, status post left heart cath with PCI stent placed in mid RCA. Patient to continue DAPT therapy. Future Appointments Monday 11:30 AM EDT Where: [facility] Status: Pending Monday 8:10 AM EDT With: Michael Naranjo MD Where: [address] [address]- Status: Pending Hospital Course This is a 57-year-old male with PMHx of coronary disease status post CABG 10 years ago and PCI about 5 years ago with refractory angina, peripheral vascular disease status post left toe amputation, renal cancer status post left nephrectomy, chronic kidney disease stage II, ischemic cardiomyopathy with ejection fraction of 50%, labile hypertension with orthostatic hypotension and syncope, dyslipidemia, obstructive sleep apnea on CPAP, diabetes type 2 on Tarceva and Lantus, history of DVT (finished a course of Eliquis) who was transferred from [facility] with unstable angina for a nonurgent cardiac catheterization. Patient received water catheterization on 10/01 and was found to have mid RCA proximal 85% stenosis which was stented. During his hospitalization patient had an elevation of creatinine from his baseline of 1.6- 2.0 to for which she received fluid resuscitation which eventually helped his creatinine dropped to his baseline. His hypertension was managed with amlodipine and carvedilol however, patient takes felodipine at home. Felodipine is unavailable in the formulary at the hospital. Patient was pain-free, asymptomatic after left heart catheterization, he was ambulating better and longer without reproducing chest pain. Patient was discharged with cardiology follow-up in 2 to 4 weeks. Objective Assessment and Plan Assessment: This is a 57-year-old male with PMHx of coronary disease status post CABG 10 years ago and PCI about 5 years ago with refractory angina, peripheral vascular disease status post left toe amputation, renal cancer status post left nephrectomy, chronic kidney disease stage II, ischemic cardiomyopathy with ejection fraction of 50%, labile hypertension with orthostatic hypotension and syncope, dyslipidemia, obstructive sleep apnea on CPAP, diabetes type 2 on Tarceva and Lantus, history of DVT (finished a course of Eliquis) who was transferred from [facility] with unstable angina for a nonurgent cardiac catheterization. This is tentatively scheduled for 10/01. Angina pectoris, unstable (I20.0): Coronary Artery Disease (I25.10) Hx of CABG (Z95.1) Denies angina today. Pending catheterization for possible coronary sinus director of public health in hopes of improving his angina. Plan: -Continue aspirin 81 mg a day and Plavix 75 mg daily. -As per cardiology, no heparin drip as cardiac enzymes has remained flat. -The patient will be on a clear liquid diet on 10/01 at midnight without any solids 6h prior to catheterization for LHC -Continue Coreg 25 mg p.o. twice a day with holding parameters and Crestor 5 mg p.o. daily -If tolerates and has no further hypotension, would add amlodipine for HTN management and afterload reduction which would also improve angina Chronic Orthostatic Hypotension(I95.1) Patient is on felodipine as an outpatient. However, medication is unavailable on formulary inpatient. Patient started on amlodipine 5 mg equivalent dose of felodipine. Was not able to get this medication due to orthostasis. Difficult to manage in an ongoing fashion given his resting hypertension, significant orthostatic hypotension. Ischemic cardiomyopathy(I25.5) Per chart review Ejection fraction in the high 40s to low 50s. No signs of congestive heart failure. Plan: -Echocardiogram ordered CKD (chronic kidney disease), stage II (N18.2): Stable. Continue to monitor. Avoid nephrotoxins. Dyslipidemia (E78.5): Continue Crestor as mentioned above Obstructive sleep apnea on CPAP (G47.33): CPAP at night Type 2 diabetes mellitus (E11.9): POC glucose monitoring and insulin sliding scale. Holding oral hypoglycemic agents. Patient on Trulicity every Monday. Continue home dose Lantus after left heart cath and diet resumption. Hypertension (I10): Continue Coreg as mentioned above. Consider amlodipine as substitute to home felodipine if his orthostasis improves. GERD (gastroesophageal reflux disease) (K21.9): Continue with PPI. Patient Instructions You were admitted for unstable angina with plans for left heart catheterization. Dr. Robertson performed your left heart catheterization on 10/01 and you were found to have mid right coronary artery proximal subsection 85% stenosis which was stented. During your hospitalization your felodipine was held as it was unavailable in the formulary. You were given amlodipine for elevated blood pressure. You will be continuing aspirin, Plavix, atorvastatin and you are scheduled to follow-up with Guy Delcid in 2 to 4 weeks. Home Health Face to Face ^HomeHealthFTF Results Discharge Labs BLOOD COUNT & DIFF WBC 7.1 k/mm3 () 10/03/2023 07:22 RBC 4.07 m/mm3 (Low) 10/03/2023 07:22 Hgb 12.7 Gm/dL (Low) 10/03/2023 07:22 Hct 36.1 % (Low) 10/03/2023 07:22 MCV 88.7 femtoliters () 10/03/2023 07:22 MCH 31.2 pg () 10/03/2023 07:22 MCHC 35.2 g/dL () 10/03/2023 07:22 Platelet Count 167 k/mm3 () 10/03/2023 07:22 RDW-SD 39.8 femtoliters () 10/03/2023 07:22 MPV 9.9 femtoliters () 10/03/2023 07:22 Nucleated RBC (Automated) 0.0 #/100 WBC'S () 10/03/2023 07:22 Abs. NRBC 0.0 k/mm3 () 10/03/2023 07:22 CHEM GENERAL Sodium 142 mmol/L () 10/03/2023 07:22 Potassium 4.6 mmol/L () 10/03/2023 07:22 Chloride 108 mmol/L (High) 10/03/2023 07:22 Bicarbonate Level 24 mmol/L () 10/03/2023 07:22 Anion Gap 10 () 10/03/2023 07:22 Glucose Level 96 mg/dL () 10/03/2023 07:22 Glucose, POC 70 mg/dL () 10/03/2023 07:26 BUN 18 mg/dL () 10/03/2023 07:22 Creatinine-Blood 1.62 mg/dL (High) 10/03/2023 07:22 Estimated GFR Creatinine 49 ML/MIN/1.73 M2 () 10/03/2023 07:22 Calcium 9.0 mg/dL () 10/03/2023 07:22 Magnesium 2.3 mg/dL () 10/02/2023 08:28 COAG POC ACT-LR 308.0 seconds () 10/02/2023 15:05 HEME OTHER URINE OTHER Est Creatinine Clearance 55.30 mL/min () 10/03/2023 08:11 /tam/ GINO DUBON, RN REGISTERED NURSE Signed: 10/06/2023 13:54 Receipt Acknowledged By: * AWAITING SIGNATURE * FRANKLIN STOKES ERIN [place] ([facility])
--- OUTSIDE RECORDS SUMMARY | 2024-03-11 13:03 | XMS_ITS ---
Author Name [facility] [place] Address [address] [place] [address] Care Team Providers Care Lithography Contact Worker Name Role Phone WINDY STOKES Primary Care [...] PART B Feb 04, 2020 PART B [id number] [facility] PATIENT MEDICARE (WNR) MEDICARE (M) PART A Feb 04, 2020 PART A [id number] [address] [facility] STOVER PATIENT Selected Encounter This section includes the information on record at [place] for the Encounter. Date/Time Encounter Type Encounter Description Reason Provider Source Oct 09, 2023 02:52 PM QNHP OL DIG ASSMT&MGMT 11-20 PODIATRY ICD-10-CM I25.10 Athscl heart disease of [place] coronary artery w/o ang pctJORGE Sutton Encounter Template Text not used by [facility] Assessments - Encounter Diagnoses This section includes the primary and secondary diagnoses documented for the Encounter. Date/Time Primary/Secondary Diagnosis Diagnosis Name Provider Source Oct 09, 2023 02:59 PM PRIMARY Athscl heart disease of [place] coronary artery w/o ang pctJORGE Sutton [place] [facility] [place] [facility] Plan of Treatment: Future Appointments (+ 6 months) and Future Tests (+/- 45 days) The Plan of Treatment section includes future care activities for the patient from all [place] [facility]. This section includes future appointments and future orders which are active, pending or scheduled. Future Appointments This section includes appointments that were scheduled to occur 6 months from the date of the Encounter, up to a maximum of 20 appointments. The data comes from all [place] treatment facilities. Appointment Date/Time Appointment Type Appointme nt Facility Name Oct 23, 2023 11:00 AM AMBULATORY [facility]ICINE [facility] [place] [facility] Oct 26, 2023 11:30 AM AMBULATORY - MEDICINE [facility] Nov 09, 2023 11:20 AM AM[place]UL[place]ORY [place] [facility] [place] [facility] Nov 20, 2023 03:00 PM AM[place]UL[place]ORY [place] [facility] [place] [facility] Nov 27, 2023 01:30 PM AMBULATORY [place]IC[place] [facility] [place] [facility] Dec 22, 2023 01:45 PM AMBULATORY [facility] MEDICINE [facility] [place] [facility] Jan 01, 2024 08:30 AM AMBULATORY - PSYCHIATRY [facility] ([facility]) Jan 08, 2024 11:00 AM AMBULATORY - PS[facility]CHIATRY [facility] [place] [facility] Jan 08, 2024 01:30 PM AMBULATORY [place]ICINE [place] [facility] [place] [facility] Jan 22, 2024 11:00 AM AMBULATORY - PS[facility]ATRY [facility] [place] [facility] Feb 05, 2024 02:00 PM AMBULATORY - PS[facility]CHIATRY [facility] [place] [facility] Feb 19, 2024 09:00 AM AMBULATORY - MEDICINE [facility] [place] [facility] Feb 19, 2024 11:00 AM AMBULATORY - PS[facility]CHIATRY [facility] [place] [facility] Mar 01, 2024 01:30 PM AMBULATORY [place]ICINE [place] [facility] [place] [facility] Mar 04, 2024 03:00 PM AM[place]ULATORY [place]INE [place] [facility] [place] [facility] Mar 18, 2024 11:00 AM AMBULATORY - PSYCHIATRY [facility] Apr 01, 2024 09:00 AM AMBULATORY - MEDICINE [facility] Apr 01, 2024 11:00 AM AMBULATORY - PSYCHIATRY [facility] Lab Results: +/- 30 days of the encounter This section includes the Chemistry and Hematology Lab Results on record with [place] for the patient. Radiology Reports and Pathology Reports are provided separately, in subsequent sections. Lab Results This section contains the Chemistry/Hematology Results that were resulted 30 days before or 30 daysafter the date of the Encounter. Date/Time Source Result Type Result - Unit Interpretation Reference Range Comment Sep 22, 2023 09:28 AM [facility] LIPID PANEL FASTING Specimen Type: SERUM No comment entered. Ordering Provider: SUBHASH GALICIA ICA Report Released Date/Time: Sep 19, 2023 03:09 PM Reporting Lab: [address] [address] Performing Lab: [address] [address] CHOLESTEROL 188 mg/dL TRIGLYCERIDE 181 mg/dL H [...] Source Oct 09, 2023 02:56 PM 97.6 [facility] Social History: Smoking Status (Most current) and Tobacco Use (All prior to encounter date) This section includes the most current, and the historical, smoking and tobacco- related health factors from the [place] facility where the Encounter took place. Current Smoking Status This section includes the most current smoking, or tobacco-related health factor, from the [place] facility where the Encounter took place. Date/Time Current Smoking Status Comment Filemon honeycutt Aug 19, 2020 02:29 PM VA-TOBACCO FORMER USER [facility] Tobacco Use History This section includes a history of the smoking, or tobacco-related health factors, that were collected on or before the date of the Encounter. The data comes from the [place] facility where the Encounter took place. Date/Time Smoking Status/Tobacco Use Comment F tess Aug 19, 2020 02:29 PM VA-TOBACCO QUIT 15 YRS OR MORE [place] [facility] Encounter Notes: All associated encounter notes This section contains the clinical notes associated to the Encounter. Date/Time Encounter Note(s) Provider Source Oct 09, 2023 02:52 PM PHARMACY OUTPATIENT MEDICATION MGT NOTE: LOCAL TITLE: [facility] PRES[facility] NOTE STANDARD TITLE: PHARMACY OUTPATIENT MEDICATION MGT NOTE DATE OF NOTE: OCT 09, 2023@14:52 ENTRY DATE: OCT 09, 2023@14:52:16 AUTHOR: SINDY BERRY EXP COSIGNER: URGENCY: STATUS: COMPLETED is approved for community care CARDIOLOGY through 2024-04-20. Pharmacy received prescription for the following: Order Text: RANOLAZINE PA-F TAB,SA 500MG TAKE ONE TABLET BY MOUTH TWICE DAILY Quantity: 180 Refills: 1 Ordered by: MITCHELL LAST Medical history relevant to this request: Pt with chronic angina. Recent hospitalization [facility]. Currently taking felodipine, carvediolol with hx of isosorbide use. Unable to use isosorbide due to hx orthostasis with use (per [facility] notes). CrCl ~ 57mL/min EKG per [facility] notes: 11/08/22, ETC = 412 Per pharmacy review, non-formulary/prior authorization is: [X] Approved [ ] Denied [X] Anginal episodes an average of 3 or more times per week despite maximal or maximally tolerated anti-anginal drug therapy (Defined as treatment with a beta-wendy, long-acting dihydropyridine calcium channel wendy and a long-acting nitrate). [X] A [place] healthcare provider is actively involved in the monitoring and management of ranolazine therapy and will re-assess ranolazine's therapeutic effectiveness and tolerability within 12 weeks after initiation of therapy. PT IS FOLLOWING WITH [facility] FOR MONITORING. Comments: Rx to be dispensed. Time Spent: 15 mins PBM PharmD Pharmacotherapy Rem V12: Care coordination /es/ Sindy Berry PharmD, [facility] Clinical Lasting Floorworker Signed: 10/09/2023 14:59 SINDY BERRY [facility]
--- OUTSIDE RECORDS SUMMARY | 2024-03-11 13:04 | XMS_ITS ---
Author Name [facility] [place] Address [address] [place] [address] Care Team Providers Care Collar Folder Operator Name Role Phone VICKIENAWAF NAVADERICK Primary Care [...] PART A Feb 04, 2020 PART A [id number] [address] [facility] ST[facility] PATIENT MEDICARE (WNR) MEDICARE (M) PART B Feb 04, 2020 PART B [id number] [address] [facility] GRACIELA STOVER PATIENT Selected Encounter This section includes the information on record at [place] for the Encounter. Date/Time Encounter Type Encounter Description Reason Pro vider Source Oct 31, 2023 08:17 AM Outpatient Encounter TELEPHONE CASE MANAGEMENT IHE [...] Date/Time Appointment Type Appointme nt Facility Name Nov 09, 2023 11:20 AM AM[facility]UL[facility]ORY [facility] [place] [facility] Nov 20, 2023 03:00 PM AMBULATORY - MEDICINE [facility] [place] [facility] Nov 27, 2023 01:30 PM AM[facility]ULATORY - MEDICINE [facility] [place] [facility] Dec 22, 2023 01:45 PM AMBULATORY - MEDICINE [facility] [place] [facility] Jan 01, 2024 08:30 AM AMBULATORY - PS[facility]ATRY [facility] ([facility] Jan 08, 2024 11:00 AM AMBULATORY - PS[facility]IATRY [facility] [place] [facility] Jan 08, 2024 01:30 PM AMBULATORY - MEDICINE [facility] [place] [facility] Jan 22, 2024 11:00 AM AMBULATORY - PS[facility]IATRY [facility] [place] [facility] Feb 05, 2024 02:00 PM AMBULATORY - PS[facility]CHIATRY [facility] [place] [facility] Feb 19, 2024 09:00 AM AM[facility]ULATORY [facility] MEDICINE [facility] [place] [facility] Feb 19, 2024 11:00 AM AMBULATORY - PS[facility]CHIATRY [facility] [place] [facility] Mar 01, 2024 01:30 PM AM[facility]ULATORY - MEDICINE [facility] [place] [facility] Mar 04, 2024 03:00 PM AM[facility]ULATORY - MEDICINE [facility] [place] [facility] Mar 18, 2024 11:00 AM AMBULATORY - PS[facility]CHIATRY [facility] [place] [facility] Apr 01, 2024 09:00 AM AM[facility]ULAT[facility] MEDICINE [facility] [place] [facility] Apr 01, 2024 11:00 AM AMBULATORY - PS[facility]CHIATRY [facility] [place] [facility] Lab Results: +/- 30 days of the [...] Result - Unit Interpretation Reference Range Comment Nov 15, 2023 08:23 AM [facility] [place] [facility] HEMOGLOBIN A1C PANEL Specimen Type: BLOOD Comment: Values obtained from A1C measurements can vary. For atypical A1C assays, a reported value of 7.0 could actually be between 6.72 and 7.28 if measured by a reference method. A reported value of 9.0 could actually be between 8.73 and 9.27. Ref: http://www.ngs p.org/CAPdata. asp Ordering Provider: ZORA GALICIA Report Released Date/Time: Sep 19, 2023 04:07 PM Reporting Lab: [facility] [address] [facility] [address] Performing Lab: [address] [address] HEMOGLOBIN A1C 6.9 H 4.0-5.6 Nov 15, 2023 08:23 AM [facility] BASIC METABOLIC PANEL (non-fasting) Specimen Type: SERUM No comment entered. Ordering Provider: ZORA GALICIA Report Released Date/Time: Sep 19, 2023 04:07 PM Reporting Lab: [facility] [address] [facility] [address] Performing Lab: [address] [address] UREA NITROGEN 34 mg/dL H 7-25 GLUCOSE 118 mg/dL H 65-100 SODIUM 138 mmol/L 135-145 POTASSIUM 5.3 mmol/L H 3.5-5.0 CHLORIDE 104 mmol/L 100-110 CO2 23 meq/L 20-30 CREATININE, Serum 1.87 mg/dL H 0.50-1.40 eGFR(CKD-EPI 2020) 41 mL/min L >60 Social History: Smoking Status [...] 19, 2020 02:29 PM VA-TOBACCO FORMER USER [facility] Tobacco Use History This section includes a history of the smoking, or tobacco-related health factors, that were collected on or before the date of the Encounter. The data comes from the [place] facility where the Encounter took place. Date/Time Smoking Status/Tobacco Use Comment F acility Aug 19, 2020 02:29 PM VA-TOBACCO QUIT 15 YRS OR MORE [facility] Encounter Notes: All associated encounter notes This section contains the clinical notes associated to the Encounter. Date/Time Encounter Note(s) Provider Source Oct 31, 2023 08:17 AM TRANSFER SUMMARIZA TION NOTE: LOCAL TITLE: MAIL ROOM CLERK/OCC/HOSPITAL NOTIFICATION NOTE STANDARD TITLE: TRANSFER SUMMARIZATION NOTE DATE OF NOTE: OCT 31, 2023@08:17 ENTRY DATE: OCT 31, 2023@08:17:16 AUTHOR: SAAD DICKSON EXP COSIGNER: URGENCY: STATUS: COMPLETED [place] hospitalized at [facility] 2-10/07 for cardiac observation, discharged back home. /tam/ SAAD DICKSON MSN,RN,CNL Catering Assistant Signed: 10/31/2023 08:18 SAAD DICKSON [facility]
--- OUTSIDE RECORDS SUMMARY | 2024-03-11 13:04 | XMS_ITS ---
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 Date/Time Encounter Type Encounter Description Reason Provider Source Nov 27, 2023 01:30 PM MTMS BY PHARM ADDL 15 MIN CLINICAL PHARMACY ICD-10-CM E11.9 Type 2 diabetes mellitus without complications MODESTA MCDONNELL [facility] Encounter Template Text not used by [place] Assessments - Encounter Diagnoses This section includes the primary and secondary diagnoses documented for the Encounter. Date/Time Primary/Secondary Diagnosis Diagnosis Name Provider Source Nov 27, 2023 03:47 PM PRIMARY Type 2 diabetes mellitus without complications MODESTA MCDONNELL [place] [facility] [place] [facility] Plan of Treatment: Future Appointments (+ 6 months) and Future Tests (+/- 45 days) The Plan of Treatment section includes future care activities for the patient from [facility] [place] [facility]. This section includes future appointments and future orders which are active, pending or scheduled. Future Appointments This section includes appointments that were scheduled to occur 6 months from the date of the Encounter, up to a maximum of 20 appointments. The data comes from all [place] treatment facilities. Appointment Date/Time Appointment Type Appointme nt Facility Name Dec 22, 2023 01:45 PM AMBULATORY - [place]ICINE [place] [facility] [place] [facility] Jan 01, 2024 08:30 AM AMBULATORY - PSYCHIATRY [facility] Jan 08, 2024 11:00 AM AMBULATORY - [place]ATRY [place] [facility] [place] [facility] Jan 08, 2024 01:30 PM AM[place]ULATORY [place]IC[place] [facility] [place] [facility] Jan 22, 2024 11:00 AM AMBULATORY - [place]AT[place] [facility] [place] [facility] Feb 05, 2024 02:00 PM AMBULATORY - [place]AT[place] [facility] [place] [facility] Feb 19, 2024 09:00 AM AMBULATORY - MEDICINE [facility] [place] [facility] Feb 19, 2024 11:00 AM AMBULATORY - [place]ATRY [place] [facility] [place] [facility] Mar 01, 2024 01:30 PM AMBULATORY - MEDICINE [place] [facility] [place] [facility] Mar 04, 2024 03:00 PM AMBULATORY - [place]ICINE [place] [facility] [place] [facility] Mar 18, 2024 11:00 AM AMBULATORY - [place]ATRY [place] [facility] [place] [facility] Apr 01, 2024 09:00 AM AMBULATORY [place]ICINE [place] [facility] [place] [facility] Apr 01, 2024 11:00 AM AMBULATORY - [place]ATRY [place] [facility] [place] [facility] May 06, 2024 09:30 AM AMBULATORY - MEDICINE [facility] ([facility]) Lab Results: +/- 30 days of the [...] Result - Unit Interpretation Reference Range Comment 2023 08:36 AM [place] ([facility]) LIPID PANEL FASTING Specimen Type: SERUM No comment entered. Ordering Provider: QUENTIN STOKES Report Released Date/Time: Nov 22, 2023 12:27 PM Reporting Lab: [address] [address] Performing Lab: [address] [address] CHOLESTEROL 127 mg/dL TRIGLYCERIDE 87 mg/dL 0-150 LDL calculated 76 mg/dL 0-129 CHOL/HDL 3.7 HDL CHOLESTEROL 34 mg/dL L 40-60 2023 08:36 AM [place] ([facility]) LIVER FUNCTION Specimen Type: SERUM No comment entered. Ordering Provider: QUENTIN STOKES Report Released Date/Time: Nov 22, 2023 12:27 PM Reporting Lab: [address] [address] Performing Lab: [address] [address] PROTEIN,TOTAL 7.1 g/dL 6.0-8.3 ALBUMIN 4.0 g/dL 3.5-5.0 ALKALINE PHOSPHATASE 90 U/L 40-150 AST 22 U/L 5-34 ALT 27 U/L BILIRUBIN, TOTAL 0.6 mg/dL 0.2-1.2 Nov 15, 2023 08:23 AM [facility] HEMOGLOBIN A1C PANEL [...] Sep 19, 2023 04:07 PM Reporting Lab: [address] [address] Performing Lab: [facility] [address] [facility] [address] HEMOGLOBIN A1C 6.9 H 4.0-5.6 Nov 15, 2023 08:23 AM [facility] BASIC METABOLIC PANEL (non-fasting) Specimen Type: SERUM No comment entered. Ordering Provider: ZORA GALICIA Report Released Date/Time: Sep 19, 2023 04:07 PM Reporting Lab: [facility] [address] [address] Performing Lab: [facility] [address] [address] UREA NITROGEN 34 mg/dL H 7-25 GLUCOSE [...] the Encounter. Date/Time Encounter Note(s) Provider Source Nov 27, 2023 03:47 PM ADDENDUM: LOCAL TITLE: Addendum STANDARD TITLE: ADDENDUM DATE OF NOTE: NOV 27, 2023@15:47:26 ENTRY DATE: NOV 27, 2023@15:47:26 AUTHOR: MODESTA MCDONNELL COSIGNER: URGENCY: STATUS: COMPLETED Please schedule patient for: [X] CWM/NO/PHARM/PACT 3 RTC order placed. Appointment Length: _30__ minutes. 03/01/24 @1330 *FtF* Thank you! /fabian MCDONNELL PHARMD,BCPS CLINICAL PHARMACY PRACTITIONER Signed: 11/27/2023 15:47 Receipt Acknowledged By: 11/27/2023 16:13 /es/ GINO COREAS Clinical Sound Effects Technician --- Original Document --- 11/27/23 PHARMACY CLINIC NOTE: DEIRDRE STOVER, 57 yo WHITE MALE, was seen for follow-up diabetes management treatment. Pt was last seen on 09/19/23, dulaglutide 1.5mg weekly, insulin glargine 30 units daily and metformin 500mg SA daily were continued. Today, FBG this 110 mg/dL, he did not bring glucometer, notes he does not check bg too frequently anyhow. In reviewing his medications he notes a few changes to his home medication since he last saw his cook chill technician which he needs filled. Felodipine changed to 2.5 mg twice daily and they increased rosuvastatin given recent heart attach to 20 mg once daily, he also needs and will f/u with cook chill technician soon for labs. In regards to [place]rology - [place] [facility] [place] He denies any ADRS from dulaglutide. He declines CGM at this time. He denies any recent s/sx of hypoglycemia. Pt states he was taking metformin BID, reminded pt he should take ONCE daily. Target Goals: A1C: 7%; FB-130 mg/dL OBJECTIVE: Allergies/ADR: NORVASC, INDOCIN, PERCOCET, SEMAGLUTIDE Active and Recently Outpatient Medications (including Supplies): [...] DULAGLUTIDE 1.5MG/0.5ML INJ PEN INJECT 1.5MG ACTIVE SUBCUTANEOUSLY ONCE A WEEK FOR TYPE 2 DIABETES MELLITUS (REPLACES LIRAGLUTIDE [VICTOZA]) 5) FELODIPINE 2.5MG SA TAB TAKE ONE TABLET BY MOUTH ACTIVE - 2.5 mg BID EVERY MORNING AND TAKE TWO TABLETS EVERY [...] FOR EXCESSIVE PRODUCTION OF STOMACH ACID 11) RANOLAZINE 500MG SA TAB TAKE ONE TABLET BY MOUTH ACTIVE TWICE DAILY 12) ROSUVASTATIN CA 20MG TAB TAKE ONE-HALF TABLET BY ACTIVE- 20 mg DAILY MOUTH ONCE DAILY FOR CHOLESTEROL Inactive Outpatient Medications Status 1) CHOLECALCIF 50MCG (D3-2,000UNIT) TAB TAKE ONE TABLET DISCONTINUED BY MOUTH ONCE DAILY FOR VITAMIN SUPPLEMENTATION 2) CLOPIDOGREL BISULFATE 75MG TAB TAKE ONE TABLET BY DISCONTINUED MOUTH ONCE DAILY TO PREVENT BLOOD CLOTS STOP BRILLINTA WHEN YOU START THIS MEDICATION 3) FELODIPINE 2.5MG SA TAB TAKE ONE TABLET BY MOUTH DISCONTINUED EVERY MORNING AND TAKE TWO TABLETS EVERY EVENING DO NOT TAKE WITH GRAPEFRUIT JUICE 4) FELODIPINE 2.5MG SA TAB TAKE ONE TABLET BY MOUTH ONCE DISCONTINUED DAILY FOR HIGH BLOOD PRESSURE DO NOT TAKE WITH GRAPEFRUIT JUICE 5) FELODIPINE 5MG SA TAB TAKE ONE TABLET BY MOUTH AT DISCONTINUED BEDTIME DO NOT TAKE WITH GRAPEFRUIT JUICE (EDIT) 6) LIRAGLUTIDE (VICTOZA) 6MG/ML INJ PEN 3ML INJECT 1.8MG DISCONTINUED SUBCUTANEOUSLY ONCE DAILY 7) LIRAGLUTIDE (VICTOZA) 6MG/ML INJ PEN 3ML INJECT 1.8MG DISCONTINUED SUBCUTANEOUSLY ONCE DAILY FOR TYPE 2 DIABETES (EDIT) 8) METFORMIN HCL 500MG 24HR SA TAB TAKE ONE TABLET BY DISCONTINUED MOUTH TWICE DAILY 9) NEEDLE,PEN 32G,4MM USE 1 NEEDLE SUBCUTANEOUSLY ONCE DISCONTINUED DAILY NEEDED FOR USE WITH PEN DEVICE 10) NITROGLYCERIN 0.4MG SL TAB DISSOLVE ONE TABLET UNDER DISCONTINUED THE TONGUE EVERY 5 MINUTES NEEDED FOR CHEST PAIN; IF NO RELIEF AFTER 3 DOSES, CALL 911 OR GO TO NEAREST EMERGENCY ROOM 11) PANTOPRAZOLE NA 40MG EC TAB TAKE ONE TABLET BY MOUTH DISCONTINUED EVERY MORNING 30 MINUTES BEFORE BREAKFAST FOR EXCESSIVE PRODUCTION OF STOMACH ACID 12) ROSUVASTATIN CA 5MG TAB TAKE ONE TABLET BY MOUTH ONCE DISCONTINUED DAILY FOR CHOLESTEROL (EDIT) Active Non-VA Medications Status 1) Non-VA ASPIRIN 81MG EC TAB 81MG BY MOUTH ONCE DAILY ACTIVE 2) Non-VA MULTIVITAMIN/MINERALS CAP/TAB ONE CAP/TAB BY ACTIVE MOUTH ONCE DAILY 26 Total Medications Diabetes Medication Regimen: -- Oral meds: metformin 500mg SA daily -- Insulin: insulin glargine 30 units qPM -- Other: dulaglutide 1.5mg weekly Labs: CHEM 7 TREND LAB CUMULATIVE SELECTED Collection DT Spec GLUCOSE BUN CREATIN Sodium K+/Pot CL CO2 11/15/2023 08:23 SERUM 118 H 34 H 1.87 H 138 5.3 H 104 23 08/17/2023 15:31 SERUM 42 H 2.37 H 135 4.7 103 22 05/15/2023 08:21 SERUM 35 H 1.84 H 137 5.5 H 105 26 03/27/2023 15:20 SERUM 40 H 2.33 H 137 4.7 104 24 02/16/2023 14:33 SERUM 201 H 41 H 2.12 H 137 4.7 104 24 LAB CUMULATIVE SELECTED 2 No selection items chosen for this component. CHEM 7 Results Collection DT Spec Sodium K+/Pot CL CO2 GLUCOSE BUN 11/15/2023 08:23 SERUM 138 5.3 H 104 23 118 H 34 H 08/17/2023 15:31 SERUM 135 4.7 103 22 42 H 05/15/2023 08:21 SERUM 137 5.5 H 105 [...] 4.2 102 27 86 21 eGFR CKD-EPI 202011/15/23 08:23 41 L SERUM LIVER PANEL TREND Collection DT Spec AST ALT T BILI ALK DARRICK T. PROT ALBUMIN 07/22/2022 15:48 SERUM 17 39 0.5 124 6.9 3.9 08/10/2021 07:18 SERUM 13 18 0.4 100 7.3 3.9 03/19/2021 07:16 SERUM 21 31 0.4 142 6.9 3.4 L 09/09/2020 11:52 SERUM 14 18 0.5 91 7.0 3.7 HEMOGLOBIN A1C TREND Collection DT Spec HGBA1c 11/15/2023 08:23 BLOOD 6.9 H 08/22/2023 15:24 BLOOD 7.9 H 05/15/2023 08:21 BLOOD 8.9 H 03/27/2023 15:20 BLOOD 8.1 H 02/16/2023 14:33 BLOOD 8.2 H LIPID PANEL TREND Collection DT Spec CHOL HDL CHO/HDL LDL-c TRIG 09/22/2023 09:28 SERUM 188 34 L 5.5 118 181 H 07/22/2022 15:48 SERUM 159 38 L 4.2 83 190 H 03/19/2021 07:16 SERUM 134 31 L 4.3 60 217 H 09/09/2020 11:52 SERUM 137 38 L 3.6 80 93 Vitals: Ht: 72 in [182.9 cm] (02/22/2022 15:12) Wt: 248.7 lb [112.81 kg] (10/26/2023 11:25) BMI: BMI: 33.8 BP: 122/73 (10/26/2023 11:25) HR: 62 (10/26/2023 11:25) SMBG: forgot meter. Pt reports his FBG was 130 today. Pt reports his FBG has been ranging from 115-175 over the last couple of weeks. Shana patel. Prev SMB:00- :30- 08:00- 11:00- 12:30- 17:00- [...] on avg. 3x/day: Wake: 3am B: 6am; omani muffin w/ PB or butter L: 12pm; [...] & treatment reviewed: Yes ASSESSMENT/PLAN: DIABETES A1c at above goal of <7% (6.9% 11/15/23, decreased from 7.9% on 08/22/23) - Medication management - CONTINUE dulaglutide 1.5mg weekly on Sundays - CONTINUE insulin glargine 30 units qPM - CONTINUE metformin 500mg SA daily (eGFR 41; dosed by nephrology) - Advised pt to notify physician underwriter if any AEs (like skin rash) [...] physical activity as tolerated - Repeat A1c: Feb 2024 HTN: above goal; on felodipine, carvedilol; defer to PCP/cardiology/nephrology Lipids: at goal; on rosuvastatin 5mg daily ASA: on ASA/clopidogrel Microalb: Feb 16, 2023@14:33 URINE mALB/Cr: 91.4 H mg/G; not on ACEi/ARB Podiatry: 08/07/23 Optometry[facility] Next Scheduled Follow-up: 03/01/24 @1330 *FtF* Time Spent: 30 minutes PBM PharmD Pharmacotherapy Rem V12: PHARMACIST INTERVENTIONS: TYPE 2 DIABETES MELLITUS Medication monitoring, no dosage change required, continue to monitor and assess Medication reconciliation (changes to active VA and non-VA medication lists to reconcile differences) Changes to medication lists made Update dose, frequency, duration and/or dosage form of medication /tam/ MODESTA MCDONNELL PHARMD,[facility] CLINICAL PHARMACY PRACTITIONER Signed: 11/27/2023 15:47 MODESTA MCDONNELL [place] [facility] Nov 27, 2023 12:51 PM PHARMACY OUTPATIEN T NOTE: LOCAL TITLE: PHARMACY CLINIC NOTE STANDARD TITLE: PHARMACY OUTPATIENT NOTE DATE OF NOTE: NOV 27, 2023@12:51 ENTRY DATE: NOV 27, 2023@12:51:13 AUTHOR: MODESTA MCDONNELL EXP COSIGNER: URGENCY: STATUS: COMPLETED PHARMACY CLINIC NOTE Has ADDENDA DEIRDRE STOVER, 57 yo WHITE MALE, was seen for follow-up diabetes management treatment. Pt was last seen on 09/19/23, dulaglutide 1.5mg weekly, insulin glargine 30 units daily and metformin 500mg SA daily were continued. Today, FBG this 110 mg/dL, he did not bring glucometer, notes he does not check bg too frequently anyhow. In reviewing his medications he notes a few changes to his home medication since he last saw his cook chill technician which he needs filled. Felodipine changed to 2.5 mg twice daily and they increased rosuvastatin given recent heart attach to 20 mg once daily, he also needs and will f/u with cook chill technician soon for labs. In regards to nephrology - [place] [facility] [place] He denies any ADRS from dulaglutide. He declines CGM at this time. He denies any recent s/sx of hypoglycemia. Pt states he was taking metformin BID, reminded pt he should take ONCE daily. Target Goals: A1C: 7%; FB-130 mg/dL OBJECTIVE: Allergies/ADR: NORVASC, INDOCIN, PERCOCET, SEMAGLUTIDE Active and Recently Outpatient Medications (including Supplies): [...] DULAGLUTIDE 1.5MG/0.5ML INJ PEN INJECT 1.5MG ACTIVE SUBCUTANEOUSLY ONCE A WEEK FOR TYPE 2 DIABETES MELLITUS (REPLACES LIRAGLUTIDE [VICTOZA]) 5) FELODIPINE 2.5MG SA TAB TAKE ONE TABLET BY MOUTH ACTIVE - 2.5 mg BID EVERY MORNING AND TAKE TWO TABLETS EVERY [...] FOR EXCESSIVE PRODUCTION OF STOMACH ACID 11) RANOLAZINE 500MG SA TAB TAKE ONE TABLET BY MOUTH ACTIVE TWICE DAILY 12) ROSUVASTATIN CA 20MG TAB TAKE ONE-HALF TABLET BY ACTIVE- 20 mg DAILY MOUTH ONCE DAILY FOR CHOLESTEROL Inactive Outpatient Medications Status 1) CHOLECALCIF 50MCG (D3-2,000UNIT) TAB TAKE ONE TABLET DISCONTINUED BY MOUTH ONCE DAILY FOR VITAMIN SUPPLEMENTATION 2) CLOPIDOGREL BISULFATE 75MG TAB TAKE ONE TABLET BY DISCONTINUED MOUTH ONCE DAILY TO PREVENT BLOOD CLOTS STOP BRILLINTA WHEN YOU START THIS MEDICATION 3) FELODIPINE 2.5MG SA TAB TAKE ONE TABLET BY MOUTH DISCONTINUED EVERY MORNING AND TAKE TWO TABLETS EVERY EVENING DO NOT TAKE WITH GRAPEFRUIT JUICE 4) FELODIPINE 2.5MG SA TAB TAKE ONE TABLET BY MOUTH ONCE DISCONTINUED DAILY FOR HIGH BLOOD PRESSURE DO NOT TAKE WITH GRAPEFRUIT JUICE 5) FELODIPINE 5MG SA TAB TAKE ONE TABLET BY MOUTH AT DISCONTINUED BEDTIME DO NOT TAKE WITH GRAPEFRUIT JUICE (EDIT) 6) LIRAGLUTIDE (VICTOZA) 6MG/ML INJ PEN 3ML INJECT 1.8MG DISCONTINUED SUBCUTANEOUSLY ONCE DAILY 7) LIRAGLUTIDE (VICTOZA) 6MG/ML INJ PEN 3ML INJECT 1.8MG DISCONTINUED SUBCUTANEOUSLY ONCE DAILY FOR TYPE 2 DIABETES (EDIT) 8) METFORMIN HCL 500MG 24HR SA TAB TAKE ONE TABLET BY DISCONTINUED MOUTH TWICE DAILY 9) NEEDLE,PEN 32G,4MM USE 1 NEEDLE SUBCUTANEOUSLY ONCE DISCONTINUED DAILY NEEDED FOR USE WITH PEN DEVICE 10) NITROGLYCERIN 0.4MG SL TAB DISSOLVE ONE TABLET UNDER DISCONTINUED THE TONGUE EVERY 5 MINUTES NEEDED FOR CHEST PAIN; IF NO RELIEF AFTER 3 DOSES, CALL 911 OR GO TO NEAREST EMERGENCY ROOM 11) PANTOPRAZOLE NA 40MG EC TAB TAKE ONE TABLET BY MOUTH DISCONTINUED EVERY MORNING 30 MINUTES BEFORE BREAKFAST FOR EXCESSIVE PRODUCTION OF STOMACH ACID 12) ROSUVASTATIN CA 5MG TAB TAKE ONE TABLET BY MOUTH ONCE DISCONTINUED DAILY FOR CHOLESTEROL (EDIT) Active Non-VA Medications Status 1) Non-VA ASPIRIN 81MG EC TAB 81MG BY MOUTH ONCE DAILY ACTIVE 2) Non-VA MULTIVITAMIN/MINERALS CAP/TAB ONE CAP/TAB BY ACTIVE MOUTH ONCE DAILY 26 Total Medications Diabetes Medication Regimen: -- Oral meds: metformin 500mg SA daily -- Insulin: insulin glargine 30 units qPM -- Other: dulaglutide 1.5mg weekly Labs: CHEM 7 TREND LAB CUMULATIVE SELECTED Collection DT Spec GLUCOSE BUN CREATIN Sodium K+/Pot CL CO2 11/15/2023 08:23 SERUM 118 H 34 H 1.87 H 138 5.3 H 104 23 08/17/2023 15:31 SERUM 42 H 2.37 H 135 4.7 103 22 05/15/2023 08:21 SERUM 35 H 1.84 H 137 5.5 H 105 26 03/27/2023 15:20 SERUM 40 H 2.33 H 137 4.7 104 24 02/16/2023 14:33 SERUM 201 H 41 H 2.12 H 137 4.7 104 24 LAB CUMULATIVE SELECTED 2 No selection items chosen for this component. CHEM 7 Results Collection DT Spec Sodium K+/Pot CL CO2 GLUCOSE BUN 11/15/2023 08:23 SERUM 138 5.3 H 104 23 118 H 34 H 08/17/2023 15:31 SERUM 135 4.7 103 22 42 H 05/15/2023 08:21 SERUM 137 5.5 H 105 [...] 4.2 102 27 86 21 eGFR CKD-EPI 202011/15/23 08:23 41 L SERUM LIVER PANEL TREND Collection DT Spec AST ALT T BILI ALK DARRICK T. PROT ALBUMIN 07/22/2022 15:48 SERUM 17 39 0.5 124 6.9 3.9 08/10/2021 07:18 SERUM 13 18 0.4 100 7.3 3.9 03/19/2021 07:16 SERUM 21 31 0.4 142 6.9 3.4 L 09/09/2020 11:52 SERUM 14 18 0.5 91 7.0 3.7 HEMOGLOBIN A1C TREND Collection DT Spec HGBA1c 11/15/2023 08:23 BLOOD 6.9 H 08/22/2023 15:24 BLOOD 7.9 H 05/15/2023 08:21 BLOOD 8.9 H 03/27/2023 15:20 BLOOD 8.1 H 02/16/2023 14:33 BLOOD 8.2 H LIPID PANEL TREND Collection DT Spec CHOL HDL CHO/HDL LDL-c TRIG 09/22/2023 09:28 SERUM 188 34 L 5.5 118 181 H 07/22/2022 15:48 SERUM 159 38 L 4.2 83 190 H 03/19/2021 07:16 SERUM 134 31 L 4.3 60 217 H 09/09/2020 11:52 SERUM 137 38 L 3.6 80 93 Vitals: Ht: 72 in [182.9 cm] (02/22/2022 15:12) Wt: 248.7 lb [112.81 kg] (10/26/2023 11:25) BMI: BMI: 33.8 BP: 122/73 (10/26/2023 11:25) HR: 62 (10/26/2023 11:25) SMBG: forgot meter. Pt reports his FBG was 130 today. Pt reports his FBG has been ranging from 115-175 over the last couple of weeks. Denies lows. Prev SMB:00- 05:30- 08:00- 11:00- 12:30- 17:00- 18:30- [...] on avg. 3x/day: Wake: 3am B: 6am; omani muffin w/ PB or butter L: 12pm; [...] & treatment reviewed: Yes ASSESSMENT/PLAN: DIABETES A1c at above goal of <7% (6.9% 11/15/23, decreased from 7.9% on 08/22/23) - Medication management - CONTINUE dulaglutide 1.5mg weekly on Sundays - CONTINUE insulin glargine 30 units qPM - CONTINUE metformin 500mg SA daily (eGFR 41; dosed by nephrology) - Advised pt to notify physician underwriter if any AEs (like skin rash) [...] physical activity as tolerated - Repeat A1c: Feb 2024 HTN: above goal; on felodipine, carvedilol; defer to PCP/cardiology/nephrology Lipids: at goal; on rosuvastatin 5mg daily ASA: on ASA/clopidogrel Microalb: Feb 16, 2023@14:33 URINE mALB/Cr: 91.4 H mg/G; not on ACEi/ARB Podiatry: 08/07/23 Optometry: Dr. Krystyna Lin [facility] Next Scheduled Follow-up: 03/01/24 @1330 *FtF* Time Spent: 30 minutes PBM PharmD Pharmacotherapy Rem V12: PHARMACIST INTERVENTIONS: TYPE 2 DIABETES MELLITUS Medication monitoring, no dosage change required, continue to monitor and assess Medication reconciliation (changes to active VA and non-VA medication lists to reconcile differences) Changes to medication lists made Update dose, frequency, duration and/or dosage form of medication /fabian MCDONNELL PHARMD,JESSICA CLINICAL PHARMACY PRACTITIONER Signed: 11/27/2023 15:47 11/27/2023 ADDENDUM STATUS: COMPLETED Please schedule patient for: [X] CWM/NO/PHARM/PACT 3 RTC order placed. Appointment Length: _30__ minutes. 03/01/24 @1330 *FtF* Thank you! /fabian MCDONNELL PHARMD,JESSICA CLINICAL PHARMACY PRACTITIONER Signed: 11/27/2023 15:47 Receipt Acknowledged By: * AWAITING SIGNATURE * GINO COREAS,MODESTA BROOKS [facility]
--- OUTSIDE RECORDS SUMMARY | 2024-03-11 13:04 | XMS_ITS ---
Author Name [facility] [place] [facility] [place] [place] Address [address] [place] [address] Care Team Providers Care Telephone Maintainer Name Role Phone VICKIENAWAF NAVADERICK Primary Care [...] PART A Feb 04, 2020 PART A [id number] [facility] PATIENT MEDICARE (WNR) MEDICARE (M) PART B Feb 04, 2020 PART B [id number] [address] [facility] PATIENT Selected Encounter This section includes the information on record at [place] for the Encounter. Date/Time Encounter Type Encounter Description Reason Pro vider Source Nov 09, 2023 12:00 AM Outpatient Encounter COMMUNITY CARE [...] 20 appointments. The data comes from all [place] treatment facilities. Appointment Date/Time Appointment Type Appointme nt Facility Name Nov 20, 2023 03:00 PM [facility]ULATORY [facility] Nov 27, 2023 01:30 PM AM[facility]ULATORY [facility] [place] [facility] Dec 22, 2023 01:45 PM AMBULATORY - [facility] [place] [facility] Jan 01, 2024 08:30 AM AMBULATORY - PS[facility]ATRY [facility] Jan 08, 2024 11:00 AM AMBULATORY - [facility] Jan 08, 2024 01:30 PM AM[facility]ULATORY [facility] [place] Jan 22, 2024 11:00 AM AMBULATORY - [facility] Feb 05, 2024 02:00 PM AMBULATORY - [facility] [place] Feb 19, 2024 09:00 AM [facility]ORY [facility] [place] [facility] Feb 19, 2024 11:00 AM AMBULATORY [facility] [place] Mar 01, 2024 01:30 PM [facility]ULATORY [facility] [place] [facility] Mar 04, 2024 03:00 PM AMBULATORY [facility] [place] Mar 18, 2024 11:00 AM AMBULATORY - [facility] [place] [facility] Apr 01, 2024 09:00 AM AMBULATORY - [facility] [place] [facility] Apr 01, 2024 11:00 AM AMBULATORY - [facility] [place] [facility] May 06, 2024 09:30 AM AMBULATORY - MEDICINE [facility] Lab Results: +/- 30 days of the encounter This section includes the Chemistry and Hematology Lab Results on record with [place] for the patient. Radiology Reports and Pathology Reports are provided separately, in subsequent sections. Lab Results This section contains the Chemistry/Hematology Results that were resulted 30 days before or 30 daysafter the date of the Encounter. Date/Time Source Result Type Result - Unit Interpretation Reference Range Comment 2023 08:36 AM [facility] ([facility]) LIPID PANEL FASTING Specimen Type: SERUM No comment entered. Ordering Provider: QUENTIN STOKES Report Released Date/Time: Nov 22, 2023 12:27 PM Reporting Lab: [facility] [address] [address] Performing Lab: [facility] [address] [address] CHOLESTEROL 127 mg/dL TRIGLYCERIDE 87 mg/dL 0-150 LDL calculated 76 mg/dL 0-129 CHOL/HDL 3.7 HDL CHOLESTEROL 34 mg/dL L 40-60 2023 08:36 AM [facility] ([facility]) LIVER FUNCTION Specimen Type: SERUM No comment entered. Ordering Provider: QUENTIN STOKES Report Released Date/Time: Nov 22, 2023 12:27 PM Reporting Lab: [facility] [address] [address] Performing Lab: [address] [address] PROTEIN,TOTAL 7.1 g/dL 6.0-8.3 ALBUMIN 4.0 g/dL 3.5-5.0 ALKALINE PHOSPHATASE 90 U/L 40-150 AST 22 U/L 5-34 ALT 27 U/L BILIRUBIN, TOTAL 0.6 mg/dL 0.2-1.2 Nov 15, 2023 08:23 AM [facility] HEMOGLOBIN A1C PANEL Specimen Type: BLOOD [...] Sep 19, 2023 04:07 PM Reporting Lab: [address] [address] Performing Lab: [address] [address] HEMOGLOBIN A1C 6.9 H 4.0-5.6 Nov 15, 2023 08:23 AM [facility] BASIC METABOLIC PANEL (non-fasting) Specimen Type: SERUM No comment entered. Ordering Provider: ZORA GALICIA Report Released Date/Time: Sep 19, 2023 04:07 PM Reporting Lab: [facility] [address] [address] Performing Lab: [facility] [address] [address] UREA NITROGEN 34 mg/dL H 7-25 GLUCOSE [...] and tobacco- related health factors from the [place] facility where the Encounter took place. Current Smoking Status This section includes the most current smoking, or tobacco-related health factor, from the [place] facility where the Encounter took place. Date/Time Current Smoking Status Comment Filemon honeycutt Aug 19, 2020 02:29 PM [place]-TOBACCO FORMER USER [facility] Tobacco Use History This section includes a history of the smoking, or tobacco-related health factors, that were collected on or before the date of the Encounter. The data comes from the [place] facility where the Encounter took place. Date/Time Smoking Status/Tobacco Use Comment Ahsan pulido Aug 19, 2020 02:29 PM [place]-TOBACCO QUIT 15 YRS OR MORE [facility] Encounter Notes: All associated encounter notes This section contains the clinical notes associated to the Encounter. Date/Time Encounter Note(s) Provider Source Nov 09, 2023 12:00 AM NONVA CONSULT: LOCAL TITLE: COMMUNITY CARE-CONSULT RESULT NOTE STANDARD TITLE: NONVA CONSULT DATE OF NOTE: NOV 09, 2023 ENTRY DATE: NOV 29, 2023@14:25:08 AUTHOR: BRINDA CRABTREE EXP COSIGNER: URGENCY: STATUS: COMPLETED VistA Imaging - Scanned Document SCANNED DOCUMENT SIGNATURE NOT REQUIRED Electronically Filed: 11/29/2023 by: BRINDA CRABTREE [employer] BRINDA CRABTREE [facility]
--- OUTSIDE RECORDS SUMMARY | 2024-03-11 13:04 | XMS_ITS | Encounter Summary ---
Author Name [facility] [place] [facility] [place] [facility] [place] Address [address] [place] [address] Care Team Providers Care Railcar Switcher Name Role Phone ARLENELEXIS WINDY Primary Care [...] PART A Feb 04, 2020 PART A [id number] [address] [facility] PATIENT MEDICARE (WNR) MEDICARE (M) PART B Feb 04, 2020 PART B [id number] [address] [facility] PATIENT Selected Encounter This section includes the information on record at [place] for the Encounter. Date/Time Encounter Type Encounter Description Reason Pro vider Source Sep 28, 2023 12:00 AM Outpatient Encounter EVENT (HISTORICAL) IHE Encounter Template Text not used by [place] Plan of Treatment: Future Appointments (+ 6 [...] - [facility]IC[facility] [place] [facility] Oct 23, 2023 11:00 AM AMBULATORY [facility] [place] [facility] Oct 26, 2023 11:30 AM AMBULATORY [facility] Nov 09, 2023 11:20 AM AMBULATORY [facility] [place] [facility] Nov 20, 2023 03:00 PM AMBULATORY - [facility] [place] [facility] Nov 27, 2023 01:30 PM AMBULATORY - [facility] [place] [facility] Dec 22, 2023 01:45 PM AMBULATORY [facility] [place] [facility] Jan 01, 2024 08:30 AM AMBULATORY - [facility]RY [facility] Jan 08, 2024 11:00 AM AMBULATORY - [facility] [place] Jan 08, 2024 01:30 PM AMBULATORY - [facility] [place] [facility] Jan 22, 2024 11:00 AM AMBULATORY - [facility] [place] [facility] Feb 05, 2024 02:00 PM AMBULATORY - [facility] [place] Feb 19, 2024 09:00 AM AMBULATORY - [facility] [place] [facility] Feb 19, 2024 11:00 AM AMBULATORY - [facility] [place] Mar 01, 2024 01:30 PM AMBULATORY - [facility] [place] [facility] Mar 04, 2024 03:00 PM AMBULATORY - [facility] [place] Mar 18, 2024 11:00 AM AMBULATORY - PS[facility] [place] Lab Results: +/- 30 days of [...] Range Comment Sep 22, 2023 09:28 AM [facility] LIPID PANEL FASTING Specimen Type: SERUM No comment entered. Ordering Provider: SUBHASH GALICIA ICA Report Released Date/Time: Sep 19, 2023 03:09 PM Reporting Lab: [facility] [address] [phone] Performing Lab: [facility] [address] [phone] CHOLESTEROL 188 mg/dL TRIGLYCERIDE 181 mg/dL H [...] 19, 2020 02:29 PM [place]-TOBACCO FORMER USER [facility] Tobacco Use History This section includes a history of the smoking, or tobacco-related health factors, that were collected on or before the date of the Encounter. The data comes from the [place] facility where the Encounter took place. Date/Time Smoking Status/Tobacco Use Comment F tess Aug 19, 2020 02:29 PM [place]-TOBACCO QUIT 15 YRS OR MORE [facility] Encounter Notes: All associated encounter notes This section contains the clinical notes associated to the Encounter. Date/Time Encounter Note(s) Provider Source Sep 28, 2023 12:00 AM NONVA CONSULT: LOCAL TITLE: COMMUNITY CARE-CONSULT RESULT NOTE STANDARD TITLE: NONVA CONSULT DATE OF NOTE: SEP 28, 2023 ENTRY DATE: NOV 14, 2023@09:21 AUTHOR: JERRY DIAZ COSIGNER: URGENCY: STATUS: COMPLETED VistA Imaging - Scanned Document SCANNED DOCUMENT SIGNATURE NOT REQUIRED Electronically Filed: 11/14/2023 by: ANDERS DIAZ Event Services Manager [facility]
--- OUTSIDE RECORDS SUMMARY | 2024-03-11 13:04 | XMS_ITS | Encounter Summary ---
Author Name [facility] [place] [facility] [place] Address [address] [place] [id number] Care Team Providers Care Airplane Pilot Supervisor Name Role Phone FRANKLIN STOKES Primary Care [...] PART A Feb 04, 2020 PART A [id number] GRACIELA STOVER PATIENT MEDICARE (WNR) MEDICARE (M) PART B Feb 04, 2020 PART B [id number] [address] GRACIELA STOVER PATIENT Selected Encounter This section includes the information on record at [place] for the Encounter. Date/Time Encounter Type Encounter Description Reason Provider Source Oct 26, 2023 11:30 AM OFFICE O/P EST HI 40 MIN PRIMARY CARE/MEDICINE ICD-10-CM C64.2 Malignant neoplasm of left kidney, except renal pelvis QUENTIN STOKES Encounter Template Text not used by VA Assessments - Encounter Diagnoses This section includes the primary and secondary diagnoses documented for the Encounter. Date/Time Primary/Secondary Diagnosis Diagnosis Name Provider Source Oct 27, 2023 01:07 AM PRIMARY Malignant neoplasm of left kidney, except renal pelvis MELL STOKES ([facility]) Oct 27, 2023 01:07 AM SECONDARY Anemia, unspecified MELL STOKES ([facility]) Oct 27, 2023 01:07 AM SECONDARY Athscl heart disease of [place] coronary artery w/o ang pctrs MELL STOKES [facility] ([facility]) Oct 27, 2023 01:07 AM SECONDARY Chronic kidney disease, stage 3 unspecified MELL STOKES [facility] ([facility]) Oct 27, 2023 01:07 AM SECONDARY Essential (primary) hypertension MELL STOKES [facility] ([facility]) Oct 27, 2023 01:07 AM SECONDARY Gastro-esophageal reflux disease without esophagitis MELL STOKES [facility] ([facility]) Oct 27, 2023 01:07 AM SECONDARY Hyperlipidemia, unspecified MELL STOKES [facility] ([facility]) Oct 27, 2023 01:07 AM SECONDARY Peripheral vascular disease, unspecified MELL SOTKES [facility] ([facility]) Oct 27, 2023 01:07 AM SECONDARY Type 2 diabetes mellitus without complications MELL STOKES [facility] ([facility]) Plan of Treatment: Future Appointments (+ 6 months) and Future Tests (+/- 45 days) The Plan of Treatment section includes future care activities for the patient [facility] [place] [facility]. This section includes future appointments and future orders which are active, pending or scheduled. Future Appointments This section includes appointments that were scheduled to occur 6 months from the date of the Encounter, up to a maximum of 20 appointments. The data comes from all [place] treatment facilities. Appointment Date/Time Appointment Type Appointme nt Facility Name Nov 09, 2023 11:20 AM AMBULATORY [place] MEDICINE [place] [facility] [place] [facility] Nov 20, 2023 03:00 PM AMBULATORY - [facility]IC[facility] [place] [facility] [place] [facility] Nov 27, 2023 01:30 PM AMBULATORY - MEDICINE [place] [facility] [place] [facility] Dec 22, 2023 01:45 PM AMBULATORY - MEDICINE [place] [facility] [place] [facility] Jan 01, 2024 08:30 AM AMBULATORY - PSYCHIATRY [facility] ([facility]) Jan 08, 2024 11:00 AM AMBULATORY - [facility]IATRY [facility] [place] [facility] Jan 08, 2024 01:30 PM AMBULATORY - MEDICINE [facility] [place] [facility] Jan 22, 2024 11:00 AM AMBULATORY - PS[facility]CHIATRY [facility] [place] [facility] Feb 05, 2024 02:00 PM AMBULATORY - PSYCHIATRY [facility] [place] [facility] Feb 19, 2024 09:00 AM AMBULATORY - MEDICINE [facility] [place] [facility] Feb 19, 2024 11:00 AM AMBULATORY - PSYCHIATRY [facility] [place] [facility] Mar 01, 2024 01:30 PM AMBULATORY - MEDICINE [facility] [place] [facility] Mar 04, 2024 03:00 PM AMBULATORY - MEDICINE [place] [facility] [place] [facility] Mar 18, 2024 11:00 AM AMBULATORY - PS[facility]CHIATRY [facility] [place] [facility] Apr 01, 2024 09:00 AM AMBULATORY - MEDICINE [place] [facility] [place] [facility] Apr 01, 2024 11:00 AM AMBULATORY - PS[place]CHIATRY [place] [facility] [place] [facility] Lab Results: +/- 30 days of the encounter This section includes the Chemistry and Hematology Lab Results on record with [place] for the patient. Radiology Reports and Pathology Reports are provided separately, in subsequent sections. Lab Results This section contains the Chemistry/Hematology Results that were resulted 30 days before or 30 daysafter the date of the Encounter. Date/Time Source Result Type Result - Unit Interpretation Reference Range Comment Nov 15, 2023 08:23 AM [facility] HEMOGLOBIN A1C PANEL Specimen Type: BLOOD [...] Sep 19, 2023 04:07 PM Reporting Lab: [facility] [address] [address] Performing Lab: [facility] [address] [address] HEMOGLOBIN A1C 6.9 H 4.0-5.6 Nov 15, 2023 08:23 AM [facility] BASIC METABOLIC PANEL (non-fasting) Specimen Type: SERUM No comment entered. Ordering Provider: ZORA GALICIA Report Released Date/Time: Sep 19, 2023 04:07 PM Reporting Lab: [facility] [address] [address] Performing Lab: [facility] [address] [facility] [address] UREA NITROGEN 34 mg/dL H 7-25 GLUCOSE 118 mg/dL H 65-100 SODIUM 138 mmol/L 135-145 POTASSIUM 5.3 mmol/L H 3.5-5.0 CHLORIDE 104 mmol/L 100-110 CO2 23 meq/L 20-30 CREATININE, Serum 1.87 mg/dL H 0.50-1.40 eGFR(CKD-EPI 2020) 41 mL/min L >60 Vital Signs: All taken on the encounter date This section contains inpatient and outpatient Vital Signs collected on the date of the Encounter. Date/Time Temperature Pulse Blood Pressure Respiratory Rate SP02 Pain Height Weight Body Mass Index Source Oct 26, 2023 11:25 AM 97.5 62 122/73 16 97 4 248.7 34 [facility] E[place] ([facility]) Social History: Smoking Status (Most current) and Tobacco Use (All prior to encounter date) This section includes the most current, and the historical, smoking and tobacco- related health factors from the [place] facility where the Encounter took place. Current Smoking Status This section includes the most current smoking, or tobacco-related health factor, from the [place] facility where the Encounter took place. Date/Time Current Smoking Status Comment Facil ity Oct 26, 2023 11:30 AM [place]-TOBACCO QUIT 5 TO < 15 YRS [facility] ([facility]) Tobacco Use History This section includes a history of the smoking, or tobacco-related health factors, that were collected on or before the date of the Encounter. The data comes from the [place] facility where the Encounter took place. Date/Time Smoking Status/Tobacco Use Comment F acility Oct 26, 2023 11:30 AM [place]-TOBACCO QUIT 5 TO < 15 YRS [facility] ([facility]) Nov 08, 2022 01:30 PM VA-TOBACCO FORMER USER [facility] ([facility]) Nov 08, 2022 01:30 PM VA-TOBACCO QUIT 5 TO < 15 YRS [facility] ([facility]) Oct 18, 2021 10:30 AM VA-TOBACCO FORMER USER [facility] ([facility]) Oct 18, 2021 10:30 AM VA-TOBACCO QUIT 15 YRS OR MORE [facility] ([facility]) Sep 21, 2020 02:00 PM VA-TOBACCO FORMER USER [facility] ([facility]) Sep 21, 2020 02:00 PM VA-TOBACCO QUIT 15 YRS OR MORE [facility] ([facility]) Encounter Notes: All associated encounter notes This section contains the clinical notes associated to the Encounter. Date/Time Encounter Note(s) Provider Source Oct 26, 2023 11:18 PM PHYSICIAN NOTE: LOCAL TITLE: MD NOTE STANDARD TITLE: PHYSICIAN NOTE DATE OF NOTE: OCT 26, 2023@23:18 ENTRY DATE: OCT 26, 2023@23:18:07 AUTHOR: FRANKLIN STOKES EXP COSIGNER: URGENCY: STATUS: COMPLETED Chief complaint:Pt is a 57 year old who comes in for follow up of medical problems as noted below. PMH: Active problems - Computerized Problem List is the source for the followin. Clear cell carcinoma of kidney Left upper pole 2. Anemia ([facility] [id number]) 3. CAD - Coronary Artery Disease ([facility] [id number]) 4. Diabetes Mellitus Type 2 ([facility] [id number]) 5. HTN - Hypertension ([facility] [id number]) 6. Hyperlipidemia ([facility] [id number]) 7. GERD - Gastro-Esophageal Reflux Disease ([facility] [id number]) 8. Chronic Kidney Disease Stage 3 ([facility] [id number]) 9. H/O: Deep Vein Thrombosis ([facility] [id number]) 10. Peripheral Vascular Disease ([facility] [id number]) 11. Foot Ulcer ([facility] [id number]) 12. Osteomyelitis ([facility] [id number]) Allergies: NORVASC, INDOCIN, PERCOCET, SEMAGLUTIDE The following VA and Non-VA meds were reconciled with patient: Active and Recently Outpatient Medications (excluding Supplies): Active Outpatient Medications Status 1) ACCU-CHEK [...] DAILY FOR TYPE 2 DIABETES MELLITUS 8) NITROGLYCERIN 0.4MG SL TAB DISSOLVE ONE TABLET UNDER ACTIVE THE TONGUE EVERY 5 MINUTES NEEDED FOR CHEST PAIN; IF NO RELIEF AFTER 3 DOSES, CALL 911 OR GO TO NEAREST EMERGENCY ROOM 9) PANTOPRAZOLE NA 40MG EC TAB TAKE ONE TABLET BY MOUTH ACTIVE EVERY MORNING 30 MINUTES BEFORE BREAKFAST FOR EXCESSIVE PRODUCTION OF STOMACH ACID 10) RANOLAZINE 500MG SA TAB TAKE ONE TABLET BY MOUTH ACTIVE TWICE DAILY 11) ROSUVASTATIN CA 20MG TAB TAKE ONE-HALF TABLET BY ACTIVE MOUTH ONCE DAILY FOR CHOLESTEROL Active Non-VA Medications Status 1) Non-VA ASPIRIN 81MG EC TAB 81MG BY MOUTH ONCE DAILY ACTIVE 2) Non-VA MULTIVITAMIN/MINERALS CAP/TAB ONE CAP/TAB BY ACTIVE MOUTH ONCE DAILY 13 Total Medications No Active Remote Medications for this patient On examination: 122/73 (10/26/2023 11:25)97.5 F [36.4 C] (10/26/2023 11:25)16 (10/26/2023 11:25)62 (10/26/2023 11:25)4 (10/26/2023 11:25)X3 BMI: 33.8248.7 lb [112.81 kg] (10/26/2023 11:25) CC: 4 Mo f/u, post hospital discharge x 2 Last Seen in PCP: Jun 2023 HPI: 57 y/o M with extensive cardiac PMH of CAD s/p CABG 2014, at age 47, 3 stents 2016, 2017 on Plavix, iCM EF 50%, chronic CP, HTN, HLD, DVT was on Apixaban July 2020, PVD s/p R post tibial angioplasty 2020, recent L. kidney RCC (Bx Oct 2022) s/p L nephrectomy Nov 2022, IDDM (A1c 7.9), , chronic OM R toe, CKD3, GERD, came to clinic today for F2F visit. Dragoon is feeling at his baseline still complains of mid chest pains chronic at rest and chronic shortness of breath at rest sometimes at night. Dragoon had an eventful course since the last visit. 1 month ago Dragoon complain of worsening MANN, new chest pains and after visit with his signalling and communications engineer was sent for cardiac catheterization. Found 85% occlusion and in the RCA s/p MADELIN October 02, 2023. 1 week later) again complaining of chest pain for 2 days and went to ER again. Workup was done with echo EKG and rule out the ACS which was normal with chart recommend discharge home with follow-up with his signalling and communications engineer Dr. Kiser. Had medication changes. Reports that he is exercise tolerance increased after the stent placed on October 01 but still his baseline exercise tolerance is 100 yards and he used to be 20 yards. Blood pressure well-controlled. Intentionally lost about 10 pounds in the past 4 months with dieting. 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;lasm, repeat MRI/MRCP in 2 yrs Assessment/Plan: CAD s/p CABG 2014, 3 stents 2016, 2017 on Plavix, iCM EF 50%, chronic CP, HTN, HLD, DVT was on Apixaban July 2020, PVD s/p R post tibial angioplasty : f/b outside cardiology Dr Kiser, Jyoti Upton , LAYOUT OPERATOR and vascular Dr Beatrice Bess, both BMP Recent MADELIN to RCA September 2023 Stable no CHF signs or symptoms -on rosuvastatin 5mg LDL not at goal, increase rosuvastatin to 10 mg daily BP well-controlled -on carvedilol 25mg bid On ranolazine 500 mg twice daily now -Plan to restart imdur 30mg per outside cardiology but patient refused secondary to lightheadedness and low blood pressure when he was taking it before -was on Apixaban 5mg bid but stopped, claimed was very superficial DVT, was on int for 3-4 months only -c/w DAPT on Asa 81 mg -on Plavix 75mg -on felodipine 2.5mg in am and 5mg in pm. AMANDA (toe) R 0.2, L 0.29 f/b Dr Modesto Rose IDDM (A1c 7.9): f/b [place] pharmacy [facility] Galicia, Pharm D Improving -on lantus pen 30 units -on Metformin 500mg bid (renally dosed) -was on Trulicity 1.5mg q1 week inj CKD3: f/b CC Dr Gilbert At baseline last creatinine 2 weeks ago 1.57 GFR 51 L RCC: Low dwayne CA, s/p L. nephrectomy Oct 2022 No spread per CC Surv by CC q 6 mo Patient was not compliant with follow-ups did not do it Re did consult now appointment coming up GERD: stable. -on pantoprazole 40mg Patient denies any GERD symptoms now. Counseled that some of his mid chest pain could be due to heartburns and if he has any such symptoms to increase his pantoprazole to twice daily Anemia: Mild H/H 12 Anxiety, depression, insomnia: offered MH but pt refused again Records reviewed. New labs, imaging reviewed, discussed, questions answered. Meds refilled. Dragoon verbalized understanding of the plan and agreed to it. HM: Colonoscopy: last in 2016, WNL repeat in 10 yrs 2026, no records Vaccines: refused all Influenza: Tdap: [id number]: [id number]: Shingrix: did not get, refused today HBV/HAV Vaccine: Covid-19 vaccine: refused RTC 3-4 mo or sooner PRN F2F visit Fasting labs prior Addendum: PACT 4 TEAM: See RTC above BMI>30/>24.99 High Risk: At this visit, the health risks of obesity were reviewed and discussed with the Dragoon, and the benefits of a weight management treatment program, such as [facility]! was discussed and offered to the Dragoon. After discussing the health risks of being overweight or obese and providing information about available weight management treatment, and offering a referral to [facility] or another weight management treatment program outside the [facility], the patient DECLINES REFERRAL to [facility] or any other weight management treatment program at this time. Medication Reconciliation: Outpatient: Has the patient been taking medications as documented in the EMLR? No: Discrepencies were identified. See below. Essential Medication List for Review used to complete this medication reconciliation. INCLUDED IN THIS LIST: Alphabetical list of active outpatient prescriptions dispensed from this VA (local) and dispensed from another VA or DoD facility (remote) as well as inpatient orders (local, pending and active), local clinic medications, locally documented non-VA medications, and local prescriptions that have or been discontinued in the past 90 days. - Discrepancies were identified, addressed, and discussed with the patient/caregiver at this encounter. Discrepancies: see note - All changes in medications, including all non-VA/Herbal/OTC medications were entered into CPRS. - If there were any medications the patient should no longer take, they were discontinued. - The patient/caregiver was instructed to update this list, discard old lists, and take this list to the next appointment, whether with a VA or non-VA provider. /tam/ Franklin Stokes MD MD PRIMARY CARE PHYSICIAN Signed: 10/27/2023 01:07 FRANKLIN STOKES ([facility]) Oct 26, 2023 11:29 AM PREVENTIVE MEDICIN E NURSING NOTE: LOCAL TITLE: CLINICAL REMINDERS/NURSING STANDARD TITLE: PREVENTIVE MEDICINE NURSING NOTE DATE OF NOTE: OCT 26, 2023@11:29 ENTRY DATE: OCT 26, 2023@11:29:23 AUTHOR: KATHRYN MARIE COSIGNER: URGENCY: STATUS: COMPLETED Advance Directive Screen MH AD: Patient does not have a completed advance directive on file at any facility, VA or outside. S/he is not interested in completing one at this time. The patient received education about Advance Directives and written notification of his/her rights. Suicide Screen: C-SSRS Screening [place] Suicide Severity Rating Scale (C-SSRS) screener 1. Over the past month, have you wished you were or wished you could go to sleep and not wake up? No 2. Over the past month, have you had any actual thoughts of killing yourself? No 3. Over the past month, have you been thinking about how you might do this? Response not required due to responses to other questions. 4. Over the past month, have you had these thoughts and had some intention of acting on them? Response not required due to responses to other questions. 5. Over the past month, have you started to work out or worked out the details of how to kill yourself? Response not required due to responses to other questions. 6. If yes, at any time in the past month did you intend to carry out this plan? Response not required due to responses to other questions. 7. In your lifetime, have you ever done anything, started to do anything, or prepared to do anything to end your life (for example, collected pills, obtained a gun, gave away valuables, went to the roof but didn't jump)? No 8. If YES, was this within the past 3 months? Response not required due to responses to other questions. Depression Screening: Perform PHQ-2 A PHQ-2 screen was performed. The score was 0 which is a negative screen for depression. Over the past two weeks, how often have you been bothered by the following problems? 1. Little interest or pleasure in doing things Not at all 2. Feeling down, depressed, or hopeless Not at all Alcohol Use Screen (AUDIT-C): Alcohol Screen: SCREEN FOR ALCOHOL (AUDIT-C) An alcohol screening test (AUDIT-C) was negative (score=0). 1. How often did you have a drink containing alcohol in the past year? Consider a drink to be a 12 ounce can or bottle of regular beer, 8 ounces of malt liquor, a 5 ounce glass of table wine, or a 1.5 ounce shot of liquor (like scotch, gin, or vodka). Never 2. How many drinks containing alcohol did you have on a typical day when you were drinking in the past year? Response not required due to responses to other questions. 3. How often did you have six or more drinks on one occasion in the past year? Response not required due to responses to other questions. Eye Care At-Risk Eval (Provider) : Patient identified to be at risk for the following eye condition(s): DIABETIC RETINOPATHY: Diabetes Diagnosis Information: Encounter Diagnosis: 09/19/2023@15:00 E11.9 (ICD-10-CM) Type 2 Diabetes Mellitus without Complications rank: PRIMARY Prov. Narr. - Diabetes Mellitus Type 2 ([facility] [id number]) Provider educated patient on potential risk of permanent vision loss and recommendation to obtain eye care assessment. Patient verbalized understanding and No Referral Ordered: The patient declined/refused referral for Tele-Eye screening and/or Eye Clinic appointment. Provider educated patient of At-Risk status for identified eye condition(s) and recommendation to obtain eye care assessment. Herpes Zoster (Shingles) Vaccine: The patient declines to receive the recommended dose of zoster (shingles) vaccine. Immunization: ZOSTER RECOMBINANT Refusal Reason: PATIENT DECISION Patient refuses all immunization(s) in the ZOSTER group Date Documented: 10/26/23 11:35 COVID-19 Immunization: Refused Moderna Monovalent COVID-19 vaccine Immunization: COVID-19 (MODERNA), MRNA, LNP-S, PF, 50 MCG/0.5 ML (AGES 12+ YEARS) Refusal Reason: PATIENT DECISION Patient refuses all immunization(s) in the COVID-19 group Date Documented: 10/26/23 11:36 Tobacco Use Screening: The patient is a former tobacco user. The patient quit five to less than fifteen years ago. Pneumococcal Conjugate Vaccine (PCV15/PCV20): Refuses PCV vaccine Immunization: PNEUMOCOCCAL CONJUGATE, UNSPECIFIED FORMULATION Refusal Reason: PATIENT DECISION Patient refuses all immunization(s) in the PneumoPCV group Date Documented: 10/26/23 11:36 Hepatitis B Serology/Immunization: The patient declines to receive the recommended dose of Hepatitis B vaccine. Immunization: HEP B, UNSPECIFIED FORMULATION Refusal Reason: PATIENT DECISION Patient refuses all immunization(s) in the HepB group Date Documented: 10/26/23 11:36 /tam/ KATHRYN MARIE LPN LICENSED PRACTICAL NURSE Signed: 10/26/2023 11:37 KATHRYN MARIE (CB)
--- OUTSIDE RECORDS SUMMARY | 2024-03-11 13:04 | XMS_ITS | Encounter Summary ---
Author Name [facility] [place] Organization [place] Address [address] [place] [address] Care Team Providers Care Head Athletic Trainer Name Role Phone ARLENELEXIS WINDY Primary Care [...] PART A Feb 04, 2020 PART A [id number] [address] GRACIELA STOVER PATIENT MEDICARE (WNR) MEDICARE (M) PART B Feb 04, 2020 PART B [id number] [address] [facility] GRACIELA STOVER PATIENT Selected Encounter This section includes the information on record at [place] for the Encounter. Date/Time Encounter Type Encounter Description Reason Pro vider Source Nov 20, 2023 03:00 PM Outpatient Encounter PODIATRY IHE Encounter Template Text not used by [place] Plan of Treatment: Future Appointments (+ 6 [...] Appointment Type Appointme nt Facility Name Nov 27, 2023 01:30 PM AMBULATORY - MEDICINE [place] [facility] [place] [facility] Dec 22, 2023 01:45 PM AMBULATORY - MEDICINE [place] [facility] [place] [facility] Jan 01, 2024 08:30 AM AMBULATORY - PSYCHIATRY [facility] Jan 08, 2024 11:00 AM AMBULATORY - PSYCHIATRY [place] [facility] [place] [facility] Jan 08, 2024 01:30 PM AMBULATORY - MEDICINE [place] [facility] [place] [facility] Jan 22, 2024 11:00 AM AMBULATORY - PSYCHIATRY [place] [facility] [place] [facility] Feb 05, 2024 02:00 PM AMBULATORY - PSYCHIATRY [place] [facility] [place] [facility] Feb 19, 2024 09:00 AM AMBULATORY - MEDICINE [place] [facility] [place] [facility] Feb 19, 2024 11:00 AM AMBULATORY - PSYCHIATRY [place] [facility] [place] [facility] Mar 01, 2024 01:30 PM AMBULATORY - MEDICINE [place] [facility] [place] [facility] Mar 04, 2024 03:00 PM AMBULATORY - MEDICINE [place] [facility] [place] [facility] Mar 18, 2024 11:00 AM AMBULATORY - PSYCHIATRY [place] [facility] [place] [facility] Apr 01, 2024 09:00 AM AMBULATORY - MEDICINE [place] [facility] [place] [facility] Apr 01, 2024 11:00 AM AMBULATORY - PSYCHIATRY [place] [facility] [place] [facility] May 06, 2024 09:30 AM AMBULATORY - MEDICINE [facility] ([facility]) Lab Results: +/- 30 days of the encounter This section includes the Chemistry and Hematology Lab Results on record with [place] for the patient. Radiology Reports and Pathology Reports are provided separately, in subsequent sections. Lab Results This section contains the Chemistry/Hematology Results that were resulted 30 days before or 30 daysafter the date of the Encounter. Date/Time Source Result Type Result - Unit Interpretation Reference Range Comment 2023 08:36 AM [place] ([facility]) LIVER FUNCTION Specimen Type: SERUM No comment entered. Ordering Provider: QUENTIN STOKES Report Released Date/Time: Nov 22, 2023 12:27 PM Reporting Lab: [facility] [address] [facility] [address] Performing Lab: [address] [address] PROTEIN,TOTAL 7.1 g/dL 6.0-8.3 ALBUMIN 4.0 g/dL 3.5-5.0 ALKALINE PHOSPHATASE 90 U/L 40-150 AST 22 U/L 5-34 ALT 27 U/L BILIRUBIN, TOTAL 0.6 mg/dL 0.2-1.2 2023 08:36 AM [place] ([place]) LIPID PANEL FASTING Specimen Type: SERUM No comment entered. Ordering Provider: QUENTIN STOKES Report Released Date/Time: Nov 22, 2023 12:27 PM Reporting Lab: [address] [address] Performing Lab: [address] [address] CHOLESTEROL 127 mg/dL TRIGLYCERIDE 87 mg/dL 0-150 LDL calculated 76 mg/dL 0-129 CHOL/HDL 3.7 HDL CHOLESTEROL 34 mg/dL L 40-60 Nov 15, 2023 08:23 AM [facility] HEMOGLOBIN A1C PANEL Specimen Type: BLOOD [...] Sep 19, 2023 04:07 PM Reporting Lab: [address] [address] Performing Lab: [address] [address] HEMOGLOBIN A1C 6.9 H 4.0-5.6 Nov 15, 2023 08:23 AM [facility] BASIC METABOLIC PANEL (non-fasting) Specimen Type: SERUM No comment entered. Ordering Provider: ZORA GALICIA Report Released Date/Time: Sep 19, 2023 04:07 PM Reporting Lab: [facility] [address] [facility] [address] Performing Lab: [facility] [address] [facility] [address] UREA NITROGEN 34 mg/dL H 7-25 GLUCOSE [...] 19, 2020 02:29 PM VA-TOBACCO FORMER USER [facility] Tobacco Use History This section includes a history of the smoking, or tobacco-related health factors, that were collected on or before the date of the Encounter. The data comes from the [place] facility where the Encounter took place. Date/Time Smoking Status/Tobacco Use Comment F tess Aug 19, 2020 02:29 PM VA-TOBACCO QUIT 15 YRS OR MORE [facility] Encounter Notes: All associated encounter notes This section contains the clinical notes associated to the Encounter. Date/Time Encounter Note(s) Provider Source Nov 20, 2023 02:16 PM MEDICATION MGT NOT E: LOCAL TITLE: AFTER VISIT SUMMARY STANDARD TITLE: MEDICATION MGT NOTE DICT DATE: NOV 20, 2023@14:16:28 ENTRY DATE: NOV 20, 2023@14:16:28 DICTATED BY: RUDI RIGGINS EXP COSIGNER: URGENCY: STATUS: COMPLETED The patient [...] provided to the patient is available in [employer]. SCANNED DOCUMENT SIGNATURE NOT REQUIRED Electronically Filed: 11/20/2023 by: RUDI RIGGINS ADVANCED TELECOMMUNICATION ENGINEER RUDI RIGGINS [facility] Nov 20, 2023 02:15 PM MEDICATION MGT NOT E: LOCAL TITLE: AFTER VISIT SUMMARY STANDARD TITLE: MEDICATION MGT NOTE DICT DATE: NOV 20, 2023@14:15:22 ENTRY DATE: NOV 20, 2023@14:15:22 DICTATED BY: RUDI RIGGINS EXP COSIGNER: URGENCY: STATUS: COMPLETED The patient [...] provided to the patient is available in [employer]. SCANNED DOCUMENT SIGNATURE NOT REQUIRED Electronically Filed: 11/20/2023 by: RUDI RIGGINS ADVANCED TELECOMMUNICATION ENGINEER RUDI RIGGINS [facility]
--- OUTSIDE RECORDS SUMMARY | 2024-03-11 13:04 | XMS_ITS ---
Author Name [facility] [place] Organization [place] Address [address] [place] [address] Care Team Providers Care Telephoto Engineer Name Role Phone KIKE WINDY Primary Care [...] PART A Feb 04, 2020 PART A [id number] [address] [facility] GRACIELA STOVER PATIENT MEDICARE (WNR) MEDICARE (M) PART B Feb 04, 2020 PART B [id number] [address] [facility] GRACIELA STOVER PATIENT Selected Encounter This section includes the information on record at [place] for the Encounter. 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 LUDY MAY [place] [facility] [place] [facility] Nov 21, 2023 01:03 PM SECONDARY Corns and callosities LUDY MAY [place] [facility] [place] [facility] Nov 21, 2023 01:03 PM SECONDARY Partial traumatic amp of one right lesser toe, sequela LUDY MAY [place] [facility] [place] [facility] Nov 21, 2023 01:03 PM SECONDARY Type 2 diabetes w diabetic autonomic (poly)neuropathy LUDY MAY [place] [facility] [facility] Plan of Treatment: Future Appointments (+ 6 months) and Future Tests (+/- 45 days) The Plan of Treatment section includes future care activities for the [facility] [place] [facility] This section includes future appointments [...] 27, 2023 01:30 PM AMBULATORY - MEDICINE [place] [facility] [facility] Dec 22, 2023 01:45 PM AMBULATORY - MEDICINE [place] [facility] [place] [facility] Jan 01, 2024 08:30 AM AMBULATORY - PSYCHIATRY [facility] ([facility]) Jan 08, 2024 11:00 AM AMBULATORY - PSYCHIATRY [place] [facility] [facility] Jan 08, 2024 01:30 PM AMBULATORY - MEDICINE [place] [facility] [place] [facility] Jan 22, 2024 11:00 AM AMBULATORY - PSYCHIATRY [place] [facility] [place] [facility] Feb 05, 2024 02:00 PM AMBULATORY - PSYCHIATRY [place] [facility] [place] [facility] Feb 19, 2024 09:00 AM AMBULATORY - MEDICINE [place] [facility] [place] [facility] Feb 19, 2024 11:00 AM AMBULATORY - PSYCHIATRY [place] [facility] [place] [facility] Mar 01, 2024 01:30 PM AMBULATORY - MEDICINE [place] [facility] [place] [facility] Mar 04, 2024 03:00 PM AMBULATORY - MEDICINE [place] [facility] [place] [facility] Mar 18, 2024 11:00 AM AMBULATORY - PSYCHIATRY [place] [facility] Apr 01, 2024 09:00 AM [facility]UL[facility]ORY - [facility] Apr 01, 2024 11:00 AM AMBULATORY - PSYCHIATRY [place] CNTRL TRN [facility] May 06, 2024 09:30 AM AMBULATORY - MEDICINE [facility] ([facility]) Lab Results: +/- 30 days of [...] Interpretation Reference Range Comment 2023 08:36 AM [place] ([facility]) LIPID PANEL FASTING Specimen Type: SERUM No comment entered. Ordering Provider: QUENTIN STOKES Report Released Date/Time: Nov 22, 2023 12:27 PM Reporting Lab: [facility] [address] [facility] [address] Performing Lab: [facility] [address] [address] CHOLESTEROL 127 mg/dL TRIGLYCERIDE 87 mg/dL 0-150 LDL calculated 76 mg/dL 0-129 CHOL/HDL 3.7 HDL CHOLESTEROL 34 mg/dL L 40-60 2023 08:36 AM [place] ([facility]) LIVER FUNCTION Specimen Type: SERUM No comment entered. Ordering Provider: QUENTIN STOKES Report Released Date/Time: Nov 22, 2023 12:27 PM Reporting Lab: [facility] [address] [facility] [address] Performing Lab: [address] [address] PROTEIN,TOTAL 7.1 g/dL 6.0-8.3 ALBUMIN 4.0 g/dL 3.5-5.0 ALKALINE PHOSPHATASE 90 U/L 40-150 AST 22 U/L 5-34 ALT 27 U/L BILIRUBIN, TOTAL 0.6 mg/dL 0.2-1.2 Nov 15, 2023 08:23 AM [facility] HEMOGLOBIN A1C PANEL Specimen Type: BLOOD [...] Sep 19, 2023 04:07 PM Reporting Lab: [facility] [address] [facility] [address] Performing Lab: [address] [address] HEMOGLOBIN A1C 6.9 H 4.0-5.6 Nov 15, 2023 08:23 AM [facility] BASIC METABOLIC PANEL (non-fasting) Specimen Type: SERUM No comment entered. Ordering Provider: ZORA GALICIA Report Released Date/Time: Sep 19, 2023 04:07 PM Reporting Lab: [facility] [address] [facility] [address] Performing Lab: [address] [address] UREA NITROGEN 34 mg/dL H 7-25 GLUCOSE [...] 19, 2020 02:29 PM VA-TOBACCO FORMER USER [facility] Tobacco Use History This section includes a history of the smoking, or tobacco-related health factors, that were collected on or before the date of the Encounter. The data comes from the [place] facility where the Encounter took place. Date/Time Smoking Status/Tobacco Use Comment F tess Aug 19, 2020 02:29 PM VA-TOBACCO QUIT 15 YRS OR MORE [place] [facility] Encounter Notes: All associated encounter notes This section contains the clinical notes associated to the Encounter. Date/Time Encounter Note(s) Provider Source Nov 20, 2023 03:14 PM PODIATRY NOTE: LOCAL TITLE: PODIATRY NOTE STANDARD TITLE: PODIATRY NOTE DATE OF NOTE: NOV 20, 2023@15:14 ENTRY DATE: NOV 20, 2023@15:14:35 AUTHOR: NETTA MAY COSIGNER: URGENCY: STATUS: COMPLETED Podiatry High Risk Foot Encounter [facility] provider: Netta May DP Date: NOV 20, 2023 DEIRDRE STOVER MALE [phone] [address] [place] [address] FROM July TO Jan Primary Care:WINDY STOKES History of chief complaint: Patient is a diabetic male with peripheral vascular disease cardiovascular disease who has had several peripheral vascular stents placed and more recently another cardiac stent placed ever having a small ND over the summer since last visit. Patient also is status post right second toe partial toe amputation performed [facility] by vascular surgeon Dr. Barron. This was well-healed at last visit Patient was given consult to [facility] [place] for custom fit diabetic inserts for which he was made 3 pair-initially they were comfortable but within a very short period of time they felt like they were paperthin and not giving him any protection. Patient is complaining of episodic tachycardia with heart rates episodically in the 110s to 112 range Heart rate today at clinic side was 64 blood pressure was 170/92 He is going to see his utility locate technician on Monday He is presently not complaining of any fever chills nausea vomiting or any drainage or weeping from feet. But did attempt self nail care and caused a small nailbed injury on his right hallux and right third toe. Diabetic/ HRF/ PVD LE History: [X] pvd [X] pvd interventions [X] neuropathy [ ] meds: [ ] wound active [ ] infection active [X] wound history yes [X] amputation hx [X] deformity [ ] charcot [ ] surgical deformity intervention PMH list CPRS: Active problems - Computerized Problem List is the source for the followin. Clear cell carcinoma of kidney 2. Anemia ([facility] [id number]) 3. CAD - Coronary Artery Disease ([facility] [id number]) 4. Diabetes Mellitus Type 2 ([facility] [id number]) 5. HTN - Hypertension ([facility] [id number]) 6. Hyperlipidemia ([facility] [id number]) 7. GERD - Gastro-Esophageal Reflux Disease ([facility] [id number]) 8. Chronic Kidney Disease Stage 3 ([facility] [id number]) 9. H/O: Deep Vein Thrombosis ([facility] [id number]) 10. Peripheral Vascular Disease ([facility] [id number]) 11. Foot Ulcer ([facility] [id number]) 12. Osteomyelitis ([facility] [id number]) Active Out Patient medications: Active Outpatient Medications [...] ONE CAP/TAB BY ACTIVE MOUTH ONCE DAILY 14 Total Medications Imaging reports: Lab Data: CREATININE-EGFR 11/15/23 08:23 1.87 H 08/17/23 15:31 2.37 H 05/15/23 08:21 1.84 H No Data Available for EGFR 1 yr HEMOGLOBIN A1C TREND Collection DT Spec HGBA1c 11/15/2023 08:23 BLOOD 6.9 H 08/22/2023 15:24 BLOOD 7.9 H 05/15/2023 08:21 BLOOD 8.9 H 03/27/2023 15:20 BLOOD 8.1 H 02/16/2023 14:33 BLOOD 8.2 H ALBUMIN Collection DT Specimen Test Name Result Units Ref Range 07/22/2022 15:48 SERUM ALBUMIN 3.9 g/dL 3.5 - 5.0 BMI:BMI: 33.8 PE:General: Overall patient is stable appearing today he is not pale he is awake alert oriented x 3 independently ambulatory. Bilateral feet are very warm and pink with no abnormal erythema Right second toe amputation is well-healed Right hallux nail and third toenail with scant dried blood but no inflammation active discharge or drainage no periungual inflammation or sign of infection Remaining nails are stable but mildly elongated Left foot with heavy callus at the distal aspect of the second toe pared down to intact tissue Left hallux with high-pressure callus with hemorrhagic material within the callus at the IP joint pared down to intact tissue No active drainage No open wounds otherwise Nails on left foot dystrophic minimally elongated Webs clear Plantar feet without calluses of the metatarsals but area under right fifth metatarsal with thinner tissue and patient complaining of discomfort in this area but specifically no open wound or sign of ulceration present. Overall foot structure is pes cavus PAVE:3 Impression: -Neuropathic diabetic with peripheral vascular disease history currently stable in the vascular arena, but with high pressure calluses, neuropathy, at high risk for recurrent ulceration and possible amputation -Orthotics contracted through [facility] [place] are really no good or not thick enough, do not provide enough shock absorption and are not supportive enough. -Today have given patient apex gel insoles for better cushioning -May have patient go to [place] for consult to their prosthetics department for custom trilaminar insoles Plan: -Pared to preulcerative calluses today without incident -Debrided nails for right 5 left today without incident -Patient will follow-up with cardiology on Monday -Consult for reconciliation [place] gel insoles size 9 Recall: 2 months follow-up or: Return sooner if any clinical signs of [...] as results of the physical exam and regulatory affairs consultant opinions and recommendations as sought. Alternatives [...] -The on this visit was given information [employer] service and encouraged to enroll if not already having done so. /tam/ NETTA MAY DPM PODIATRY ATTENDING Signed: 11/21/2023 13:03 NETTA MAY [place] [facility]
--- OUTSIDE RECORDS SUMMARY | 2024-03-11 13:04 | XMS_ITS | Encounter Summary ---
Author Name [facility] [place] Organization [place] Address [address] [place] [address] Care Team Providers Care Editorial Project Manager Name Role Phone VICKIENAWAF NAVADERICK Primary Care [...] PART A Feb 04, 2020 PART A [id number] [id number] [facility] GRACIELA STOVER PATIENT MEDICARE (WNR) MEDICARE (M) PART B Feb 04, 2020 PART B [id number] [id number] [facility] GRACIELA STOVER PATIENT Selected Encounter This section includes the information on record at [place] for the Encounter. Date/Time Encounter Type Encounter Description Reason Pro vider Source Nov 24, 2023 04:01 PM Outpatient Encounter COMMUNITY CARE CONSULT IHE [...] 20 appointments. The data comes from all [place] treatment facilities. Appointment Date/Time Appointment Type Appointme nt Facility Name Nov 27, 2023 01:30 PM AMBULATORY - MEDICINE [place] [facility] [place] [facility] Dec 22, 2023 01:45 PM AMBULATORY - MEDICINE [place] [facility] [place] [facility] Jan 01, 2024 08:30 AM AMBULATORY - PSYCHIATRY [facility] Jan 08, 2024 11:00 AM AMBULATORY - PSYCHIATRY [place] [facility] [place] [facility] Jan 08, 2024 01:30 PM AMBULATORY - MEDICINE [place] [facility] [facility] Jan 22, 2024 11:00 AM AMBULATORY - PSYCHIATRY [place] [facility] [place] [place] [facility] Feb 05, 2024 02:00 PM AMBULATORY - PSYCHIATRY [place] [facility] [place] [facility] Feb 19, 2024 09:00 AM AMBULATORY - MEDICINE [place] [facility] [place] [facility] Feb 19, 2024 11:00 AM AMBULATORY - PSYCHIATRY [place] [facility] [place] [facility] Mar 01, 2024 01:30 PM AMBULATORY - MEDICINE [place] [facility] [place] [facility] Mar 04, 2024 03:00 PM AMBULATORY - MEDICINE [place] [facility] [place] [facility] Mar 18, 2024 11:00 AM AMBULATORY - PSYCHIATRY [place] [facility] [place] [facility] Apr 01, 2024 09:00 AM AMBULATORY - MEDICINE [place] [facility] [place] [facility] Apr 01, 2024 11:00 AM AMBULATORY - PSYCHIATRY [place] [facility] [place] [facility] May 06, 2024 09:30 AM AMBULATORY - MEDICINE [facility] ([facility]) Lab Results: +/- 30 days of the encounter This section includes the Chemistry and Hematology Lab Results on record with [place] for the patient. Radiology Reports and Pathology Reports are provided separately, in subsequent sections. Lab Results This section contains the Chemistry/Hematology Results that were resulted 30 days before or 30 daysafter the date of the Encounter. Date/Time Source Result Type Result - Unit Interpretation Reference Range Comment 2023 08:36 AM [place] ([facility]) LIVER FUNCTION Specimen Type: SERUM No comment entered. Ordering Provider: QUENTIN STOKES Report Released Date/Time: Nov 22, 2023 12:27 PM Reporting Lab: [facility] [address] [facility] [address] Performing Lab: [address] [address] PROTEIN,TOTAL 7.1 g/dL 6.0-8.3 ALBUMIN 4.0 g/dL 3.5-5.0 ALKALINE PHOSPHATASE 90 U/L 40-150 AST 22 U/L 5-34 ALT 27 U/L BILIRUBIN, TOTAL 0.6 mg/dL 0.2-1.2 2023 08:36 AM [place] ([place]) LIPID PANEL FASTING Specimen Type: SERUM No comment entered. Ordering Provider: QUENTIN STOKES Report Released Date/Time: Nov 22, 2023 12:27 PM Reporting Lab: [address] [address] Performing Lab: [address] [address] CHOLESTEROL 127 mg/dL TRIGLYCERIDE 87 mg/dL 0-150 LDL calculated 76 mg/dL 0-129 CHOL/HDL 3.7 HDL CHOLESTEROL 34 mg/dL L 40-60 Nov 15, 2023 08:23 AM [facility] HEMOGLOBIN A1C PANEL Specimen Type: BLOOD [...] Sep 19, 2023 04:07 PM Reporting Lab: [address] [address] Performing Lab: [address] [address] HEMOGLOBIN A1C 6.9 H 4.0-5.6 Nov 15, 2023 08:23 AM [facility] BASIC METABOLIC PANEL (non-fasting) Specimen Type: SERUM No comment entered. Ordering Provider: ZORA GALICIA Report Released Date/Time: Sep 19, 2023 04:07 PM Reporting Lab: [facility] [address] [facility] [address] Performing Lab: [facility] [address] [facility] [address] UREA NITROGEN 34 mg/dL H 7-25 GLUCOSE [...] and tobacco- related health factors from the [place] facility where the Encounter took place. Current Smoking Status This section includes the most current smoking, or tobacco-related health factor, from the [place] facility where the Encounter took place. Date/Time Current Smoking Status Comment Filemon honeycutt Aug 19, 2020 02:29 PM VA-TOBACCO FORMER USER [facility] Tobacco Use History This section includes a history of the smoking, or tobacco-related health factors, that were collected on or before the date of the Encounter. The data comes from the [place] facility where the Encounter took place. Date/Time Smoking Status/Tobacco Use Comment F tess Aug 19, 2020 02:29 PM VA-TOBACCO QUIT 15 YRS OR MORE [facility] Encounter Notes: All associated encounter notes This section contains the clinical notes associated to the Encounter. Date/Time Encounter Note(s) Provider Source Nov 24, 2023 04:01 PM NONVA NOTE: LOCAL TITLE: [facility] CARE COORD PLAN STANDARD TITLE: NONVA NOTE DATE OF NOTE: NOV 24, 2023@16:01 ENTRY DATE: NOV 24, 2023@16:01:24 AUTHOR: MILTON GIRALDO COSIGNER: URGENCY: STATUS: COMPLETED Emergency Notification Intake Date Presenting to the Facility: Oct Method of Contact: Notified from ECR worklist Notification ID: [id number] [facility] Referral #: [id number] [facility] Hospital Name: Hospital: [facility] Address: City: [place] State: [place] Zip Code: Phone : Community Facility Point of Contact: Name: Phone: Chief complaint: I498 - Other specified cardiac arrhythmias Primary Diagnosis: Disposition Unknown at time of intake note entry /tam/ MILTON BARRON Signed: 11/24/2023 16:02 Receipt Acknowledged By: 11/26/2023 21:39 /es/ Franklin Stokes MD MD PRIMARY CARE PHYSICIAN * AWAITING SIGNATURE * SAAD DICKSON * AWAITING SIGNATURE * KALE PHELAN 11/24/2023 16:05 /es/ LIVAN LYMAN, AURELIA REGISTERED NURSE for GINO DUBON * AWAITING SIGNATURE * REJI GREENE * AWAITING SIGNATURE * SUSAN FUNEZ DAWN MARIE MORRISTON
--- OUTSIDE RECORDS SUMMARY | 2024-03-11 13:04 | XMS_ITS ---
Author Name [facility] [place] Address [address] [place] [address] Care Team Providers Care Breakdown Man Name Role Phone ARLENELEXIS WINDY Primary Care [...] PART A Feb 04, 2020 PART A [id number] [facility]AC[facility] STOVER PATIENT MEDICARE (WNR) MEDICARE (M) PART B Feb 04, 2020 PART B [id number] [address] [facility] GRACIELA STOVER PATIENT Selected Encounter This section includes the information on record at [place] for the Encounter. Date/Time Encounter Type Encounter Description Reason Pro vider Source Oct 06, 2023 12:00 PM Outpatient Encounter EVENT (HISTORICAL) [...] 20 appointments. The data comes from all [facility] treatment facilities. Appointment Date/Time Appointment Type Appointme nt Facility Name Oct 09, 2023 03:00 PM [facility]UL[facility] [place] [facility] Oct 23, 2023 11:00 AM AM[facility]ULATORY [place] [facility] [facility] [place] [facility] Oct 26, 2023 11:30 AM AMBULATORY - MEDICINE [facility] ([facility]) Nov 09, 2023 11:20 AM AMBULATORY [place] MEDICINE [facility] [place] [facility] Nov 20, 2023 03:00 PM AMBULATORY [facility] MEDICINE [facility] [place] [facility] Nov 27, 2023 01:30 PM AMBULATORY [place] [facility]ICINE [facility] [place] [facility] Dec 22, 2023 01:45 PM AMBULATORY [place] MEDICINE [facility] [place] [facility] Jan 01, 2024 08:30 AM AMBULATORY - PSYCHIATRY [facility] ([facility]) Jan 08, 2024 11:00 AM AMBULATORY - PS[facility]IATRY [facility] [place] [facility] Jan 08, 2024 01:30 PM AMBULATORY - MEDICINE [facility] [place] [facility] Jan 22, 2024 11:00 AM AMBULATORY - PS[facility]CHIATRY [facility] [place] [facility] Feb 05, 2024 02:00 PM AMBULATORY - PS[facility]IATRY [facility] [place] [facility] Feb 19, 2024 09:00 AM AMBULATORY - MEDICINE [facility] [place] [facility] Feb 19, 2024 11:00 AM AMBULATORY - PS[facility]IATRY [facility] [place] [facility] Mar 01, 2024 01:30 PM AMBULATORY - MEDICINE [facility] [place] [facility] Mar 04, 2024 03:00 PM AMBULATORY - MEDICINE [facility] [place] [facility] Mar 18, 2024 11:00 AM AMBULATORY - PS[facility]IATRY [facility] [place] [facility] Apr 01, 2024 09:00 AM AMBULATORY - MEDICINE [facility] [place] [facility] Apr 01, 2024 11:00 AM AMBULATORY - PS[facility]CHIATRY [facility] [place] [facility] Lab Results: +/- 30 days of [...] Range Comment Sep 22, 2023 09:28 AM [facility] LIPID PANEL FASTING Specimen Type: SERUM No comment entered. Ordering Provider: SUBHASH GALICIA ICA Report Released Date/Time: Sep 19, 2023 03:09 PM Reporting Lab: [facility] [address] [facility] [address] Performing Lab: [facility] [address] [facility] [address] CHOLESTEROL 188 mg/dL TRIGLYCERIDE 181 mg/dL H [...] 19, 2020 02:29 PM VA-TOBACCO FORMER USER [facility] Tobacco Use History This section includes a history of the smoking, or tobacco-related health factors, that were collected on or before the date of the Encounter. The data comes from the [place] facility where the Encounter took place. Date/Time Smoking Status/Tobacco Use Comment F tess Aug 19, 2020 02:29 PM VA-TOBACCO QUIT 15 YRS OR MORE [facility] Encounter Notes: All associated encounter notes This section contains the clinical notes associated to the Encounter. Date/Time Encounter Note(s) Provider Source Oct 06, 2023 12:00 PM NONVA NOTE: LOCAL TITLE: NON-VA HOSPITALIZATIONS/ER STANDARD TITLE: NONVA NOTE DATE OF NOTE: OCT 06, 2023@12:00 ENTRY DATE: OCT 25, 2023@15:09:07 AUTHOR: JERRY DIAZ COSIGNER: URGENCY: STATUS: COMPLETED VistA Imaging - Scanned Document SCANNED DOCUMENT SIGNATURE NOT REQUIRED Electronically Filed: 10/25/2023 by: ANDERS DIAZ School Bus Monitor ANDERS DIAZ CN[facility] WSTRAlexandra [place]
--- OUTSIDE RECORDS SUMMARY | 2024-03-11 13:04 | XMS_ITS ---
Author Name [facility] [place] Organization [facility] [place] Address [address] [place] [address] Care Team Providers Care Blocker And Cutter Contact Lens Name Role Phone VICKIEALEXANDER MCCRACKENYAJAIRADERICK Primary Care [...] PART A Feb 04, 2020 PART A [id number] [address] [facility] GRAC[facility]A STOVER PATIENT MEDICARE (WNR) MEDICARE (M) PART B Feb 04, 2020 PART B [id number] [address] [facility] GRACIELA STOVER PATIENT Selected Encounter This section includes the information on record at [place] for the Encounter. Date/Time Encounter Type Encounter Description Reason Pro vider Source Nov 22, 2023 12:26 PM Outpatient Encounter PRIMARY CARE/MEDICINE IHE Encounter [...] 27, 2023 01:30 PM AMBULATORY - MEDICINE [place] [place] [facility] Dec 22, 2023 01:45 PM AMBULATORY - MEDICINE [facility] [place] [facility] Jan 01, 2024 08:30 AM AMBULATORY - PSYCHIATRY [facility] Jan 08, 2024 11:00 AM AMBULATORY - PSYCHIATRY [facility] [place] [facility] Jan 08, 2024 01:30 PM AMBULATORY - MEDICINE [place] [facility] [place] [facility] Jan 22, 2024 11:00 AM AMBULATORY - PSYCHIATRY [facility] [place] [facility] Feb 05, 2024 02:00 PM AMBULATORY - PSYCHIATRY [facility] [place] [facility] Feb 19, 2024 09:00 AM AMBULATORY - MEDICINE [place] [facility] [facility] Feb 19, 2024 11:00 AM AMBULATORY - PSYCHIATRY [place] [facility] [place] [facility] Mar 01, 2024 01:30 PM AMBULATORY - MEDICINE [place] [facility] [place] [facility] Mar 04, 2024 03:00 PM AMBULATORY - MEDICINE [place] [facility] [place] [facility] Mar 18, 2024 11:00 AM AMBULATORY - PSYCHIATRY [facility] [place] [facility] Apr 01, 2024 09:00 AM AMBULATORY - MEDICINE [place] [facility] [place] [facility] Apr 01, 2024 11:00 AM AMBULATORY - PSYCHIATRY [place] [facility] [place] [facility] May 06, 2024 09:30 AM AMBULATORY - MEDICINE [facility] ([facility]) Lab Results: +/- 30 days of [...] Interpretation Reference Range Comment 2023 08:36 AM [place] ([facility]) LIPID PANEL FASTING Specimen Type: SERUM No comment entered. Ordering Provider: QUENTIN STOKES Report Released Date/Time: Nov 22, 2023 12:27 PM Reporting Lab: [facility] [address] [facility] [address] Performing Lab: [facility] [address] [facility] [address] CHOLESTEROL 127 mg/dL TRIGLYCERIDE 87 mg/dL 0-150 LDL calculated 76 mg/dL 0-129 CHOL/HDL 3.7 HDL CHOLESTEROL 34 mg/dL L 40-60 2023 08:36 AM [place] ([facility]) LIVER FUNCTION Specimen Type: SERUM No comment entered. Ordering Provider: QUENTIN STOKES Report Released Date/Time: Nov 22, 2023 12:27 PM Reporting Lab: [facility] [address] [facility] [address] Performing Lab: [facility] [address] [facility] [address] PROTEIN,TOTAL 7.1 g/dL 6.0-8.3 ALBUMIN 4.0 g/dL 3.5-5.0 ALKALINE PHOSPHATASE 90 U/L 40-150 AST 22 U/L 5-34 ALT 27 U/L BILIRUBIN, TOTAL 0.6 mg/dL 0.2-1.2 Nov 15, 2023 08:23 AM [facility] HEMOGLOBIN A1C PANEL Specimen Type: BLOOD [...] Sep 19, 2023 04:07 PM Reporting Lab: [facility] [address] [facility] [address] Performing Lab: [address] [address] HEMOGLOBIN A1C 6.9 H 4.0-5.6 Nov 15, 2023 08:23 AM [facility] BASIC METABOLIC PANEL (non-fasting) Specimen Type: SERUM No comment entered. Ordering Provider: ZORA GALICIA Report Released Date/Time: Sep 19, 2023 04:07 PM Reporting Lab: [facility] [address] [facility] [address] Performing Lab: [facility] [address] [facility] [address] UREA NITROGEN 34 mg/dL H 7-25 GLUCOSE [...] 19, 2020 02:29 PM VA-TOBACCO FORMER USER [facility] Tobacco Use History This section includes a history of the smoking, or tobacco-related health factors, that were collected on or before the date of the Encounter. The data comes from the [place] facility where the Encounter took place. Date/Time Smoking Status/Tobacco Use Comment F tess Aug 19, 2020 02:29 PM VA-TOBACCO QUIT 15 YRS OR MORE [facility] Encounter Notes: All associated encounter notes This section contains the clinical notes associated to the Encounter. Date/Time Encounter Note(s) Provider Source Nov 22, 2023 12:27 PM ADMINISTRATIVE NOT E: LOCAL TITLE: ADMINISTRATIVE NOTE STANDARD TITLE: ADMINISTRATIVE NOTE DATE OF NOTE: NOV 22, 2023@12:27 ENTRY DATE: NOV 22, 2023@12:27:26 AUTHOR: LIVAN LYMAN COSIGNER: URGENCY: STATUS: COMPLETED [place] presented to [facility] with lab orders from [facility] for the following lab work to be completed and results faxed to the office: Fasting lipid panel LFTs Diagnosis #1: I25.10 Atherosclerotic heart disease of [place] coronary artery without angina pectoris Diagnosis #2: E78.5 Hyperlipidemia, unspecified Please fax results to [address] @ [facility] [phone] This commercial loan underwriter ordered labs per lab requisition. /tam/ LIVAN LYMAN RN REGISTERED NURSE Signed: 11/22/2023 12:29 LIVAN LYMAN ([facility])
--- OUTSIDE RECORDS SUMMARY | 2024-03-11 13:05 | XMS_ITS | Encounter Summary ---
Author Name [facility] [place] Address [address] [place] [address] Care Team Providers Care Circus Artist Name Role Phone VICKIEALEXANDER MCCRACKENYAJAIRADERICK Primary Care [...] PART A Feb 04, 2020 PART A [id number] [address] [facility] GRACI[facility] STOVER PATIENT MEDICARE (WNR) MEDICARE (M) PART B Feb 04, 2020 PART B [id number] [address] [facility] GRACIELA STOVER PATIENT Selected Encounter This section includes the information on record at [place] for the Encounter. Date/Time Encounter Type Encounter Description Reason Pro vider Source Jan 22, 2024 10:14 AM Outpatient Encounter PRIMARY CARE/MEDICINE IHE Encounter [...] Date/Time Appointment Type Appointme nt Facility Name Feb 05, 2024 02:00 PM AMBULATORY - PS[place]IATRY [place] [facility] [place] [facility] Feb 19, 2024 09:00 AM AMBULATORY - MEDICINE [place] [facility] [place] [facility] Feb 19, 2024 11:00 AM AMBULATORY - PS[place]CHIATRY [place] [facility] [place] [facility] Mar 01, 2024 01:30 PM AMBULATORY - MEDICINE [place] [facility] [facility] Mar 04, 2024 03:00 PM AMBULATORY - MEDICINE [place] [facility] [facility] Mar 18, 2024 11:00 AM AMBULATORY - PSYCHIATRY [facility] [place] [facility] Apr 01, 2024 09:00 AM AMBULATORY - MEDICINE [place] [facility] [place] [facility] Apr 01, 2024 11:00 AM AMBULATORY - PS[place]CHIATRY [facility] [place] [facility] May 06, 2024 09:30 AM AMBULATORY - MEDICINE [facility] ([facility]) Lab Results: +/- 30 days of the encounter This section includes the Chemistry and Hematology Lab Results on record with [place] for the patient. Radiology Reports and Pathology Reports are provided separately, in subsequent sections. Lab Results This section contains the Chemistry/Hematology Results that were resulted 30 days before or 30 daysafter the date of the Encounter. Date/Time Source Result Type Result - Unit Interpretation Reference Range Comment Jan 16, 2024 08:05 AM [place] ([facility]) LIVER FUNCTION Specimen Type: SERUM No comment entered. Ordering Provider: MELL STOKES Report Released Date/Time: Jan 16, 2024 08:00 AM Reporting Lab: [place] [facility] [place] [facility] [address] [facility] [address] Performing Lab: [place] [facility] [place] [facility] [address] [facility] [address] PROTEIN,TOTAL 7.3 g/dL 6.0-8.3 ALBUMIN 4.0 g/dL 3.5-5.0 ALKALINE PHOSPHATASE 99 U/L 40-150 AST 16 U/L 5-34 ALT 26 U/L BILIRUBIN, TOTAL 0.5 mg/dL 0.2-1.2 Jan 16, 2024 08:05 AM [place] ([facility]) LIPID PANEL FASTING Specimen Type: SERUM No comment entered. Ordering Provider: MELL STOKES Report Released Date/Time: Jan 16, 2024 08:00 AM Reporting Lab: [facility] [address] Performing Lab: [facility] [address] [address] CHOLESTEROL 161 mg/dL TRIGLYCERIDE 150 mg/dL 0-150 LDL calculated 94 mg/dL 0-129 CHOL/HDL 4.4 HDL CHOLESTEROL 37 mg/dL L 40-60 Jan 16, 2024 08:05 AM [place] ([facility]) FERRITIN Specimen Type: SERUM No comment entered. Ordering Provider: MELL STOKES Report Released Date/Time: Oct 27, 2023 01:10 AM Reporting Lab: [facility] [address] [address] Performing Lab: [facility] [address] [address] FERRITIN 23 ng/mL 20-300 Jan 16, 2024 08:05 AM [place] ([facility]) TSH Specimen Type: SERUM No comment entered. Ordering Provider: MELL STOKES Report Released Date/Time: Oct 27, 2023 01:10 AM Reporting Lab: [facility] [address] [address] Performing Lab: [facility] [address] TSH 2.57 u[IU]/mL 0.35-5.00 Jan 16, 2024 08:05 AM [place] ([facility]) IRON & TIBC PANEL Specimen Type: SERUM No comment entered. Ordering Provider: MELL STOKES Report Released Date/Time: Oct 27, 2023 01:10 AM Reporting Lab: [facility] [address] [address] Performing Lab: [facility] [address] [address] TIBC 396 ug/dL 204-475 IRON 110 ug/dL 40-160 Transferrin Saturation 27.8 20.0-50.0 Transferrin (TRF) 300 mg/dL 200-360 Jan 16, 2024 08:05 AM [place] ([facility]) VITAMIN B12 Specimen Type: SERUM No comment entered. Ordering Provider: MELL STOKES Report Released Date/Time: Oct 27, 2023 01:10 AM Reporting Lab: [address] [address] Performing Lab: [address] [address] VITAMIN B12 893 pg/mL 200-900 Jan 16, 2024 08:05 AM [place] ([facility]) VITAMIN D (25-OH) Specimen Type: SERUM No comment entered. Ordering Provider: MELL STOKES Report Released Date/Time: Oct 27, 2023 01:10 AM Reporting Lab: [address] [address] Performing Lab: [address] [address] VITAMIN D (25-OH) 31 ng/mL 20-50 Jan 16, 2024 08:05 AM [place] ([facility]) LIVER FUNCTION Specimen Type: SERUM No comment entered. Ordering Provider: MELL STOKES Report Released Date/Time: Oct 27, 2023 01:10 AM Reporting Lab: [address] [address] Performing Lab: [address] [address] PROTEIN,TOTAL 7.2 g/dL 6.0-8.3 ALBUMIN 4.0 g/dL 3.5-5.0 ALKALINE PHOSPHATASE 98 U/L 40-150 AST 16 U/L 5-34 ALT 27 U/L BILIRUBIN, TOTAL 0.5 mg/dL 0.2-1.2 Jan 16, 2024 08:05 AM [place] ([facility]) BNP (Natriuretic Peptide Brain) Specimen Type: PLASMA No comment entered. Ordering Provider: MELL STOKES Report Released Date/Time: Oct 27, 2023 01:10 AM Reporting Lab: [facility] [address] [facility] [address] Performing Lab: [facility] [address] [facility] [facility] [address] BNP (Natriuretic Peptide Brain) 184 pg/mL H 10-100 Jan 16, 2024 08:05 AM [place] ([facility]) CBC AND DIFF (AUTO) Specimen Type: BLOOD No comment entered. Ordering Provider: MELL STOKES Report Released Date/Time: Oct 27, 2023 01:10 AM Reporting Lab: [facility] [address] [facility] [address] Performing Lab: [address] [address] WBC 6.05 10*3/uL 4.50-11.00 RBC 4.21 10*6/uL L 4.23-5.66 HGB 13.1 g/dL 12.8-17 HCT 39.1 L 39.2-50.4 MCV 92.9 fL 82-99 MCHC 33.5 g/dL 30.8-35.1 PLT 204 10*3/uL 140-360 RDW-CV 12.4 12.0-16.0 MONO, ABS 0.49 10*3/uL 0.30-1.10 MCH 31.1 pg 26.2-32.6 NEUT % 66.8 43.7-75.8 LYMPH % 20.7 14.0-42.3 MONO % 8.1 5.1-13.7 EOS % 3.6 0.4-6.8 BASO % 0.5 0.1-2.0 NEUT, ABS 4.04 10*3/uL 2.20-7.60 LYMPH, ABS 1.25 10*3/uL 1.00-3.20 EOS, ABS 0.22 10*3/uL 0.03-0.44 BASO, ABS 0.03 10*3/uL 0.01-0.13 IMMATURE GRAN % 0.3 0.0-0.7 IMMATURE GRAN, ABS 0.02 10*3/uL 0.00-0.06 NRBC % 0.0 0.0-0.0 NRBC, ABS 0.00 10*3/uL 0.00-0.00 Jan 16, 2024 08:05 AM [place] ([facility]) LIPID PANEL FASTING Specimen Type: SERUM No comment entered. Ordering Provider: MELL STOKES Report Released Date/Time: Oct 27, 2023 01:10 AM Reporting Lab: [facility] [address] [facility] [address] Performing Lab: [facility] [address] [facility] [address] CHOLESTEROL 159 mg/dL TRIGLYCERIDE 148 mg/dL 0-150 LDL calculated 92 mg/dL 0-129 CHOL/HDL 4.3 HDL CHOLESTEROL 37 mg/dL L 40-60 Social History: Smoking Status [...] 19, 2020 02:29 PM VA-TOBACCO FORMER USER [facility] Tobacco Use History This section includes a history of the smoking, or tobacco-related health factors, that were collected on or before the date of the Encounter. The data comes from the [place] facility where the Encounter took place. Date/Time Smoking Status/Tobacco Use Comment F tess Aug 19, 2020 02:29 PM VA-TOBACCO QUIT 15 YRS OR MORE [facility] Encounter Notes: All associated encounter notes This section contains the clinical notes associated to the Encounter. Date/Time Encounter Note(s) Provider Source Jan 22, 2024 10:15 AM NONVA NOTE: LOCAL TITLE: [place] MEDICAL RECORD SUMMARY STANDARD TITLE: NONVA NOTE DATE OF NOTE: JAN 22, 2024@10:15 ENTRY DATE: JAN 22, 2024@10:15:40 AUTHOR: LIVAN LYMAN EXP COSIGNER: URGENCY: STATUS: COMPLETED COPIED & PASTED FROM CARDIOLOGY NOTES [facility] Date of Encounter: 01/22/24 Author: Jyoti Upton, RACHEL Cardiology Shared Clinical Summary 1. Coronary artery disease with prior 6-vessel CABG; (MOORE to LAD, SVG to D1, SVG to D2, radial to OM, SVG to PDA, and PLV sequential), done 2015. With MADELIN x 2 to OM (07/2017). Chronic CP since. Some atypical, some more consistent with stable angina. Increased CP with hypertensive episodes. - Cardiac cath due to progressive angina 10/02/23 showing 80-85% stenosis in RCA treated with MADELIN. Chronically occluded LAD, mild to moderate LM, patent OM1 stent, 3/4 patent bypass grafts, chronically occluded vein graft to OM1, widely patent MOORE to LAD, vein graft to D1 and vein gtaft to D2. 2. Ischemic cardiomyopathy with an ejection fraction of 50% 3. Labile hypertension with orthostatic hypotension and syncope. 4. Dyslipidemia 5. AYANNA, intolerant of CPAP 6. Diabetes. Prev. not controlled, has kept it under good control the past couple of years. 7. Peripheral arterial disease. Right posterior tibial angioplasty June 2020. Dr. Barron 8. Chronic chest pain 9. Multiple medication intolerances 10. Atrial fibrillation, paroxysmal. New diagnosis 12/11/23. Seen Dr. Flood in consult. Plan for afib ablation likely around 2024. 11. CKD History of Present Illness/Interval History I am seeing Geovanny today in follow-up. He has been on increased dose to rosuvastatin 20 mg for a few months. His LDL is 94. His liver enzymes are normal. He continues to feel generally unwell. He has a lot of fatigue. He is getting brief A-fib episodes usually daily with heart rates up into the 130s and symptoms of tightness up his neck and then feels very exhausted after an episode where he has to lay down. He has his baseline musculoskeletal or nerve type chest discomfort. He has shortness of breath with walking longer distances or higher levels of exertion. He is not having dizziness or lightheadedness. In the past he had significant orthostatic hypotension on Imdur. He is not having any orthopnea, PND, or edema. He has noticed he has had quite a lot of phlegm and some coughing since his last stent. The Ranexa was started at that time as well and could be a side effect. He does not feel dramatically improved in any way since his last stent. He is not getting any less chest discomfort and his breathing is about the same. Assessment/Plan 1. A-fib Paroxysmal. Brief episodes, but rapid and symptomatic. Feels very fatigued after episode. Looking forward to ablation in the near future with Dr. Flood. 2. CAD (coronary artery disease) No consistent exertional chest pain. Exertional dyspnea is chronic (unchanged). Continues with atypical chronic neuropathic type chest pain. HLD (hyperlipidemia) Current LDL 94 on 20mg rosuvastatin. Plan to increase to 40mg daily. Recheck labs mid April 2024. Goal LDL 50-70. He has been having some leg cramping. Unsure if related to medication. If it worsens on increased dose, he will call and we could consider adding zetia to the 20 dose or PCSK9 inhibitor (but may need to trial zetia first anyway). Follow up with Dr. Kiser in 3 months with lipids prior. Outside lab order given [facility] PCP please order increased dose of Atorvastatin 40 mg daily This play writer added FASTING lipid panel for mid-April per lab order from cardiology office. Teams alert sent to provider. /tam/ LIVAN LYMAN RN REGISTERED NURSE Signed: 01/22/2024 10:18 Receipt Acknowledged By: * AWAITING SIGNATURE * WINDY STOKES,LIVAN COTTON ([place])
--- OUTSIDE RECORDS SUMMARY | 2024-03-11 13:05 | XMS_ITS | Encounter Summary ---
Author Name [facility] [place] Organization [facility] [place] Address [address] [place] [address] Care Team Providers Care Grants Specialist Name Role Phone ARLENELEXIS WINDY Primary Care [...] PART A Feb 04, 2020 PART A [id number] [facility]ACI[facility]A STOVER PATIENT MEDICARE (WNR) MEDICARE (M) PART B Feb 04, 2020 PART B [id number] [address] GRAC[facility]A STOVER PATIENT Selected Encounter This section includes the information on record at [place] for the Encounter. Date/Time Encounter Type Encounter Description Reason Pro vider Source Oct 08, 2023 12:00 AM Outpatient Encounter EVENT (HISTORICAL) IHE Encounter Template Text not used by [place] Plan of Treatment: Future Appointments (+ 6 [...] 26, 2023 11:30 AM AMBULATORY - MEDICINE [facility] ([facility]) Nov 09, 2023 11:20 AM AMBULATORY [...] 2024 08:30 AM AMBULATORY - PSYCHIATRY [facility] ([facility]) Jan 08, 2024 11:00 AM AMBULATORY [facility] [place] [facility] Jan 08, 2024 01:30 PM AMBULATORY - MEDICINE [facility] [place] [facility] Jan 22, 2024 11:00 AM AMBULATORY - [facility]CHIATRY [facility] [place] [facility] Feb 05, 2024 02:00 PM AMBULATORY - PS[facility]CHIATRY [facility] [place] [facility] Feb 19, 2024 09:00 AM AMBULATORY - MEDICINE [facility] [place] [facility] Feb 19, 2024 11:00 AM AMBULATORY - [facility]CHIATRY [facility] [place] [facility] Mar 01, 2024 01:30 PM AMBULATORY - MEDICINE [facility] [place] [facility] Mar 04, 2024 03:00 PM AMBULATORY - MEDICINE [facility] [place] [facility] Mar 18, 2024 11:00 AM AMBULATORY - PS[facility]CHIATRY [facility] [place] [facility] Apr 01, 2024 09:00 AM AMBULATORY - MEDICINE [facility] [place] [facility] Apr 01, 2024 11:00 AM AMBULATORY - PS[facility]CHIATRY [facility] [place] [facility] Lab Results: [...] Range Comment Sep 22, 2023 09:28 AM [facility] LIPID PANEL FASTING Specimen Type: SERUM No comment entered. Ordering Provider: SUBHASH GALICIA ICA Report Released Date/Time: Sep 19, 2023 03:09 PM Reporting Lab: [facility] [address] [address] Performing Lab: [facility] [address] [facility] [address] CHOLESTEROL 188 mg/dL TRIGLYCERIDE 181 mg/dL H 0-150 LDL calculated 118 mg/dL 0-129 CHOL/HDL 5.5 HDL CHOLESTEROL 34 mg/dL L 40-60 Social History: Smoking Status (Most current) and Tobacco Use (All prior to encounter date) This section includes the most current, and the historical, smoking and tobacco- related health factors from the [place] facility where the Encounter took place. Current Smoking Status This section includes the most current smoking, or tobacco-related health factor, from the [place] facility where the Encounter took place. Date/Time Current Smoking Status Comment Filemon [email or web address] Aug 19, 2020 02:29 PM VA-TOBACCO FORMER USER [facility] Tobacco Use History This section includes a history of the smoking, or tobacco-related health factors, that were collected on or before the date of the Encounter. The data comes from the [place] facility where the Encounter took place. Date/Time Smoking Status/Tobacco Use Comment F acmyke Aug 19, 2020 02:29 PM [place]-TOBACCO QUIT 15 YRS OR MORE [facility]
--- OUTSIDE RECORDS SUMMARY | 2024-03-11 13:05 | XMS_ITS | Encounter Summary ---
Author Name [facility] [place] Organization [facility] [place] [place] Address [address] [place] [address] Care Team Providers Care Paper Grader Name Role Phone VICKIEALEXANDER MCCRACKENYAJAIRADERICK Primary Care [...] PART A Feb 04, 2020 PART A [id number] [facility]AC[facility] STOVER PATIENT MEDICARE (WNR) MEDICARE (M) PART B Feb 04, 2020 PART B [id number] [facility] GRACI[facility]A STOVER PATIENT Selected Encounter This section includes the information on record at [place] for the Encounter. Date/Time Encounter Type Encounter Description Reason Provider Source Jan 08, 2024 11:00 AM PSYTX W PT 60 MINUTES [facility] - IND ICD-10-CM F43.23 Adjustment disorder with mixed anxiety and depressed mood SUNDAY HIGHTOWER Angélica Encounter Template Text not used by [place] Assessments - Encounter Diagnoses This section includes the primary and secondary diagnoses documented for the Encounter. Date/Time Primary/Secondary Diagnosis Diagnosis Name Provider Source Jan 09, 2024 11:42 AM PRIMARY Adjustment disorder with mixed anxiety and depressed mood SUNDAY HIGHTOWER ([facility]) Plan of Treatment: Future Appointments (+ 6 months) and Future Tests (+/- 45 days) The Plan of Treatment section includes future care activities for the [facility] [place] [facility] This section includes future appointments and future orders which are active, pending or scheduled. Future Appointments This section includes appointments that were scheduled to occur 6 months from the date of the Encounter, up to a maximum of 20 appointments. The data comes from all [place] treatment facilities. Appointment Date/Time Appointment Type Appointme nt Facility Name Jan 22, 2024 11:00 AM AMBULATORY - PS[facility]IATRY [facility] [place] [facility] Feb 05, 2024 02:00 PM AMBULATORY - PS[facility]CHIATRY [facility] [place] [facility] Feb 19, 2024 09:00 AM AMBULATORY - MEDICINE [facility] [place] [facility] Feb 19, 2024 11:00 AM AMBULATORY PSYCHIATRY [facility] [place] [facility] Mar 01, 2024 01:30 PM AMBULATORY MEDICINE [facility] [place] [facility] Mar 04, 2024 03:00 PM AMBULATORY MEDICINE [facility] [place] [facility] Mar 18, 2024 11:00 AM AMBULATORY PSYCHIATRY [facility] [place] [facility] Apr 01, 2024 09:[address] [facility] [place] [facility] Apr 01, 2024 11:00 AM AMBULATORY - PS[facility]CHIATRY [facility] [place] [facility] May 06, 2024 09:30 AM AMBULATORY - MEDICINE [facility] ([facility]) Lab Results: +/- 30 days of [...] Range Comment Jan 16, 2024 08:05 AM [facility] ([facility]) LIVER FUNCTION Specimen Type: SERUM No comment entered. Ordering Provider: MELL STOKES Report Released Date/Time: Jan 16, 2024 08:00 AM Reporting Lab: [facility] [place] [address] [address] Performing Lab: [address] [address] PROTEIN,TOTAL 7.3 g/dL 6.0-8.3 ALBUMIN 4.0 g/dL 3.5-5.0 ALKALINE PHOSPHATASE 99 U/L 40-150 AST 16 U/L 5-34 ALT 26 U/L BILIRUBIN, TOTAL 0.5 mg/dL 0.2-1.2 Jan 16, 2024 08:05 AM [facility] ([facility]) LIPID PANEL FASTING Specimen Type: SERUM No comment entered. Ordering Provider: MELL STOKES Report Released Date/Time: Jan 16, 2024 08:00 AM Reporting Lab: [address] [address] Performing Lab: [address] [address] CHOLESTEROL 161 mg/dL TRIGLYCERIDE 150 mg/dL 0-150 LDL calculated 94 mg/dL 0-129 CHOL/HDL 4.4 HDL CHOLESTEROL 37 mg/dL L 40-60 Jan 16, 2024 08:05 AM [facility] ([facility]) FERRITIN Specimen Type: SERUM No comment entered. Ordering Provider: MELL STOKES Report Released Date/Time: Oct 27, 2023 01:10 AM Reporting Lab: [address] [address] Performing Lab: [address] [address] FERRITIN 23 ng/mL 20-300 Jan 16, 2024 08:05 AM [facility] ([facility]) IRON & TIBC PANEL Specimen Type: SERUM No comment entered. Ordering Provider: MELL STOKES Report Released Date/Time: Oct 27, 2023 01:10 AM Reporting Lab: [address] [address] Performing Lab: [address] [address] TIBC 396 ug/dL 204-475 IRON 110 ug/dL 40-160 Transferrin Saturation 27.8 20.0-50.0 Transferrin (TRF) 300 mg/dL 200-360 Jan 16, 2024 08:05 AM [facility] ([facility]) TSH Specimen Type: SERUM No comment entered. Ordering Provider: MELL STOKES Report Released Date/Time: Oct 27, 2023 01:10 AM Reporting Lab: [address] [address] Performing Lab: [address] [address] TSH 2.57 u[IU]/mL 0.35-5.00 Jan 16, 2024 08:05 AM [facility] ([facility]) VITAMIN B12 Specimen Type: SERUM No comment entered. Ordering Provider: MELL STOKES Report Released Date/Time: Oct 27, 2023 01:10 AM Reporting Lab: [address] [address] Performing Lab: [address] [address] VITAMIN B12 893 pg/mL 200-900 Jan 16, 2024 08:05 AM [facility] ([facility]) LIVER FUNCTION Specimen Type: SERUM No comment entered. Ordering Provider: MELL STOKES Report Released Date/Time: Oct 27, 2023 01:10 AM Reporting Lab: [address] [address] Performing Lab: [address] [address] PROTEIN,TOTAL 7.2 g/dL 6.0-8.3 ALBUMIN 4.0 g/dL 3.5-5.0 ALKALINE PHOSPHATASE 98 U/L 40-150 AST 16 U/L 5-34 ALT 27 U/L BILIRUBIN, TOTAL 0.5 mg/dL 0.2-1.2 Jan 16, 2024 08:05 AM [facility] ([facility]) VITAMIN D (25-OH) Specimen Type: SERUM No comment entered. Ordering Provider: MELL STOKES Report Released Date/Time: Oct 27, 2023 01:10 AM Reporting Lab: [address] [address] Performing Lab: [facility] [address] [facility] [address] VITAMIN D (25-OH) 31 ng/mL 20-50 Jan 16, 2024 08:05 AM [facility] ([facility]) CBC AND DIFF (AUTO) Specimen Type: BLOOD No comment entered. Ordering Provider: MELL STOKES Report Released Date/Time: Oct 27, 2023 01:10 AM Reporting Lab: [facility] [address] [facility] [address] Performing Lab: [address] [address] WBC 6.05 10*3/uL 4.50-11.00 RBC 4.21 10*6/uL [...] 10*3/uL 0.00-0.00 Jan 16, 2024 08:05 AM [facility] ([facility]) BNP (Natriuretic Peptide Brain) Specimen Type: PLASMA No comment entered. Ordering Provider: MELL STOKES Report Released Date/Time: Oct 27, 2023 01:10 AM Reporting Lab: [address] [address] Performing Lab: [address] [address] BNP (Natriuretic Peptide Brain) 184 pg/mL H 10-100 Jan 16, 2024 08:05 AM [facility] ([facility]) LIPID PANEL FASTING Specimen Type: SERUM No comment entered. Ordering Provider: MELL STOKES Report Released Date/Time: Oct 27, 2023 01:10 AM Reporting Lab: [address] [address] Performing Lab: [address] [address] CHOLESTEROL 159 mg/dL TRIGLYCERIDE 148 mg/dL 0-150 [...] Date/Time Current Smoking Status Comment Filemon honeycutt Oct 26, 2023 11:30 AM [place]-TOBACCO QUIT 5 TO < 15 YRS [facility] ([facility]) Tobacco Use History This section includes a history of the smoking, or tobacco-related health factors, that were collected on or before the date of the Encounter. The data comes from the [place] facility where the Encounter took place. Date/Time Smoking Status/Tobacco Use Comment Ahsan pulido Oct 26, 2023 11:30 AM [place]-TOBACCO QUIT 5 TO < 15 YRS [facility] ([facility]) Nov 08, 2022 01:30 PM VA-TOBACCO FORMER USER [facility] ([facility]) Nov 08, 2022 01:30 PM [place]-TOBACCO QUIT 5 TO < 15 YRS [facility] ([facility]) Oct 18, 2021 10:30 AM VA-TOBACCO FORMER USER [facility] ([facility]) Oct 18, 2021 10:30 AM VA-TOBACCO QUIT 15 YRS OR MORE [facility] ([facility]) Sep 21, 2020 02:00 PM VA-TOBACCO FORMER USER [facility] ([facility]) Sep 21, 2020 02:00 PM VA-TOBACCO QUIT 15 YRS OR MORE [facility] ([facility]) Encounter Notes: All associated encounter notes This section contains the clinical notes associated to the Encounter. Date/Time Encounter Note(s) Provider Source Feb 08, 2024 08:59 AM MENTAL HEALTH NOTE : LOCAL TITLE: MHTC BH CC ASSIGNMENT STANDARD TITLE: MENTAL HEALTH NOTE DATE OF NOTE: FEB 08, 2024@08:59 ENTRY DATE: FEB 08, 2024@08:59:30 AUTHOR: SUNDAY HIGHTOWER EXP COSIGNER: URGENCY: STATUS: COMPLETED Mental Health Regional Sales Consultant Assignment Initial Assignment The name of the [place]'s new Mental Health Regional Sales Consultant (MHTC) is: MHTC Name: Sunday Hightower MHTC Contact Information: [id number] This note documents the INITIAL ASSIGNMENT of the [facility]' Mental Health Regional Sales Consultant (MHTC) on Feb. The assignment of the MHTC and information about the role of the MHTC in the [place]'s mental health care was discussed with the [place] who verbally concurred with the INITIAL ASSIGNMENT. The MHTC's contact information was provided to the in writing or verbally with encouragement to the to document in writing. /tam/ YARELY IRELAND Assistant City AttorneyHalle Lynch [facility] Signed: 02/08/2024 09:00 SUNDAY HIGHTOWER ([facility]) Jan 09, 2024 11:40 AM SOCIAL WORK CONSUL T: LOCAL TITLE: CONSULT REPORT/SOCIAL WORK STANDARD TITLE: SOCIAL WORK CONSULT DATE OF NOTE: JAN 09, 2024@11:40 ENTRY DATE: JAN 09, 2024@11:40:47 AUTHOR: SUNDAY HIGHTOWER EXP COSIGNER: URGENCY: STATUS: COMPLETED Consult completed on January 08 2024 by IMANI Wang. Please see note. /tam/ YARELY IRELAND [facility] Signed: 01/09/2024 11:41 SUNDAY HIGHTOWER ([facility]) Jan 08, 2024 02:34 PM SOCIAL WORK NOTE: LOCAL TITLE: SOCIAL WORK NOTE STANDARD TITLE: SOCIAL WORK NOTE DATE OF NOTE: JAN 08, 2024@14:34 ENTRY DATE: JAN 08, 2024@14:34:33 AUTHOR: JUANA MARSHALL COSIGNER: SUNDAY HIGHTOWER URGENCY: STATUS: COMPLETED SOCIAL WORK NOTE Has ADDENDA INFORMED CONSENT REVIEWED: At beginning of session reviewed rights and limits of confidentiality, mandatory reporting situations, duty to warn and protect, Ng Warning, (if treatment team finds patient to be an acute danger to himself or others, that this information could be relayed to a court of law and presented to a teller coordinator), and 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 Provided Suicide Prevention Hotline number, and other contact numbers as necessary. VISIT DURATION 60 minutes identified with 2 identifiers: Full Name, Facial Recognition DIAGNOSES: Adjustment disorder, Assess for PTSD [employer] STATEMENT OF GOALS/CONCERNS: was encouraged to seek out individual therapy by his primary doctor to make sure he is in a good headspace as he navigates medical appointments/procedures. has reservations about mental health system and is unsure of what specific goals he would like to set for therapy. [place] would like to receive supportive therapy. SESSION FOCUS: shared background information with SW Basket Hand Weaver about his childhood and circumstances leading to his enlistment. shared that he worried about pleasing everyone his whole life, and a few years ago he set boundaries with his family of origin 9bio mother and stepfather). shared he had a rough upbringing , he would be called disparaging names, and that there was a lot of shaming , and being told that he deserved what was happening at the time. shared feeling anxious before coming to the meeting about having to talk about his childhood. SW Basket Hand Weaver encouraged him to only share what he feels comfortable sharing and that it is okay to not share if he so wishes. Juan Diego found a sense of family in the . He keeps in touch with one friend from the who lives in [place]. has 2 identical twin sons in their 30s, they keep in touch, but are not too close. Reading is still to of 30 years, but they have been and now has a girlfriend of 4 years. stated they live together, but more out of financial need, and if he had more means they would probably go their own way. 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 The farm job and the relationship with his boss is a source of stress. Reading had two heart attacks in the past and believes the farm job is partly responsible for those. does not have much free time and mostly works. 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 feels proud of obtaining a high school diploma while he was in the and working really hard through it. INTERVENTIONS: Psychotherapeutic Interventions: Assisted client in identifying benefits of individual therapy. Assisted client in labeling feelings related to navigating medical appointments/diagnosis. Gathered information about client's background/goals. Psychoeducation reviewed: Use of therapy, social work professionals, impact of childhood experiences. Skills reviewed: breathing exercises for stress management. ASSESSMENT: BRIEF ASSESSMENT OF MENTAL STATUS: 1. Appearance (grooming, attire, apparent age) within normal limits: Yes 2. Thought content was organized and goal directed: Yes 3. Speech was coherent and unimpaired: Yes 4. Affect was appropriate and unremarkable: Yes 5. Demeanor was calm, with no signs of agitation or restlessness: Yes 6. Sleep was largely unimpaired and restful: Yes 7. No evidence of psychosis (hallucinations or delusions): Yes 8. Mood was normal: Yes Other Observations: RISK ASSESSMENT: Denies current suicidal/homicidal ideation PLAN FOR FOLLOW-UP: bi-weekly indiv meetings Mondays at 11 or 9 Continue to assess for PTSD Next session planned for: Monday 11:00 am Additional notes regarding scheduling or plan: Try to keep on Mondays Other Scheduled visits: Future Clinic Visits 02/19/2024 09:00 CWM/NO/WOUND PROV A 03/01/2024 13:30 CWM/NO/PHARM/PACT 3 05/06/2024 09:30 CWM/GO/PACT 4 /es/ NOEMY MCGRATH SOCIAL WORK ACTIONSCRIPT DEVELOPER Signed: 01/08/2024 15:02 /es/ YARELY IRELAND Assistant City AttorneyHalle [facility] Cosigned: 01/09/2024 11:40 01/09/2024 ADDENDUM STATUS: COMPLETED I have reviewed this case and concur with the clinical impressions and recommendations made by this trainee who is under my clinical supervision.Die Attacher was fully accessible to the student during the encounter. is seeking individual therapy for Adjustment D/o due to medical condition. R/O PTSD. Student will conduct weekly therapy sessions. /tam/ YARELY IRELAND Assistant City AttorneyHalle [facility] Signed: 01/09/2024 11:44 NOEMY MARSHALL ([facility])
--- OUTSIDE RECORDS SUMMARY | 2024-03-11 13:05 | XMS_ITS ---
Author Name [facility] [place] [facility] [place] Organization [place] Address [address] [place] [address] Care Team Providers Care Lumpia Wrapper Maker Name Role Phone KIKE WINDY Primary Care [...] PART A Feb 04, 2020 PART A [id number] GRACIELA STOVER PATIENT MEDICARE (WNR) MEDICARE (M) PART B Feb 04, 2020 PART B [id number] [address] GRACIELA STOVER PATIENT Selected Encounter This section includes the information on record at [place] for the Encounter. Date/Time Encounter Type Encounter Description Reason Provider Source Jan 08, 2024 01:30 PM OFFICE O/P EST MOD 30 MIN PODIATRY ICD-10-CM E11.621 Type 2 diabetes mellitus with foot ulcer YUNIOR MAY Encounter Template Text not used by [place] Assessments - Encounter Diagnoses This section includes the primary and secondary diagnoses documented for the Encounter. Date/Time Primary/Secondary Diagnosis Diagnosis Name Provider Source Jan 08, 2024 04:27 PM PRIMARY Type 2 diabetes mellitus with foot ulcer LUDY MAY [facility] [place] [facility] Jan 08, 2024 04:27 PM SECONDARY Acquired deformities of toe(s), unspecified, left foot LUDY MAY [facility] [place] [facility] Jan 08, 2024 04:27 PM SECONDARY Type 2 diabetes mellitus with oth circulatory complications LUDY MAY [facility] [place] [facility] Jan 08, 2024 04:27 PM SECONDARY Type 2 diabetes w diabetic autonomic (poly)neuropathy [facility] [place] [facility] Plan of Treatment: Future Appointments (+ 6 months) and Future Tests (+/- 45 days) The Plan of Treatment section includes [facility] care [facility] the [facility] This section includes future appointments and [...] 22, 2024 11:00 AM AMBULATORY - PSYCHIATRY [facility] [place] [facility] Feb 05, 2024 02:00 PM AMBULATORY - PSYCHIATRY [facility] [place] [facility] Feb 19, 2024 09:00 AM AMBULATORY - MEDICINE [facility] [place] [facility] Feb 19, 2024 11:00 AM AMBULATORY - PSYCHIATRY [facility] [place] [facility] Mar 01, 2024 01:30 PM AMBULATORY - MEDICINE [facility] [place] [facility] Mar 04, 2024 03:00 PM AMBULATORY - MEDICINE [facility] [place] [facility] Mar 18, 2024 11:00 AM AMBULATORY - PSYCHIATRY [facility] [place] [facility] Apr 01, 2024 09:00 AM AMBULATORY - MEDICINE [facility] [place] [facility] Apr 01, 2024 11:00 AM AMBULATORY - PSYCHIATRY [facility] [place] [facility] May 06, 2024 09:30 AM AMBULATORY - MEDICINE [facility] ([facility]) Lab Results: +/- 30 days [...] Range Comment Jan 16, 2024 08:05 AM [place] ([facility]) LIVER FUNCTION Specimen Type: SERUM No comment entered. Ordering Provider: MELL STOKES Report Released Date/Time: Jan 16, 2024 08:00 AM Reporting Lab: [address] [address] Performing Lab: [address] [address] PROTEIN,TOTAL 7.3 g/dL 6.0-8.3 ALBUMIN 4.0 g/dL 3.5-5.0 ALKALINE PHOSPHATASE 99 U/L 40-150 AST 16 U/L 5-34 ALT 26 U/L BILIRUBIN, TOTAL 0.5 mg/dL 0.2-1.2 Jan 16, 2024 08:05 AM [place] ([facility]) LIPID PANEL FASTING Specimen Type: SERUM No comment entered. Ordering Provider: MELL STOKES Report Released Date/Time: Jan 16, 2024 08:00 AM Reporting Lab: [address] [address] Performing Lab: [address] [address] CHOLESTEROL 161 mg/dL TRIGLYCERIDE 150 mg/dL 0-150 LDL calculated 94 mg/dL 0-129 CHOL/HDL 4.4 HDL CHOLESTEROL 37 mg/dL L 40-60 Jan 16, 2024 08:05 AM [place] ([facility]) FERRITIN Specimen Type: SERUM No comment entered. Ordering Provider: MELL STOKES Report Released Date/Time: Oct 27, 2023 01:10 AM Reporting Lab: [address] [address] Performing Lab: [address] [address] FERRITIN 23 ng/mL 20-300 Jan 16, 2024 08:05 AM [place] ([facility]) TSH Specimen Type: SERUM No comment entered. Ordering Provider: MELL STOKES Report Released Date/Time: Oct 27, 2023 01:10 AM Reporting Lab: [facility] [address] [address] Performing Lab: [facility] [address] [address] TSH 2.57 u[IU]/mL 0.35-5.00 Jan 16, 2024 08:05 AM [place] ([facility]) IRON & TIBC PANEL Specimen Type: SERUM No comment entered. Ordering Provider: MELL STOKES Report Released Date/Time: Oct 27, 2023 01:10 AM Reporting Lab: [facility] [address] [address] Performing Lab: [facility] [address] [address] TIBC 396 ug/dL 204-475 IRON 110 ug/dL 40-160 Transferrin Saturation 27.8 20.0-50.0 Transferrin (TRF) 300 mg/dL 200-360 Jan 16, 2024 08:05 AM [place] ([facility]) VITAMIN B12 Specimen Type: SERUM No comment entered. Ordering Provider: MELL STOKES Report Released Date/Time: Oct 27, 2023 01:10 AM Reporting Lab: [facility] [address] [address] Performing Lab: [facility] [address] VITAMIN B12 893 pg/mL 200-900 Jan 16, 2024 08:05 AM [place] ([facility]) VITAMIN D (25-OH) Specimen Type: SERUM No comment entered. Ordering Provider: MELL STOKES Report Released Date/Time: Oct 27, 2023 01:10 AM Reporting Lab: [facility] [address] [address] Performing Lab: [facility] [address] [address] VITAMIN D (25-OH) 31 ng/mL 20-50 Jan 16, 2024 08:05 AM [place] ([facility]) LIVER FUNCTION Specimen Type: SERUM No comment entered. Ordering Provider: MELL STOKES Report Released Date/Time: Oct 27, 2023 01:10 AM Reporting Lab: [address] [address] Performing Lab: [address] [address] PROTEIN,TOTAL 7.2 g/dL 6.0-8.3 ALBUMIN 4.0 g/dL 3.5-5.0 ALKALINE PHOSPHATASE 98 U/L 40-150 AST 16 U/L 5-34 ALT 27 U/L BILIRUBIN, TOTAL 0.5 mg/dL 0.2-1.2 Jan 16, 2024 08:05 AM [place] ([facility]) BNP (Natriuretic Peptide Brain) Specimen Type: PLASMA No comment entered. Ordering Provider: MELL STOKES Report Released Date/Time: Oct 27, 2023 01:10 AM Reporting Lab: [address] [address] Performing Lab: [address] [address] BNP (Natriuretic Peptide Brain) 184 pg/mL H 10-100 Jan 16, 2024 08:05 AM [place] ([facility]) CBC AND DIFF (AUTO) Specimen Type: BLOOD No comment entered. Ordering Provider: MELL STOKES Report Released Date/Time: Oct 27, 2023 01:10 AM Reporting Lab: [address] [address] Performing Lab: [address] [address] WBC 6.05 10*3/uL 4.50-11.00 RBC 4.21 10*6/uL [...] 10*3/uL 0.00-0.00 Jan 16, 2024 08:05 AM [place] ([facility]) LIPID PANEL FASTING Specimen Type: SERUM No comment entered. Ordering Provider: MELL STOKES Report Released Date/Time: Oct 27, 2023 01:10 AM Reporting Lab: [address] [address] Performing Lab: [address] [address] CHOLESTEROL 159 mg/dL TRIGLYCERIDE 148 mg/dL 0-150 [...] 2020 02:29 PM VA-TOBACCO FORMER USER [facility] Tobacco Use History This section includes a history of the smoking, or tobacco-related health factors, that were collected on or before the date of the Encounter. The data comes from the [place] facility where the Encounter took place. Date/Time Smoking Status/Tobacco Use Comment F acility Aug 19, 2020 02:29 PM [place]-TOBACCO QUIT 15 YRS OR MORE [place] [facility] [place] [facility] Encounter Notes: All associated encounter notes This section contains the clinical notes associated to the Encounter. Date/Time Encounter Note(s) Provider Source Jan 08, 2024 01:53 PM PODIATRY NOTE: LOCAL TITLE: PODIATRY NOTE STANDARD TITLE: PODIATRY NOTE DATE OF NOTE: JAN 08, 2024@13:53 ENTRY DATE: JAN 08, 2024@13:53:59 AUTHOR: YUNIOR MAY EXP COSIGNER: URGENCY: STATUS: COMPLETED Podiatry High Risk Foot Encounter [employer] provider: Yunior May DPM Date: Jan 08, 2024 DEIRDRE STOVER MALE [id number] [employer] FROM July TO Jan Primary Care:WINDY STOKES last seen nov 2023. History of chief complaint: Patient is a diabetic male with peripheral vascular disease cardiovascular disease who has had several peripheral vascular stents placed and more recently another cardiac stent placed ever having a small IA over the summer since last visit. Patient also is status post right second toe partial toe amputation performed at [facility] by vascular surgeon Dr. Barron. This was well-healed at last visit Patient was given consult to [facility] for custom fit diabetic inserts for which he was made 3 pair-initially they were comfortable but within a very short period of time they felt like they were paperthin and not giving him any protection. Patient was complaining of episodic tachycardia with heart rates episodically in the 110s to 112 range. Heart rate last time at clinic side was 64 blood pressure was 170/92 He went to see his filling operator on Monday after last visit and is now anticoagulated for A fib. He is presently not complaining of any fever chills nausea vomiting or any drainage or weeping from feet. But did attempt self nail care before nov clinic ava. and caused a small nailbed injury on his right hallux and right third toe. This has since healed. Diabetic/ HRF/ PVD LE History: [X] pvd [X] pvd interventions [X] neuropathy [ ] meds: [ ] wound active [ ] infection active [X] wound history yes [X] amputation hx [X] deformity [ ] charcot [ ] surgical deformity intervention PMH list CPRS: Active problems - Computerized Problem List is the source for the followin. Clear cell carcinoma of kidney 2. Anemia ([facility] [id number]) 3. CAD - Coronary Artery Disease ([facility] [id number]) 4. Diabetes Mellitus Type 2 ([facility] [id number]) 5. HTN - Hypertension ([facility] [id number]) 6. Hyperlipidemia ([facility] [id number]) 7. GERD - Gastro-Esophageal Reflux Disease ([facility] [id number]) 8. Chronic Kidney Disease Stage 3 ([facility] [id number]) 9. H/O: Deep Vein Thrombosis ([facility] [id number]) 10. Peripheral Vascular Disease ([facility] [id number]) 11. Foot Ulcer ([facility] [id number]) 12. Osteomyelitis ([facility] [id number]) Active Out Patient medications: Active Outpatient Medications [...] the distal aspect of the second toe parred down to intact tissue Left hallux with high-pressure callus with hemorrhagic material within the callus at the IP joint pared down to shallow 2mm x 2mm wound 0mm depth no fat tendon bone , bas pink no tunnel underminning. Webs clear Plantar feet without calluses of [...] high risk for recurrent ulceration and possible amputation. Pave 3 high risk Plan: -Debrided ulcer left hallux today, dressed with bacitracin Band-Aid -Patient to continue same daily until next visit -Debrided nails for right 5 left today without incident -Pa-Orthotics contracted through [facility] are really no good or not thick enough, do not provide enough shock absorption and are not supportive enough. -Had given patient apex gel insoles for better cushioning-he felt they were painful also. so not wearing anything in foot wear. -will consult Daniel bowles for dm trilam inserts and foot wear boot. Recall:4 weeks Return sooner if any clinical signs of [...] as results of the physical exam and solutions sales consultant opinions and recommendations as sought. Alternatives [...] -The on this visit was given information fishfishme service and encouraged to enroll if not already having done so. /tam/ YUNIOR MAY DPM PODIATRY ATTENDING Signed: 01/08/2024 16:27 YUNIOR MAY [facility]
--- OUTSIDE RECORDS SUMMARY | 2024-03-11 13:05 | XMS_ITS | Encounter Summary ---
Author Name [facility] [place] Organization [place] Address [address] [place] [address] Care Team Providers Care Type Inspector Name Role Phone VICKIEALEXANDER MCCRACKENYAJAIRADERICK Primary Care [...] PART A Feb 04, 2020 PART A [id number] [address] GRACIELA STOVER PATIENT MEDICARE (WNR) MEDICARE (M) PART B Feb 04, 2020 PART B [id number] [address] [facility] GRACIELA STOVER PATIENT Selected Encounter This section includes the information on record at [place] for the Encounter. Date/Time Encounter Type Encounter Description Reason Pro vider Source Dec 19, 2023 01:45 PM Outpatient Encounter PRIMARY CARE/MEDICINE [facility] Encounter Template Text not used by [place] Plan of Treatment: Future Appointments (+ 6 [...] 20 appointments. The data comes from all [place] treatment facilities. Appointment Date/Time Appointment Type Appointme nt Facility Name Dec 22, 2023 01:45 PM AMBULATORY - [place]ICINE [place] [facility] [place] [facility] Jan 01, 2024 08:30 AM AMBULATORY - PSYCHIATRY [facility] Jan 08, 2024 11:00 AM AMBULATORY - PS[facility]CHIATRY [facility] [place] [facility] Jan 08, 2024 01:30 PM AMBULATORY - MEDICINE [facility] [place] [facility] Jan 22, 2024 11:00 AM AMBULATORY - PSYCHIATRY [facility] [place] [facility] Feb 05, 2024 02:00 PM AMBULATORY - PSYCHIATRY [facility] [place] [facility] Feb 19, 2024 09:00 AM AMBULATORY - MEDICINE [place] [facility] [place] [facility] Feb 19, 2024 11:00 AM AMBULATORY - PSYCHIATRY [facility] [place] [facility] Mar 01, 2024 01:30 PM AMBULATORY - MEDICINE [place] [facility] [place] [facility] Mar 04, 2024 03:00 PM AMBULATORY - MEDICINE [place] [facility] [place] [facility] Mar 18, 2024 11:00 AM AMBULATORY - PSYCHIATRY [place] [facility] [place] [facility] Apr 01, 2024 09:00 AM AMBULATORY - MEDICINE [place] [facility] [place] [facility] Apr 01, 2024 11:00 AM AMBULATORY - PSYCHIATRY [place] [facility] [place] [facility] May 06, 2024 09:30 AM AMBULATORY - MEDICINE [facility] ([facility]) Lab Results: +/- 30 days of the encounter This section includes the Chemistry and Hematology Lab Results on record with [place] for the patient. Radiology Reports and Pathology Reports are provided separately, in subsequent sections. Lab Results This section contains the Chemistry/Hematology Results that were resulted 30 days before or 30 daysafter the date of the Encounter. Date/Time Source Result Type Result - Unit Interpretation Reference Range Comment Jan 16, 2024 08:05 AM [place] ([facility]) LIVER FUNCTION Specimen Type: SERUM No comment entered. Ordering Provider: MELL STOKES Report Released Date/Time: Jan 16, 2024 08:00 AM Reporting Lab: [facility] [place] [facility] [address] [place] [address] Performing Lab: [facility] [address] [address] PROTEIN,TOTAL 7.3 g/dL 6.0-8.3 ALBUMIN 4.0 g/dL 3.5-5.0 ALKALINE PHOSPHATASE 99 U/L 40-150 AST 16 U/L 5-34 ALT 26 U/L BILIRUBIN, TOTAL 0.5 mg/dL 0.2-1.2 Jan 16, 2024 08:05 AM [place] ([facility]) LIPID PANEL FASTING Specimen Type: SERUM No comment entered. Ordering Provider: MELL STOKES Report Released Date/Time: Jan 16, 2024 08:00 AM Reporting Lab: [address] [address] Performing Lab: [address] [address] CHOLESTEROL 161 mg/dL TRIGLYCERIDE 150 mg/dL 0-150 LDL calculated 94 mg/dL 0-129 CHOL/HDL 4.4 HDL CHOLESTEROL 37 mg/dL L 40-60 Jan 16, 2024 08:05 AM [place] ([facility]) FERRITIN Specimen Type: SERUM No comment entered. Ordering Provider: MELL STOKES Report Released Date/Time: Oct 27, 2023 01:10 AM Reporting Lab: [address] [address] Performing Lab: [address] [address] FERRITIN 23 ng/mL 20-300 Jan 16, 2024 08:05 AM [facility] ([facility]) IRON & TIBC PANEL Specimen Type: SERUM No comment entered. Ordering Provider: MELL STOKES Report Released Date/Time: Oct 27, 2023 01:10 AM Reporting Lab: [address] [address] Performing Lab: [address] [address] TIBC 396 ug/dL 204-475 IRON 110 ug/dL 40-160 Transferrin Saturation 27.8 20.0-50.0 Transferrin (TRF) 300 mg/dL 200-360 Jan 16, 2024 08:05 AM [facility] ([facility]) TSH Specimen Type: SERUM No comment entered. Ordering Provider: MELL STOKES Report Released Date/Time: Oct 27, 2023 01:10 AM Reporting Lab: [address] [address] Performing Lab: [address] [address] TSH 2.57 u[IU]/mL 0.35-5.00 Jan 16, 2024 08:05 AM [facility] ([facility]) VITAMIN B12 Specimen Type: SERUM No comment entered. Ordering Provider: MELL STOKES Report Released Date/Time: Oct 27, 2023 01:10 AM Reporting Lab: [address] [address] Performing Lab: [address] [address] VITAMIN B12 893 pg/mL 200-900 Jan 16, 2024 08:05 AM [facility] ([facility]) LIVER FUNCTION Specimen Type: SERUM No comment entered. Ordering Provider: MELL STOKES Report Released Date/Time: Oct 27, 2023 01:10 AM Reporting Lab: [address] [address] Performing Lab: [address] [address] PROTEIN,TOTAL 7.2 g/dL 6.0-8.3 ALBUMIN 4.0 g/dL 3.5-5.0 ALKALINE PHOSPHATASE 98 U/L 40-150 AST 16 U/L 5-34 ALT 27 U/L BILIRUBIN, TOTAL 0.5 mg/dL 0.2-1.2 Jan 16, 2024 08:05 AM [facility] ([facility]) VITAMIN D (25-OH) Specimen Type: SERUM No comment entered. Ordering Provider: MELL STOKES Report Released Date/Time: Oct 27, 2023 01:10 AM Reporting Lab: [address] [place] [address] Performing Lab: [address] [address] VITAMIN D (25-OH) 31 ng/mL 20-50 Jan 16, 2024 08:05 AM [facility] ([facility]) CBC AND DIFF (AUTO) Specimen Type: BLOOD No comment entered. Ordering Provider: MELL STOKES Report Released Date/Time: Oct 27, 2023 01:10 AM Reporting Lab: [address] [address] Performing Lab: [address] [address] WBC 6.05 10*3/uL 4.50-11.00 RBC 4.21 10*6/uL [...] 10*3/uL 0.00-0.00 Jan 16, 2024 08:05 AM [facility] ([facility]) BNP (Natriuretic Peptide Brain) Specimen Type: PLASMA No comment entered. Ordering Provider: MELL STOKES Report Released Date/Time: Oct 27, 2023 01:10 AM Reporting Lab: [facility] [address] [facility] [address] Performing Lab: [facility] [address] [address] BNP (Natriuretic Peptide Brain) 184 pg/mL H 10-100 Jan 16, 2024 08:05 AM [facility] ([facility]) LIPID PANEL FASTING Specimen Type: SERUM No comment entered. Ordering Provider: MELL STOKES Report Released Date/Time: Oct 27, 2023 01:10 AM Reporting Lab: [facility] [address] [address] Performing Lab: [facility] [address] [address] CHOLESTEROL 159 mg/dL TRIGLYCERIDE 148 mg/dL 0-150 LDL calculated 92 mg/dL 0-129 CHOL/HDL 4.3 HDL CHOLESTEROL 37 mg/dL L 40-60 2023 08:36 AM [place] ([facility]) LIPID PANEL FASTING Specimen Type: SERUM No comment entered. Ordering Provider: MELL STOKES Report Released Date/Time: Nov 22, 2023 12:27 PM Reporting Lab: [facility] [address] [address] Performing Lab: [facility]RN [facility] [address] CHOLESTEROL 127 mg/dL TRIGLYCERIDE 87 mg/dL 0-150 LDL calculated 76 mg/dL 0-129 CHOL/HDL 3.7 HDL CHOLESTEROL 34 mg/dL L 40-60 2023 08:36 AM [place] ([facility]) LIVER FUNCTION Specimen Type: SERUM No comment entered. Ordering Provider: MELL STOKES Report Released Date/Time: Nov 22, 2023 12:27 PM Reporting Lab: [facility] TRN [address] [address] Performing Lab: [facility] [address] [facility] [address] PROTEIN,TOTAL 7.1 g/dL 6.0-8.3 ALBUMIN 4.0 g/dL 3.5-5.0 ALKALINE PHOSPHATASE 90 U/L 40-150 AST 22 U/L 5-34 ALT 27 U/L BILIRUBIN, TOTAL 0.6 mg/dL 0.2-1.2 Social History: Smoking Status (Most current) and Tobacco Use (All prior to encounter date) This section includes the most current, and the historical, smoking and tobacco- related health factors from the [place] facility where the Encounter took place. Current Smoking Status This section includes the most current smoking, or tobacco-related health factor, from the [place] facility where the Encounter took place. Date/Time Current Smoking Status Comment Facil ity Aug 19, 2020 02:29 PM VA-TOBACCO FORMER USER [facility] Tobacco Use History This section includes a history of the smoking, or tobacco-related health factors, that were collected on or before the date of the Encounter. The data comes from the [place] facility where the Encounter took place. Date/Time Smoking Status/Tobacco Use Comment F acility Aug 19, 2020 02:29 PM VA-TOBACCO QUIT 15 YRS OR MORE [facility] Encounter Notes: All associated encounter notes This section contains the clinical notes associated to the Encounter. Date/Time Encounter Note(s) Provider Source Dec 19, 2023 01:45 PM PRIMARY CARE NOTE: LOCAL TITLE: WALK-IN NOTE PRIMARY CARE (T) STANDARD TITLE: PRIMARY CARE NOTE DATE OF NOTE: DEC 19, 2023@13:45 ENTRY DATE: DEC 19, 2023@13:45:07 AUTHOR: ARCHIE THOMPSON EXP COSIGNER: URGENCY: STATUS: COMPLETED WALK-IN NOTE PRIMARY CARE (T) Has ADDENDA <====Click to Start Advanced Medical Support presents to the Primary Care clinic with the following request: [ ]Medication Renewal/Refill [ ]Consultation with Team RN [ ]Symptoms [ X ]Other The states they are: [ ]Waiting [ X ]Not Waiting No Walk in visit scheduled with PACT Nurse [ X ] At this encounter the [place]'s demographics were verified. [ X ] At this encounter the 's Insurance information was verified. [ X ] At this encounter the below scheduled visits for the [place] were discussed and appointment reminder card was offered. Future appointments: 01/08/2024 13:30 CWM/NO/WOUND PROV A 03/01/2024 13:30 CWM/NO/PHARM/PACT 3 05/06/2024 09:30 CWM/GO/PACT 4 IS REQUESTING A MENTAL HEALTH CONSULT PLEASE /es/ SUSAN BARRON Signed: 12/19/2023 13:46 Receipt Acknowledged By: 12/19/2023 14:21 /es/ KATHRYN MARIE LPN LICENSED PRACTICAL NURSE 12/19/2023 13:57 /es/ ALEENA RODRIGUEZ,RN-BC REGISTERED NURSE (RN) for GINO DUBON 12/19/2023 ADDENDUM STATUS: COMPLETED Consult has been placed and held for provider to review and sign if appropriate. /tam/ ALEENA RODRIGUEZ,RN-BC REGISTERED NURSE (RN) Signed: 12/19/2023 13:59 12/19/2023 ADDENDUM STATUS: COMPLETED PC-[facility] INTEGRATION/SPOPC OUTPT Cons [employer] Buyer's Choice *UNSIGNED has been placed. /tam/ ALEENA RODRIGUEZ,RN-BC REGISTERED NURSE (RN) Signed: 12/19/2023 14:10 SHELLI THOMPSON ([facility])
--- OUTSIDE RECORDS SUMMARY | 2024-03-11 13:05 | XMS_ITS | Encounter Summary ---
Author Name [facility] [place] Organization [place] Address [address] [place] [address] Care Team Providers Care Entry Level Marketing Representative Name Role Phone VICKIEALEXANDER MCCRACKENYAJAIRADERICK Primary Care [...] PART A Feb 04, 2020 PART A [id number] [address] [facility] PATIENT MEDICARE (WNR) MEDICARE (M) PART B Feb 04, 2020 PART B [id number] [facility] [facility] GRACI[facility]A STOVER PATIENT Selected Encounter This section includes the information on record at [place] for the Encounter. Date/Time Encounter Type Encounter Description Reason Provider Source Jan 22, 2024 11:00 AM PSYTX W PT 60 MINUTES [facility] - IND ICD-10-CM F43.23 Adjustment disorder with mixed anxiety and depressed mood MALACHI GAINES Angélica Encounter Template Text not used by [facility] Assessments - Encounter Diagnoses This section includes the primary and secondary diagnoses documented for the Encounter. Date/Time Primary/Secondary Diagnosis Diagnosis Name Provider Source Jan 23, 2024 12:22 PM PRIMARY Adjustment disorder with mixed anxiety and depressed mood MALACHI GAINES ([facility]) Plan of Treatment: Future Appointments (+ 6 months) and Future Tests (+/- 45 days) The Plan of Treatment section includes future care activities for the patient from all [place] [facility]. This section includes future appointments and future orders which are active, pending or scheduled. Future Appointments This section includes appointments that were scheduled to occur 6 months from the date of the Encounter, up to a maximum of 20 appointments. The data comes from all [facility] facilities. Appointment Date/Time Appointment Type Appointme nt Facility Name Feb 05, 2024 02:00 PM AMBULATORY - [place]ATRY [place] [facility] [place] [facility] Feb 19, 2024 09:00 AM AMBULATORY - MEDICINE [facility] [place] [facility] Feb 19, 2024 11:00 AM AMBULATORY - PS[place]CHIATRY [place] [facility] [place] [facility] Mar 01, 2024 01:30 PM AMBULATORY - MEDICINE [place] [facility] [place] [facility] Mar 04, 2024 03:00 PM AMBULATORY MEDICINE [place] [facility] [place] [facility] Mar 18, 2024 11:00 AM AMBULATORY - PS[place]IATRY [place] [facility] [place] [facility] Apr 01, 2024 09:00 AM AMBULATORY - MEDICINE [facility] [place] [facility] Apr 01, 2024 11:00 AM AMBULATORY - PS[place]CHIATRY [place] [facility] [place] [facility] May 06, 2024 09:30 AM AMBULATORY - MEDICINE [facility] ([facility]) Lab Results: +/- 30 [...] Range Comment Jan 16, 2024 08:05 AM [facility] ([facility]) LIVER FUNCTION Specimen Type: SERUM No comment entered. Ordering Provider: MELL STOKES Report Released Date/Time: Jan 16, 2024 08:00 AM Reporting Lab: [address] [address] Performing Lab: [address] [address] PROTEIN,TOTAL 7.3 g/dL 6.0-8.3 ALBUMIN 4.0 g/dL 3.5-5.0 ALKALINE PHOSPHATASE 99 U/L 40-150 AST 16 U/L 5-34 ALT 26 U/L BILIRUBIN, TOTAL 0.5 mg/dL 0.2-1.2 Jan 16, 2024 08:05 AM [facility] ([facility]) LIPID PANEL FASTING Specimen Type: SERUM No comment entered. Ordering Provider: MELL STOKES Report Released Date/Time: Jan 16, 2024 08:00 AM Reporting Lab: [address] [address] Performing Lab: [address] [address] CHOLESTEROL 161 mg/dL TRIGLYCERIDE 150 mg/dL 0-150 LDL calculated 94 mg/dL 0-129 CHOL/HDL 4.4 HDL CHOLESTEROL 37 mg/dL L 40-60 Jan 16, 2024 08:05 AM [facility] ([facility]) FERRITIN Specimen Type: SERUM No comment entered. Ordering Provider: MELL STOKES Report Released Date/Time: Oct 27, 2023 01:10 AM Reporting Lab: [address] [address] Performing Lab: [address] [address] FERRITIN 23 ng/mL 20-300 Jan 16, 2024 08:05 AM [facility] ([facility]) IRON & TIBC PANEL Specimen Type: SERUM No comment entered. Ordering Provider: MELL STOKES Report Released Date/Time: Oct 27, 2023 01:10 AM Reporting Lab: [address] [address] Performing Lab: [address] [address] TIBC 396 ug/dL 204-475 IRON 110 ug/dL 40-160 Transferrin Saturation 27.8 20.0-50.0 Transferrin (TRF) 300 mg/dL 200-360 Jan 16, 2024 08:05 AM [facility] ([facility]) TSH Specimen Type: SERUM No comment entered. Ordering Provider: MELL STOKES Report Released Date/Time: Oct 27, 2023 01:10 AM Reporting Lab: [address] [address] Performing [facility]: [facility] [address] [address] TSH 2.57 u[IU]/mL 0.35-5.00 Jan 16, 2024 08:05 AM [facility] ([facility]) VITAMIN B12 Specimen Type: SERUM No comment entered. Ordering Provider: MELL STOKES Report Released Date/Time: Oct 27, 2023 01:10 AM Reporting Lab: [address] [address] Performing Lab: [address] [address] VITAMIN B12 893 pg/mL 200-900 Jan 16, 2024 08:05 AM [facility] ([facility]) VITAMIN D (25-OH) Specimen Type: SERUM No comment entered. Ordering Provider: MELL STOKES Report Released Date/Time: Oct 27, 2023 01:10 AM Reporting Lab: [address] [address] Performing Lab: [address] [address] VITAMIN D (25-OH) 31 ng/mL 20-50 Jan 16, 2024 08:05 AM [facility] ([facility]) LIVER FUNCTION Specimen Type: SERUM No comment entered. Ordering Provider: MELL STOKES Report Released Date/Time: Oct 27, 2023 01:10 AM Reporting Lab: [address] [address] Performing Lab: [address] [address] PROTEIN,TOTAL 7.2 g/dL 6.0-8.3 ALBUMIN 4.0 g/dL 3.5-5.0 ALKALINE PHOSPHATASE 98 U/L 40-150 AST 16 U/L 5-34 ALT 27 U/L BILIRUBIN, TOTAL 0.5 mg/dL 0.2-1.2 Jan 16, 2024 08:05 AM [facility] ([facility]) CBC AND DIFF (AUTO) Specimen Type: BLOOD No comment entered. Ordering Provider: MELL STOKES Report Released Date/Time: Oct 27, 2023 01:10 AM Reporting Lab: [address] [address] Performing Lab: [address] [address] WBC 6.05 10*3/uL 4.50-11.00 RBC 4.21 10*6/uL [...] 10*3/uL 0.00-0.00 Jan 16, 2024 08:05 AM [facility] ([facility]) BNP (Natriuretic Peptide Brain) Specimen Type: PLASMA No comment entered. Ordering Provider: MELL STOKES Report Released Date/Time: Oct 27, 2023 01:10 AM Reporting Lab: [address] [address] Performing Lab: [address] [address] BNP (Natriuretic Peptide Brain) 184 pg/mL H 10-100 Jan 16, 2024 08:05 AM [facility] ([facility]) LIPID PANEL FASTING Specimen Type: SERUM No comment entered. Ordering Provider: MELL STOKES Report Released Date/Time: Oct 27, 2023 01:10 AM Reporting Lab: [address] [address] Performing Lab: [address] [address] CHOLESTEROL 159 mg/dL TRIGLYCERIDE 148 mg/dL 0-150 [...] Filemon honeycutt Oct 26, 2023 11:30 AM VA-TOBACCO FORMER USER [facility] ([facility]) Tobacco Use History This section includes a history of the smoking, or tobacco-related health factors, that were collected on or before the date of the Encounter. The data comes from the [place] facility where the Encounter took place. Date/Time Smoking Status/Tobacco Use Comment F acility Oct 26, 2023 11:30 AM VA-TOBACCO QUIT 5 TO < 15 YRS [facility] ([facility]) Nov 08, 2022 01:30 PM VA-TOBACCO FORMER USER [facility] ([facility]) Nov 08, 2022 01:30 PM VA-TOBACCO QUIT 5 TO < 15 YRS [facility] ([facility]) Oct 18, 2021 10:30 AM VA-TOBACCO FORMER USER [facility] ([facility]) Oct 18, 2021 10:30 AM VA-TOBACCO QUIT 15 YRS OR MORE [facility] ([facility]) Sep 21, 2020 02:00 PM VA-TOBACCO FORMER USER [facility] ([facility]) Sep 21, 2020 02:00 PM VA-TOBACCO QUIT 15 YRS OR MORE [facility] ([facility]) Encounter Notes: All associated encounter notes This section contains the clinical notes associated to the Encounter. Date/Time Encounter Note(s) Provider Source Jan 23, 2024 09:28 AM SOCIAL WORK NOTE: LOCAL TITLE: SOCIAL WORK NOTE STANDARD TITLE: SOCIAL WORK NOTE DATE OF NOTE: JAN 23, 2024@09:28 ENTRY DATE: JAN 23, 2024@09:29:08 AUTHOR: ASHLEY MCGRATH,CO EXP COSIGNER: MALACHI GAINES URGENCY: STATUS: COMPLETED SOCIAL WORK NOTE Has ADDENDA INFORMED CONSENT REVIEWED: At beginning of session reviewed rights and limits of confidentiality, mandatory reporting situations, duty to warn and protect, Ng Warning, (if treatment team finds patient to be an acute danger to himself or others, that this information could be relayed to a court of law and presented to a mending carrier), and [facility] access for active duty service members. Provided Suicide Prevention Hotline number, and other contact numbers as necessary. VISIT DURATION 60 minutes Brandeis identified with 2 identifiers: Full Name, Facial Recognition DIAGNOSES: Adjustment disorder, Assess for PTSD [employer] STATEMENT OF GOALS/CONCERNS: was encouraged to seek out individual therapy by his primary doctor to make sure he is in a good headspace as he navigates medical appointments/procedures. Brandeis has reservations about mental health system and is unsure of what specific goals he would like to set for therapy. Brandeis would like to receive supportive therapy. SESSION FOCUS: shared conflicts with gilfriend who lives and works with him. Girlfriend reportedly struggles with regular alcohol use which affects their relationship and caused him to spend his weekend in his employer's farm to avoid physical confrontation/risk of escalation of violence. shared he can get very angry and walks away from confrontations to keep himself safe. likes to offer help to people in need when he is able to assist, and this causes friction in his relationship. 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 INTERVENTIONS: Psychotherapeutic Interventions: Gathered information regarding living situation/job. Summarizing, reflective listening. Asking direct questions for clarification. Validation of emotional experience. Psychoeducation reviewed: Setting healthy boundaries. Skills reviewed: Stress management ASSESSMENT: BRIEF ASSESSMENT OF MENTAL STATUS: 1. [...] Denies current suicidal/homicidal ideation PLAN FOR FOLLOW-UP: Biweekly meeting with Oracle Sql Developer Next session planned for: Week of Feb 26 /fabian MCGRATH SOCIAL WORK MANDARIN TUTOR Signed: 01/23/2024 09:58 /YARELY Steiner [place] [facility] Cosigned: 01/23/2024 12:20 01/23/2024 ADDENDUM STATUS: COMPLETED I have reviewed this case and concur with the clinical impressions and recommendations made by this trainee who is under my clinical supervision.Dry Charge Process Attendant was fully accessible to the student during the encounter. is seeking individual therapy for Adjustment D/o due to medical condition. R/O PTSD. Student will conduct weekly therapy sessions. /YARELY Steiner [place] [facility] Signed: 01/23/2024 12:21 NOEMY MARSHALL ([facility])
--- OUTSIDE RECORDS SUMMARY | 2024-03-11 13:05 | XMS_ITS ---
Author Name [facility] ([place] Organization [facility] Address [address] [place] [address] Care Team Providers Care Casino Dealer Name Role Phone ARLENELEXIS WINDY Primary Care [...] PART A Feb 04, 2020 PART A [id number] [address] [facility] PATIENT MEDICARE (WNR) MEDICARE (M) PART B Feb 04, 2020 PART B [id number] NE42 [facility] GRACIELA STOVER PATIENT Selected Encounter This section includes the information on record at [place] for the Encounter. Date/Time Encounter Type Encounter Description Reason Pro vider Source Dec 20, 2023 11:48 AM Outpatient Encounter [facility] IHE Encounter Template Text not used by [...] 22, 2023 01:45 PM AMBULATORY - MEDICINE [place] [facility] [place] [facility] Jan 01, 2024 08:30 AM AMBULATORY - PSYCHIATRY [facility] ([facility] Jan 08, 2024 11:00 AM AMBULATORY - PSYCHIATRY [place] [facility] [place] [facility] Jan 08, 2024 01:30 PM AMBULATORY - MEDICINE [place] [facility] [place] [facility] Jan 22, 2024 11:00 AM AMBULATORY - PSYCHIATRY [facility] [place] [facility] Feb 05, 2024 02:00 PM AMBULATORY - PSYCHIATRY [facility] [place] [facility] Feb 19, 2024 09:00 AM AMBULATORY - MEDICINE [place] [facility] [place] [facility] Feb 19, 2024 11:00 AM AMBULATORY - PSYCHIATRY [place] [facility] [place] [facility] Mar 01, 2024 01:30 PM AMBULATORY - MEDICINE [place] [facility] [place] [facility] Mar 04, 2024 03:00 PM AMBULATORY - MEDICINE [place] [facility] [place] [facility] Mar 18, 2024 11:00 AM AMBULATORY - PSYCHIATRY [place] [facility] [place] [facility] Apr 01, 2024 09:00 AM AMBULATORY - MEDICINE [place] [facility] [place] [facility] Apr 01, 2024 11:00 AM AMBULATORY - PSYCHIATRY [place] [facility] [place] [facility] May 06, 2024 09:30 AM AMBULATORY - MEDICINE [facility] ([facility]) Lab Results: +/- 30 days of [...] Range Comment Jan 16, 2024 08:05 AM [facility] ([facility]) LIVER FUNCTION Specimen Type: SERUM No comment entered. Ordering Provider: MELL STOKES Report Released Date/Time: Jan 16, 2024 08:00 AM Reporting Lab: [place] [facility] [address] [address] Performing Lab: [facility] [address] [address] PROTEIN,TOTAL 7.3 g/dL 6.0-8.3 ALBUMIN 4.0 g/dL 3.5-5.0 ALKALINE PHOSPHATASE 99 U/L 40-150 AST 16 U/L 5-34 ALT 26 U/L BILIRUBIN, TOTAL 0.5 mg/dL 0.2-1.2 Jan 16, 2024 08:05 AM [facility] ([facility]) LIPID PANEL FASTING Specimen Type: SERUM No comment entered. Ordering Provider: MELL STOKES Report Released Date/Time: Jan 16, 2024 08:00 AM Reporting [facility]: [facility] [address] [address] Performing Lab: [facility] [address] [address] CHOLESTEROL 161 mg/dL TRIGLYCERIDE 150 mg/dL 0-150 LDL calculated 94 mg/dL 0-129 CHOL/HDL 4.4 HDL CHOLESTEROL 37 mg/dL L 40-60 Jan 16, 2024 08:05 AM [facility] ([facility]) FERRITIN Specimen Type: SERUM No comment entered. Ordering Provider: MELL STOKES Report Released Date/Time: Oct 27, 2023 01:10 AM Reporting Lab: [facility] [address] [address] Performing Lab: [facility] [address] FERRITIN 23 ng/mL 20-300 Jan 16, 2024 08:05 AM [facility] ([facility]) TSH Specimen Type: SERUM No comment entered. Ordering Provider: MELL STOKES Report Released Date/Time: Oct 27, 2023 01:10 AM Reporting Lab: [facility] [address] [address] Performing Lab: [facility] [address] TSH 2.57 u[IU]/mL 0.35-5.00 Jan 16, 2024 08:05 AM [facility] ([facility]) IRON & TIBC PANEL Specimen Type: SERUM No comment entered. Ordering Provider: MELL STOKES Report Released Date/Time: Oct 27, 2023 01:10 AM Reporting Lab: [address] [address] Performing Lab: [address] [address] TIBC 396 ug/dL 204-475 IRON 110 ug/dL 40-160 Transferrin Saturation 27.8 20.0-50.0 Transferrin (TRF) 300 mg/dL 200-360 Jan 16, 2024 08:05 AM [facility] ([facility]) VITAMIN B12 Specimen Type: SERUM No comment entered. Ordering Provider: MELL STOKES Report Released Date/Time: Oct 27, 2023 01:10 AM Reporting Lab: [address] [address] Performing Lab: [address] [address] VITAMIN B12 893 pg/mL 200-900 Jan 16, 2024 08:05 AM [facility] ([facility]) VITAMIN D (25-OH) Specimen Type: SERUM No comment entered. Ordering Provider: MELL STOKES Report Released Date/Time: Oct 27, 2023 01:10 AM Reporting Lab: [address] [address] Performing Lab: [address] [address] VITAMIN D (25-OH) 31 ng/mL 20-50 Jan 16, 2024 08:05 AM [facility] ([facility]) LIVER FUNCTION Specimen Type: SERUM No comment entered. Ordering Provider: MELL STOKES Report Released Date/Time: Oct 27, 2023 01:10 AM Reporting Lab: [address] [address] Performing Lab: [address] [address] PROTEIN,TOTAL 7.2 g/dL 6.0-8.3 ALBUMIN 4.0 g/dL 3.5-5.0 ALKALINE PHOSPHATASE 98 U/L 40-150 AST 16 U/L 5-34 ALT 27 U/L BILIRUBIN, TOTAL 0.5 mg/dL 0.2-1.2 Jan 16, 2024 08:05 AM [facility] ([facility]) BNP (Natriuretic Peptide Brain) Specimen Type: PLASMA No comment entered. Ordering Provider: MELL STOKES Report Released Date/Time: Oct 27, 2023 01:10 AM Reporting Lab: [address] [address] Performing Lab: [address] [address] BNP (Natriuretic Peptide Brain) 184 pg/mL H 10-100 Jan 16, 2024 08:05 AM [facility] ([facility]) CBC AND DIFF (AUTO) Specimen Type: BLOOD No comment entered. Ordering Provider: MELL STOKES Report Released Date/Time: Oct 27, 2023 01:10 AM Reporting Lab: [address] [address] Performing Lab: [address] [address] WBC 6.05 10*3/uL 4.50-11.00 RBC 4.21 10*6/uL [...] 10*3/uL 0.00-0.00 Jan 16, 2024 08:05 AM [facility] ([facility]) LIPID PANEL FASTING Specimen Type: SERUM No comment entered. Ordering Provider: MELL STOKES Report Released Date/Time: Oct 27, 2023 01:10 AM Reporting Lab: [address] [address] Performing Lab: [address] [address] CHOLESTEROL 159 mg/dL TRIGLYCERIDE 148 mg/dL 0-150 LDL calculated 92 mg/dL 0-129 CHOL/HDL 4.3 HDL CHOLESTEROL 37 mg/dL L 40-60 2023 08:36 AM [facility] ([facility]) LIPID PANEL FASTING Specimen Type: SERUM No comment entered. Ordering Provider: MELL STOKES Report Released Date/Time: Nov 22, 2023 12:27 PM Reporting Lab: [address] [address] Performing Lab: [address] [address] CHOLESTEROL 127 mg/dL TRIGLYCERIDE 87 mg/dL 0-150 LDL calculated 76 mg/dL 0-129 CHOL/HDL 3.7 HDL CHOLESTEROL 34 mg/dL L 40-60 2023 08:36 AM [facility] ([facility]) LIVER FUNCTION Specimen Type: SERUM No comment entered. Ordering Provider: MELL STOKES Report Released Date/Time: Nov 22, 2023 12:27 PM Reporting Lab: [address] [address] Performing Lab: [facility] [address] [facility] [address] PROTEIN,TOTAL 7.1 g/dL 6.0-8.3 ALBUMIN 4.0 g/dL [...] PM VA-TOBACCO QUIT 15 YRS OR MORE [facility] Encounter Notes: All associated encounter notes This section contains the clinical notes associated to the Encounter. Date/Time Encounter Note(s) Provider Source Dec 20, 2023 11:48 AM PRIMARY CARE SUZETTE RS: [facility] TITLE: PATIENT LETTER - [facility] TITLE: PRIMARY CARE LETTERS DATE OF NOTE: DEC 20, 2023@11:48 ENTRY DATE: DEC 20, 2023@11:48:35 AUTHOR: SHOBHA TREVINO EXP COSIGNER: URGENCY: STATUS: COMPLETED DEPARTMENT OF [facility] Telephone number: [phone] [address] [place], [place], [address] DEC 20, 2023 Dear [place], Your primary care provider has referred you to the [facility] outpatient mental health clinic. I attempted to reach you by phone this morning but was only able to leave a message requesting your call back to discuss this referral further. Please call me at [phone], ext. [phone]. Respectfully, Shobha Trevino, wedding transportation driver [facility] [address] [address] SHOBHA TREVINO ([facility])
--- OUTSIDE RECORDS SUMMARY | 2024-03-11 13:05 | XMS_ITS ---
Author Name [facility] ([place]) Organization Department of [facility] [place] [facility] ([place]) Address [address] [place] [address] Care Team Providers Care Program Director Air Talent Name Role Phone VICKIENAWAF WINDY Primary Care [...] PART B Feb 04, 2020 PART B [id number] [address] [facility] GRACIELA STOVER PATIENT MEDICARE (WNR) MEDICARE (M) PART A Feb 04, 2020 PART A [id number] [address] [facility] GRACIELA STOVER PATIENT Selected Encounter This section includes the information on record at [place] for the Encounter. Date/Time Encounter Type Encounter Description Reason Provider Source Jan 01, 2024 10:23 AM Outpatient Encounter [facility] RUDI TREVINO Encounter Template Text not used by [place] Plan of Treatment: Future Appointments (+ 6 [...] Appointment Type Appointme nt Facility Name Jan 08, 2024 11:00 AM [facility] [place] [facility] Jan 08, 2024 01:30 PM [facility]IC[facility] [place] [facility] Jan 22, 2024 11:00 AM AM[facility]UL[facility] [place] [facility] Feb 05, 2024 02:00 PM AMBULATORY [facility] [place] [facility] Feb 19, 2024 09:00 AM AMBULATORY - MEDICINE [place] [facility] [place] [facility] Feb 19, 2024 11:00 AM AM[facility]UL[facility] [place] [facility] Mar 01, 2024 01:30 PM AMBULATORY - MEDICINE [place] [facility] [place] [facility] Mar 04, 2024 03:00 PM AMBULATORY - MEDICINE [place] [facility] [place] [facility] Mar 18, 2024 11:00 AM AMBULATORY [facility] [place] [facility] Apr 01, 2024 09:00 AM AMBULATORY - MEDICINE [place] [facility] [place] [facility] Apr 01, 2024 11:00 AM AMBULATORY - PSYCHIATRY [place] [facility] [place] [facility] May 06, 2024 09:30 AM AMBULATORY - MEDICINE [facility] ([facility]) Lab Results: +/- 30 days of the [...] Range Comment Jan 16, 2024 08:05 AM [place] ([facility]) LIVER FUNCTION Specimen Type: SERUM No comment entered. Ordering Provider: MELL STOKES Report Released Date/Time: Jan 16, 2024 08:00 AM Reporting Lab: [facility] [address] [address] [facility]forming [facility]: [facility] [address] [address] PROTEIN,TOTAL 7.3 g/dL 6.0-8.3 ALBUMIN 4.0 g/dL 3.5-5.0 ALKALINE PHOSPHATASE 99 U/L 40-150 AST 16 U/L 5-34 ALT 26 U/L BILIRUBIN, TOTAL 0.5 mg/dL 0.2-1.2 Jan 16, 2024 08:05 AM [place] ([facility]) LIPID PANEL FASTING Specimen Type: SERUM No comment entered. Ordering Provider: MELL STOKES Report Released Date/Time: Jan 16, 2024 08:00 AM Reporting Lab: [facility] [address] [address] Performing Lab: [address] [address] CHOLESTEROL 161 mg/dL TRIGLYCERIDE 150 mg/dL 0-150 LDL calculated 94 mg/dL 0-129 CHOL/HDL 4.4 HDL CHOLESTEROL 37 mg/dL L 40-60 Jan 16, 2024 08:05 AM [place] ([facility]) FERRITIN Specimen Type: SERUM No comment entered. Ordering Provider: MELL STOKES Report Released Date/Time: Oct 27, 2023 01:10 AM Reporting Lab: [facility] [address] [address] Performing Lab: [facility] [address] [address] FERRITIN 23 ng/mL 20-300 Jan 16, 2024 08:05 AM [place] ([facility]) TSH Specimen Type: SERUM No comment entered. Ordering Provider: MELL STOKES Report Released Date/Time: Oct 27, 2023 01:10 AM Reporting Lab: [address] [address] Performing Lab: [address] [address] TSH 2.57 u[IU]/mL 0.35-5.00 Jan 16, 2024 08:05 AM [place] ([facility]) IRON & TIBC PANEL Specimen Type: SERUM No comment entered. Ordering Provider: MELL STOKES Report Released Date/Time: Oct 27, 2023 01:10 AM Reporting Lab: [address] [address] Performing [facility]: [facility] [address] [address] TIBC 396 ug/dL 204-475 IRON 110 ug/dL 40-160 Transferrin Saturation 27.8 20.0-50.0 Transferrin (TRF) 300 mg/dL 200-360 Jan 16, 2024 08:05 AM [place] ([facility]) VITAMIN B12 Specimen Type: SERUM No comment entered. Ordering Provider: MELL STOKES Report Released Date/Time: Oct 27, 2023 01:10 AM Reporting Lab: [address] [address] Performing Lab: [address] [address] VITAMIN B12 893 pg/mL 200-900 Jan 16, 2024 08:05 AM [place] ([facility]) VITAMIN D (25-OH) Specimen Type: SERUM No comment entered. Ordering Provider: MELL STOKES Report Released Date/Time: Oct 27, 2023 01:10 AM Reporting Lab: [address] [address] Performing Lab: [address] [address] VITAMIN D (25-OH) 31 ng/mL 20-50 Jan 16, 2024 08:05 AM [place] ([facility]) LIVER FUNCTION Specimen Type: SERUM No comment entered. Ordering Provider: MELL STOKES Report Released Date/Time: Oct 27, 2023 01:10 AM Reporting Lab: [address] [address] Performing Lab: [address] [address] PROTEIN,TOTAL 7.2 g/dL 6.0-8.3 ALBUMIN 4.0 g/dL 3.5-5.0 ALKALINE PHOSPHATASE 98 U/L 40-150 AST 16 U/L 5-34 ALT 27 U/L BILIRUBIN, TOTAL 0.5 mg/dL 0.2-1.2 Jan 16, 2024 08:05 AM [place] ([facility]) CBC AND DIFF (AUTO) Specimen Type: BLOOD No comment entered. Ordering Provider: MELL STOKES Report Released Date/Time: Oct 27, 2023 01:10 AM Reporting Lab: [address] [address] Performing Lab: [address] [address] WBC 6.05 10*3/uL 4.50-11.00 RBC 4.21 10*6/uL [...] 10*3/uL 0.00-0.00 Jan 16, 2024 08:05 AM [place] ([facility]) BNP (Natriuretic Peptide Brain) Specimen Type: PLASMA No comment entered. Ordering Provider: MELL STOKES Report Released Date/Time: Oct 27, 2023 01:10 AM Reporting Lab: [place] [facility] [address] [facility] [address] Performing Lab: [place] [facility] [address] [facility] [address] BNP (Natriuretic Peptide Brain) 184 pg/mL H 10-100 Jan 16, 2024 08:05 AM [place] ([facility]) LIPID PANEL FASTING Specimen Type: SERUM No comment entered. Ordering Provider: MELL STOKES Report Released Date/Time: Oct 27, 2023 01:10 AM Reporting Lab: [place] [facility] [address] [facility] [address] Performing Lab: [place] [facility] [address] CHOLESTEROL 159 mg/dL TRIGLYCERIDE 148 mg/dL 0-150 LDL calculated 92 mg/dL 0-129 CHOL/HDL 4.3 HDL CHOLESTEROL 37 mg/dL L 40-60 2023 08:36 AM [place] ([facility]) LIPID PANEL FASTING Specimen Type: SERUM No comment entered. Ordering Provider: MELL STOKES Report Released Date/Time: Nov 22, 2023 12:27 PM Reporting Lab: [place] [facility] [address] [facility] [address] Performing Lab: [facility] [address] [facility] [address] CHOLESTEROL 127 mg/dL TRIGLYCERIDE 87 mg/dL 0-150 LDL calculated 76 mg/dL 0-129 CHOL/HDL 3.7 HDL CHOLESTEROL 34 mg/dL L 40-60 2023 08:36 AM [place] ([facility]) LIVER FUNCTION Specimen Type: SERUM No comment entered. Ordering Provider: MELL STOKES Report Released Date/Time: Nov 22, 2023 12:27 PM Reporting Lab: [place] [facility] [place] [place] [facility] [address] [facility] [address] Performing Lab: [facility] [address] PROTEIN,TOTAL 7.1 g/dL 6.0-8.3 ALBUMIN 4.0 g/dL [...] 19, 2020 02:29 PM [place]-TO[place] FORMER USER [facility] Tobacco Use History This section includes a history of the smoking, or tobacco-related health factors, that were collected on or before the date of the Encounter. The data comes from the [place] facility where the Encounter took place. Date/Time Smoking Status/Tobacco Use Comment F acility Aug 19, 2020 02:29 PM [place]-TO[place]AC[place] QUIT 15 YRS OR MORE [facility] Encounter Notes: All associated encounter notes This section contains the clinical notes associated to the Encounter. Date/Time Encounter Note(s) Provider Source Jan 01, 2024 10:25 AM MENTAL HEALTH DIAG NOSTIC STUDY NOTE: LOCAL TITLE: MENTAL HEALTH DIAGNOSTIC STUDY STANDARD TITLE: MENTAL HEALTH DIAGNOSTIC STUDY NOTE DATE OF NOTE: JAN 01, 2024@10:25:20 ENTRY DATE: JAN 01, 2024@10:25:20 AUTHOR: RUDI TREVINO EXP COSIGNER: URGENCY: STATUS: COMPLETED Generalized Anxiety Disorder, 7 items Date Given: 01/01/2024 Clinician: Rudi Trevino Location: [facility] [place]: Geovanny Stover SSN: [id number] : [birth year] ([birth year]) Gender: Male PAULA-7 score: 4 A low score indicates the absence of anxiety, a high score indicates the presence of anxiety symptoms; the range is 0 to 21. A score of 15 or greater is considered clinically significant, meriting active treatment for anxiety. A score of 10 to 14 indicates a condition that should be carefully evaluated. Questions and Answers 1. Feeling nervous, anxious or on edge Several days 2. Not being able to stop or control worrying Not at all 3. Worrying too much about different things Not at all 4. Trouble relaxing Not at all 5. Being so restless that it is hard to sit still Several days 6. Becoming easily annoyed or irritable Several days 7. Feeling afraid as if something awful might happen Several days Information contained in this note is based on a self-report assessment and is not sufficient to use alone for diagnostic purposes. Assessment results should be verified for accuracy and used in conjunction with other diagnostic activities and procedures. Patient Health Questionnaire - 9 (PHQ-9) Date Given: 01/01/2024 Clinician: Rudi Trevino Location: [facility] [place]: Geovanny Stover SSN: [id number] : Dec ([birth year]) Gender: Male PHQ-9 Depression Scale Score: 6 The total score may range from 0 to 27. Total Score Depression Severity 1-4 Minimal depression 5-9 Mild depression 10-14 Moderate depression 15-19 Moderately severe depression 20-27 Severe depression Questions and Answers Over the last 2 weeks, how often have you been bothered by any of the following problems? 1. Little interest or pleasure in doing things Several days 2. Feeling down, depressed, or hopeless Not at all 3. Trouble falling or staying asleep, or sleeping too much Several days 4. Feeling tired or having little energy Several days 5. Poor appetite or overeating Not at all 6. Feeling bad about yourself or that you are a failure or have let yourself or your family down Several days 7. Trouble concentrating on things, such as reading the newspaper or watching television Several days 8. Moving or speaking so slowly that other people could have noticed. Or the opposite being so fidgety or restless that you have been moving around a lot more than usual Several days 9. Thoughts that you would be better off or of hurting yourself in some way Not at all 10. If you checked off any problems, how DIFFICULT have these problems made it for you to do your work, take care of things at home or get along with other people? Not difficult at all Information contained in this note is based on a self report assessment and is not sufficient to use alone for diagnostic purposes. Assessment results should be verified for accuracy and used in conjunction with other diagnostic activities. Copyright 2001 [employer]. All rights reserved. Reproduced with permission of [employer]. DEO is a trademark of [employer] PCL-5 Date Given: 01/01/2024 Clinician: Rudi Trevino Location: [facility] : CkGeovanny Lopes SSN: [id number] : [birth year] ([birth year]) Gender: Male PCL-5 Score: 11 This measure assesses an individual's perception of the distress associated with possible PTSD symptoms. It is not used to diagnose PTSD. Symptoms are rated from 0-4 in terms of distress they cause the individual. Scores that are greater than or equal to 31-33 suggest that the may meet the criteria for a PTSD diagnosis. However, it is important to use caution when using this cutoff since it is possible for some Veterans with scores lower than 31-33 to meet criteria for PTSD. Additional testing using a structured diagnostic interview, such as the Clinician Administered PTSD Scale for DSM-5, is recommended to confirm diagnostic status. Values range from 0 to 80 with higher scores indicating more probable PTSD. Questions and Answers: 1. Repeated, disturbing, and unwanted memories of the stressful experience? A little bit 2. Repeated, disturbing dreams of the stressful experience? A little bit 3. Suddenly feeling or acting as if the stressful experience were actually happening again (as if you were actually back there reliving it)? A little bit 4. Feeling very upset when something reminded you of the stressful experience? A little bit 5. Having strong physical reactions when something reminded you of the stressful experience (for example, heart pounding, trouble breathing, sweating)? Not at all 6. Avoiding memories, thoughts, or feelings related to the stressful experience? Not at all 7. Avoiding external reminders of the stressful experience (for example, people, places, conversations, activities, objects, or situations)? Not at all 8. Trouble remembering important parts of the stressful experience? Not at all 9. Having strong negative beliefs about yourself, other people, or the world (for example, having thoughts such as: I am bad, there is something seriously wrong with me, no one can be trusted, the world is completely dangerous)? A little bit 10. Blaming yourself or someone else for the stressful experience or what happened after it? Not at all 11. Having strong negative feelings such as fear, horror, anger, guilt, or shame? A little bit 12. Loss of interest in activities that you used to enjoy? Not at all 13. Feeling distant or cut off from other people? Not at all 14. Trouble experiencing positive feelings (for example, being unable to feel happiness or have loving feelings for people close to you)? A little bit 15. Irritable behavior, angry outbursts, or acting aggressively? A little bit 16. Taking too many risks or doing things that could cause you harm? Not at all 17. Being superalert or watchful or on guard? A little bit 18. Feeling jumpy or easily startled? A little bit 19. Having difficulty concentrating? A little bit 20. Trouble falling or staying asleep? Not at all Information contained in this note is based on a self-report assessment and is not sufficient to use alone for diagnostic purposes. Assessment results should be verified for accuracy and used in conjunction with other diagnostic activities and procedures. /tam/ RUDI TREVINO, RN, BSN event crew technician Signed: 01/02/2024 12:48 RUDI TREVINO ([facility])
--- OUTSIDE RECORDS SUMMARY | 2024-03-11 13:05 | XMS_ITS ---
Author Name [facility] [place] Organization [facility] [place] Address [address] [place] [address] Care Team Providers Care Servicenow Administrator Name Role Phone VICKIENAWAF NAVADERICK Primary Care [...] PART A Feb 04, 2020 PART A [id number] [address] [facility] GRACIELA STOVER PATIENT MEDICARE (WNR) MEDICARE (M) PART B Feb 04, 2020 PART B [id number] [address] [facility] GRACIELA STOVER PATIENT Selected Encounter This section includes the information on record at [place] for the Encounter. Date/Time Encounter Type Encounter Description Reason Pro vider Source Dec 21, 2023 12:00 PM Outpatient Encounter COMMUNITY CARE [...] - MEDICINE [facility] [place] [facility] Jan 01, 2024 08:30 AM AMBULATORY - PSYCHIATRY [facility] ([facility]) Jan 08, 2024 11:00 AM AMBULATORY - PS[place]CHIATRY [facility] [place] [facility] Jan 08, 2024 01:30 PM AMBULATORY - MEDICINE [facility] [place] [place] [facility] Jan 22, 2024 11:00 AM AMBULATORY - PS[facility]CHIATRY [facility] [place] [facility] Feb 05, 2024 02:00 PM AMBULATORY - PSYCHIATRY [facility] [place] [facility] Feb 19, 2024 09:00 AM AM[place]ORY - [place]ICINE [place] [facility] [place] [facility] Feb 19, 2024 11:00 AM AMBULATORY - PSYCHIATRY [facility] [place] [facility] Mar 01, 2024 01:30 PM AM[place]ORY - [place] [facility] [place] [facility] Mar 04, 2024 03:00 PM AM[place]ATORY - [place] [facility] [place] [facility] Mar 18, 2024 11:00 AM AMB[place]ATORY - [place] [facility] [place] [facility] Apr 01, 2024 09:00 AM AM[place]ORY - [place] [facility] [place] [facility] Apr 01, 2024 11:00 AM AM[place]ORY [place] [facility] [place] [facility] May 06, 2024 09:30 AM AMBULATORY - MEDICINE [facility] ([facility]) Lab Results: +/- 30 days [...] Range Comment Jan 16, 2024 08:05 AM [place] ([facility]) LIPID PANEL FASTING Specimen Type: SERUM No comment entered. Ordering Provider: MELL STOKES Report Released Date/Time: Jan 16, 2024 08:00 AM Reporting Lab: [facility] [place] [facility] [address] [place] [address] Performing Lab: [facility] [address] [address] CHOLESTEROL 161 mg/dL TRIGLYCERIDE 150 mg/dL 0-150 LDL calculated 94 mg/dL 0-129 CHOL/HDL 4.4 HDL CHOLESTEROL 37 mg/dL L 40-60 Jan 16, 2024 08:05 AM [place] ([facility]) LIVER FUNCTION Specimen Type: SERUM No comment entered. Ordering Provider: MELL STOKES Report Released Date/Time: Jan 16, 2024 08:00 AM Reporting Lab: [facility] [address] [address] Performing Lab: [address] [address] PROTEIN,TOTAL 7.3 g/dL 6.0-8.3 ALBUMIN 4.0 g/dL 3.5-5.0 ALKALINE PHOSPHATASE 99 U/L 40-150 AST 16 U/L 5-34 ALT 26 U/L BILIRUBIN, TOTAL 0.5 mg/dL 0.2-1.2 Jan 16, 2024 08:05 AM [place] ([facility]) IRON & TIBC PANEL Specimen Type: SERUM No comment entered. Ordering Provider: MELL STOKES Report Released Date/Time: Oct 27, 2023 01:10 AM Reporting Lab: [facility] [address] [address] Performing Lab: [address] [address] TIBC 396 ug/dL 204-475 IRON 110 ug/dL 40-160 Transferrin Saturation 27.8 20.0-50.0 Transferrin (TRF) 300 mg/dL 200-360 Jan 16, 2024 08:05 AM [place] ([facility]) FERRITIN Specimen Type: SERUM No comment entered. Ordering Provider: MELL STOKES Report Released Date/Time: Oct 27, 2023 01:10 AM Reporting Lab: [address] [address] Performing Lab: [address] [address] FERRITIN 23 ng/mL 20-300 Jan 16, 2024 08:05 AM [place] ([facility]) TSH Specimen Type: SERUM No comment entered. Ordering Provider: MELL STOKES Report Released Date/Time: Oct 27, 2023 01:10 AM Reporting Lab: [facility] [address] [address] Performing Lab: [facility] [address] [address] TSH 2.57 u[IU]/mL 0.35-5.00 Jan 16, 2024 08:05 AM [place] ([facility]) VITAMIN B12 Specimen Type: SERUM No comment entered. Ordering Provider: MELL STOKES Report Released Date/Time: Oct 27, 2023 01:10 AM Reporting Lab: [address] [address] Performing Lab: [facility] [address] [address] VITAMIN B12 893 pg/mL 200-900 Jan 16, 2024 08:05 AM [place] ([facility]) LIVER FUNCTION Specimen Type: SERUM No comment entered. Ordering Provider: MELL STOKES Report Released Date/Time: Oct 27, 2023 01:10 AM Reporting Lab: [facility] [address] [address] Performing Lab: [address] [address] PROTEIN,TOTAL 7.2 g/dL 6.0-8.3 ALBUMIN 4.0 g/dL 3.5-5.0 ALKALINE PHOSPHATASE 98 U/L 40-150 AST 16 U/L 5-34 ALT 27 U/L BILIRUBIN, TOTAL 0.5 mg/dL 0.2-1.2 Jan 16, 2024 08:05 AM [place] ([facility]) VITAMIN D (25-OH) Specimen Type: SERUM No comment entered. Ordering Provider: MELL STOKES Report Released Date/Time: Oct 27, 2023 01:10 AM Reporting Lab: [facility] [address] [address] Performing Lab: [address] [address] VITAMIN D (25-OH) 31 ng/mL 20-50 Jan 16, 2024 08:05 AM [place] ([facility]) BNP (Natriuretic Peptide Brain) Specimen Type: PLASMA No comment entered. Ordering Provider: MELL STOKES Report Released Date/Time: Oct 27, 2023 01:10 AM Reporting Lab: [address] [address] Performing Lab: [address] [address] BNP (Natriuretic Peptide Brain) 184 pg/mL H 10-100 Jan 16, 2024 08:05 AM [place] ([facility]) CBC AND DIFF (AUTO) Specimen Type: BLOOD No comment entered. Ordering Provider: MELL STOKES Report Released Date/Time: Oct 27, 2023 01:10 AM Reporting Lab: [address] [address] Performing Lab: [address] [address] WBC 6.05 10*3/uL 4.50-11.00 RBC 4.21 10*6/uL [...] 10*3/uL 0.00-0.00 Jan 16, 2024 08:05 AM [place] ([facility]) LIPID PANEL FASTING Specimen Type: SERUM No comment entered. Ordering Provider: MELL STOKES Report Released Date/Time: Oct 27, 2023 01:10 AM Reporting Lab: [address] [address] Performing Lab: [address] [address] CHOLESTEROL 159 mg/dL TRIGLYCERIDE 148 mg/dL 0-150 LDL calculated 92 mg/dL 0-129 CHOL/HDL 4.3 HDL CHOLESTEROL 37 mg/dL L 40-60 2023 08:36 AM [place] ([facility]) LIPID PANEL FASTING Specimen Type: SERUM No comment entered. Ordering Provider: MELL STOKES Report Released Date/Time: Nov 22, 2023 12:27 PM Reporting Lab: [address] [address] Performing Lab: [address] [address] CHOLESTEROL 127 mg/dL TRIGLYCERIDE 87 mg/dL 0-150 LDL calculated 76 mg/dL 0-129 CHOL/HDL 3.7 HDL CHOLESTEROL 34 mg/dL L 40-60 2023 08:36 AM [place] ([facility]) LIVER FUNCTION Specimen Type: SERUM No comment entered. Ordering Provider: MELL STOKES Report Released Date/Time: Nov 22, 2023 12:27 PM Reporting Lab: [address] [address] Performing Lab: [facility] [address] [place] [address] PROTEIN,TOTAL 7.1 g/dL 6.0-8.3 ALBUMIN 4.0 g/dL [...] Facil ity Aug 19, 2020 02:29 PM [place] FORMER USER [facility] Tobacco Use History This section includes a history of the smoking, or tobacco-related health factors, that were collected on or before the date of the Encounter. The data comes from the [place] facility where the Encounter took place. Date/Time Smoking Status/Tobacco Use Comment F acility Aug 19, 2020 02:29 PM [place] QU[place] 15 YRS OR MORE [facility] Encounter Notes: All associated encounter notes This section contains the clinical notes associated to the Encounter. Date/Time Encounter Note(s) Provider Source Dec 21, 2023 12:00 PM NONVA CONSULT: LOCAL TITLE: COMMUNITY CARE-CONSULT RESULT NOTE STANDARD TITLE: NONVA CONSULT DATE OF NOTE: DEC 21, 2023@12:00 ENTRY DATE: JAN 27, 2024@08:25:15 AUTHOR: LUCIANO ECKERT EXP COSIGNER: URGENCY: STATUS: COMPLETED VistA Imaging - Scanned Document SCANNED DOCUMENT SIGNATURE NOT REQUIRED Electronically Filed: 01/27/2024 by: LUCIANO ECKERT MEDICAL RADAR SIGNAL PROCESSING ENGINEER LUCIANO ECKERT [facility]
--- OUTSIDE RECORDS SUMMARY | 2024-03-11 13:05 | XMS_ITS | Encounter Summary ---
Author Name [facility] [place] Organization [place] Address [address] [place] [address] Care Team Providers Care Extrusion Die Repair Manager Name Role Phone VICKIENAWAF FRANKLIN Primary Care Provider Unavail able Insurance Providers: [...] PART A Feb 04, 2020 PART A [id number] [address] [facility] GRACIELA STOVER PATIENT MEDICARE (WNR) MEDICARE (M) PART B Feb 04, 2020 PART B [id number] NE42 [facility] GRACIELA STOVER PATIENT Selected Encounter This section includes the information on record at [place] for the Encounter. Date/Time Encounter Type Encounter Description Reason Provider Source Dec 12, 2023 09:16 AM MTMS BY PHARM DIRECTOR OF ACADEMIC SUPPORT 15 MIN TELEPHONE/IRSI COTTON ICD-10-CM Z51.81 Encounter for therapeutic drug level monitoring RADHA RIDDLE IHAngélica Encounter Template Text not used by [place] Assessments - Encounter Diagnoses This section includes the primary and secondary diagnoses documented for the Encounter. 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 This section includes future appointments and [...] - MEDICINE [facility] [place] [facility] Jan 01, 2024 08:30 AM AMBULATORY - PS[facility]CHIATRY [facility] Jan 08, 2024 11:00 AM AMBULATORY - [facility]IATRY [facility] [place] [facility] Jan 08, 2024 01:30 PM AMBULATORY - MEDICINE [place] [facility] [place] [facility] Jan 22, 2024 11:00 AM AMBULATORY - [facility]ATRY [facility] [place] [facility] Feb 05, 2024 02:00 PM AMBULATORY - PS[facility]CHIATRY [facility] [place] [facility] Feb 19, 2024 09:00 AM AMBULATORY - MEDICINE [place] [facility] [place] [facility] Feb 19, 2024 11:00 AM AMBULATORY - PS[facility]IATRY [facility] [place] [facility] Mar 01, 2024 01:30 PM AMBULATORY - MEDICINE [facility] [place] [facility] Mar 04, 2024 03:00 PM AMBULATORY - MEDICINE [place] [facility] [place] [facility] Mar 18, 2024 11:00 AM AMBULATORY - PS[facility]CHIATRY [facility] [place] [facility] Apr 01, 2024 09:00 AM AMBULATORY - MEDICINE [place] [facility] [place] [facility] Apr 01, 2024 11:00 AM AMBULATORY - [facility]IATRY [facility] [place] [facility] May 06, 2024 09:30 AM AMBULATORY - MEDICINE [facility] ([facility]) Lab Results: +/- 30 days of [...] Interpretation Reference Range Comment 2023 08:36 AM [facility] ([facility]) LIPID PANEL FASTING Specimen Type: SERUM No comment entered. Ordering Provider: QUENTIN STOKES Report Released Date/Time: Nov 22, 2023 12:27 PM Reporting Lab: [address] [address] Performing Lab: [address] [address] CHOLESTEROL 127 mg/dL TRIGLYCERIDE 87 mg/dL 0-150 LDL calculated 76 mg/dL 0-129 CHOL/HDL 3.7 HDL CHOLESTEROL 34 mg/dL L 40-60 2023 08:36 AM [facility] ([facility]) LIVER FUNCTION Specimen Type: SERUM No comment entered. Ordering Provider: QUENTIN STOKES Report Released Date/Time: Nov 22, 2023 12:27 PM Reporting Lab: [address] [address] Performing Lab: [address] [address] PROTEIN,TOTAL 7.1 g/dL 6.0-8.3 ALBUMIN 4.0 g/dL 3.5-5.0 ALKALINE PHOSPHATASE 90 U/L 40-150 AST 22 U/L 5-34 ALT 27 U/L BILIRUBIN, TOTAL 0.6 mg/dL 0.2-1.2 Nov 15, 2023 08:23 AM [facility] HEMOGLOBIN A1C PANEL Specimen Type: BLOOD [...] Sep 19, 2023 04:07 PM Reporting Lab: [facility] [address] [address] Performing Lab: [facility] [address] [address] HEMOGLOBIN A1C 6.9 H 4.0-5.6 Nov 15, 2023 08:23 AM [facility] BASIC METABOLIC PANEL (non-fasting) Specimen Type: SERUM No comment entered. Ordering Provider: ZORA GALICIA Report Released Date/Time: Sep 19, 2023 04:07 PM Reporting Lab: [facility] [address] [address] Performing Lab: [address] [address] UREA NITROGEN 34 mg/dL H 7-25 GLUCOSE 118 mg/dL H 65-100 SODIUM 138 mmol/L 135-145 POTASSIUM 5.3 mmol/L H 3.5-5.0 CHLORIDE 104 mmol/L 100-110 CO2 23 meq/L 20-30 CREATININE, Serum 1.87 mg/dL H 0.50-1.40 eGFR(CKD-EPI 2020) 41 mL/min L >60 Encounter Notes: All associated encounter notes This section contains the clinical notes associated to the Encounter. Date/Time Encounter Note(s) Provider Source Dec 12, 2023 11:26 AM ADDENDUM: LOCAL TITLE: Addendum STANDARD TITLE: ADDENDUM DATE OF NOTE: DEC 12, 2023@11:26:06 ENTRY DATE: DEC 12, 2023@11:26:07 AUTHOR: XIMENA RIDDLE COSIGNER: URGENCY: STATUS: COMPLETED Patient started on apixaban by [facility] cardiology for new onset a.fib. Will ask [facility] PCP to please update active problem list to reflect a.fib dx. /tam/ XIMENA RIDDLE [facility]MD, [facility] Clinical Pharmacist Practitioner Signed: 12/12/2023 11:26 Receipt Acknowledged By: 01/22/2024 10:21 /es/ Franklin Stokes MD MD PRIMARY CARE PHYSICIAN --- Original Document --- 12/12/23 PHARMACY ANTICOAGULATION NOTE: Reason for visit: Initial Education for Apixaban/Eliquis Indication: atrial fibrillation Start Date: ~12/18/22 Expected Duration: indefinite Referring Provider: Dr. Kiser ( Reservations Sales Agent) Patient Contact: Patient has given permission to leave anticoagulation message on answering machine or with person listed. 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 He is aware that he should take apixaban q12 hours. [place] rarely drinks, maybe 1 beer 1-2x per year . Denies upcoming surgeries or procedures. Labs: An INR was performed by a lab outside the [place]. Patient reports outside Hgb results: Date: October 08, 2023 Results: 12.5 Location: Outside Healthcare Provider Patient reports outside HCT results: Date: October 08, 2023 Results: 36.1 Location: Outside Healthcare Provider Patient reports outside PLT results: Date: October 08, 2023 Results: 171 Location: Outside Healthcare Provider SrCr (last 6 weeks): CREATININE-EGFR 11/15/23 08:23 1.87 H CRCL IBW: CrCl(est): 53.7 mL/min (Creat:1.87 11/15/23) CRCL ACT: 68.85 mL/min CRCL ADJ: 53.7 mL/min (11/15/23) LFTs wnl Vitals: Weight (BMI): 248.7 lb [112.81 kg] (10/26/2023 11:25) BMI: 33.8 Height: 72 in [182.9 cm] (02/22/2022 15:12) Active Outpatient Medications (including Supplies): ACCU-CHEK GUIDE (GLUCOSE) TEST STRIP USE 1 STRIP TO TEST ACTIVE BLOOD SUGARS TWICE DAILY CARVEDILOL 25MG TAB TAKE ONE TABLET BY MOUTH TWICE DAILY ACTIVE CLOPIDOGREL BISULFATE 75MG TAB TAKE ONE TABLET BY MOUTH ACTIVE ONCE DAILY TO PREVENT BLOOD CLOTS STOP BRILLINTA WHEN YOU START THIS MEDICATION DULAGLUTIDE 1.5MG/0.5ML INJ PEN INJECT 1.5MG ACTIVE SUBCUTANEOUSLY ONCE A WEEK FOR TYPE 2 DIABETES MELLITUS (REPLACES LIRAGLUTIDE [VICTOZA]) FELODIPINE 2.5MG SA TAB TAKE ONE TABLET BY MOUTH EVERY ACTIVE MORNING AND TAKE ONE TABLET EVERY EVENING FOR HIGH BLOOD PRESSURE DO NOT TAKE WITH GRAPEFRUIT JUICE INSULIN,GLARGINE-YFGN 100UNIT/ML PEN 3ML INJECT 30 UNITS ACTIVE SUBCUTANEOUSLY ONCE DAILY METFORMIN HCL 500MG 24HR SA TAB TAKE ONE TABLET BY MOUTH ACTIVE ONCE DAILY FOR TYPE 2 DIABETES MELLITUS NEEDLE,PEN 31G,5MM USE 1 NEEDLE SUBCUTANEOUSLY ONCE DAILY ACTIVE FOR USE WITH PEN DEVICE NITROGLYCERIN 0.4MG SL TAB DISSOLVE ONE TABLET UNDER THE ACTIVE TONGUE EVERY 5 MINUTES NEEDED FOR CHEST PAIN; IF NO RELIEF AFTER 3 DOSES, CALL 911 OR GO TO NEAREST EMERGENCY ROOM PANTOPRAZOLE NA 40MG EC TAB TAKE ONE TABLET BY MOUTH EVERY ACTIVE MORNING 30 MINUTES BEFORE BREAKFAST FOR EXCESSIVE PRODUCTION OF STOMACH ACID RANOLAZINE 500MG SA TAB TAKE ONE TABLET BY MOUTH TWICE ACTIVE DAILY ROSUVASTATIN CA 40MG TAB TAKE ONE-HALF TABLET BY MOUTH ACTIVE ONCE DAILY FOR CHOLESTEROL Non-VA ASPIRIN 81MG EC TAB 81MG BY MOUTH ONCE DAILY ACTIVE Non-VA MULTIVITAMIN/MINERALS CAP/TAB ONE CAP/TAB BY MOUTH ACTIVE ONCE DAILY Interacting Meds: ASA, clopidogrel: ASA d/c'd, reviewed interaction of increased risk of bleeding with clopidogrel Apixaban: The patient was provided with the following education: --Purpose of Apixaban --Signs and symptoms of stroke and thrombosis and what to do should they occur --Medication Identification --Dosing recommendations -Apixaban may be taken with or without food -Apixaban may be crushed --Storage recommendations -Store medication in a dry area at room temperature --Recommendations for missed doses or overdosage --Importance of medication compliance and avoiding lapses in therapy to minimize the risk of stroke --Monitor for signs/symptoms of bleeding, including: -Wrigley or brown urine -Red or black tarry stools -Coughing up blood -Vomiting blood or vomit that looks like coffee grounds -Reoccurring nosebleeds -Unusual bleeding from the gums -Bleeding from a cut that does not stop -Headaches, dizziness or weakness --Contact this clinic or provider if patient experiences and serious or intolerable adverse effects --Review risks associated with falling --Which medications to avoid due to drug interactions --Importance of notifying all providers of any medication patient is taking or changes that may occur --What to do if patient wants to discontinue therapy --Contact this clinic or provider if scheduled for a procedure --Contact number for the [facility] provided Assessment/Plan: Initiate: Apixaban 5mg twice daily Will ask PCP to update active problem list to reflect new a.fib dx Will enter prosthetics request for medical alert necklace Will ask [facility] qa reviewer to please mail apixaban in a.fib handout to pt Time Spent: 15 min Next Appt: n/a, discharge to passive management ([facility]) Next PCP Appt: Feb EDUCATION Provided with verbal instructions: Yes Provided with written instructions: No Barriers to learning: No Readiness to learn: Yes Specific dose directions reviewed: Yes Opportunity for questions/discussion: Yes Reports understanding of instructions: Yes Further learning needs: No PBM PharmD Pharmacotherapy Rem V12: Identify drug interaction Medication reconciliation (changes to active VA and non-VA medication lists to reconcile differences) Changes to medication lists made Discontinue or remove medication /es/ XIMENA RIDDLE, PHARMD, [facility] Clinical Pharmacist Practitioner Signed: 12/12/2023 11:25 XIMENA RIDDLE [facility] ([id number]) Dec 12, 2023 09:16 AM PHARMACY MEDICATION MGT NOTE: LOCAL TITLE: PHARMACY ANTICOAGULATION NOTE STANDARD TITLE: PHARMACY MEDICATION MGT NOTE DATE OF NOTE: DEC 12, 2023@09:16 ENTRY DATE: DEC 12, 2023@09:16:53 AUTHOR: XIMENA RIDDLE EXP COSIGNER: URGENCY: STATUS: COMPLETED PHARMACY ANTICOAGULATION NOTE Has ADDENDA Reason for visit: Initial Education for Apixaban/Eliquis Indication: atrial fibrillation Start Date: ~12/18/22 Expected Duration: indefinite Referring Provider: Dr. Kiser ( Reservations Sales Agent) Patient Contact: Patient has given permission to leave anticoagulation message on answering machine or with person listed. 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 He is aware that he should take apixaban q12 hours. [place] rarely drinks, maybe 1 beer 1-2x per year . Denies upcoming surgeries or procedures. Labs: An IN[facility] was performed [facility] a lab [facility] the [facility]. Patient reports outside Hgb results: Date: October 08, 2023 Results: 12.5 Location: Outside Healthcare Provider Patient reports outside HCT results: Date: October 08, 2023 Results: 36.1 Location: Outside Healthcare Provider Patient reports outside PLT results: Date: October 08, 2023 Results: 171 Location: Outside Healthcare Provider SrCr (last 6 weeks): CREATININE-EGFR 11/15/23 08:23 1.87 H CRCL IBW: CrCl(est): 53.7 mL/min (Creat:1.87 11/15/23) CRCL ACT: 68.85 mL/min CRCL ADJ: 53.7 mL/min (11/15/23) LFTs wnl Vitals: Weight (BMI): 248.7 lb [112.81 kg] (10/26/2023 11:25) BMI: 33.8 Height: 72 in [182.9 cm] (02/22/2022 15:12) Active Outpatient Medications (including Supplies): ACCU-CHEK GUIDE (GLUCOSE) TEST STRIP USE 1 STRIP TO TEST ACTIVE BLOOD SUGARS TWICE DAILY CARVEDILOL 25MG TAB TAKE ONE TABLET BY MOUTH TWICE DAILY ACTIVE CLOPIDOGREL BISULFATE 75MG TAB TAKE ONE TABLET BY MOUTH ACTIVE ONCE DAILY TO PREVENT BLOOD CLOTS STOP BRILLINTA WHEN YOU START THIS MEDICATION DULAGLUTIDE 1.5MG/0.5ML INJ PEN INJECT 1.5MG ACTIVE SUBCUTANEOUSLY ONCE A WEEK FOR TYPE 2 DIABETES MELLITUS (REPLACES LIRAGLUTIDE [VICTOZA]) FELODIPINE 2.5MG SA TAB TAKE ONE TABLET BY MOUTH EVERY ACTIVE MORNING AND TAKE ONE TABLET EVERY EVENING FOR HIGH BLOOD PRESSURE DO NOT TAKE WITH GRAPEFRUIT JUICE INSULIN,GLARGINE-YFGN 100UNIT/ML PEN 3ML INJECT 30 UNITS ACTIVE SUBCUTANEOUSLY ONCE DAILY METFORMIN HCL 500MG 24HR SA TAB TAKE ONE TABLET BY MOUTH ACTIVE ONCE DAILY FOR TYPE 2 DIABETES MELLITUS NEEDLE,PEN 31G,5MM USE 1 NEEDLE SUBCUTANEOUSLY ONCE DAILY ACTIVE FOR USE WITH PEN DEVICE NITROGLYCERIN 0.4MG SL TAB DISSOLVE ONE TABLET UNDER THE ACTIVE TONGUE EVERY 5 MINUTES NEEDED FOR CHEST PAIN; IF NO RELIEF AFTER 3 DOSES, CALL 911 OR GO TO NEAREST EMERGENCY ROOM PANTOPRAZOLE NA 40MG EC TAB TAKE ONE TABLET BY MOUTH EVERY ACTIVE MORNING 30 MINUTES BEFORE BREAKFAST FOR EXCESSIVE PRODUCTION OF STOMACH ACID RANOLAZINE 500MG SA TAB TAKE ONE TABLET BY MOUTH TWICE ACTIVE DAILY ROSUVASTATIN CA 40MG TAB TAKE ONE-HALF TABLET BY MOUTH ACTIVE ONCE DAILY FOR CHOLESTEROL Non-VA ASPIRIN 81MG EC TAB 81MG BY MOUTH ONCE DAILY ACTIVE Non-VA MULTIVITAMIN/MINERALS CAP/TAB ONE CAP/TAB BY MOUTH ACTIVE ONCE DAILY Interacting Meds: ASA, clopidogrel: ASA d/c'd, reviewed interaction of increased risk of bleeding with clopidogrel Apixaban: The patient was provided with the following education: --Purpose of Apixaban --Signs and symptoms of stroke and thrombosis and what to do should they occur --Medication Identification --Dosing recommendations -Apixaban may be taken with or without food -Apixaban may be crushed --Storage recommendations -Store medication in a dry area at room temperature --Recommendations for missed doses or overdosage --Importance of medication compliance and avoiding lapses in therapy to minimize the risk of stroke --Monitor for signs/symptoms of bleeding, including: -Wrigley or brown urine -Red or black tarry stools -Coughing up blood -Vomiting blood or vomit that looks like coffee grounds -Reoccurring nosebleeds -Unusual bleeding from the gums -Bleeding from a cut that does not stop -Headaches, dizziness or weakness --Contact this clinic or provider if patient experiences and serious or intolerable adverse effects --Review risks associated with falling --Which medications to avoid due to drug interactions --Importance of notifying all providers of any medication patient is taking or changes that may occur --What to do if patient wants to discontinue therapy --Contact this clinic or provider if scheduled for a procedure --Contact number for the [facility] provided Assessment/Plan: Initiate: Apixaban 5mg twice daily Will ask PCP to update active problem list to reflect new a.fib dx Will enter prosthetics request for medical alert necklace Will ask [facility] qa reviewer to please mail apixaban in a.fib handout to pt Time Spent: 15 min Next Appt: n/a, discharge to passive management ([facility]) Next PCP Appt: Feb EDUCATION Provided with verbal instructions: Yes Provided with written instructions: No Barriers to learning: No Readiness to learn: Yes Specific dose directions reviewed: Yes Opportunity for questions/discussion: Yes Reports understanding of instructions: Yes Further learning needs: No PBM PharmD Pharmacotherapy Rem V12: Identify drug interaction Medication reconciliation (changes to active VA and non-VA medication lists to reconcile differences) Changes to medication lists made Discontinue or remove medication /tam/ XIMENA RIDDLE PHARMD, [facility] Clinical Pharmacist Practitioner Signed: 12/12/2023 11:25 12/12/2023 ADDENDUM STATUS: COMPLETED Patient started on apixaban by [facility] cardiology for new onset a.fib. Will ask VA PCP to please update active problem list to reflect a.fib dx. /tam/ XIMENA RIDDLE [facility]MD, [facility] Clinical Pharmacist Practitioner Signed: 12/12/2023 11:26 Receipt Acknowledged By: * AWAITING SIGNATURE * FRANKLIN STOKES [id number])
--- OUTSIDE RECORDS SUMMARY | 2024-03-11 13:05 | XMS_ITS | Encounter Summary ---
Author Name [facility] [place] Organization [place] Address [address] [place] [address] Care Team Providers Care Radio Operator Name Role Phone WINDY STOKES Primary Care [...] PART B Feb 04, 2020 PART B [id number] [phone] GRAC[facility] STOVER PATIENT MEDICARE (WNR) MEDICARE (M) PART A Feb 04, 2020 PART A [id number] CK GRACIELA PATIENT Selected Encounter This section includes the information on record at [place] for the Encounter. Date/Time Encounter Type Encounter Description Reason Pro vider Source IHE Encounter Template Text not used by VA
--- OUTSIDE RECORDS SUMMARY | 2024-03-11 13:05 | XMS_ITS ---
Author Name [facility] [place] Organization [place] Address [address] [place] [address] Care Team Providers Care School Nurse Name Role Phone ARLENELEXIS NAVADERICK Primary Care Provider Unavail able Insurance [...] PART B Feb 04, 2020 PART B [id number] NE42 [facility] GRACIELA STOVER PATIENT MEDICARE (WNR) MEDICARE (M) PART A Feb 04, 2020 PART A [id number] NE42 [facility] GRACIELA STOVER PATIENT Selected Encounter This section includes the information on record at [place] for the Encounter. Date/Time Encounter Type Encounter Description Reason Pro vider Source Nov 27, 2023 01:30 PM Outpatient Encounter CLINICAL PHARMACY IHE Encounter Template Text not used by [place] Plan of Treatment: Future Appointments (+ 6 [...] 20 appointments. The data comes from all [place] treatment facilities. Appointment Date/Time Appointment Type Appointme nt Facility Name Dec 22, 2023 01:45 PM AMBULATORY [facility] MEDICINE [facility] [place] [facility] Jan 01, 2024 08:30 AM AMBULATORY - PSYCHIATRY [facility] Jan 08, 2024 11:00 AM AMBULATORY - PS[facility]CHIATRY [facility] [place] [facility] Jan 08, 2024 01:30 PM AMBULATORY - MEDICINE [facility] [place] [facility] Jan 22, 2024 11:00 AM AMBULATORY - PS[facility]IATRY [facility] [place] [facility] Feb 05, 2024 02:00 PM AMBULATORY - PS[facility]CHIATRY [facility] [place] [facility] Feb 19, 2024 09:00 AM AMBULATORY - MEDICINE [facility] [place] [facility] Feb 19, 2024 11:00 AM AMBULATORY - PS[facility]CHIATRY [facility] [place] [facility] Mar 01, 2024 01:30 PM AM[place]ULATORY [place]ICINE [place] [facility] [place] [facility] Mar 04, 2024 03:00 PM AMBULATORY - MEDICINE [facility] [place] [facility] Mar 18, 2024 11:00 AM AMBULATORY [place]RY [place] [facility] [place] [facility] Apr 01, 2024 09:00 AM AM[place]ULATORY - [place]ICINE [place] [facility] [place] [facility] Apr 01, 2024 11:00 AM AM[place]UL[place]ORY [place] [facility] [place] [facility] May 06, 2024 09:30 AM AMBULATORY - MEDICINE [facility] ([facility]) Lab Results: +/- 30 days of the encounter This section includes the Chemistry and Hematology Lab Results on record with [place] for the patient. Radiology Reports and Pathology Reports are provided separately, in subsequent sections. Lab Results This section contains the Chemistry/Hematology Results that were resulted 30 days before or 30 daysafter the date of the Encounter. Date/Time Source Result Type Result - Unit Interpretation Reference Range Comment 2023 08:36 AM [place] ([facility]) LIPID PANEL FASTING Specimen Type: SERUM No comment entered. Ordering Provider: QUENTIN STOKES Report Released Date/Time: Nov 22, 2023 12:27 PM Reporting Lab: [place] [facility] [place] [facility] [address] [facility] [address] Performing Lab: [facility] [address] [facility] [address] CHOLESTEROL 127 mg/dL TRIGLYCERIDE 87 mg/dL 0-150 LDL calculated 76 mg/dL 0-129 CHOL/HDL 3.7 HDL CHOLESTEROL 34 mg/dL L 40-60 2023 08:36 AM [place] ([facility]) LIVER FUNCTION Specimen Type: SERUM No comment entered. Ordering Provider: QUENTIN STOKES Report Released Date/Time: Nov 22, 2023 12:27 PM Reporting Lab: [facility] [address] [facility] [address] Performing Lab: [address] [address] PROTEIN,TOTAL 7.1 g/dL 6.0-8.3 ALBUMIN 4.0 g/dL 3.5-5.0 ALKALINE PHOSPHATASE 90 U/L 40-150 AST 22 U/L 5-34 ALT 27 U/L BILIRUBIN, TOTAL 0.6 mg/dL 0.2-1.2 Nov 15, 2023 08:23 AM [facility] HEMOGLOBIN A1C PANEL Specimen Type: [...] Sep 19, 2023 04:07 PM Reporting Lab: [facility] [address] [facility] [address] Performing Lab: [address] [address] HEMOGLOBIN A1C 6.9 H 4.0-5.6 Nov 15, 2023 08:23 AM [facility] BASIC METABOLIC PANEL (non-fasting) Specimen Type: SERUM No comment entered. Ordering Provider: KOSOFSKY,ZORA [place] Report Released Date/Time: Sep 19, 2023 04:07 PM Reporting Lab: [facility] [address] [address] Performing Lab: [facility] [address] [facility] [address] UREA NITROGEN 34 mg/dL H 7-25 GLUCOSE [...] and tobacco- related health factors from the [place] facility where the Encounter took place. Current Smoking Status This section includes the most current smoking, or tobacco-related health factor, from the [place] facility where the Encounter took place. Date/Time Current Smoking Status Comment Filemon honeycutt Aug 19, 2020 02:29 PM [place]-TOBACCO FORMER USER [facility] Tobacco Use History This section includes a history of the smoking, or tobacco-related health factors, that were collected on or before the date of the Encounter. The data comes from the [place] facility where the Encounter took place. Date/Time Smoking Status/Tobacco Use Comment F tess Aug 19, 2020 02:29 PM [place]-TOBACCO QUIT 15 YRS OR MORE [facility] Encounter Notes: All associated encounter notes This section contains the clinical notes associated to the Encounter. Date/Time Encounter Note(s) Provider Source Dec 11, 2023 08:02 AM MEDICATION MGT NOT E: LOCAL TITLE: AFTER VISIT SUMMARY STANDARD TITLE: MEDICATION MGT NOTE DICT DATE: DEC 11, 2023@08:02:24 ENTRY DATE: DEC 11, 2023@08:02:24 DICTATED BY: MODESTA MCDONNELL COSIGNER: URGENCY: STATUS: COMPLETED The patient was provided with a copy of an after-visit summary at the conclusion of the visit. The after-visit summary includes information pertaining to the patient's encounter, including diagnoses, vital signs, medications, and new orders, as well as a list of any any upcoming appointments and information regarding the [...] SCANNED DOCUMENT SIGNATURE NOT REQUIRED Electronically Filed: 12/11/2023 by: MODESTA HALEY [facility]
--- OUTSIDE RECORDS SUMMARY | 2024-03-11 13:05 | XMS_ITS | Encounter Summary ---
Author Name [facility] [place] Organization [facility] [place] Address [address] [place] [address] Care Team Providers Care Padded Products Finisher Name Role Phone ARLENELEXIS WINDY Primary Care [...] PART A Feb 04, 2020 PART A [id number] [facility]A STOVER PATIENT MEDICARE (WNR) MEDICARE (M) PART B Feb 04, 2020 PART B [id number] GRACIELA STOVER PATIENT Selected Encounter This section includes the information on record at [place] for the Encounter. Date/Time Encounter Type Encounter Description Reason Pro vider Source Dec 22, 2023 12:00 AM Outpatient Encounter COMMUNITY CARE [...] Appointment Type Appointme nt Facility Name Jan 01, 2024 08:30 AM AMBULATORY - PSYCHIATRY [facility] ([facility]) Jan 08, 2024 11:00 AM [facility] [place] [facility] Jan 08, 2024 01:30 PM [facility]UL[facility]ICINE [facility] [place] [facility] Jan 22, 2024 11:00 AM AMBULATORY - [facility] [place] [facility] Feb 05, 2024 02:00 PM AMBULATORY - [facility]AT[facility] [place] [facility] Feb 19, 2024 09:00 AM [facility]ATORY [facility]IC[facility] [place] [facility] Feb 19, 2024 11:00 AM AMBULATORY [facility] [place] [facility] Mar 01, 2024 01:30 PM AMBULATORY [facility]IC[facility] [place] [facility] Mar 04, 2024 03:00 PM AMBULATORY - [facility]IC[facility] [place] [facility] Mar 18, 2024 11:00 AM AMBULATORY - [facility] [place] [facility] Apr 01, 2024 09:00 AM AM[facility]UL[facility] - [facility]IC[facility] [place] [facility] Apr 01, 2024 11:00 AM AM[facility]UL[facility] [place] [facility] May 06, 2024 09:30 AM [facility]) Lab Results: +/- 30 days of [...] Comment Jan 16, 2024 08:05 AM [facility] ([facility]) LIVER FUNCTION Specimen Type: SERUM No comment entered. Ordering Provider: MELL STOKES Report Released Date/Time: Jan 16, 2024 08:00 AM Reporting Lab: [facility] [place] [address] [address] Performing Lab: [id number] [address] PROTEIN,TOTAL 7.3 g/dL 6.0-8.3 ALBUMIN 4.0 g/dL 3.5-5.0 ALKALINE PHOSPHATASE 99 U/L 40-150 AST 16 U/L 5-34 ALT 26 U/L BILIRUBIN, TOTAL 0.5 mg/dL 0.2-1.2 Jan 16, 2024 08:05 AM [place] LIPID PANEL FASTING Specimen Type: SERUM No comment entered. Ordering Provider: MELL STOKES Report Released Date/Time: Jan 16, 2024 08:00 AM Reporting Lab: [address] [address] Performing Lab: [address] [address] CHOLESTEROL 161 mg/dL TRIGLYCERIDE 150 mg/dL 0-150 LDL calculated 94 mg/dL 0-129 CHOL/HDL 4.4 HDL CHOLESTEROL 37 mg/dL L 40-60 Jan 16, 2024 08:05 AM [place] FERRITIN Specimen Type: SERUM No comment entered. Ordering Provider: MELL STOKES Report Released Date/Time: Oct 27, 2023 01:10 AM Reporting Lab: [address] [address] Performing Lab: [address] [address] FERRITIN 23 ng/mL 20-300 Jan 16, 2024 08:05 AM [place] ([facility]) TSH Specimen Type: SERUM No comment entered. Ordering Provider: MELL STOKES Report Released Date/Time: Oct 27, 2023 01:10 AM Reporting Lab: [address] [address] Performing Lab: [address] [address] TSH 2.57 u[IU]/mL 0.35-5.00 Jan 16, 2024 08:05 AM [place] ([facility]) IRON & TIBC PANEL Specimen Type: SERUM No comment entered. Ordering Provider: MELL STOKES Report Released Date/Time: Oct 27, 2023 01:10 AM [facility] [address] [address] Performing Lab: [facility] [address] [address] TIBC 396 ug/dL 204-475 IRON 110 ug/dL 40-160 Transferrin Saturation 27.8 20.0-50.0 Transferrin (TRF) 300 mg/dL 200-360 Jan 16, 2024 08:05 AM [place] VITAMIN B12 Specimen Type: SERUM No comment entered. Ordering Provider: MELL STOKES Report Released Date/Time: Oct 27, 2023 01:10 AM Reporting [facility]: [facility] [address] [address] Performing Lab: [address] [address] VITAMIN B12 893 pg/mL 200-900 Jan 16, 2024 08:05 AM [place] ([facility]) VITAMIN D (25-OH) Specimen Type: SERUM No comment entered. Ordering Provider: MELL STOKES Report Released Date/Time: Oct 27, 2023 01:10 AM Reporting [facility]: [facility] [address] [address] Performing Lab: [address] [address] VITAMIN D (25-OH) 31 ng/mL 20-50 Jan 16, 2024 08:05 AM [place] ([facility]) LIVER FUNCTION Specimen Type: SERUM No comment entered. Ordering Provider: MELL STOKES Report Released Date/Time: Oct 27, 2023 01:10 AM Reporting [facility]: [facility] [address] [address] Performing Lab: [facility] [address] [address] PROTEIN,TOTAL 7.2 g/dL 6.0-8.3 ALBUMIN 4.0 g/dL 3.5-5.0 ALKALINE PHOSPHATASE 98 U/L 40-150 AST 16 U/L 5-34 ALT 27 U/L BILIRUBIN, TOTAL 0.5 mg/dL 0.2-1.2 Jan 16, 2024 08:05 AM [place] ([facility]) BNP (Natriuretic Peptide Brain) Specimen Type: PLASMA No comment entered. Ordering Provider: MELL STOKES Report Released Date/Time: Oct 27, 2023 01:10 AM Reporting Lab: [address] [address] Performing Lab: [address] [address] BNP (Natriuretic Peptide Brain) 184 pg/mL H 10-100 Jan 16, 2024 08:05 AM [place] ([facility]) CBC AND DIFF (AUTO) Specimen Type: BLOOD No comment entered. Ordering Provider: MELL STOKES Report Released Date/Time: Oct 27, 2023 01:10 AM Reporting Lab: [address] [address] Performing Lab: [address] [address] WBC 6.05 10*3/uL 4.50-11.00 RBC 4.21 10*6/uL [...] 10*3/uL 0.00-0.00 Jan 16, 2024 08:05 AM [place] ([facility]) LIPID PANEL FASTING Specimen Type: SERUM No comment entered. Ordering Provider: MELL STOKES Report Released Date/Time: Oct 27, 2023 01:10 AM Reporting Lab: [address] [address] Performing Lab: [address] [address] CHOLESTEROL 159 mg/dL TRIGLYCERIDE 148 mg/dL 0-150 LDL calculated 92 mg/dL 0-129 CHOL/HDL 4.3 HDL CHOLESTEROL 37 mg/dL L 40-60 2023 08:36 AM [place] ([facility]) LIPID PANEL FASTING Specimen Type: SERUM No comment entered. Ordering Provider: MELL STOKES Report Released Date/Time: Nov 22, 2023 12:27 PM Reporting Lab: [address] [address] Performing Lab: [address] [address] CHOLESTEROL 127 mg/dL TRIGLYCERIDE 87 mg/dL 0-150 LDL calculated 76 mg/dL 0-129 CHOL/HDL 3.7 HDL CHOLESTEROL 34 mg/dL L 40-60 2023 08:36 AM [place] ([facility]) LIVER FUNCTION Specimen Type: SERUM No comment entered. Ordering Provider: MELL STOKES Report Released Date/Time: Nov 22, 2023 12:27 PM Reporting Lab: [address] [address] Performing Lab: [address] [address] PROTEIN,TOTAL 7.1 g/dL 6.0-8.3 ALBUMIN 4.0 g/dL [...] Facil ity Aug 19, 2020 02:29 PM [place] FORMER USER [facility] Tobacco Use [...] Encounter. Date/Time Encounter Note(s) Provider Source Dec 22, 2023 12:00 AM NONVA CONSULT: LOCAL TITLE: COMMUNITY CARE-CONSULT RESULT NOTE STANDARD TITLE: NONVA CONSULT DATE OF NOTE: DEC 22, 2023 ENTRY DATE: JAN 17, 2024@13:05:53 AUTHOR: ERIN TEJADA EXP COSIGNER: URGENCY: STATUS: COMPLETED VistA Imaging - Scanned Document SCANNED DOCUMENT SIGNATURE NOT REQUIRED Electronically Filed: 01/17/2024 by: ERIN TEJADA SR TECHNICAL SALES CONSULTANT ERIN TEJADA [facility]
--- OUTSIDE RECORDS SUMMARY | 2024-03-11 13:05 | XMS_ITS | Encounter Summary ---
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 SOCIAL WORK ARTERIAL EMBALMER 01/02/2024 13:06 /es/ YARELY IRELAND Retail SpecialistLula [facility] RUDI NAVAS ([facility])
--- OUTSIDE RECORDS SUMMARY | 2024-03-11 13:05 | XMS_ITS ---
Author Name [facility] of Veter[facility] ([place]) Organization [facility] [place] Address [address] [place] [address] Care Team Providers Care Butt Maker Name Role Phone WINDY STOKES Primary Care [...] PART A Feb 04, 2020 PART A [id number] [address] GRACIELA STOVER PATIENT MEDICARE (WNR) MEDICARE (M) PART B Feb 04, 2020 PART B [id number] [facility] GRACIELA STOVER PATIENT Selected Encounter This section includes the information on record at [place] for the Encounter. Date/Time Encounter Type Encounter Description Reason Pro vider Source Dec 21, 2023 01:21 PM Outpatient Encounter ADMIN PAT ACTIVTIES (MASNONCT) IHE Encounter Template Text not used by ND Plan of Treatment: Future Appointments (+ 6 [...] 22, 2023 01:45 PM AMBULATORY - MEDICINE [place] C [facility] [place] [facility] Jan 01, 2024 08:30 AM AMBULATORY - PSYCHIATRY [facility] ([facility] Jan 08, 2024 11:00 AM AMBULATORY - PSYCHIATRY [place] [facility] [facility] Jan 08, 2024 01:30 PM AMBULATORY - MEDICINE ND C [facility] [facility] Jan 22, 2024 11:00 AM AMBULATORY - PSYCHIATRY [place] [facility] [place] [place] [facility] Feb 05, 2024 02:00 PM AMBULATORY - PSYCHIATRY [place] [facility] [place] [facility] Feb 19, 2024 09:00 AM AMBULATORY - MEDICINE ND C [facility] [facility] Feb 19, 2024 11:00 AM AMBULATORY - PSYCHIATRY ND [facility] [facility] Mar 01, 2024 01:30 PM AMBULATORY - MEDICINE ND C [facility] [place] [facility] Mar 04, 2024 03:00 PM AMBULATORY - MEDICINE ND C [facility] [place] [facility] Mar 18, 2024 11:00 AM AMBULATORY - PSYCHIATRY ND [facility] [place] [facility] Apr 01, 2024 09:00 AM AMBULATORY - MEDICINE ND C [place] [place] [facility] Apr 01, 2024 11:00 AM AMBULATORY - PSYCHIATRY ND [facility] [place] [facility] May 06, 2024 09:30 AM AMBULATORY - MEDICINE [facility] ([facility]) Lab Results: +/- 30 days of the [...] Range Comment Jan 16, 2024 08:05 AM [place] ([facility]) LIVER FUNCTION Specimen Type: SERUM No comment entered. Ordering Provider: MELL STOKES Report Released Date/Time: Jan 16, 2024 08:00 AM Reporting Lab: [address] [address] Performing Lab: [address] [address] PROTEIN,TOTAL 7.3 g/dL 6.0-8.3 ALBUMIN 4.0 g/dL 3.5-5.0 ALKALINE PHOSPHATASE 99 U/L 40-150 AST 16 U/L 5-34 ALT 26 U/L BILIRUBIN, TOTAL 0.5 mg/dL 0.2-1.2 Jan 16, 2024 08:05 AM [facility] ([facility]) LIPID PANEL FASTING Specimen Type: SERUM No comment entered. Ordering Provider: MELL STOKES Report Released Date/Time: Jan 16, 2024 08:00 AM Reporting Lab: [address] [address] Performing Lab: [address] [address] CHOLESTEROL 161 mg/dL TRIGLYCERIDE 150 mg/dL 0-150 LDL calculated 94 mg/dL 0-129 CHOL/HDL 4.4 HDL CHOLESTEROL 37 mg/dL L 40-60 Jan 16, 2024 08:05 AM [facility] (OC) FERRITIN Specimen Type: SERUM No comment entered. Ordering Provider: MELL STOKES Report Released Date/Time: Oct 27, 2023 01:10 AM Reporting Lab: [address] [address] Performing Lab: [address] [address] FERRITIN 23 ng/mL 20-300 Jan 16, 2024 08:05 AM [facility] (OC) IRON & TIBC PANEL Specimen Type: SERUM No comment entered. Ordering Provider: MELL STOKES Report Released Date/Time: Oct 27, 2023 01:10 AM Reporting Lab: [address] [address] Performing Lab: [address] [address] TIBC 396 ug/dL 204-475 IRON 110 ug/dL 40-160 Transferrin Saturation 27.8 20.0-50.0 Transferrin (TRF) 300 mg/dL 200-360 Jan 16, 2024 08:05 AM [facility] (OC) TSH Specimen Type: SERUM No comment entered. Ordering Provider: MLEL STOKES Report Released Date/Time: Oct 27, 2023 01:10 AM Reporting [facility]: [facility] [address] [address] Performing Lab: [facility] [address] [address] TSH 2.57 u[IU]/mL 0.35-5.00 Jan 16, 2024 08:05 AM [facility] ([facility]) VITAMIN B12 Specimen Type: SERUM No comment entered. Ordering Provider: MELL STOKES Report Released Date/Time: Oct 27, 2023 01:10 AM Reporting Lab: [address] [address] Performing Lab: [address] [address] VITAMIN B12 893 pg/mL 200-900 Jan 16, 2024 08:05 AM [facility] (CB) VITAMIN D (25-OH) Specimen Type: SERUM No comment entered. Ordering Provider: MELL STOKES Report Released Date/Time: Oct 27, 2023 01:10 AM Reporting Lab: [address] [address] Performing Lab: [facility] [address] [address] VITAMIN D (25-OH) 31 ng/mL 20-50 Jan 16, 2024 08:05 AM [facility] ([facility]) LIVER FUNCTION Specimen Type: SERUM No comment entered. Ordering Provider: MELL STOKES Report Released Date/Time: Oct 27, 2023 01:10 AM Reporting Lab: [facility] [address] [address] Performing Lab: [address] [address] PROTEIN,TOTAL 7.2 g/dL 6.0-8.3 ALBUMIN 4.0 g/dL 3.5-5.0 ALKALINE PHOSPHATASE 98 U/L 40-150 AST 16 U/L 5-34 ALT 27 U/L BILIRUBIN, TOTAL 0.5 mg/dL 0.2-1.2 Jan 16, 2024 08:05 AM [facility] ([facility]) CBC AND DIFF (AUTO) Specimen Type: BLOOD No comment entered. Ordering Provider: MELL STOKES Report Released Date/Time: Oct 27, 2023 01:10 AM Reporting Lab: [facility] [address] [facility] [address] Performing Lab: [facility] [address] [facility] [address] WBC 6.05 10*3/uL 4.50-11.00 RBC 4.21 10*6/uL [...] 10*3/uL 0.00-0.00 Jan 16, 2024 08:05 AM [facility] ([facility]) BNP (Natriuretic Peptide Brain) Specimen Type: PLASMA No comment entered. Ordering Provider: MELL STOKES Report Released Date/Time: Oct 27, 2023 01:10 AM Reporting Lab: [facility] [address] [address] Performing Lab: [facility] [address] [address] BNP (Natriuretic Peptide Brain) 184 pg/mL H 10-100 Jan 16, 2024 08:05 AM [facility] ([facility]) LIPID PANEL FASTING Specimen Type: SERUM No comment entered. Ordering Provider: MELL STOKES Report Released Date/Time: Oct 27, 2023 01:10 AM Reporting Lab: [address] [address] Performing Lab: [address] [address] CHOLESTEROL 159 mg/dL TRIGLYCERIDE 148 mg/dL 0-150 LDL calculated 92 mg/dL 0-129 CHOL/HDL 4.3 HDL CHOLESTEROL 37 mg/dL L 40-60 2023 08:36 AM [place] ([facility]) LIPID PANEL FASTING Specimen Type: SERUM No comment entered. Ordering Provider: MELL STOKES Report Released Date/Time: Nov 22, 2023 12:27 PM Reporting Lab: [facility] [address] [address] Performing Lab: [facility] [address] [address] CHOLESTEROL 127 mg/dL TRIGLYCERIDE 87 mg/dL 0-150 LDL calculated 76 mg/dL 0-129 CHOL/HDL 3.7 HDL CHOLESTEROL 34 mg/dL L 40-60 2023 08:36 AM [facility] ([facility]) LIVER FUNCTION Specimen Type: SERUM No comment entered. Ordering Provider: MELL STOKES Report Released Date/Time: Nov 22, 2023 12:27 PM Reporting Lab: [facility] [address] [address] Performing Lab: [facility] [address] [facility] [address] PROTEIN,TOTAL 7.1 g/dL 6.0-8.3 ALBUMIN 4.0 g/dL [...] Encounter Note(s) Provider Source Dec 21, 2023 01:21 PM LETTERS: LOCAL TITLE: PATIENT LETTER (T) STANDARD TITLE: LETTERS DATE OF NOTE: DEC 21, 2023@13:21 ENTRY DATE: DEC 21, 2023@13:21:39 AUTHOR: JOSE DE JESUS LUNA EXP COSIGNER: URGENCY: STATUS: COMPLETED DEPARTMENT OF [facility] Toll Free Number Primary Care Telephone Assistance can be reached at extension [phone] [facility] scheduling can be reached at extension [phone] [facility] scheduling can be reached at ext [phone] [place], [place], [address] Dear , We have been unsuccessful at reaching you to discuss the nephrology care recommended by your primary care provider. Please reach out to Jose De Jesus Luna RCI registered nurse at [phone] EXT: [phone] MON-FRI [phone]. She will be happy to assist you. Please note this referral will in thirty days. Thank you for trusting the [place] [facility] with your healthcare needs. Sincerely, Your Primary Care Team [facility] [address] [facility] [address] [place] [address] [place] [address] [phone] [facility] [address] [place] [address] [place] [address] [phone] [facility] [address] [facility] [place] [address] [place] [address] JOSE DE JESUS LUNA [place] CNTL [facility]
--- OUTSIDE RECORDS SUMMARY | 2024-03-11 13:06 | XMS_ITS | Encounter Summary ---
Author Name [facility] [place] [facility] [place] Organization [place] Address [address] [place] [address] Care Team Providers Care Dope House Operator Helper Name Role Phone WINDY STOKES Primary Care [...] PART A Feb 04, 2020 PART A [id number] [address] [facility] GRACIELA STOVER PATIENT MEDICARE (WNR) MEDICARE (M) PART B Feb 04, 2020 PART B [id number] NE[address] [facility] GRACIELA STOVER PATIENT Selected Encounter This section includes the information on record at [place] for the Encounter. Date/Time Encounter Type Encounter Description Reason Provider Source Feb 19, 2024 09:00 AM OFFICE O/P EST LOW 20 MIN PODIATRY ICD-10-CM E11.43 Type 2 diabetes w diabetic autonomic (poly)neuropath y NETTA MAY Angélica Encounter Template Text not used by [place] Assessments - Encounter Diagnoses This section includes the primary and secondary diagnoses documented for the Encounter. Date/Time Primary/Secondary Diagnosis Diagnosis Name Provider Source Feb 20, 2024 12:16 PM PRIMARY Type 2 diabetes w diabetic autonomic (poly)neuropathy [facility] [place] [facility] Feb 20, 2024 12:16 PM SECONDARY Corns and callosities [facility] [place] [facility] Feb 20, 2024 12:16 PM SECONDARY Nail dystrophy [facility]TA [facility] [place] [facility] Feb 20, 2024 12:16 PM SECONDARY Type 2 diabetes w diabetic peripheral angiopath w/o gangrene [facility]TA MAY [facility] Plan of Treatment: Future Appointments (+ 6 months) and Future Tests (+/- 45 days) The Plan of Treatment section includes future care activities for the patient from all [place] [facility]. This section includes future appointments and future orders which are active, pending or scheduled. Future Appointments This section includes appointments that were scheduled to occur 6 months from the date of the Encounter, up to a maximum of 20 appointments. The data comes from all [facility]. Appointment Date/Time Appointment Type Appointme nt Facility Name Mar 01, 2024 01:30 PM [facility]BULATORY - [facility] Mar 04, 2024 03:00 PM AMBULATORY - MEDICINE [facility] [place] [facility] Mar 18, 2024 11:00 AM [facility] [place] [facility] Apr 01, 2024 09:00 AM AMBULATORY - MEDICINE [facility] [place] [facility] Apr 01, 2024 11:00 AM [facility] May 06, 2024 09:30 AM AMBULATORY - MEDICINE [facility] Active, Pending, and Scheduled Orders This section includes a listing of several types of active, pending, and scheduled orders, including clinic medications orders, diagnostic test orders, procedure orders and consult orders; where the start date of the order is 45 days before the date of the Encounter or 45 days after the date of theEncounter. The data comes from all [facility]. Test Date/Time Test Type Test Details Facility Name Mar 08, 2024 04:09 PM Consult Order PRIOR AUTH FACILITY DRUG REQUEST PC PADR Cons Infectious Waste Technician's Choice [facility] Lab Results: +/- 30 days of the encounter This section includes the Chemistry and Hematology Lab Results on record with [place] for the patient. Radiology Reports and Pathology Reports are provided separately, in subsequent sections. Lab Results This section contains the Chemistry/Hematology Results that were resulted 30 days before or 30 daysafter the date of the Encounter. Date/Time Source Result Type Result - Unit Interpretation Reference Range Comment Mar 01, 2024 02:07 PM [facility] HEMOGLOBIN A1C PANEL Specimen Type: BLOOD Comment: Values obtained from A1C measurements can vary. For atypical A1C assays, a reported value of 7.0 could actually be between 6.72 and 7.28 if measured by a reference method. A reported value of 9.0 could actually be between 8.73 and 9.27. Ref: http://www.ngs p.org/CAPdata. asp Ordering Provider: MODESTA MCDONNELL Report Released Date/Time: Mar 01, 2024 01:48 PM Reporting Lab: [address] [address] Performing Lab: [address] [address] HEMOGLOBIN A1C 6.9 H 4.0-5.6 Mar 01, 2024 02:07 PM [facility] CREATININE (eGFR 2020) Specimen Type: SERUM No comment entered. Ordering Provider: MODESTA MCDONNELL Report Released Date/Time: Mar 01, 2024 01:48 PM Reporting Lab: [address] [address] Performing Lab: [address] [address] CREATININE, Serum 2.14 mg/dL H 0.50-1.40 eGFR(CKD-EPI 2020) 35 mL/min L >60 Feb 27, 2024 09:21 AM [place] ([facility]) UREA NITROGEN Specimen Type: SERUM No comment entered. Ordering Provider: QUENTIN STOKES Report Released Date/Time: Feb 20, 2024 11:37 AM Reporting Lab: [address] [address] Performing Lab: [address] [address] UREA NITROGEN 38 mg/dL H 7-25 Feb 27, 2024 09:21 AM [place] [place] ([facility]) CPK Specimen Type: SERUM No comment entered. Ordering Provider: QUENTIN STOKES Report Released Date/Time: Feb 20, 2024 11:37 AM Reporting Lab: [facility] [address] [address] Performing Lab: [facility] [address] [address] CPK 122 U/L 30-200 Feb 27, 2024 09:21 AM [place] ([facility]) ELECTROLYTE PANEL Specimen Type: SERUM No comment entered. Ordering Provider: QUENTIN STOKES Report Released Date/Time: Feb 20, 2024 11:37 AM Reporting Lab: [facility] [address] [address] Performing Lab: [facility] [address] [address] SODIUM 138 mmol/L 135-145 POTASSIUM 5.1 mmol/L H 3.5-5.0 CHLORIDE 104 mmol/L 100-110 CO2 25 meq/L -Feb 27, 2024 09:21 AM [place] ([facility]) CREATININE (eGFR 2020) Specimen Type: SERUM No comment entered. Ordering Provider: MODESTA MCDONNELL Report Released Date/Time: Mar 01, 2024 02:03 PM Reporting Lab: [facility] [address] [address] Performing Lab: [facility] [address] [address] CREATININE, Serum 1.82 mg/dL H 0.50-1.40 eGFR(CKD-EPI 2020) 43 mL/min L >60 Vital Signs: All taken on the encounter date This section contains inpatient and outpatient Vital Signs collected on the date of the Encounter. Date/Time Temperature Pulse Blood Pressure Respiratory Rate SP02 Pain Height Weight Body Mass Index Source Feb 19, 2024 09:08 AM 98.2 [facility] Social History: Smoking Status (Most current) and Tobacco Use (All prior to encounter date) This section includes the most current, and the historical, smoking and tobacco- related health factors from the [place] facility where the Encounter took place. Current Smoking Status This section includes the most current smoking, or tobacco-related health factor, from the [place] facility where the Encounter took place. Date/Time Current Smoking Status Comment Facil ity Aug 19, 2020 02:29 PM VA-TOBACCO FORMER USER [facility] Tobacco Use History This section includes a history of the smoking, or tobacco-related health factors, that were collected on or before the date of the Encounter. The data comes from the [place] facility where the Encounter took place. Date/Time Smoking Status/Tobacco Use Comment F acility Aug 19, 2020 02:29 PM [place]-TOBACCO QUIT 15 YRS OR MORE [facility] Encounter Notes: All associated encounter notes This section contains the clinical notes associated to the Encounter. Date/Time Encounter Note(s) Provider Source Feb 19, 2024 09:25 AM PODIATRY NOTE: LOCAL TITLE: PODIATRY NOTE STANDARD TITLE: PODIATRY NOTE DATE OF NOTE: FEB 19, 2024@09:25 ENTRY DATE: FEB 19, 2024@09:25:11 AUTHOR: NETTA MAY COSIGNER: URGENCY: STATUS: COMPLETED Podiatry High Risk Foot Encounter [facility] provider: Netta May [facility] Date: Feb 19, 2024 DEIRD[address] STOVER MALE [id number] [place] [address] FROM July TO Jan Primary Care:WINDY STOKES last seen 2023. History of chief complaint: Patient is a diabetic male with peripheral vascular disease cardiovascular disease who has had several peripheral vascular stents placed and more recently another cardiac stent placed ever having a small SD over the summer since last visit. Patient also is status post right second toe partial toe amputation performed at [facility] by vascular surgeon Dr. Barron. This was well-healed at last visit Patient was given consult to [facility] [place] for custom fit diabetic inserts for which he was made 3 pair-initially they were comfortable but within a very short period of time they felt like they were paperthin and not giving him any protection. Patient was complaining of episodic tachycardia with heart rates episodically in the 110s to 112 range. he is sched for an cardiac ablaition procedure Apr 03 He is presently not complaining of any fever chills nausea vomiting or any drainage or weeping from feet. But did attempt self nail care before sept clinic ava. and caused a small nailbed [...] Clear cell carcinoma of kidney 2. Anemia ([facility] [id number]) 3. CAD - Coronary Artery Disease ([facility] [id number]) 4. Diabetes Mellitus Type 2 ([facility] [id number]) 5. HTN - Hypertension ([facility] [id number]) 6. Hyperlipidemia ([facility] [id number]) 7. GERD - Gastro-Esophageal Reflux Disease ([facility] [id number]) 8. Chronic Kidney Disease Stage 3 ([facility] [id number]) 9. H/O: Deep Vein Thrombosis ([facility] [id number]) 10. Peripheral Vascular Disease ([facility] [id number]) 11. Foot Ulcer ([facility] [id number]) 12. Osteomyelitis ([facility] [id number]) Active Out Patient medications: Active Outpatient Medications [...] Total Medications Imaging reports: Lab Data: CREATININE-EGFR 9/11/24 08:23 1.87 H 08/17/23 15:31 2.37 H [...] SERUM ALBUMIN 3.9 g/dL 3.5 - 5.0 Date Vital Measurement Qualifiers 02/19/2024 09:08 Temp F (C) 98.2 (36.8) BMI:BMI: 33.8 PE:General: Overall patient is stable [...] callus at the IP joint pared down intact base. Webs clear Plantar feet without calluses of [...] -Pa-Orthotics contracted through [facility] [place] are really no good or not thick enough, do not provide enough shock absorption and are not supportive enough. -Had given patient apex gel insoles for better cushioning-he felt they were painful also. so not wearing anything in foot wear. -will consult [facility] for dm trilam inserts and foot wear boot. Recall:4 weeks 04/01/2024 Return sooner if any clinical signs of [...] as results of the physical exam and packaging sales consultant opinions and recommendations as sought. [...] -The on this visit was given information [employer] service and encouraged to enroll if not already having done so. /tam/ NETTA MAY DPM PODIATRY ATTENDING Signed: 02/20/2024 12:17 NETTA MAY [place] [facility]TRL [facility]
--- OUTSIDE RECORDS SUMMARY | 2024-03-11 13:06 | XMS_ITS | Continuity of Care Document ---
Author Organization [facility] Address [address] [place] [id number] [facility] Name Relationship Address Phone REBECA STOVER spouse Unknown Unavailable CK, ANABELL Personal Relationship Unknown Unav ailable CK, DEIRDRE Personal Relationship Unknown [place] vailable CK, SOFYA child Unknown Unavailable CK, REBECA Personal Relationship Unknown Unava ilable CK, REBECA Personal Relationship Unknown Unava ilable CK, ROGE child Unknown Unavailable CK, REBECA Personal Relationship Unknown Unava ilable CK, REBECA spouse Unknown Unavailable CK, REBECA Personal Relationship Unknown Unava ilable CK, ANABELL Personal Relationship Unknown Unav ailable CK, ANABELL Personal Relationship Unknown Unav ailable CK, REBECA Personal Relationship Unknown Unava ilable CK, REBECA Personal Relationship Unknown Unava ilable Care Team Providers Care Glass Technologist Name Role Phone Jose A PALACIOS, Michael Primary Care Physician [place] [facility] [place]): [place] 02/16/24 [facility] [id number] [place] [id number] Attending Physician: Danny Ramírez Admitting Physician: Danny Ramírez Referring Physician: Danny Ramírez Encounter Type: Triage Allergies, Adverse Reactions, Alerts Substance Criticality Severity Reaction Reaction Severity Status Indocin High criticality Severe gi cramping Proposed Percocet 5/325 HYPERACTIVE ACTIVITY Active Norvasc High criticality Severe cramping Act negar Zetia Active Immunizations Given and Recorded Vaccine Date Status Refusal Reason influenza virus vaccine, inactivated 1 01/24/19 Gi gabriela influenza virus vaccine, inactivated 12/22/17 Give n tetanus/diphtheria/pertussis, acel(Tdap) 12/19/16 Given Afluria (oldterm) 12/19/16 Given pneumococcal 23-valent vaccine 12/19/16 Given tetanus-diphtheria toxoids (Td) 11/29/08 Recorded diphtheria-tetanus toxoids (DT) 07/19/02 Given 1Result Comment: [facility] [id number] Medications aspirin 81 mg oral tablet, chewable = 81 mg, By Mouth, Daily, # 30 tablet, 0 Refills, Maintenance, 03/22/14 3:58:42 PM EST, Chew Tablet Start Date: 03/22/14 Stop Date: 04/21/14 Status: Ordered Quantity: 30.0 Unit: tablet Repeat number: 1 carvedilol 25 mg oral tablet 1, tablet, By Mouth, 2 times a day, # 180 tablet, Refills 3, Tot. Refills 3, Maintenance, 02/07/23 3:39:00 PM EST, Route to Pharmacy Electronically, [facility], 183, cm, 12/02/22 9:49:00 EDT, Height, 110.8, kg, 07/14/22 2:02:00 EDT, Dry Weight Start Date: 02/07/23 Status: Ordered Quantity: 180.0 Unit: tablet Repeat number: 4 Crestor 20 mg oral tablet 1 tablet = 20 mg, By Mouth, Daily, # 30 tablet, 0 Refills, Maintenance, 01/17/24 9:37:00 AM EST, Tablet, Partial fill upon patient request if the prescription is for a schedule II opioid drug. Start Date: 01/17/24 Status: Ordered Quantity: 30.0 Unit: tablet Repeat number: 1 Eliquis 5 mg oral tablet 1 tablet = 5 mg, By Mouth, 2 times a day, # 60 tablet, 11 Refills, Maintenance, 12/11/23 9:08:00 AM EDT, Tablet, [facility], Partial fill upon patient request if the prescription is fora schedule II opioid drug., 183, cm, 12/11/23 8:30:00 EDT, Height, 109.8, kg, 10/06/23 21:56:00 EDT, Dry Weight Start Date: 12/11/23 Status: Ordered Quantity: 60.0 Unit: tablet Repeat number: 12 felodipine 2.5 mg oral tablet, extended release 1 tablet = 2.5 mg, By Mouth, 2 times a day, # 90 tablet, 0 Refills, Maintenance, 01/17/24 9:37:00 AM EST, ER Tablet, Partial fill upon patient request if the prescription is for a schedule II opioid drug. Start Date: 01/17/24 Status: Ordered Quantity: 90.0 Unit: tablet Repeat number: 1 felodipine 5 mg oral tablet, extended release 1 tablet = 5 mg, By Mouth, Daily at bedtime, # 90 tablet, 3 Refills, Maintenance, 03/29/23 4:07:00 PM EST, ER Tablet, [facility], 183, cm, 03/13/23 11:08:00 EST, Height, 110.8, kg, 07/14/22 2:02:00 EDT, Dry Weight Start Date: 03/29/23 Status: Ordered Quantity: 90.0 Unit: tablet Repeat number: 4 Lantus 100 u/ml subcutaneous solution = 30 units, Subcutaneous Injection, Daily at bedtime, 5 Refills, Maintenance, 09/27/23 10:56:00 PM EDT, Partial fill upon patient request if the prescription is for a schedule II opioid drug. Start Date: 09/27/23 Stop Date: 10/27/23 Status: Ordered Repeat number: 1 metFORMIN 500 mg oral tablet 1 tablet = 500 mg, By Mouth, 2 times a day, # 60 tablet, 0 Refills, Maintenance, 09/27/23 10:56:00 PM EDT, Tablet, Partial fill upon patient request if the prescription is for a schedule II opioid drug. Start Date: 09/27/23 Status: Ordered Quantity: 60.0 Unit: tablet Repeat number: 1 metFORMIN 500 mg oral tablet 1 tablet = 500 mg, By Mouth, Daily, with meals, # 30 tablet, 0 Refills, Maintenance, 01/17/24 9:37:00 AM EST, Tablet, Partial fill upon patient request if the prescription is for a schedule II opioiddrug. Start Date: 01/17/24 Status: Ordered Quantity: 30.0 Unit: tablet Repeat number: 1 nitroglycerin 0.4 mg sublingual tablet 1 tablet = 0.4 mg, Sublingual, Every 5 minutes, PRN for chest pain, # 100 tablet, 3 Refills, Maintenance, 02/15/22 3:08:00 PM EST, Tablet, [facility], 182, cm, 02/15/22 14:40:00 EST, Height, 110, kg, 10/03/21 2:59:00 EDT, Dry Weight Start Date: 02/15/22 Status: Ordered Quantity: 100.0 Unit: tablet Repeat number: 4 Plavix 75 mg oral tablet 75 mg, 1, tablet, By Mouth, Daily, # 14 tablet, Refills 1, Tot. Refills 1, Maintenance, 10/03/23 9:18:00 AM EDT, Route to Pharmacy Electronically, [facility], Partial fill upon patient request if the prescription is for a schedule II opioid drug., 183, cm, 10/03/23 7:23:00 EDT, Height,112, kg, 09/28/23 18:05:00 EDT, Dry Weight Start Date: 10/03/23 Stop Date: 10/31/23 Status: Ordered Quantity: 14.0 Unit: tablet Repeat number: 2 Protonix 40 mg oral delayed release tablet 1 tablet = 40 mg, By Mouth, Daily, # 90 tablet, 3 Refills, Maintenance, 04/17/20 10:33:00 AM EST, ECTablet, 182.88, cm, 03/19/20 16:11:00 EST, Height, 103.4, kg, 12/14/18 6:56:00 EDT, Dry Weight Start Date: 04/17/20 Stop Date: 04/12/21 Status: Ordered Quantity: 90.0 Unit: tablet Repeat number: 4 ranolazine 500 mg oral tablet, extended release 1 tablet = 500 mg, By Mouth, 2 times a day, # 180 tablet, 1 Refills, Maintenance, 10/09/23 11:48:00 AM EDT, ER Tablet, [facility], Partial fill upon patient request if the prescription is for a schedule II opioid drug., 183, cm, 10/08/23 9:50:00 EDT, Height, 109.8, kg, 10/06/23 21:56:00 EDT, Dry Weight Start Date: 10/09/23 Status: Ordered Quantity: 180.0 Unit: tablet Repeat number: 2 Trulicity Pen 1.5 mg/0.5 mL subcutaneous solution 0.5 mL = 1.5 mg, Subcutaneous Injection, Every week, rotate injection sites, # 2 mL, 2 Refills, Maintenance, 03/21/23 12:56:00 PM EST, Solution, [id number], Partial fill upon patient request if the prescription is for a schedule II opioid drug., 183, cm, 03/13/23 11:08:00 EST, Height, 110.8,kg, 07/14/22 2:02:00 EDT, Dry Weight Start Date: 03/21/23 Status: Ordered Quantity: 2.0 Unit: mL Repeat number: 3 Problem List Condition Confirmation Course Effective Dates Status H ealth Status Informant A-fib Confirmed Active CAD (coronary artery disease) Confirmed Active Diabetes mellitus type 2 Confirmed Active Hyperlipidemia associated with type 2 diabetes mellitus Confirmed Active Ischemic cardiomyopathy Confirmed Active Hypertension associated with diabetes Confirmed Active Obese class I Confirmed Active Obstructive sleep apnea syndrome Confirmed Active PVD (peripheral vascular disease) Confirmed Active Renal cell carcinoma Confirmed Active Social History Social History Type Response Smoking Status Never (less than 100 in lifetime) entered on: 09/15/20 Sex Sex Representation Male (finding) Patient Care team information Care Team Personnel Name: Nazia Baires RN Position: [facility] RN Member Role: Primary Care Nurse Name: Lis Sandoval RN Position: [facility] RN Member Role: Primary Care Nurse Name: Renetta Luna RN Position: [facility] RN Member Role: Primary Care Nurse Name: Russ Marks RN Position: [facility] Outreach Member Role: Primary Care Nurse Name: Jennie Stephen RN Position: [facility] RN Member Role: Primary Care Nurse Name: Yan Khan RN Position: [facility] RN Member Role: Primary Care Nurse Name: Harry Gomez RN Position: [facility] RN Member Role: Primary Care Nurse Name: Juan Maria RN Position: [facility] SN RN Member Role: Primary Care Nurse Name: Domenica Gagnon RN Position: [facility] RN Member Role: Primary Care Nurse Name: Michael Naranjo MD Position: [facility] Physician - Primary Care Member Role: PCP Address: [address] [place] [phone]- Telecom: Name: Altagracia Abad RN Position: [facility] RN Member Role: Primary Care Nurse Care Team Related Persons Name: SOFYA STOVER Name: REBECA STOVER Insurance Providers Guarantor name: DEIRDRE CK [facility] Information #: 1 Payer: [employer] [place] [employer] Member Number: NA Policy Number: NA Group Number: NA Health Plan Information #: 2 Payer: MEDICARE PART B OUTPT Member Number: NA Policy Number: NA Group Number: NA
--- OUTSIDE RECORDS SUMMARY | 2024-03-11 13:06 | XMS_ITS ---
Author Name [facility] [place] Organization [facility] [facility] [place] Address [address] [place] [address] Care Team Providers Care Civil Division Commander Deputy Sheriff Name Role Phone VICKIENAWAF NAVADERICK Primary Care [...] PART A Feb 04, 2020 PART A [id number] GRACIELA STOVER PATIENT MEDICARE (WNR) MEDICARE (M) PART B Feb 04, 2020 PART B [id number] GRACIELA STOVER PATIENT Selected Encounter This section includes the information on record at [place] for the Encounter. Date/Time Encounter Type Encounter Description Reason Pro vider Source Dec 11, 2023 12:00 AM Outpatient Encounter COMMUNITY CARE [...] - MEDICINE [facility] [place] [facility] Jan 01, 2024 08:30 AM AMBULATORY - PSYCHIATRY [facility] ([facility] Jan 08, 2024 11:00 AM AMBULATORY - [facility]CHIATRY [facility] [place] [facility] Jan 08, 2024 01:30 PM AMBULATORY - MEDICINE [facility] [place] [facility] Jan 22, 2024 11:00 AM AMBULATORY - PS[facility]IAT[facility] [place] [facility] Feb 05, 2024 02:00 PM AMBULATORY - PS[facility]IATRY [facility] [place] [facility] Feb 19, 2024 09:00 AM AMBULATORY - MEDICINE [facility] [place] [facility] Feb 19, 2024 11:00 AM AMBULATORY - PS[facility]IATRY [facility] [place] [facility] Mar 01, 2024 01:30 PM AMBULATORY - MEDICINE [facility] [place] [facility] Mar 04, 2024 03:00 PM AMBULATORY - MEDICINE [facility] [place] [facility] Mar 18, 2024 11:00 AM AMBULATORY - PSYCHIATRY [facility] [place] [facility] Apr 01, 2024 09:00 AM AMBULATORY - MEDICINE [facility] [place] [facility] Apr 01, 2024 11:00 AM AMBULATORY - PSYCHIATRY [facility] [place] [facility] May 06, 2024 09:30 AM AMBULATORY - MEDICINE [facility] ([facility] Lab Results: +/- 30 days of the [...] Interpretation Reference Range Comment 2023 08:36 AM [facility] ([facility] LIVER FUNCTION Specimen Type: SERUM No comment entered. Ordering Provider: QUENTIN STOKES Report Released Date/Time: Nov 22, 2023 12:27 PM Reporting Lab: [facility] [address] [address] Performing Lab: [facility] [address] [address] PROTEIN,TOTAL 7.1 g/dL 6.0-8.3 ALBUMIN 4.0 g/dL 3.5-5.0 ALKALINE PHOSPHATASE 90 U/L 40-150 AST 22 U/L 5-34 ALT 27 U/L BILIRUBIN, TOTAL 0.6 mg/dL 0.2-1.2 2023 08:36 AM [facility] LIPID PANEL FASTING Specimen Type: SERUM No comment entered. Ordering Provider: QUENTIN STOKES Report Released Date/Time: Nov 22, 2023 12:27 PM Reporting Lab: [address] [address] Performing Lab: [address] [address] CHOLESTEROL 127 mg/dL TRIGLYCERIDE 87 mg/dL 0-150 LDL calculated 76 mg/dL 0-129 CHOL/HDL 3.7 HDL CHOLESTEROL 34 mg/dL L 40-60 Nov 15, 2023 08:23 AM [facility] HEMOGLOBIN A1C PANEL Specimen Type: BLOOD Comment: [...] Sep 19, 2023 04:07 PM Reporting Lab: [address] [address] Performing Lab: [address] [address] HEMOGLOBIN A1C 6.9 H 4.0-5.6 Nov 15, 2023 08:23 AM [facility] BASIC METABOLIC PANEL (non-fasting) Specimen Type: SERUM No comment entered. Ordering Provider: ZORA GALICIA Report Released Date/Time: Sep 19, 2023 04:07 PM Reporting Lab: [facility] [address] [address] Performing Lab: [facility] [address] [address] UREA NITROGEN 34 mg/dL H 7-25 GLUCOSE [...] Encounter Note(s) Provider Source Dec 11, 2023 12:00 AM NONVA CONSULT: LOCAL TITLE: COMMUNITY CARE-CONSULT RESULT NOTE STANDARD TITLE: NONVA CONSULT DATE OF NOTE: DEC 11, 2023 ENTRY DATE: FEB 21, 2024@11:51:50 AUTHOR: ERIN TEJADA EXP COSIGNER: URGENCY: STATUS: COMPLETED VistA Imaging - Scanned Document SCANNED DOCUMENT SIGNATURE NOT REQUIRED Electronically Filed: 02/21/2024 by: ERIN TEJADA FLAT BED KNITTER ERIN TEJADA [facility] Dec 11, 2023 12:00 AM NONVA CONSULT: LOCAL TITLE: COMMUNITY CARE-CONSULT RESULT NOTE STANDARD TITLE: NONVA CONSULT DATE OF NOTE: DEC 11, 2023 ENTRY DATE: FEB 21, 2024@11:53:09 AUTHOR: ERIN TEJADA COSIGNER: URGENCY: STATUS: COMPLETED VistA Imaging - Scanned Document SCANNED DOCUMENT SIGNATURE NOT REQUIRED Electronically Filed: 02/21/2024 by: ERIN TEJADA FLAT BED KNITTER ERIN TEJADA [facility]
--- OUTSIDE RECORDS SUMMARY | 2024-03-11 13:06 | XMS_ITS | Encounter Summary ---
Author Name [facility] [place] Organization [facility] [place] Address [address] [place] [address] Care Team Providers Care Data Programmer Name Role Phone WINDY STOKES Primary Care [...] PART A Feb 04, 2020 PART A [id number] [address] GRACIELA STOVER PATIENT MEDICARE (WNR) MEDICARE (M) PART B Feb 04, 2020 PART B [id number] [facility] GRACIELA STOVER PATIENT Selected Encounter This section includes the information on record at [place] for the Encounter. Date/Time Encounter Type Encounter Description Reason Provider Source Mar 04, 2024 03:00 PM MTMS BY PHARM EST 15 MIN TELEPHONE PRIMARY CARE ICD-10-CM E11.9 Type 2 diabetes mellitus without complications MODESTA MCDONNELL Angélica Encounter Template Text not used by [place] Assessments - Encounter Diagnoses This section includes the primary and secondary diagnoses documented for the Encounter. Date/Time Primary/Secondary Diagnosis Diagnosis Name Provider Source Mar 04, 2024 03:00 PM PRIMARY Type 2 diabetes mellitus without complications MODESTA MCDONNELL [facility] Plan of Treatment: Future Appointments (+ 6 months) and Future Tests (+/- 45 days) The Plan of Treatment section includes future care activities for the patient from all [place] [facility]. This section includes future appointments and future orders which are active, pending or scheduled. Future Appointments This section includes appointments that were scheduled to occur 6 months from the date of the Encounter, up to a maximum of 20 appointments. The data comes from all [facility]. Appointment Date/Time Appointment Type Appointme nt Facility Name Mar 18, 2024 11:00 AM AMBULATORY - PSYCHIATRY [facility] Apr 01, 2024 09:00 AM AMBULATORY - MEDICINE [facility] Apr 01, 2024 11:00 AM AMBULATORY - PSYCHIATRY [facility] May 06, 2024 09:30 AM AMBULATORY - MEDICINE [facility] Active, Pending, and Scheduled Orders This section includes a listing of several types of active, pending, and scheduled orders, including clinic medications orders, diagnostic test orders, procedure orders and consult orders; where the start date of the order is 45 days before the date of the Encounter or 45 days after the date of theEncounter. The data comes from all [facility]. Test Date/Time Test Type Test Details Facility Name Mar 08, 2024 04:09 PM Consult Order PRIOR AUTH FACILITY DRUG REQUEST PC PADR Cons Inspector Balance Wheel [employer] [facility] Apr 17, 2024 12:00 AM Laboratory - Chemi stry Order LIPID PANEL FASTING BLOOD (SST-SERUM) [facility] ([facility]) Lab Results: +/- 30 days of the [...] Range Comment Mar 01, 2024 02:07 PM [facility] HEMOGLOBIN A1C PANEL Specimen Type: BLOOD [...] Mar 01, 2024 01:48 PM Reporting Lab[facility] [address] [address] Performing [facility]: [facility] [address] [address] HEMOGLOBIN A1C 6.9 H 4.0-5.6 Mar 01, 2024 02:[address] [facility] CREATININE (eGFR 2020) Specimen Type: SERUM No comment entered. Ordering Provider: MODESAT MCDONNELL Report Released Date/Time: Mar 01, 2024 01:48 PM Reporting Lab: [facility] [address] [phone] Performing Lab: [facility] [address] [address] CREATININE, Serum 2.14 mg/dL H 0.50-1.40 eGFR(CKD-EPI 2020) 35 mL/min L >60 Feb 27, 2024 09:21 AM [facility] ([facility]) UREA NITROGEN Specimen Type: SERUM No comment entered. Ordering Provider: QUENTIN STOKES Report Released Date/Time: Feb 20, 2024 11:37 AM Reporting Lab: [facility] [place] [address] [address] Performing Lab: [facility] [address] [address] UREA NITROGEN 38 mg/dL H 7-25 Feb 27, 2024 09:21 AM [facility] ([facility]) CPK Specimen Type: SERUM No comment entered. Ordering Provider: QUENTIN STOKES Report Released Date/Time: Feb 20, 2024 11:37 AM Reporting Lab: [facility] [address] [address] Performing Lab: [facility] [address] [address] CPK 122 U/L 30-200 Feb 27, 2024 09:21 AM [facility] ([facility]) ELECTROLYTE PANEL Specimen Type: SERUM No comment entered. Ordering Provider: QUENTIN STOKES Report Released Date/Time: Feb 20, 2024 11:37 AM Reporting Lab: [facility] [address] [address] Performing Lab: [address] [address] SODIUM 138 mmol/L 135-145 POTASSIUM 5.1 mmol/L H 3.5-5.0 CHLORIDE 104 mmol/L 100-110 CO2 25 meq/L 20-30 Feb 27, 2024 09:21 AM [facility] ([facility]) CREATININE (eGFR 2020) Specimen Type: SERUM No comment entered. Ordering Provider: MODESTA MCDONNELL Report Released Date/Time: Mar 01, 2024 02:03 PM Reporting Lab: [address] [address] Performing Lab: [address] [address] CREATININE, Serum 1.82 mg/dL H 0.50-1.40 eGFR(CKD-EPI 2020) 43 mL/min L >60 Social History: Smoking Status [...] 19, 2020 02:29 PM VA-TOBACCO FORMER USER [facility] Tobacco Use History This section includes a history of the smoking, or tobacco-related health factors, that were collected on or before the date of the Encounter. The data comes from the [place] facility where the Encounter took place. Date/Time Smoking Status/Tobacco Use Comment F tess Aug 19, 2020 02:29 PM VA-TOBACCO QUIT 15 YRS OR MORE [facility] Encounter Notes: All associated encounter notes This section contains the clinical notes associated to the Encounter. Date/Time Encounter Note(s) Provider Source Mar 04, 2024 03:01 PM PHARMACY TELEPHONE ENCOUNTER NOTE: LOCAL TITLE: TELEPHONE NOTE/PHARMACY STANDARD TITLE: PHARMACY TELEPHONE ENCOUNTER NOTE DATE OF NOTE: MAR 04, 2024@15:01 ENTRY DATE: MAR 04, 2024@15:01:32 AUTHOR: MODESTA MCDONNELL COSIGNER: URGENCY: STATUS: COMPLETED DEIRDRE STOVER, 58 yo WHITE MALE, contacted via telephone for follow-up diabetes management treatment. Pt was last seen on 03/01/24, dulaglutide 1.5mg weekly, insulin glargine 30 units daily and metformin 500mg SA daily were continued. Today, pt was contacted to review labs and discuss medication changes. Target Goals: A1C: 7%; FB-130 mg/dL OBJECTIVE: [...] DAILY 12) ROSUVASTATIN CA 20MG TAB TAKE ONE TABLET BY ACTIVE- DAILY MOUTH ONCE DAILY FOR CHOLESTEROL Inactive [...] qPM -- Other: dulaglutide 1.5mg weekly Labs: Labs: CHEM 7 TREND LAB CUMULATIVE SELECTED Collection DT Spec GLUCOSE BUN CREATIN Sodium K+/Pot CL CO2 03/01/2024 14:07 SERUM 2.14 H 02/27/2024 09:21 SERUM 38 H 138 5.1 H 104 25 02/27/2024 09:21 SERUM 1.82 H 11/15/2023 08:23 SERUM 118 H 34 H 1.87 H 138 5.3 H 104 23 08/17/2023 15:31 SERUM 42 H 2.37 H 135 4.7 103 22 LAB CUMULATIVE SELECTED 2 No selection items chosen for this component. CHEM 7 Results Collection DT Spec Sodium K+/Pot CL CO2 GLUCOSE BUN 02/27/2024 09:21 SERUM 138 5.1 H 104 25 38 H 11/15/2023 08:23 SERUM 138 5.3 H 104 [...] 4.2 102 27 86 21 eGFR CKD-EPI 202003/01/24 14:07 35 L SERUM LIVER PANEL TREND Collection DT Spec AST ALT T BILI ALK DARRICK T. PROT ALBUMIN 01/16/2024 08:05 SERUM 16 26 0.5 99 7.3 4.0 01/16/2024 08:05 SERUM 16 27 0.5 98 7.2 4.0 2023 08:36 SERUM 22 27 0.6 90 7.1 4.0 07/22/2022 15:48 SERUM 17 39 0.5 124 6.9 3.9 08/10/2021 07:18 SERUM 13 18 0.4 100 7.3 3.9 HEMOGLOBIN A1C TREND Collection DT Spec HGBA1c 03/01/2024 14:07 BLOOD 6.9 H 11/15/2023 08:23 BLOOD 6.9 H 08/22/2023 15:24 BLOOD 7.9 H 05/15/2023 08:21 BLOOD 8.9 H 03/27/2023 15:20 BLOOD 8.1 H LIPID PANEL TREND Collection DT Spec CHOL HDL CHO/HDL LDL-c TRIG 01/16/2024 08:05 SERUM 161 37 L 4.4 94 150 01/16/2024 08:05 SERUM 159 37 L 4.3 92 148 2023 08:36 SERUM 127 34 L 3.7 76 87 09/22/2023 09:28 SERUM 188 34 L 5.5 118 181 H 07/22/2022 15:48 SERUM 159 38 L 4.2 83 190 H == Vitals: Ht: 72 in [182.9 cm] (02/22/2022 15:12) Wt: 248.7 lb [112.81 kg] (10/26/2023 11:25) BMI: BMI: 33.8 BP: 122/73 (10/26/2023 11:25) HR: 62 (10/26/2023 11:25) SMB03/01/24 - FBG 219 02/21/24 112 afternoon 02/11/24 132 afternoon 02/10/24 128 mid morning 01/30/24 176 FBG 01/09/24 191 FBG 11/27/23:forgot meter. Pt reports his FBG was 130 today. Pt reports his FBG has been ranging from 115-175 over the last couple of weeks. Denies lows. Prev SMB:00- 05:30- 08:00- 11:00- 12:30- 17:00- 18:30- :- :30 08:00 11:00 12:30 17:00 18:30 21:30 00:00 [...] on avg. 3x/day: Wake: 3am B: 6am; north k[place] muffin w/ PB or butter L: 12pm; [...] DIABETES A1c at above goal of <7% (6.9 % 03/01/24 unchanged from 6.9% 11/15/23) - Medication management - INCREASE dulaglutide 3 mg weekly on Sundays - DECREASE insulin glargine 24 units qPM - STOP metformin 500mg SA daily (eGFR 35) - Advised pt to notify program writer if any AEs (like skin rash) [...] physical activity as tolerated - Repeat A1c: 06/2024- see full effects of change in therapy HTN: above goal; on felodipine, carvedilol; defer to PCP/cardiology/nephrology Lipids: at goal; on rosuvastatin 5mg daily ASA: on ASA/clopidogrel Microalb: Feb 16, 2023@14:33 URINE mALB/Cr: 91.4 H mg/G; not on ACEi/ARB Podiatry: 08/07/23 Optometry: Dr. Krystyna [place] Report Manager Clinic's Next Scheduled Follow-up: in 1 month with PACT cPP Time Spent:7 minutes PBM PharmD Pharmacotherapy Rem V12: PHARMACIST INTERVENTIONS: TYPE 2 DIABETES MELLITUS Medication Intervention(s) Adjust dose or frequency of current medication due to other reason Discontinue and/or change to different medication /tam/ MODESTA MCDONNELL PHARMD,BCPS CLINICAL PHARMACY PRACTITIONER Signed: 03/04/2024 15:27 MODESTA MCDONNELL [facility]
--- OUTSIDE RECORDS SUMMARY | 2024-03-11 13:06 | XMS_ITS | Encounter Summary ---
Author Name [facility] [place] Organization [place] Address [address] [place] [address] Care Team Providers Care Cafe Assistant Name Role Phone VICKIEALEXANDER MCCRACKENYAJAIRADERICK Primary Care [...] PART A Feb 04, 2020 PART A [id number] [address] GRACIELA STOVER PATIENT MEDICARE (WNR) MEDICARE (M) PART B Feb 04, 2020 PART B [id number] [address] GRACIELA STOVER PATIENT Selected Encounter This section includes the information on record at [place] for the Encounter. Date/Time Encounter Type Encounter Description Reason Provider Source Feb 05, 2024 02:00 PM PSYTX W PT 60 MINUTES [facility] - IND ICD-10-CM F43.23 Adjustment disorder with mixed anxiety and depressed mood MALACHI GAINES Angélica Encounter Template Text not used by [place] Assessments - Encounter Diagnoses This section includes the primary and secondary diagnoses documented for the Encounter. Date/Time Primary/Secondary Diagnosis Diagnosis Name Provider Source Feb 08, 2024 08:58 AM PRIMARY Adjustment disorder with mixed anxiety and depressed mood MALACHI GAINES ([facility]) Plan of Treatment: Future Appointments (+ 6 months) and Future Tests (+/- 45 days) The Plan of Treatment section includes future care activities for the patient from all [place] [facility]. This section includes future appointments and future orders which are active, pending or scheduled. Future Appointments This section includes appointments that were scheduled to occur 6 months from the date of the Encounter, up to a maximum of 20 appointments. The data comes from all [facility]. Appointment Date/Time Appointment Type Appointme nt Facility Name Feb 19, 2024 09:00 AM AMBULATORY - MEDICINE [place] [facility] [place] [facility] Feb 19, 2024 11:00 AM AMBULATORY PSYCHIATRY [place] [facility] [place] [facility] Mar 01, 2024 01:30 PM AMBULATORY MEDICINE [facility] [place] [facility] Mar 04, 2024 03:00 PM AMBULATORY MEDICINE [facility] [place] [facility] Mar 18, 2024 11:00 AM AMBULATORY PSYCHIATRY [place] [facility] [facility] Apr 01, 2024 09:00 AM AMBULATORY MEDICINE [facility] [place] [facility] Apr 01, 2024 11:00 AM AMBULATORY PSYCHIATRY [place] [facility] [facility] May 06, 2024 09:30 AM AMBULATORY - MEDICINE [facility] ([facility]) Active, Pending, and Scheduled Orders This section includes a listing of several types of active, pending, and scheduled orders, including clinic medications orders, diagnostic test orders, procedure orders and consult orders; where the start date of the order is 45 days before the date of the Encounter or 45 days after the date of theEncounter. The data comes from all [facility]. Test Date/Time Test Type Test Details Facility Name Mar 08, 2024 04:09 PM Consult Order PRIOR AUTH FACILITY DRUG REQUEST PC PADR Cons Mortgage Processing Manager's Choice [facility] Lab Results: +/- 30 [...] Range Comment Mar 01, 2024 02:07 PM [facility] HEMOGLOBIN A1C PANEL Specimen Type: BLOOD [...] Mar 01, 2024 01:48 PM Reporting Lab: [address] [address] Performing Lab: [address] [address] HEMOGLOBIN A1C 6.9 H 4.0-5.6 Mar 01, 2024 02:07 PM [facility] CREATININE (eGFR 2020) Specimen Type: SERUM No comment entered. Ordering Provider: MODESTA MCDONNELL Report Released Date/Time: Mar 01, 2024 01:48 PM Reporting Lab: [address] [address] Performing Lab: [address] [address] CREATININE, Serum 2.14 mg/dL H 0.50-1.40 eGFR(CKD-EPI 2020) 35 mL/min L >60 Feb 27, 2024 09:21 AM [facility] ([facility]) ELECTROLYTE PANEL Specimen Type: SERUM No comment entered. Ordering Provider: QUENTIN STOKES Report Released Date/Time: Feb 20, 2024 11:37 AM Reporting Lab: [address] [address] Performing Lab: [address] [address] SODIUM 138 mmol/L 135-145 POTASSIUM 5.1 mmol/L H 3.5-5.0 CHLORIDE 104 mmol/L 100-110 CO2 25 meq/L 20-30 Feb 27, 2024 09:21 AM [facility] ([facility]) UREA NITROGEN Specimen Type: SERUM No comment entered. Ordering Provider: QUENTIN STOKES Report Released Date/Time: Feb 20, 2024 11:37 AM Reporting Lab: [facility] [address] [facility] [facility] [address] Performing Lab: [facility]ITALUSE[address] [address] UREA NITROGEN 38 mg/dL H 7-25 Feb 27, 2024 09:21 AM [facility] ([facility]) CPK Specimen Type: SERUM No comment entered. Ordering Provider: QUENTIN STOKES Report Released Date/Time: Feb 20, 2024 11:37 AM Reporting Lab: [facility] [address] [address] Performing Lab: [facility] [address] [address] CPK 122 U/L 30-200 Feb 27, 2024 09:21 AM [facility] ([facility]) CREATININE (eGFR 2020) Specimen Type: SERUM No comment entered. Ordering Provider: MODESTA MCDONNELL Report Released Date/Time: Mar 01, 2024 02:03 PM Reporting Lab: [facility] [address] [address] Performing Lab: [facility] [address] [address] CREATININE, Serum 1.82 mg/dL H 0.50-1.40 eGFR(CKD-EPI 2020) 43 mL/min L >60 Jan 16, 2024 08:05 AM [facility] ([facility]) LIPID PANEL FASTING Specimen Type: SERUM No comment entered. Ordering Provider: QUENTIN STOKES Report Released Date/Time: Jan 16, 2024 08:00 AM Reporting Lab: [facility] [address] [address] Performing Lab: [facility] [address] [address] CHOLESTEROL 161 mg/dL TRIGLYCERIDE 150 mg/dL 0-150 LDL calculated 94 mg/dL 0-129 CHOL/HDL 4.4 HDL CHOLESTEROL 37 mg/dL L 40-60 Jan 16, 2024 08:05 AM [facility] ([facility]) LIVER FUNCTION Specimen Type: SERUM No comment entered. Ordering Provider: QUENTIN STOKES Report Released Date/Time: Jan 16, 2024 08:00 AM Reporting Lab: [address] [address] Performing Lab: [address] [address] PROTEIN,TOTAL 7.3 g/dL 6.0-8.3 ALBUMIN 4.0 g/dL 3.5-5.0 ALKALINE PHOSPHATASE 99 U/L 40-150 AST 16 U/L 5-34 ALT 26 U/L BILIRUBIN, TOTAL 0.5 mg/dL 0.2-1.2 Jan 16, 2024 08:05 AM [facility] ([facility]) IRON & TIBC PANEL Specimen Type: SERUM No comment entered. Ordering Provider: QUENTIN STOKES Report Released Date/Time: Oct 27, 2023 01:10 AM Reporting Lab: [address] [address] Performing Lab: [address] [address] TIBC 396 ug/dL 204-475 IRON 110 ug/dL 40-160 Transferrin Saturation 27.8 20.0-50.0 Transferrin (TRF) 300 mg/dL 200-360 Jan 16, 2024 08:05 AM [facility] ([facility]) FERRITIN Specimen Type: SERUM No comment entered. Ordering Provider: QUENTIN STOKES Report Released Date/Time: Oct 27, 2023 01:10 AM Reporting Lab: [address] [address] Performing Lab: [address] [address] FERRITIN 23 ng/mL 20-300 Jan 16, 2024 08:05 AM [facility] ([facility]) TSH Specimen Type: SERUM No comment entered. Ordering Provider: QUENTIN STOKES Report Released Date/Time: Oct 27, 2023 01:10 AM Reporting Lab: [place] [address] [address] Performing Lab: [address] [address] TSH 2.57 u[IU]/mL 0.35-5.00 Jan 16, 2024 08:05 AM [facility] ([facility]) VITAMIN B12 Specimen Type: SERUM No comment entered. Ordering Provider: QUENTIN STOKES Report Released Date/Time: Oct 27, 2023 01:10 AM Reporting Lab: [address] [address] Performing Lab: [address] [address] VITAMIN B12 893 pg/mL 200-900 Jan 16, 2024 08:05 AM [facility] ([facility]) LIVER FUNCTION Specimen Type: SERUM No comment entered. Ordering Provider: QUENTIN STOKES Report Released Date/Time: Oct 27, 2023 01:10 AM Reporting Lab: [address] [address] Performing Lab: [address] [address] PROTEIN,TOTAL 7.2 g/dL 6.0-8.3 ALBUMIN 4.0 g/dL 3.5-5.0 ALKALINE PHOSPHATASE 98 U/L 40-150 AST 16 U/L 5-34 ALT 27 U/L BILIRUBIN, TOTAL 0.5 mg/dL 0.2-1.2 Jan 16, 2024 08:05 AM [facility] ([facility]) VITAMIN D (25-OH) Specimen Type: SERUM No comment entered. Ordering Provider: QUENTIN STOKES Report Released Date/Time: Oct 27, 2023 01:10 AM Reporting Lab: [address] [address] Performing Lab: [address] [address] VITAMIN D (25-OH) 31 ng/mL 20-50 Jan 16, 2024 08:05 AM [facility] ([facility]) BNP (Natriuretic Peptide Brain) Specimen Type: PLASMA No comment entered. Ordering Provider: QUENTIN STOKES Report Released Date/Time: Oct 27, 2023 01:10 AM Reporting Lab: [address] [address] Performing Lab: [address] [address] BNP (Natriuretic Peptide Brain) 184 pg/mL H 10-100 Jan 16, 2024 08:05 AM [facility] ([facility]) CBC AND DIFF (AUTO) Specimen Type: BLOOD No comment entered. Ordering Provider: QUENTIN STOKES Report Released Date/Time: Oct 27, 2023 01:10 AM Reporting Lab: [address] [address] Performing Lab: [address] [address] WBC 6.05 10*3/uL 4.50-11.00 RBC 4.21 10*6/uL [...] 0.00-0.00 Jan 16, 2024 08:05 AM [facility] ([facility]) LIPID PANEL FASTING Specimen Type: SERUM No comment entered. Ordering Provider: QUENTIN STOKES Report Released Date/Time: Oct 27, 2023 01:10 AM Reporting Lab: [facility] [address] [facility] [address] Performing Lab: [facility] [address] [facility] [address] CHOLESTEROL 159 mg/dL TRIGLYCERIDE 148 mg/dL 0-150 [...] 26, 2023 11:30 AM VA-TOBACCO FORMER USER [facility] ([facility]) Tobacco Use History This section includes [...] Encounter. 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 Provided Suicide Prevention Hotline number, and other contact numbers as necessary. VISIT DURATION 60 minutes identified with 2 identifiers: Full Name, Facial Recognition DIAGNOSES: Adjustment disorder, Assess for PTSD [employer] STATEMENT OF GOALS/CONCERNS: Sutter was encouraged to seek out individual therapy by his primary doctor to make sure he is in a good headspace as he navigates medical appointments/procedures. Sutter has reservations about mental health system and is unsure of what specific goals he would like to set for therapy. would like to receive supportive therapy. SESSION FOCUS: Sutter reports experiencing some issues with recent medication changes. Juan Diego shared spending Thanksgiving alone after girlfriend spent it at her ex-'s house. Juan Diego was invited but declined invitation. 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 Juan Diego feels that he has limited options in terms of income, and is fearful of ever becoming homeless again. 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 appears discouraged and is experiencing little sacha in his life, in addition to ongoing medical issues. INTERVENTIONS: Psychotherapeutic Interventions: reflective listening, summarizing and reflecting back, validation of difficult emotional experience, explored options for problem-resolution. Assessing. Psychoeducation reviewed: Assertive communication, setting boundaries Skills reviewed: stress-management ASSESSMENT: BRIEF ASSESSMENT OF MENTAL STATUS: 1. [...] Denies current suicidal/homicidal ideation PLAN FOR FOLLOW-UP: Next session planned for: Week of Feb 26 @ 11 am Additional notes regarding scheduling or plan: Other Scheduled visits: Future Clinic Visits 02/19/2024 09:00 CWM/NO/WOUND PROV A 02/19/2024 11:00 CWM/GO/MHC/SW MOBILE HOMES REPAIRER 1 03/01/2024 13:30 CWM/NO/PHARM/PACT 3 03/04/2024 11:00 CWM/GO/MHC/SW MOBILE HOMES REPAIRER 1 03/18/2024 11:00 CWM/GO/MHC/SW MOBILE HOMES REPAIRER 1 04/01/2024 11:00 CWM/GO/MHC/SW MOBILE HOMES REPAIRER 1 05/06/2024 09:30 CWM/GO/PACT 4 /es/ NOEMY MCGRATH SOCIAL WORK MOBILE HOMES REPAIRER Signed: 02/07/2024 16:38 /es/ YARELY IRELAND Director Of [facility] Cosigned: 02/08/2024 08:56 02/08/2024 ADDENDUM STATUS: COMPLETED I have reviewed this case and concur with the clinical impressions and recommendations made by this trainee who is under my clinical supervision.Ostomy Care Nurse was fully accessible to the student during the encounter. is seeking individual therapy for Adjustment D/o due to medical condition. R/O PTSD. Student will conduct weekly therapy sessions. /es/ YARELY IRELAND Director Of Career Resources, [place] Signed: 02/08/2024 08:57 NOEMY MARSHALL ([facility])
--- OUTSIDE RECORDS SUMMARY | 2024-03-11 13:06 | XMS_ITS ---
Author Name Department [place] Organization [place] Address [address] [place] [address] Care Team Providers Care Neon Light Installer Name Role Phone WINDY STOKES Primary [...] PART A Feb 04, 2020 PART A [id number] [address] GRACIELA STOVER PATIENT MEDICARE (WNR) MEDICARE (M) PART B Feb 04, 2020 PART B [id number] NE[address] [facility] GRACIELA STOVER PATIENT Selected Encounter This section includes the information on record at [place] for the Encounter. Date/Time Encounter Type Encounter Description Reason Provider Source Mar 01, 2024 01:30 PM MTMS BY PHARM ADDL 15 MIN CLINICAL PHARMACY ICD-10-CM E11.9 Type 2 diabetes mellitus without complications MODESTA MCDONNELL [facility] Encounter Template Text not used by [place] Assessments - Encounter Diagnoses This section includes the primary and secondary diagnoses documented for the Encounter. Date/Time Primary/Secondary Diagnosis Diagnosis Name Provider Source Mar 01, 2024 03:32 PM PRIMARY Type 2 diabetes mellitus without complications MODESTA MCDONNELL [facility] Plan of Treatment: Future Appointments (+ 6 months) and Future Tests (+/- 45 days) The Plan of Treatment section includes future care activities for the patient from all [place] [facility]. This section includes future appointments and future orders which are active, pending or scheduled. Future Appointments This section includes appointments that were scheduled to occur 6 months from the date of the Encounter, up to a maximum of 20 appointments. The data comes from all [facility]. Appointment Date/Time Appointment Type Appointme nt Facility Name Mar 04, 2024 03:00 PM AMBULATORY - MEDICINE [facility] Mar 18, 2024 11:00 AM AMBULATORY PSYCHIATRY [facility] Apr 01, 2024 09:00 AM AMBULATORY MEDICINE [facility] Apr 01, 2024 11:00 AM AMBULATORY PSYCHIATRY [facility] May 06, 2024 09:30 AM AMBULATORY - MEDICINE [facility]) Active, Pending, and Scheduled Orders This section includes a listing of several types of active, pending, and scheduled orders, including clinic medications orders, diagnostic test orders, procedure orders and consult orders; where the start date of the order is 45 days before the date of the Encounter or 45 days after the date of theEncounter. The data comes from all [facility]. Test Date/Time Test Type Test Details Facility Name Mar 08, 2024 04:09 PM Consult Order PRIOR AUTH FACILITY DRUG REQUEST PC PADR Cons Propeller Mechanic's Choice [facility] Lab Results: +/- 30 days of [...] Range Comment Mar 01, 2024 02:07 PM [facility] HEMOGLOBIN A1C PANEL Specimen Type: BLOOD [...] Mar 01, 2024 01:48 PM Reporting Lab: [facility] [address] [address] Performing Lab: [facility]TR[facility] [address] [address] HEMOGLOBIN A1C 6.9 H 4.0-5.6 Mar 01, 2024 02:07 PM [facility] CREATININE (eGFR 2020) Specimen Type: SERUM No comment entered. Ordering Provider: MODESTA MCDONNELL Report Released Date/Time: Mar 01, 2024 01:48 PM Reporting Lab: [facility]TR[facility]ENTERUSE[address] [address] Performing Lab: [facility]TR[facility] [address] [address] CREATININE, Serum 2.14 mg/dL H 0.50-1.40 eGFR(CKD-EPI 2020) 35 mL/min L >60 Feb 27, 2024 09:21 AM [facility] ([facility]) UREA NITROGEN Specimen Type: SERUM No comment entered. Ordering Provider: QUENTIN STOKES Report Released Date/Time: Feb 20, 2024 11:37 AM Reporting Lab: [facility] TRN [facility] [address] [address] Performing Lab: [facility] TRN [facility] [address] [address] UREA NITROGEN 38 mg/dL H 7-25 Feb 27, 2024 09:21 AM [place] ([facility]) CPK Specimen Type: SERUM No comment entered. Ordering Provider: QUENTIN STOKES Report Released Date/Time: Feb 20, 2024 11:37 AM Reporting Lab: [facility] [address] [address] Performing Lab: [facility]ITALTR[facility] [address] [address] CPK 122 U/L 30-200 Feb 27, 2024 09:21 AM [place] ([facility]) ELECTROLYTE PANEL Specimen Type: SERUM No comment entered. Ordering Provider: QUENTIN STOKES Report Released Date/Time: Feb 20, 2024 11:37 AM Reporting Lab: [facility] [address] [address] Performing Lab: [address] [address] SODIUM 138 mmol/L 135-145 POTASSIUM 5.1 mmol/L H 3.5-5.0 CHLORIDE 104 mmol/L 100-110 CO2 25 meq/L 20-30 Feb 27, 2024 09:21 AM [place] ([facility]) CREATININE (eGFR 2020) Specimen Type: SERUM No comment entered. Ordering Provider: MODESTA MCDONNELL Report Released Date/Time: Mar 01, 2024 02:03 PM Reporting Lab: [address] [address] Performing Lab: [address] [address] CREATININE, Serum 1.82 mg/dL H 0.50-1.40 eGFR(CKD-EPI [...] 19, 2020 02:29 PM VA-TOBACCO FORMER USER [facility] Tobacco Use History This section includes a history of the smoking, or tobacco-related health factors, that were collected on or before the date of the Encounter. The data comes from the [place] facility where the Encounter took place. Date/Time Smoking Status/Tobacco Use Comment F tess Aug 19, 2020 02:29 PM VA-TOBACCO QUIT 15 YRS OR MORE [facility] Encounter Notes: All associated encounter notes This section contains the clinical notes associated to the Encounter. Date/Time Encounter Note(s) Provider Source Mar 01, 2024 03:33 PM ADDENDUM: LOCAL TITLE: Addendum STANDARD TITLE: ADDENDUM DATE OF NOTE: MAR 01, 2024@15:33:12 ENTRY DATE: MAR 01, 2024@15:33:13 AUTHOR: MODESTA MCDONNELL COSIGNER: URGENCY: STATUS: COMPLETED Please schedule patient for: [X] CWM/NO/PHARM/PACT 3 TEL RTC order placed. Appointment Length: 30___ minutes. 03/04/24 @ 1500 telephone to review labs Thank you! /tam/ MODESTA MCDONNELL PHARMD,BCPS CLINICAL PHARMACY PRACTITIONER Signed: 03/01/2024 15:33 Receipt Acknowledged By: 03/01/2024 15:56 /tam/ GINO COREAS Clinical Environmental Engineering Assistant --- Original Document --- 03/01/24 PHARMACY CLINIC NOTE: DEIRDRE STOVER, 58 yo WHITE MALE, was seen for follow-up diabetes management treatment. Pt was last seen on 11/27/23, dulaglutide 1.5mg weekly, insulin glargine 30 units daily and metformin 500mg SA daily were continued. Today, reports getting heart ablation done on 04/02/24. Reports stomach and and dizziness with higher dose of rosuvastatin, rash with ezetimibe. He is following with cardiology for this. Denies any recent issues with low bg. 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 Target Goals: A1C: 7%; FB-130 mg/dL OBJECTIVE: [...] SERUM 137 38 L 3.6 80 93 == Vitals: Ht: 72 in [182.9 cm] [...] on avg. 3x/day: Wake: 3am B: 6am; british virgin islander muffin w/ PB or butter L: 12pm; [...] by nephrology) - Advised pt to notify financial underwriter if any AEs (like skin rash) [...] ACEi/ARB Podiatry: 08/07/23 [facility] Next Scheduled Follow-up: 03/04/24 @ 1500 telephone to review labs Time Spent: 30 minutes PBM PharmD Pharmacotherapy Rem V12: PHARMACIST INTERVENTIONS: TYPE 2 DIABETES MELLITUS Medication monitoring, no dosage change required, continue to monitor and assess /tam/ MODESTA MCDONNELL PH[facility]MD,[facility] CLINICAL PHARMACY PRACTITIONER Signed: 03/01/2024 15:33 MODESTA MCDONNELL [place] [facility] [place] [facility] Mar 01, 2024 01:23 PM PHARMACY OUTPATIEN T NOTE: LOCAL TITLE: PHARMACY CLINIC NOTE STANDARD TITLE: PHARMACY OUTPATIENT NOTE DATE OF NOTE: MAR 01, 2024@13:23 ENTRY DATE: MAR 01, 2024@13:23:21 AUTHOR: MODESTA MCDONNELL EXP COSIGNER: URGENCY: STATUS: COMPLETED PHARMACY CLINIC NOTE Has ADDENDA DEIRDRE STOVER, 58 yo WHITE MALE, was seen for follow-up diabetes management treatment. Pt was last seen on 11/27/23, dulaglutide 1.5mg weekly, insulin glargine 30 units daily and metformin 500mg SA daily were continued. Today, reports getting heart ablation done on 04/02/24. Reports stomach and and dizziness with higher dose of rosuvastatin, rash with ezetimibe. He is following with cardiology for this. Denies any recent issues with low bg. 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 Target Goals: A1C: 7%; FB-130 mg/dL OBJECTIVE: [...] SERUM 137 38 L 3.6 80 93 == Vitals: Ht: 72 in [182.9 cm] [...] 168 Christianne 06/08/2023 224 Christianne 07/06/2023 166 [facility] 08/01/2023 254 08/02/2023 184 08/08/2023 159 150 08/11/2023 127 08/16/2023 171 Christianne 08/17/2023 175 [facility] 08/19/2023 169 08/22/2023 240 182 156 Diet Patterns: patient eats on avg. 3x/day: Wake: 3am B: 6am; british virgin islander muffin w/ PB or butter L: 12pm; [...] by nephrology) - Advised pt to notify financial underwriter if any AEs (like skin rash) [...] Podiatry: 08/07/23 Optometry: Dr. Krystyna Lin [facility] Next Scheduled Follow-up: 03/04/24 @ 1500 telephone to review labs Time Spent: 30 minutes PBM PharmD Pharmacotherapy Rem V12: PHARMACIST INTERVENTIONS: TYPE 2 DIABETES MELLITUS Medication monitoring, no dosage change required, continue to monitor and assess /fabian MCDONNELL PHARMD,JESSICA CLINICAL PHARMACY PRACTITIONER Signed: 03/01/2024 15:33 03/01/2024 ADDENDUM STATUS: COMPLETED Please schedule patient for: [X] CWM/NO/PHARM/PACT 3 TEL RTC order placed. Appointment Length: 30___ minutes. 03/04/24 @ 1500 telephone to review labs Thank you! /fabian MCDONNELL PHARMD,JESSICA CLINICAL PHARMACY PRACTITIONER Signed: 03/01/2024 15:33 Receipt Acknowledged By: * AWAITING SIGNATURE * GINO COREAS JODI A [facility]
--- OUTSIDE RECORDS SUMMARY | 2024-03-11 13:06 | XMS_ITS ---
Author Name [facility] [place] Address [address] [place] [address] Care Team Providers Care Federal Appellate Law Clerk Name Role Phone VICKIEALEXANDER MCCRACKENYAJAIRADERICK Primary Care [...] PART A Feb 04, 2020 PART A [id number] GRACIELA STOVER PATIENT MEDICARE (WNR) MEDICARE (M) PART B Feb 04, 2020 PART B [id number] [address] GRACIELA STOVER PATIENT Selected Encounter This section includes the information on record at [place] for the Encounter. Date/Time Encounter Type Encounter Description Reason Pro vider Source Mar 08, 2024 09:51 AM Outpatient Encounter PRIMARY CARE/MEDICINE IHE Encounter Template Text not used by [place] Plan of Treatment: Future Appointments (+ 6 [...] 20 appointments. The data comes from all [facility]. Appointment Date/Time Appointment Type Appointme nt Facility Name Mar 18, 2024 11:00 AM AMBULATORY - PSYCHIATRY [facility] Apr 01, 2024 09:00 AM AMBULATORY - MEDICINE [facility] Apr 01, 2024 11:00 AM AMBULATORY - PSYCHIATRY [facility] May 06, 2024 09:30 AM AMBULATORY - MEDICINE [facility] ([facility]) Active, Pending, and Scheduled Orders This section includes a listing of several types of active, pending, and scheduled orders, including clinic medications orders, diagnostic test orders, procedure orders and consult orders; where the start date of the order is 45 days before the date of the Encounter or 45 days after the date of theEncounter. The data comes from all [facility]. Test Date/Time Test Type Test Details Facility Name Mar 08, 2024 04:09 PM Consult Order PRIOR AUTH FACILITY DRUG REQUEST PC PADR Cons Fitness Professional's Choice [facility] Apr 17, 2024 12:00 AM Laboratory - Chemi stry Order LIPID PANEL FASTING BLOOD (SST-SERUM) [facility] ([facility]) Lab Results: +/- 30 days [...] Range Comment Mar 01, 2024 02:07 PM [facility] HEMOGLOBIN A1C PANEL Specimen Type: BLOOD [...] Mar 01, 2024 01:48 PM Reporting Lab: [address] [address] Performing Lab: [address] [address] HEMOGLOBIN A1C 6.9 H 4.0-5.6 Mar 01, 2024 02:07 PM [facility] CREATININE (eGFR 2020) Specimen Type: SERUM No comment entered. Ordering Provider: MODESTA MCDONNELL Report Released Date/Time: Mar 01, 2024 01:48 PM Reporting Lab: [address] [address] Performing Lab: [address] [address] CREATININE, Serum 2.14 mg/dL H 0.50-1.40 eGFR(CKD-EPI 2020) 35 mL/min L >60 Feb 27, 2024 09:21 AM [place] ([facility]) ELECTROLYTE PANEL Specimen Type: SERUM No comment entered. Ordering Provider: QUENTIN STOKES Report Released Date/Time: Feb 20, 2024 11:37 AM Reporting Lab: [address] [address] Performing Lab: [address] [address] SODIUM 138 mmol/L 135-145 POTASSIUM 5.1 mmol/L H 3.5-5.0 CHLORIDE 104 mmol/L 100-110 CO2 25 meq/L -Feb 27, 2024 09:21 AM [place] ([facility]) UREA NITROGEN Specimen Type: SERUM No comment entered. Ordering Provider: QUENTIN STOKES Report Released Date/Time: Feb 20, 2024 11:37 AM Reporting Lab: [address] [address] Performing Lab: [address] [address] UREA NITROGEN 38 mg/dL H 7-25 Feb 27, 2024 09:21 AM [place] ([facility]) CPK Specimen Type: SERUM No comment entered. Ordering Provider: QUENTIN STOKES Report Released Date/Time: Feb 20, 2024 11:37 AM Reporting Lab: [address] [address] Performing Lab: [address] [address] CPK 122 U/L 30-200 Feb 27, 2024 09:21 AM [place] ([facility]) CREATININE (eGFR 2020) Specimen Type: SERUM No comment entered. Ordering Provider: MODESTA MCDONNELL Report Released Date/Time: Mar 01, 2024 02:03 PM Reporting Lab: [address] [address] Performing Lab: [address] [address] CREATININE, Serum 1.82 mg/dL H 0.50-1.40 eGFR(CKD-EPI [...] 19, 2020 02:29 PM [place]-TOBACCO FORMER USER [facility] Tobacco Use History This section includes a history of the smoking, or tobacco-related health factors, that were collected on or before the date of the Encounter. The data comes from the [place] facility where the Encounter took place. Date/Time Smoking Status/Tobacco Use Comment F acmyke Aug 19, 2020 02:29 PM [place]-TOBACCO QUIT 15 YRS OR MORE [facility] Encounter Notes: All associated encounter notes This section contains the clinical notes associated to the Encounter. Date/Time Encounter Note(s) Provider Source Mar 08, 2024 09:51 AM MEDICATION MGT NOT E: LOCAL TITLE: OUTPATIENT MEDICATION RENEWAL STANDARD TITLE: MEDICATION MGT NOTE DATE OF NOTE: MAR 08, 2024@09:51 ENTRY DATE: MAR 08, 2024@09:51:50 AUTHOR: CHAO HITCHCOCK EXP COSIGNER: URGENCY: STATUS: COMPLETED PANTOPRAZOLE TAB,EC 40MG TAKE ONE TABLET BY MOUTH EVERY MORNING 30 MINUTES BEFORE BREAKFAST FOR EXCESSIVE PRODUCTION OF STOMACH ACID Quantity: 90 Refills: 2 Indication: FOR EXCESSIVE PRODUCTION OF STOMACH ACID OK FOR MAIL. PLEASE RENEW, CALL WITH ANY QUESTIONS. /tam/ CHAO HITCHCOCK RN REGISTERED NURSE Signed: 03/08/2024 09:52 Receipt Acknowledged By: 03/10/2024 19:05 /tam/ VANESA MCNAIR MD PHYSICIAN for [facility] CONNELLY ([facility])
--- OUTSIDE RECORDS SUMMARY | 2024-03-11 13:06 | XMS_ITS ---
Author Name [facility] [place] [facility] [place] Address [address] [place] [address] Care Team Providers Care Superintendent Logging Name Role Phone VICKIEALEXANDER MCCRACKENYAJAIRADERICK Primary Care [...] PART A Feb 04, 2020 PART A [id number] [address] GRACIELA STOVER PATIENT MEDICARE (WNR) MEDICARE (M) PART B Feb 04, 2020 PART B [id number] NE[address] [facility] GRACIELA STOVER PATIENT Selected Encounter This section includes the information on record at [place] for the Encounter. Date/Time Encounter Type Encounter Description Reason Pro vider Source Mar 08, 2024 09:44 AM Outpatient Encounter PRIMARY CARE/MEDICINE IHE Encounter Template Text not used by [place] Plan of Treatment: Future Appointments (+ 6 [...] 20 appointments. The data comes from all [facility]. Appointment Date/Time Appointment Type Appointme nt Facility Name Mar 18, 2024 11:00 AM AMBULATORY - PSYCHIATRY [facility] Apr 01, 2024 09:00 AM AMBULATORY - MEDICINE [facility] Apr 01, 2024 11:00 AM AMBULATORY - PSYCHIATRY [facility] May 06, 2024 09:30 AM AMBULATORY - MEDICINE [facility] ([facility]) Active, Pending, and Scheduled Orders This section includes a listing of several types of active, pending, and scheduled orders, including clinic medications orders, diagnostic test orders, procedure orders and consult orders; where the start date of the order is 45 days before the date of the Encounter or 45 days after the date of theEncounter. The data comes from all [facility]. Test Date/Time Test Type Test Details Facility Name Mar 08, 2024 04:09 PM Consult Order PRIOR AUTH FACILITY DRUG REQUEST PC PADR [place] [employer] Commander's Choice [facility] Apr 17, 2024 12:00 AM Laboratory - Chemi stry Order LIPID PANEL FASTING BLOOD (SST-SERUM) [facility] ([facility]) Lab Results: +/- 30 days of the encounter This section includes the Chemistry and Hematology Lab Results on record with [place] for the patient. Radiology Reports and Pathology Reports are provided separately, in subsequent sections. Lab Results This section contains the Chemistry/Hematology Results that were resulted 30 days before or 30 daysafter the date of the Encounter. Date/Time Source Result Type Result - Unit Interpretation Reference Range Comment Mar 01, 2024 02:07 PM [facility] HEMOGLOBIN A1C PANEL Specimen Type: BLOOD [...] Mar 01, 2024 01:48 PM Reporting Lab: [address] [address] Performing Lab: [address] [address] HEMOGLOBIN A1C 6.9 H 4.0-5.6 Mar 01, 2024 02:07 PM [facility] CREATININE (eGFR 2020) Specimen Type: SERUM No comment entered. Ordering Provider: MODESTA MCDONNELL Report Released Date/Time: Mar 01, 2024 01:48 PM Reporting Lab: [address] [address] Performing Lab: [address] [address] CREATININE, Serum 2.14 mg/dL H 0.50-1.40 eGFR(CKD-EPI 2020) 35 mL/min L >60 Feb 27, 2024 09:21 AM [place] ([facility]) ELECTROLYTE PANEL Specimen Type: SERUM No comment entered. Ordering Provider: QUENTIN STOKES Report Released Date/Time: Feb 20, 2024 11:37 AM Reporting Lab: [address] [address] Performing Lab: [address] [address] SODIUM 138 mmol/L 135-145 POTASSIUM 5.1 mmol/L H 3.5-5.0 CHLORIDE 104 mmol/L 100-110 CO2 25 meq/L -Feb 27, 2024 09:21 AM [place] ([facility]) UREA NITROGEN Specimen Type: SERUM No comment entered. Ordering Provider: QUENTIN STOKES Report Released Date/Time: Feb 20, 2024 11:37 AM Reporting Lab: [address] [address] Performing Lab: [address] [address] UREA NITROGEN 38 mg/dL H 7-25 Feb 27, 2024 09:21 AM [place] ([facility]) CPK Specimen Type: SERUM No comment entered. Ordering Provider: QUENTIN STOKES Report Released Date/Time: Feb 20, 2024 11:37 AM Reporting Lab: [facility] [address] [address] Performing Lab: [address] [address] CPK 122 U/L 30-200 Feb 27, 2024 09:21 AM [place] ([facility]) CREATININE (eGFR 2020) Specimen Type: SERUM No comment entered. Ordering Provider: MODESTA MCDONNELL Report Released Date/Time: Mar 01, 2024 02:03 PM Reporting Lab: [facility] [address] [address] Performing Lab: [address] [address] CREATININE, Serum 1.82 mg/dL H 0.50-1.40 eGFR(CKD-EPI 2020) 43 mL/min L >60 Social History: Smoking Status (Most current) and Tobacco Use (All prior to encounter date) This section includes the most current, and the historical, smoking and tobacco- related health factors from the [place] facility where the Encounter took place. Current Smoking Status This section includes the most current smoking, or tobacco-related health factor, from the [place] facility where the Encounter took place. Date/Time Current Smoking Status Comment Filemon honeycutt Aug 19, 2020 02:29 PM VA-TOBACCO FORMER USER [facility] Tobacco Use History This section includes a history of the smoking, or tobacco-related health factors, that were collected on or before the date of the Encounter. The data comes from the [place] facility where the Encounter took place. Date/Time Smoking Status/Tobacco Use Comment F acmyke Aug 19, 2020 02:29 PM VA-TOBACCO QUIT 15 YRS OR MORE [facility] Encounter Notes: All associated encounter notes This section contains the clinical notes associated to the Encounter. Date/Time Encounter Note(s) Provider Source Mar 08, 2024 09:45 AM ADMINISTRATIVE NOT E: LOCAL TITLE: ADMINISTRATIVE NOTE STANDARD TITLE: ADMINISTRATIVE NOTE DATE OF NOTE: MAR 08, 2024@09:45 ENTRY DATE: MAR 08, 2024@09:45:04 AUTHOR: STAN JAIN COSIGNER: URGENCY: STATUS: COMPLETED IN OFFICE REQUESTING RENEWAL OF THE FOLLOWING MEDICATION: PANTOPRAZOLE TAB,EC 40MG TAKE ONE TABLET BY MOUTH EVERY MORNING 30 MINUTES BEFORE BREAKFAST FOR EXCESSIVE PRODUCTION OF STOMACH ACID Quantity: 90 Refills: 2 Indication: FOR EXCESSIVE PRODUCTION OF STOMACH ACID OK FOR MAIL. PLEASE RENEW, CALL WITH ANY QUESTIONS. /tam/ STAN JAIN ADVANCED ASSISTANT DIRECTOR OF RESIDENCE LIFE Signed: 03/08/2024 09:45 Receipt Acknowledged By: 03/08/2024 13:21 /es/ MARLENA KIM LPN LICENSED PRACTICAL NURSE for KATHRYN MARIE 03/08/2024 09:51 /es/ CHAO HITCHCOCK, RN REGISTERED NURSE STAN JAIN ([facility])
--- OUTSIDE RECORDS SUMMARY | 2024-03-11 13:06 | XMS_ITS | Encounter Summary ---
Author Name [facility] [place] Organization [place] Address [address] [place] [address] Care Team Providers Care Plisse Machine Operator Name Role Phone VICKIEALEXANDER MCCRACKENYAJAIRADERICK Primary Care [...] PART A Feb 04, 2020 PART A [id number] [address] [facility] GRACIELA STOVER PATIENT MEDICARE (WNR) MEDICARE (M) PART B Feb 04, 2020 PART B [id number] [address] [facility] GRACIELA STOVER PATIENT Selected Encounter This section includes the information on record at [place] for the Encounter. Date/Time Encounter Type Encounter Description Reason Provider Source Feb 19, 2024 11:00 AM PSYTX W PT 60 MINUTES [facility] - IND ICD-10-CM F43.23 Adjustment disorder with mixed anxiety and depressed mood MALACHI GAINES Angélica Encounter Template Text not used by [place] Assessments - Encounter Diagnoses This section includes the primary and secondary diagnoses documented for the Encounter. Date/Time Primary/Secondary Diagnosis Diagnosis Name Provider Source Feb 19, 2024 03:01 PM PRIMARY Adjustment disorder with mixed anxiety and depressed mood MALACHI GAINES ([facility]) Plan of Treatment: Future Appointments (+ 6 months) and Future Tests (+/- 45 days) The Plan of Treatment section includes future care activities for the patient [facility] [place] [facility] This section includes future appointments and future orders which are active, pending or scheduled. Future Appointments This section includes appointments that were scheduled to occur 6 months from the date of the Encounter, up to a maximum of 20 appointments. The data comes from all [facility]. Appointment Date/Time Appointment Type Appointme nt Facility Name Mar 01, 2024 01:30 PM [facility] Mar 04, 2024 03:00 PM [facility] Mar 18, 2024 11:00 AM [facility] Apr 01, 2024 09:00 AM [facility] Apr 01, 2024 11:00 AM AMBULATORY PSYCHIATRY [facility] May 06, 2024 09:30 AM AMBULATORY - MEDICINE [facility] ([facility]) Active, Pending, and Scheduled Orders This section includes a listing of several types of active, pending, and scheduled orders, including clinic medications orders, diagnostic test orders, procedure orders and consult orders; where the start date of the order is 45 days before the date of the Encounter or 45 days after the date of theEncounter. The data comes from all [facility]. Test Date/Time Test Type Test Details Facility Name Mar 08, 2024 04:09 PM Consult Order PRIOR AUTH FACILITY DRUG REQUEST PC PADR Cons Certified Professional Ergonomist's Choice [facility] Lab Results: +/- 30 days of the encounter This section includes the Chemistry and Hematology Lab Results on record with [place] for the patient. Radiology Reports and Pathology Reports are provided separately, in subsequent sections. Lab Results This section contains the Chemistry/Hematology Results that were resulted 30 days before or 30 daysafter the date of the Encounter. Date/Time Source Result Type Result - Unit Interpretation Reference Range Comment Mar 01, 2024 02:07 PM [facility] HEMOGLOBIN A1C PANEL Specimen Type: BLOOD Comment: [...] Mar 01, 2024 01:48 PM Reporting Lab: [address] [address] Performing Lab: [address] [address] HEMOGLOBIN A1C 6.9 H 4.0-5.6 Mar 01, 2024 02:07 PM [facility] CREATININE (eGFR 2020) Specimen Type: SERUM No comment entered. Ordering Provider: MODESTA MCDONNELL Report Released Date/Time: Mar 01, 2024 01:48 PM Reporting Lab: [address] [address] Performing Lab: [address] [address] CREATININE, Serum 2.14 mg/dL H 0.50-1.40 eGFR(CKD-EPI 2020) 35 mL/min L >60 Feb 27, 2024 09:21 AM [place] ([facility]) ELECTROLYTE PANEL Specimen Type: SERUM No comment entered. Ordering Provider: QUENTIN STOKES Report Released Date/Time: Feb 20, 2024 11:37 AM Reporting Lab: [address] [address] Performing Lab: [address] [address] SODIUM 138 mmol/L 135-145 POTASSIUM 5.1 mmol/L H 3.5-5.0 CHLORIDE 104 mmol/L 100-110 CO2 25 meq/L 20-30 Feb 27, 2024 09:21 AM [place] ([facility]) UREA NITROGEN Specimen Type: SERUM No comment entered. Ordering Provider: QUENTIN STOKES Report Released Date/Time: Feb 20, 2024 11:37 AM Reporting Lab: [facility] [place] [address] Performing Lab: [facility] [address] UREA NITROGEN 38 mg/dL H 7-25 Feb 27, 2024 09:21 AM [place] ([facility]) CPK Specimen Type: SERUM No comment entered. Ordering Provider: QUENTIN STOKES Report Released Date/Time: Feb 20, 2024 11:37 AM Reporting Lab: [facility] [address] [address] Performing Lab: [facility] [address] [address] CPK 122 U/L 30-200 Feb 27, 2024 09:21 AM [place] ([facility]) CREATININE (eGFR 2020) Specimen Type: SERUM No comment entered. Ordering Provider: MODESTA MCDONNELL Report Released Date/Time: Mar 01, 2024 02:03 PM Reporting Lab: [facility] [address] [address] Performing Lab: [facility] [address] CREATININE, Serum 1.82 mg/dL H 0.50-1.40 eGFR(CKD-EPI 2020) 43 mL/min L >60 Social History: Smoking Status (Most current) and Tobacco Use (All prior to encounter date) This section includes the most current, and the historical, smoking and tobacco- related health factors from the [place] facility where the Encounter took place. Current Smoking Status This section includes the most current smoking, or tobacco-related health factor, from the [place] facility where the Encounter took place. Date/Time Current Smoking Status Comment Facil ity Oct 26, 2023 11:30 AM [place]-TOBACCO FORMER USER [place] ([facility]) Tobacco Use History This section includes a history of the smoking, or tobacco-related health factors, that were collected on or before the date of the Encounter. The data comes from the [place] facility where the Encounter took place. Date/Time Smoking Status/Tobacco Use Comment F acility Oct 26, 2023 11:30 AM [place]-TOBACCO QUIT 5 TO < 15 YRS [place] ([facility]) Nov 08, 2022 01:30 PM VA-TOBACCO FORMER USER [place] ([facility]) Nov 08, 2022 01:30 PM VA-TOBACCO QUIT 5 TO < 15 YRS [place] ([facility]) Oct 18, 2021 10:30 AM VA-TOBACCO FORMER USER [place] ([facility]) Oct 18, 2021 10:30 AM VA-TOBACCO QUIT 15 YRS OR MORE [place] ([facility]) Sep 21, 2020 02:00 PM VA-TOBACCO FORMER USER [place] ([facility]) Sep 21, 2020 02:00 PM VA-TOBACCO QUIT 15 YRS OR MORE [place] ([facility]) Encounter Notes: All associated encounter notes This section contains the clinical notes associated to the Encounter. Date/Time Encounter Note(s) Provider Source Feb 19, 2024 12:43 PM SOCIAL WORK NOTE: LOCAL TITLE: SOCIAL WORK NOTE STANDARD TITLE: SOCIAL WORK NOTE DATE OF NOTE: FEB 19, 2024@12:43 ENTRY DATE: FEB 19, 2024@12:43:56 AUTHOR: JUANA MARSHALL COSIGNER: MALACHI GAINES URGENCY: STATUS: COMPLETED SOCIAL WORK NOTE Has ADDENDA INFORMED CONSENT REVIEWED: At beginning of session reviewed rights and limits of confidentiality, mandatory reporting situations, duty to warn and protect, Ng Warning, (if treatment team finds patient to be an acute danger to himself or others, that this information could be relayed to a court of law and presented to a gambling counsellor), and 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 Provided Suicide Prevention Hotline number, and other contact numbers as necessary. VISIT DURATION 60 minutes Dumont identified with 2 identifiers: Full Name, Facial Recognition DIAGNOSES: Adjustment disorder, Assess for PTSD [employer] STATEMENT OF GOALS/CONCERNS: Dumont was encouraged to seek out individual therapy by his primary doctor to make sure he is in a good headspace as he navigates medical appointments/procedures. has reservations about mental health system and is unsure of what specific goals he would like to set for therapy. Dumont would like to receive supportive therapy. SESSION FOCUS: Juan Diego is scheduled for a medical procedure on March 30. shared that he hopes the procedure will lead to improvements, but feels that there will be other issues with his health. has multiple ongoing medical issues and he reports that bad news wouldn't come as a shock to him, as a doctor told him you should have been gone 10 years ago. Dumont shared thinking about finding time to see a friend from the service who lives in another state, as years ago, the friend proposed to him to move out there. feels that his finances limit him, otherwise he would leave. Dumont shared that leaving would be running away and quitting and that he's not a quitter . Dumont shared that this place doesn't feel like home anymore and that it lacks community. Dumont feels sacha when he gets the opportunity to interact with his great-niece from his former marriage. INTERVENTIONS: Psychotherapeutic Interventions: Validation, helped process difficult feelings, assessment. Psychoeducation reviewed: Skills reviewed: Self-care, stress management. Finding small moments of sacha ASSESSMENT: BRIEF ASSESSMENT OF MENTAL STATUS: 1. [...] Denies current suicidal/homicidal ideation PLAN FOR FOLLOW-UP: Individual sessions with [facility] Clinic Supervisor - biweekly on Mondays - SW Clinic Supervisor informed that session scheduled for Feb 26 will be cancelled. Sessions will resume 18 March 2024. Next session planned for: Week of 18 March 2024 Other Scheduled visits: Future Clinic Visits 03/01/2024 13:30 CWM/NO/PHARM/PACT 3 03/04/2024 11:00 CWM/GO/MHC/SW INTERNATIONAL EDITORIAL PRODUCER 1 03/18/2024 11:00 CWM/GO/MHC/SW INTERNATIONAL EDITORIAL PRODUCER 1 04/01/2024 09:00 CWM/NO/WOUND PROV A 04/01/2024 11:00 CWM/GO/MHC/SW INTERNATIONAL EDITORIAL PRODUCER 1 05/06/2024 09:30 CWM/GO/PACT 4 /es/ NOEMY MCGRATH SOCIAL WORK INTERNATIONAL EDITORIAL PRODUCER Signed: 02/19/2024 12:59 /es/ SENKA SALATIC-YARELY GALVAN [place] [facility] Cosigned: 02/19/2024 15:00 02/19/2024 ADDENDUM STATUS: COMPLETED I have reviewed this case and concur with the clinical impressions and recommendations made by this trainee who is under my clinical supervision.Battery Loader was fully accessible to the student during the encounter. Dumont is seeking individual therapy for Adjustment D/o due to medical condition. R/O PTSD. Student will conduct weekly therapy /es/ YARELY IRELAND [place] [facility] Signed: 02/19/2024 15:01 NOEMY MARSHALL ([facility])
--- OUTSIDE RECORDS SUMMARY | 2024-03-11 13:07 | XMS_ITS | Continuity of Care Document ---
Author Organization [facility] Address [address] [place] [address]- Care Team Providers Care Oil Well Fishing Tool Technician Name Role Phone Jose A PALACIOS, Michael Primary Care Physician Encounter [facility] NBR [id number] Date(s): 01/15/24 - 02/14/24 [facility] [address] [place] [address]- Encounter Type: Triage Allergies, Adverse Reactions, Alerts Substance Criticality Severity Reaction Reaction Severity Status Indocin High criticality Severe gi cramping Proposed Zetia Active Percocet HYPERACTIVE ACTIVITY Active Norvasc High criticality Severe cramping Act negar Immunizations Given and Recorded Vaccine Date Status Refusal Reason influenza virus vaccine, inactivated 1 01/24/19 Gi gabriela influenza virus vaccine, inactivated 12/22/17 Give n tetanus/diphtheria/pertussis, acel(Tdap) 12/19/16 Given Afluria (oldterm) 12/19/16 Given pneumococcal 23-valent vaccine 12/19/16 Given tetanus-diphtheria toxoids (Td) 11/29/08 Recorded diphtheria-tetanus toxoids (DT) 07/19/02 Given 1Result Comment: [facility] [id number] Medications aspirin 81 mg oral tablet, chewable [...] 3:39:00 PM EST, Route to Pharmacy Electronically, [facility], 183, cm, 12/02/22 9:49:00 EDT, Height, [...] Refills, Maintenance, 12/11/23 9:08:00 AM EDT, Tablet, [facility], Partial fill upon patient request if [...] Maintenance, 03/29/23 4:07:00 PM EST, ER Tablet, [facility], 183, cm, 03/13/23 11:08:00 EST, Height, [...] Refills, Maintenance, 02/15/22 3:08:00 PM EST, Tablet, [facility], 182, cm, 02/15/22 14:40:00 EST, Height, 110, kg, 10/03/21 2:59:00 EDT, Dry Weight Start Date: 02/15/22 Status: Ordered Quantity: 100.0 Unit: tablet Repeat number: 4 Plavix 75 mg oral tablet 75 mg, 1, tablet, By Mouth, Daily, # 14 tablet, Refills 1, Tot. Refills 1, Maintenance, 10/03/23 9:18:00 AM EDT, Route to Pharmacy Electronically, [facility], Partial fill upon patient request if [...] Maintenance, 10/09/23 11:48:00 AM EDT, ER Tablet, [facility], Partial fill upon patient request if [...] Refills, Maintenance, 03/21/23 12:56:00 PM EST, Solution, [facility]/pharmacy #[id number], Partial fill upon patient request if [...] Team Personnel Name: Nazia Baires RN Position: [facility] RN Member Role: Primary Care Nurse Name: Lis Sandoval RN Position: [facility] RN Member Role: Primary Care Nurse Name: Renetta Luna RN Position: [facility] RN Member Role: Primary Care Nurse Name: Russ Marks RN Position: [facility] Outreach Member Role: Primary Care Nurse Name: Jennie Stephen RN Position: [facility] RN Member Role: Primary Care Nurse Name: Yan Khan RN Position: [facility] RN Member Role: Primary Care Nurse Name: Harry Gomez RN Position: [facility] RN Member Role: Primary Care Nurse Name: Juan Maria RN Position: [facility] SN RN Member Role: Primary Care Nurse Name: Domenica Gagnon RN Position: [facility] RN Member Role: Primary Care Nurse Name: Michael Naranjo MD Position: [facility] Physician - Primary Care Member Role: PCP Address: [address] [place] [address] [address] [place] [address]- Telecom: Name: Altagracia Abad RN Position: [facility] RN Member Role: Primary Care Nurse Care Team Related Persons Name: SOFYA STOVER Name: REBECA STOVER Insurance Providers Guarantor name: DEIRDRE STOVER Health Plan Information #: 1 Payer: [employer] [place] [employer] Member Number: NA Policy Number: NA Group Number: NA
--- OUTSIDE RECORDS SUMMARY | 2024-03-11 13:07 | XMS_ITS | Continuity of Care Document ---
Author Organization [facility] Address [address] [place] [id number] Name Relationship Address Phone REBECA STOVER [...] Unknown Unava ilable Care Team Providers Care Tag And Label Cutter Name Role Phone Jose A PALACIOS, Michael Primary Care Physician Encounter [facility] Date(s): 02/05/24 - 03/06/[address] [address] Encounter Type: Triage Allergies, Adverse Reactions, Alerts Substance Criticality Severity Reaction Reaction Severity Status Indocin High criticality Severe gi cramping Proposed Zetia Active Percocet 5/325 HYPERACTIVE ACTIVITY Active Norvasc High criticality Severe cramping Act negar Immunizations Given and Recorded Vaccine Date Status Refusal Reason influenza virus vaccine, inactivated 1 01/24/19 Gi gabriela influenza virus vaccine, inactivated 12/22/17 Give n tetanus/diphtheria/pertussis, acel(Tdap) 12/19/16 Given Afluria (oldterm) 12/19/16 Given pneumococcal 23-valent vaccine 12/19/16 Given tetanus-diphtheria toxoids (Td) 11/29/08 Recorded diphtheria-tetanus toxoids (DT) 07/19/02 Given 1Result Comment: [facility] [id number] Medications aspirin 81 mg oral tablet, chewable [...] 3:39:00 PM EST, Route to Pharmacy Electronically, [facility], 183, cm, 12/02/22 9:49:00 [...] Refills, Maintenance, 12/11/23 9:08:00 AM EDT, Tablet, [facility], Partial fill upon patient [...] Maintenance, 03/29/23 4:07:00 PM EST, ER Tablet, [facility], 183, cm, 03/13/23 11:08:00 [...] Refills, Maintenance, 02/15/22 3:08:00 PM EST, Tablet, [facility], 182, cm, 02/15/22 14:40:00 EST, Height, 110, kg, 10/03/21 2:59:00 EDT, Dry Weight Start Date: 02/15/22 Status: Ordered Quantity: 100.0 Unit: tablet Repeat number: 4 Plavix 75 mg oral tablet 75 mg, 1, tablet, By Mouth, Daily, # 14 tablet, Refills 1, Tot. Refills 1, Maintenance, 10/03/23 9:18:00 AM EDT, Route to Pharmacy Electronically, [facility], Partial fill upon patient request [...] Maintenance, 10/09/23 11:48:00 AM EDT, ER Tablet, [facility], Partial fill upon patient [...] Refills, Maintenance, 03/21/23 12:56:00 PM EST, Solution, [facility]/pharmacy #[id number], Partial fill upon patient request if [...] Team Personnel Name: Nazia Baires RN Position: [facility] RN Member Role: Primary Care Nurse Name: Lis Sandoval RN Position: [facility] RN Member Role: Primary Care Nurse Name: Renetta Luna RN Position: [facility] RN Member Role: Primary Care Nurse Name: Russ Marks RN Position: [facility] Outreach Member Role: Primary Care Nurse Name: Jennie Stephen RN Position: [facility] RN Member Role: Primary Care Nurse Name: Yan Khan RN Position: [facility] RN Member Role: Primary Care Nurse Name: Harry Gomez RN Position: [facility] RN Member Role: Primary Care Nurse Name: Juan Maria RN Position: [facility] SN RN Member Role: Primary Care Nurse Name: Domenica Gagnon RN Position: [facility] RN Member Role: Primary Care Nurse Name: Michael Naranjo MD Position: [facility] Physician - Primary Care Member Role: PCP Address: [address] [place] [phone]- Telecom: Name: Altagracia Abad RN Position: [facility] RN Member Role: Primary Care Nurse Care Team Related Persons Name: SOFYA STOVER Name: REBECA STOVER Insurance Providers Guarantor name: DEIRDRE CK Health Plan Information #: 1 Payer: [employer] [place] [employer] Member Number: NA Policy Number: NA Group Number: NA Health Plan Information #: 2 Payer: MEDICARE PART B OUTPT Member Number: NA Policy Number: NA Group Number: NA
--- OUTSIDE RECORDS SUMMARY | 2024-03-11 13:07 | XMS_ITS | Continuity of Care Document ---
Author Organization [facility] Address [address] [place] [address]- Care Team Providers Care Multimedia Assistant Name Role Phone Jose A PALACIOS, Michael Primary Care Physician [phone] Encounter [facility] Date(s): 02/07/24 - 03/08/24 [facility] [address] [place] [address]- Encounter Type: Triage Allergies, Adverse Reactions, Alerts Substance Criticality Severity Reaction Reaction Severity Status Indocin High criticality Severe gi cramping Proposed Norvasc High criticality Severe cramping Act negar Zetia Active Percocet 5/ HYPERACTIVE ACTIVITY Active Immunizations Given and Recorded Vaccine Date Status Refusal Reason influenza virus vaccine, inactivated 1 01/24/19 Gi gabriela influenza virus vaccine, inactivated 12/22/17 Give n tetanus/diphtheria/pertussis, acel(Tdap) 12/19/16 Given Afluria (oldterm) 12/19/16 Given pneumococcal 23-valent vaccine 12/19/16 Given tetanus-diphtheria toxoids (Td) 11/29/08 Recorded diphtheria-tetanus toxoids (DT) 07/19/02 Given 1Result Comment: [facility] [id number] Medications aspirin 81 mg oral tablet, chewable [...] 3:39:00 PM EST, Route to Pharmacy Electronically, [facility], 183, cm, 12/02/22 9:49:00 EDT, Height, [...] Refills, Maintenance, 12/11/23 9:08:00 AM EDT, Tablet, [facility], Partial fill upon patient request if [...] Maintenance, 03/29/23 4:07:00 PM EST, ER Tablet, [facility], 183, cm, 03/13/23 11:08:00 EST, Height, 110.8, kg, 07/14/22 2:02:00 EDT, Dry Weight Start Date: 03/29/23 Status: Ordered Quantity: 90.0 Unit: tablet Repeat number: 4 Lantus 100 u/ml subcutaneous solution = 24 units, Subcutaneous Injection, Daily at bedtime, 5 Refills, Maintenance, 09/27/23 10:56:00 PM EDT, Partial fill upon patient request if the prescription is for a schedule II opioid drug. Start Date: 09/27/23 Stop Date: 10/27/23 Status: Ordered Repeat number: 1 nitroglycerin 0.4 mg sublingual tablet 1 tablet = 0.4 mg, Sublingual, Every 5 minutes, PRN for chest pain, # 100 tablet, 3 Refills, Maintenance, 02/15/22 3:08:00 PM EST, Tablet, [facility], 182, cm, 02/15/22 14:40:00 EST, Height, 110, kg, 10/03/21 2:59:00 EDT, Dry Weight Start Date: 02/15/22 Status: Ordered Quantity: 100.0 Unit: tablet Repeat number: 4 Plavix 75 mg oral tablet 75 mg, 1, tablet, By Mouth, Daily, # 14 tablet, Refills 1, Tot. Refills 1, Maintenance, 10/03/23 9:18:00 AM EDT, Route to Pharmacy Electronically, [facility], Partial fill upon patient request if [...] Maintenance, 10/09/23 11:48:00 AM EDT, ER Tablet, [facility], Partial fill upon patient request if the prescription is for a schedule II opioid drug., 183, cm, 10/08/23 9:50:00 EDT, Height, 109.8, kg, 10/06/23 21:56:00 EDT, Dry Weight Start Date: 10/09/23 Status: Ordered Quantity: 180.0 Unit: tablet Repeat number: 2 Repatha SureClick 140 mg/mL subcutaneous solution = 140 mg, Subcutaneous Infusion, Every 14 days, # 2 each, 11 Refills, Maintenance, 03/08/24 2:12:00 PM EST, [facility], Partial fill upon patient request if the prescription is for a schedule II opioid drug., 179.8, cm, 01/22/24 8:21:00 EST, Height, 109.8, kg, 10/06/23 21:56:00 EDT, Dry Weight Start Date: 03/08/24 Status: Ordered Quantity: 2.0 Unit: each Repeat number: 12 Trulicity Pen 1.5 mg/0.5 mL subcutaneous solution 0.5 mL = 1.5 mg, Subcutaneous Injection, Every week, rotate injection sites, # 2 mL, 2 Refills, Maintenance, 03/21/23 12:56:00 PM EST, Solution, [facility]/pharmacy #[id number], Partial fill upon patient request if the prescription is for a schedule II opioid drug., 183, cm, 03/13/23 11:08:00 EST, Height, 110.8,kg, 07/14/22 2:02:00 EDT, Dry Weight Start Date: 03/21/23 Status: Ordered Quantity: 2.0 Unit: mL Repeat number: 3 Trulicity Pen 3 mg/0.5 mL subcutaneous solution 0.5 mL = 3 mg, Subcutaneous Injection, Every week, rotate injection sites, # 2 mL, 0 Refills, Maintenance, 03/08/24 3:47:00 PM EST, Solution, Partial fill upon patient request if the prescription is for a schedule II opioid drug. Start Date: 03/08/24 Status: Ordered Quantity: 2.0 Unit: mL Repeat number: 1 Problem List Condition Confirmation Course Effective Dates [...] Team Personnel Name: Nazia Baires RN Position: [facility] RN Member Role: Primary Care Nurse Name: Lis Sandoval RN Position: [facility] RN Member Role: Primary Care Nurse Name: Renetta Luna RN Position: [facility] RN Member Role: Primary Care Nurse Name: Russ Marks RN Position: [facility] Outreach Member Role: Primary Care Nurse Name: Jennie Stephen RN Position: [facility] RN Member Role: Primary Care Nurse Name: Yan Khan RN Position: [facility] RN Member Role: Primary Care Nurse Name: Harry Gomez RN Position: [facility] RN Member Role: Primary Care Nurse Name: Juan Maria RN Position: [facility] SN RN Member Role: Primary Care Nurse Name: Domenica Gagnon RN Position: [facility] RN Member Role: Primary Care Nurse Name: Michael Naranjo MD Position: [facility] Physician - Primary Care Member Role: PCP Address: [address] [place] [phone]- Telecom: Name: Altagracia Abad RN Position: [facility] RN Member Role: Primary Care Nurse [...]
--- OUTSIDE RECORDS SUMMARY | 2024-03-11 13:07 | XMS_ITS | Data Portability ---
Author Organization [facility], , [facility] Address [address] [place] [address] Care Team Providers [employer] Name Role Phone RANJIT MANLEY Primary Care Provider MITCHELL Pearson [facility] Vascular Surgery Physician Assessment No assessment recorded. Plan of Treatment Reminders Order Date Submit Date Provider Last Modified By Organization Details Last Modified Time Details Appointments None recorded. Lab magnesium, serum or plasma 2015 016 [id number] [facility], [address] [place] [address], [address], 6 04:03:46 Referral endocrinol ogy referral 2015 016 [id number] Flakita Rain MD, [address] [place] [address], [address], 6 04:08:48 physical therapist referral 2015 016 [facility] (Physical Therapy), [address] [place] [address], [address], 7 05:02:11 Procedures None recorded. Surgeries None recorded. Imaging polysomnog sol 2015 016 [id number] [facility] (Imaging), [address], [place], [address], 6 04:04:34 MRI, lumbar spine, w/o contrast - 50yo male w/ worsening R lower back pain and RLE radicular sx since initial injury in December. auth #[id number] from 03/03/16-. 03/04/16 3:10 PM aware 2015 016 [email or web address] [facility] ([employer]), [address] , [place], [address], 7 12:33:17 Medication Orders Januvia 100 mg tablet 2015 016 DBA_PATCH_ [id number] [facility]armacy #1094, [address] [place] [address], [address], 6 04:03:48 cyclobenza stacy 5 mg tablet 2015 016 [facility] #1094, [address] [place] [address], [address], 6 04:08:59 tramadol 50 mg tablet 2015 016 lbapple creekak [facility] #1094, [address] [place] [address], [address], 7 08:22:47 tramadol 50 mg tablet 2015 016 lbapple [email or web address] [facility] #1094, [address] [place] [address], [address], 7 08:22:47 hydrocodon e 5 mg-acetami nophen 325 mg tablet 2015 016 [email or web address] [facility] #1094, [address] [place] [address], [address], 6 16:56:31 Medrol (Giorgi) 4 mg tablets in a dose pack 2015 016 lbapple creekak [facility] #1094, [address] [place] [address], [address], 7 08:21:34 gabapentin 100 mg capsule 2015 016 INTERFACE [facility]acy #1094, [address] [place] [address], [address], 17:00:04 Patient TargetsNo targets recorded. Patient Instructions Encounter Date Encounter Id Patient Instructions Last Modified By Organization Details Last Modified Time 09/21/2015 [id number] Well Visit, Ages 18 to 65: Care Instructions [id number] Not available 02/20/2016 04:04:12 12/15/2015 [id number] sciatica: care instructions [email or web address] [id number] Not available 02/20/2016 04:09:03 sciatica: exercises [email or web address] [id number] Not available 02/20/2016 04:09:02 After a discussi on of treatment options, which included consideration of best practices, patient preferences, and the patient? s individual lifestyle and treatment goals, as well as consideration and attempted mitigation of any barriers to meeting the patient? s goals, the following treatment plan and objectives wer e adopted: -Good to see you today! -Take your medications as prescribed, and please let us know if you have any unwanted or unexpected side effects. -Pleae review the patient education provided to you today. -Keep your follow-up appointments as scheduled. -Please let us know if you are worse in any way, we are deputy commissioner 24 hours a day, 7 days a week by phone: [phone]. -Please let us know if you have any further questions or concerns. . [email or web address] Not available 12/15/2015 11:19:13 03/02/2016 [id number] Please start gabapentin with 1 capsule at bedtime, then 2 at bedtime, then 3 at bedtime; continue with 3 at bedtime and then add 1 in the morning. Take Miralax every afternoon. Eat something in the morning, then take the Medrol dose and wash it down well; follow package instructions. Discussed indications for new prescription(s), risks and benefits of medication(s), common side effects (including effects on blood sugar) and how to manage them, and reasons to notify prescriber of adverse effects or discontinuation. [email or web address] Not available 03/03/2016 22:55:19 Reason for Referral Referring Physician: Ranjit valenzuela, Family Medicine, Encounter Date: 12/21/2015 Endocrinology Referral for U ncontrolled type 2 diabetes mellitus Referring Physician: Ranjit Manley, Family Medicine, Encounter Date: 12/21/2015 Results Created Date Observation Date Name Description Value Unit Range Abnormal Flag Note LastModifiedBy Organization Detail LastModifiedTime 09/16/19 16 09/16/2015 BMP, serum or plasm a glucose 252 mg/dL 70-100 high Not Available [address], [address], 09/16/2015 10:43:26 09/16/19 16 09/16/2015 BMP, serum or plasm a BUN 20 mg/dL 7-18 high Not Available [address], [address], 09/16/2015 10:43:26 09/16/19 16 09/16/2015 BMP, serum or plasm a creatinine 0.9 mg/dL 0.8-1. 3 Not Available [address], [address], 09/16/2015 10:43:26 09/16/19 16 09/16/2015 BMP, serum or plasm a B/C 22.2 ratio Not Available [address], [address], 09/16/2015 10:43:26 09/16/19 16 09/16/2015 BMP, serum or plasm a GFR -non 95.3 mL/mi n Recom marjorie d GFR by the Natio nal Kidne y Found ation >60 mL/mi n/1.7 3m2 - Mickie l <60 mL/mi n/1.7 3m2 - Chron ic Kidne y Disea se <15 mL/mi n/1.7 3m2 - Kidne y Failu re Not Available [address], [address], 09/16/2015 10:43:26 09/16/19 16 09/16/2015 BMP, serum or plasm a GFR - if 115.3 mL/mi n For Afric an Ameri can patie nts: Resul ts Multi plied by 1.21 Not Available [address], [address], 09/16/2015 10:43:26 09/16/19 16 09/16/2015 BMP, serum or plasm a sodium 142 mmol/ L 136-14 5 Not Available [address], [address], 09/16/2015 10:43:26 09/16/19 16 09/16/2015 BMP, serum or plasm a potassium 4.1 mmol/ L 3.5-5. 1 Not Available [address], [address], 09/16/2015 10:43:26 09/16/19 16 09/16/2015 BMP, serum or plasm a chloride 105 mmol/ L 96-107 Not Available [address], [address], 09/16/2015 10:43:26 09/16/19 16 09/16/2015 BMP, serum or plasm a anion gap 7.0 5.0-15 .0 Not Available [address], [address], 09/16/2015 10:43:26 09/16/19 16 09/16/2015 BMP, serum or plasm a CO2 30 mmol/ L 21-32 Not Available [address], [address], 09/16/2015 10:43:26 09/16/19 16 09/16/2015 BMP, serum or plasm a calcium 8.9 mg/dL 8.5-10 .3 Not Available [address], [address], 09/16/2015 10:43:26 09/16/19 16 09/16/2015 lipid panel , serum cholesterol 146 mg/dL <200 mg/dl Sesar able 200-2 39 mg/dl Borde rline High >240 mg/dl High Not Available [address], [address], 09/16/2015 10:43:27 09/16/19 16 09/16/2015 lipid panel , serum triglyceride s 195 mg/dL <150 mg/dL Mickie l 150-1 99 mg/dL Borde rline High 200-4 99 mg/dL High >500 mg/dL Very High Not Available [address], [address], 09/16/2015 10:43:27 09/16/19 16 09/16/2015 lipid panel , serum direct HDL 32 mg/dL Not Available [address], [address], 09/16/2015 10:43:27 09/16/19 16 09/16/2015 LDL, calcu lated , serum (OBS) LDL - calculated 75.0 RISK CATEG ORY LDL GOAL _ CHD or CHD Risk Equiv alent s <100 mg/dl (10-y ear risk >20%) 2+ Risk Facto rs <130 mg/dl (10-y ear risk <= 20%) 0-1 Risk Facto r??? <160 mg/dl ??? Almos t all peopl e with 0-1 risk facto r have a 10 year risk <10%, thus 10 year risk asses ment in peopl e with 0-1 risk facto r is not andies marquise. Not Available [address], [address], 09/16/2015 10:43:27 09/16/19 16 09/16/2015 micro album in, urine microalbumin 20.2 mg/L 1.3-20 .0 high Not Available [address], [address], 09/16/2015 10:44:40 09/16/19 16 09/16/2015 micro album in, urine creatinine urine 119.2 mg/dL 30.0-1 25.0 Not Available [address], [address], 09/16/2015 10:44:40 09/16/19 16 09/16/2015 micro album in, urine microalb/cre at ratio 16.9 mg/g_ creat 0.0-29 .0 Not Available [address], [address], 09/16/2015 10:44:40 09/16/19 16 09/16/2015 HbA1c (hemo globi n A1c), blood hemoglobin A1C 9.1 % 4.8-6. 0 high Goal: <7% in Patie nts with Diabe tala Not Available [address], [address], 09/16/2015 10:45:45 09/16/19 16 09/16/2015 HbA1c (hemo globi n A1c), blood estimated average glucose 214.5 mg/dL Not Available [address], [address], 09/16/2015 10:45:45 09/16/19 16 09/16/2015 TSH, serum or plasm a TSH 4.27 uIU/m L 0.50-6 .00 The Ameri can Colle ge of Endoc rinol ogy and Ameri can Thyro id Assoc iatio n recom mend goal TSH value s betwe en 0.4-4 .0 mIU/m L. Not Available [address], [address], 09/16/2015 10:54:03 09/16/19 16 09/21/2015 magne sium, serum or plasm a magnesium 1.8 mg/dL 1.8-2. 4 Not Available [address], [address], 09/21/2015 15:54:58 12/15/19 16 12/15/2015 HbA1c (hemo globi n A1c), blood hemoglobin A1C 9.9 % 4.8-6. 0 high Goal: <7% in Patie nts with Diabe tala Not Available [address], [address], 12/15/2015 10:02:25 12/15/19 16 12/15/2015 HbA1c (hemo globi n A1c), blood estimated average glucose 237.4 mg/dL Not Available [facility] [address] [place], [address], 12/15/2015 10:02:25 09/28/19 16 09/28/2015 trans -thor acic echoc ardio gram (TTE) (PROC ) No observ ation record ed. [facility] (Outpt Imaging) [address] [place], [address], 09/29/2015 08:03:13 10/01/19 16 09/28/2015 trans -thor acic echoc ardio gram (TTE) (PROC ) No observ ation record ed. [address], [address], 10/01/2015 11:53:52 11/04/19 16 11/04/2015 exerc ise stres s test No observ ation record ed. [facility] [address] [place], [address], 11/04/2015 15:10:05 11/04/19 16 11/04/2015 myoca rdial perfu lilian study w/ eject ion fract ion (PROC ) No observ ation record ed. [facility] [address] [place] [address] [address], [place], [address], 11/05/2015 10:35:46 12/07/19 16 12/04/2015 home sleep testi ng* No observ ation record ed. [facility] (Outpt Imaging) [address] [place] [address], [address], 03/05/2016 19:19:16 03/04/20 16 03/04/2016 MRI, lumba r spine , w/o contr ast [place] [facility] Access ion Number : [id number] 9.1 Choco weiss Name : L[facility] l Record Number : [id number] Date of : 1965 Date of Exam : 2015 Referr ing Physic ariane : OCTAVIA MENDOZA [facility] [address] [place] [address] Physic ians : RANJIT MANLEY Exam : MR - LUMBAR SPINE (C-) CPT 31306 - Room Descri ption : Xavier Siem Espr 1.5 Techni que : Sag T1, Sag3d SPACE, Sag STIR, Sag T2 reform at, Ax T2 reform at Final Report MRI LUMBAR SPINE, NO IV CONTRA [facility] INDICA TION: Lumbag o and sciati ca. Right lower extrem ity radicu lar sympto ms. No histor y of spine surger y. Low back pain. FINDIN GS: Lumbar verteb ral height s are mainta ined. Lumbar marrow signal is homoge neous and normal . There is modera te disc space narrow ing at L4-5 and L5-S1 with mild disc space narrow ing at remain ing levels . The conus termin ates at L1 and appear s normal . Review of indivi dual levels : L5-S1: There is a diffus e disc bulge withou t centra l canal stenos is. There is mild bilate ral forami nal narrow ing from disc bulge and facet arthro jailene. L4-5: There is a diffus e disc bulge with a superi mposed inferi wil migrat ing right parace ntral disc extrus ion. There is no centra l canal stenos is but there is mild mass effect upon the descen ding right L5 nerve root. There is mild bilate ral forami nal narrow ing from disc bulge and facet arthro jailene. L3-4: There is a minima l disc bulge withou t centra l canal stenos is. There is mild left forami nal narrow ing from extens ion of disc bulge. The right forame n is patent . L2-3: There is a mild disc bulge. No centra l canal stenos is or forami nal narrow ing. There is a far latera l extraf oramin al disc bulge- protru lilian which may imping e the transi kirill right L2 nerve root. This is sugges kirill on axial T2 image 20. L1-2: No disc protru lilian, centra l canal stenos is, or forami nal narrow ing. No parasp inal soft tissue abnorm ality. IMPRES LILIAN: Diffus e degene rative disc bulgin g at L2-3 throug h L5-S1. No centra l canal stenos is. At L4-5, there is a small broad right parace ntral disc extrus ion with inferi or migrat ion that has mass effect upon the right L5 nerve root as it descen ds into the latera l recess . At L2-3, there is a far latera l extraf oramin al disc protru lilian which may imping e on the transi kirill right L2 nerve root. There is mild bilate ral forami nal narrow ing at L4-5 and L5-S1 and on the left at L3-4 from disc bulge and facet arthro jailene. ----- PHYSIC ARIANE : SHAHANA WHEELER MD (Signa turramonita on file) 2015 [facility]) [address] [place] [address], [address], 03/05/2016 19:19:14 03/04/20 16 03/04/2016 MRI, lumba r spine , w/o contr ast No observ ation record ed. [facility] - [facility] [address] [place], [address], 03/07/2016 05:57:23 03/06/19 22 03/06/2021 XR, chest No observ ation record ed. [address] (Outpt Imaging) [address] [place] [address], [address], 03/08/2021 07:52:40 03/07/19 22 03/06/2021 CT, chest No observ ation record ed. [address] (Outpt Imaging) [address] [place] [address], [address], 03/08/2021 07:52:41 03/07/19 22 03/06/2021 CT, chest No observ ation record ed. [address] (Outpt Imaging) [address] [place], [address], 03/08/2021 07:52:41 Result Notes None recorded. Problems Name Problem SNOMED Code Status Onset Date Resolution Date Notes Provider Name and Address Organization Details Recorded Time Benign essentia l hyperten lilian 9410342 Active Ranjit Manley MD [address] [place] [address] [place], [address], [facility] 6 19:54:16 Angina pectoris 913170104 Active 2014 STEMI 03/2014 s/p 6 v CABG (Echo 06/18 mild cLVH, mild global HK, EF 45-50% LAE; Nuc ETT 02/17, 10/19 Apical severe fixed defect, EF 47%) Ranjit Manley MD [address] [place] [address] [place], [address], [facility] 6 10:35:44 Tobacco dependen ce syndrome 86788441 Completed 09/21/2015 Ranjit Manley MD [address] [place] [address] [place], [address], [facility] 6 08:47:13 Posttrau matic stress disorder 68766873 Active [place]/m edical Ranjit Manley MD [address] [place] [address] [place], [address], [facility] 6 08:48:40 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 Ranjit Manley MD [address] [place] [address] [place], [address], [facility] 6 08:48:17 Sleep apnea 04963650 Active 2015 Ranjit Manley MD [address] [place] [address] [place], [address], [facility] 6 08:46:31 History of kidney disease 666687466 Active 2015 Nephrosis in childhood Ranjit Manley MD [address] [place] [address] [place], [address], [facility] 6 08:47:56 Anxiety 00996324 Active 2015 Ranjit Manley MD [address] [place] [address] [place], [address], [facility] 6 08:48:43 Cellulit is 617814690 Active 2015 Recurrent Ranjit Manley MD [address] [place] [address] [place], [address], [facility] 6 08:49:03 Mixed hyperlip idemia 570245302 Completed 12/16/2010 Ranjit Manley MD [address] [place] [address] [place], [address], [facility] 6 08:05:52 Obesity 041702468 Active Ranjit Manley MD [address] [place] [address] [place], [address], [facility] 6 19:54:16 Impotenc e of organic origin Active Ranjit Manley MD [address] [place] [address] [place], [address], [facility] 6 08:05:52 Diabetes mellitus 27860250 Completed 12/16/2010 Ranjit Manley MD [address] [place], [place] [address], [address], [facility] 6 08:05:52 Constipa tion 04304510 Completed 12/16/2010 Ranjit Manley MD [address] [place] [address] [place], [address], [facility] 6 08:05:52 Allergic rhinitis caused by pollen 75397350 Active Ranjit Manley MD [address] [place] [address] [place], [address], [facility] 6 08:05:52 Type 2 diabetes mellitus without complica tion 496775014 Completed 200812/16/2010 Ranjit Manley MD [address] [place] [address] [place], [address], [facility] 6 08:05:52 Uncontro lled type 2 diabetes mellitus 334884258 Completed 09/08/2014 Ranjit Manley MD [address] [place], [place] [address], [address], [facility] 6 08:05:52 Overweig ht 214849960 Completed 06/11/2014 Ranjit Manley MD [address] [place], [place] [address], [address], [facility] 6 08:05:52 Benign essentia l hyperten lilian 2795373 Completed 06/21/2012 Ranjit Manley MD [address] [place], [place] [address], [address], [facility] 6 08:05:52 Elevated blood-pr essure reading without diagnosi s of hyperten lilian 761167210 Completed 12/16/2010 Ranjit Manley MD [address] [place], [place] [address], [address], [facility] 6 08:05:52 Hyperlip idemia 69279378 Active Ranjit Manley MD [address] [place], [place] [address], [address], [facility] 6 19:54:16 Problem Notes None recorded. Procedures Surgical History Date Name Laterality Status Provider Name and Address Organization Details Recorded Time 06/06/19 15 Debride Skin/Wound completed Sunita Julio DPM [address] [place] [address], [address], [facility] 06/05/2014 13:37:50 05/13/19 15 Cutting Hyperkeratosis, 5+ completed Sunita Julio DPM [address] [place] [address], [address], [facility] 05/12/2014 14:44:20 03/28/19 15 CABG completed Ranjit Manley MD [address] [place] [address], [address], [facility] 04/01/2014 13:19:23 03/04/20 14 Cataract Surgery completed Ranjit Manley MD [address] [place] [address], [address], [facility] 04/01/2014 13:22:41 06/05/19 10 Other (specify) completed Not Available [facility] 01/04 06:06:16 Arthroscopy completed Not Available [facility] 01/20/2011 06:06:16 Hernia Repair completed Not Available [facility] 01/20/2011 06:06:16 Hernia Repair completed Not Available [facility] 01/20/2011 06:06:16 Imaging Results Imaging Date Name Status LastModified by Organization Details LastModified Time 09/28/2015 trans-thoracic echocardiogram (TTE) (PROC) completed [facility] (Outpt Imaging) [address] [place], [address], 09/29/2015 08:03:13 09/28/2015 trans-thoracic echocardiogram (TTE) (PROC) completed [facility] [address] [place], [address], 10/01/2015 11:53:52 11/04/2015 exercise stress test completed [facility] [address] [place], [address], 11/04/2015 15:10:05 11/04/2015 myocardial perfusion study w/ ejection fraction (PROC) completed [facility] [address] [facility] [address], [place], [address], 11/05/2015 10:35:46 12/04/2015 home sleep testing* completed [facility] (Outpt Imaging) [address] [place], [address], 03/05/2016 19:19:16 03/04/2016 MRI, lumbar spine, w/o contrast completed [facility] [address] [place], [address], 03/05/2016 19:19:14 03/04/2016 MRI, lumbar spine, w/o contrast completed [facility] [address] [place], [address], 03/07/2016 05:57:23 03/06/2021 XR, chest completed [address] (Outpt Imaging) [address] [place], [address], 03/08/2021 07:52:40 03/06/2021 CT, chest completed [email or web address] [facility] (Outpt Imaging) [address] [place], [address], 03/08/2021 07:52:41 03/06/2021 CT, chest completed [email or web address] [facility] (Outpt Imaging) [address] [place], [address], 03/08/2021 07:52:41 Procedure Notes None recorded. Medical Equipment None Reported. Allergies Allergen ID Allergen Name Allergen Category Reaction Reaction Severity Criticality Documentation Date Start Date Code Code System Note Provider Name and Address Organization Details Recorded Time acetamino phen / oxycodone medicatio n other severe Not available 06/11/2009 73709 3 RxNorm makes pt agita kirill Not Available [facility] 1 06:05:41 Medications Name Sig Start Date Stop Date Status Note LastModified by Organization Details LastModified Time cyclobenz aprine 10 mg tablet TAKE 1 TABLET BY MOUTH 3 TIMES A DAY NEEDED FOR SPASM 03/31 completed Not Available Not Available Not Available furosemid e 40 mg tablet Take 1 tablet every day by oral route. 2014 active Not Available Not Available Not Avai lable atorvasta tin 80 mg tablet TAKE 1 TABLET AT BEDTIME active Not Available Not Available No t Available acetamino phen 325 mg tablet Take 2 tablets every 4-6 hours by oral route as needed. 2014 active Not Available Not Available Not Avai lable carvedilo l 6.25 mg tablet TAKE 1 TABLET BY MOUTH 2 TIMES A DAY 12/14 completed Not Available Not Available Not Available carvedilo l 12.5 mg tablet 1 TABLET BY MOUTH 2 TIMES A DAY active Not Available Not Available No t Available glyburide 5 mg tablet TAKE 2 TABLETS EVERY DAY BY ORAL ROUTE. active Not Available Not Available No t Available alprazola m 1 mg tablet TAKE 1 TABLET BY MOUTH 1 HOUR BEFORE INJECTIO N active Not Available Not Available No t Available sulfameth oxazole 400 mg-trimet hoprim 80 mg tablet Take 1 tablet every 12 hours by oral route for 14 days. 02/22 completed Not Available Not Available Not Available hydrocodo ne 5 mg-acetam inophen 325 mg tablet TAKE 1 TABLET BY MOUTH EVERY 6 HOURS NEEDED active Not Available Not Available No t Available lisinopri l 20 mg tablet TAKE 1 TABLET BY MOUTH EVERY DAY 12/14 completed Not Available Not Available Not Available simvastat in 10 mg tablet Take 1 tablet every day by oral route for 30 days. 2008 active Not Available Not Available Not Avai lable clopidogr el 75 mg tablet TAKE 1 TABLET EVERY DAY 09/20 completed Not Available Not Available Not Available chlorthal idone 25 mg tablet 1 TABLET BY MOUTH DAILY 09/20 completed Not Available Not Available Not Available tramadol 50 mg tablet TAKE 1 TABLET BY MOUTH AT BEDTIME NEEDED FOR PAIN 03/31 completed 03/31/16 =now vicodin* ineffect negar for pain per pt*lb Not Available Not Available Not Available simvastat in 40 mg tablet Take 1 tablet every day by oral route. 2010 active Not Available Not Available Not Avai lable rifampin 300 mg capsule Take 1 capsule twice a day by oral route for 14 days. 02/22 completed Not Available Not Available Not Available Nitrostat 0.4 mg sublingua l tablet TAKE 1 TABLET SUBLINGU ALLY EVERY 5 MINUTES NEEDED FOR CHEST PAIN DIRECTED active Not Available Not Available No t Available diltiazem ER 120 mg capsule,2 4 hr,extend ed release Take 1 capsule every day by oral route. 2014 active Not Available Not Available Not Avai lable Valium 5 mg tablet Take 1 tablet 4 times a day by oral route. 2012 active started at [facility] Not Available Not Available Not Available OneTouch Ultra Test strips TEST GLUCOSE PRE AND 2 HOURS POST MEAL DAILY (UP TO 6 TIMES DAILY) 2010 active Not Available Not Available Not Avai lable Vanita 180 mg tablet Take 1 tablet every day by oral route for 30 days. 2009 active PRN for allergie s Not Available Not Available Not Available pantopraz ole 40 mg tablet,de layed release TAKE 1 TABLET BY MOUTH DAILY 30 MINUTES PRIOR TO A MEAL active Not Available Not Available No t Available simvastat in 20 mg tablet Take 1 tablet every day by oral route for 90 days. 2009 active Not Available Not Available Not Avai lable metformin 1,000 mg tablet Take 1 tablet twice a day by oral route for 90 days. 2009 active Not Available Not Available Not Avai lable lisinopri l 10 mg tablet Take 1 tablet every day by oral route in the morning. 04/03 completed Not Available Not Available Not Available glimepiri de 4 mg tablet Take 2 tablet(s ) every day by oral route. 04/03 completed Not Available Not Available Not Available metoprolo l tartrate 50 mg tablet Take 0.5 tablets twice a day by oral route. 2014 active Not Available Not Available Not Avai lable hydrochlo rothiazid e 12.5 mg capsule TAKE ONE CAPSULE BY MOUTH EVERY DAY active Not Available Not Available No t Available gabapenti n 300 mg capsule TAKE ONE CAPSULE BY MOUTH TWICE A DAY active Not Available Not Available No t Available lisinopri l 5 mg tablet Take 1 tablet every day by oral route. active Not Available Not Available No t Available hydrochlo rothiazid e 25 mg tablet TAKE 1 TABLET EVERY DAY active 03/31/16 =1/2 po daily (25mg made him dizzy)lb Not Available Not Available Not Available gabapenti n 100 mg capsule START 1 CAP IN AM+3 AT BEDINC REASE EVERY 3 DAYS DIRECTED TO 3 CAPSULES BY MOUTH 3 TIMES A DAY active Not Available Not Available No t Available Aspir-81 mg tablet,de layed release Take 1 tablet every day by oral route. 2012 active Not Available Not Available Not Avai lable Viagra 100 mg tablet Take 1/2 tablet (100 mg) by oral route once daily as needed approxim ately 1 hour before sexual activity 2008 active Not Available Not Available Not Avai lable ibuprofen 600 mg tablet Take 1 tablet 3 times a day by oral route for 30 days. 09/10 completed prn Not Available Not Available Not Available polyethyl eduarda glycol 3350 17 gram/dose oral powder 17 GM BY MOUTH 2 TIMES A DAY,X30 DAYS 09/20 completed Not Available Not Available Not Available methylpre dnisolone 4 mg tablets in a dose pack TAKE 6 TABLETS ON DAY 1 DIRECTED ON PACKAGE AND DECREASE BY 1 TAB EACH DAY FOR A TOTAL OF 6 DAYS 03/31 completed Not Available Not Available Not Available lisinopri l 40 mg tablet TAKE 1 TABLET EVERY DAY active Not Available Not Available No t Available metformin ER 500 mg tablet,ex tended release 24 hr TAKE 4 TABLETS BY MOUTH EVERY DAY active Not Available Not Available No t Available cyclobenz aprine 5 mg tablet TAKE 1 TABLET BY MOUTH 3 TIMES A DAY FOR 7 DAYS 01/11 completed Not Available Not Available Not Available metoprolo l tartrate 25 mg tablet 1 TABLET BY MOUTH 2 TIMES A DAY 12/14 completed Not Available Not Available Not Available potassium chloride 20meq tablet-t nikhil 1tab daily 2014 active Not Available Not Available Not Avai lable BD Ultra-Fin e Short Pen Needle 31 gauge x 5/16 Use to inject Lantus bid 2009 active Not Available Not Available Not Avai lable OneTouch UltraMini kit active dispense 1 kit Not Available Not Available Not Available Januvia 50 mg tablet Take 1 tablet every day by oral route for 30 days. 2009 active Not Available Not Available Not Avai lable Januvia 100 mg tablet Take 1 tablet every day by oral route. 12/14 completed Not Available Not Available Not Available hydrochlo rothiazid e 12.5 mg tablet Take 1 tablet every day by oral route. 12/20 completed Not Available Not Available Not Available Lantus Solostar U-100 Insulin 100 unit/mL (3 mL) subcutane ous pen Inject 22 units by subcutan eous route twice a day 2010 active 30U hs Not Available Not Available Not Avai lable Suprep Bowel Prep Kit 17.5 gram-3.13 gram-1.6 gram oral solution DRINK 177MLS BY MOUTH ONCE DIRECTED 09/20 completed Not Available Not Available Not Available Vicodin 5 mg-300 mg tablet Take 1 tablet every 4 hours by oral route as needed. 2012 active Not Available Not Available Not Avai lable Vitals Date Recorded Body height Body weight Body mass index (BMI) Heart rate Systolic blood pressure Diastolic blood pressure Provider Name and Address Organization Details Last Updated DateTime 7 181.61 cm 807307. 49 g 36.4 kg/m2 72 /min 132 mm[Hg] 94 mm[Hg] Ifrah Jhonjaime [facility] 7 08:24:25 Date Recorded Body height Body weight Body mass index (BMI) Heart rate Systolic blood pressure Diastolic blood pressure Provider Name and Address Organization Details Last Updated DateTime 6 181.61 cm 840257. 65 g 35.2 kg/m2 70 /min 158 mm[Hg] 94 mm[Hg] Julian Li [facility] 6 08:39:42 Date Recorded Body height Heart rate Systolic blood pressure Diastolic blood pressure Provider Name and Address Organization Details Last Updated DateTime 12/15/2015 181.61 cm 76 /min 142 mm[Hg] 86 mm[Hg] Tiana Bass [facility] 12/15/2015 10:44:07 Date Recorded Body height Body weight Body mass index (BMI) Heart rate Systolic blood pressure Diastolic blood pressure Provider Name and Address Organization Details Last Updated DateTime 181.61 cm 222502. 42 g 35.6 kg/m2 82 /min 166 mm[Hg] 92 mm[Hg] Julian Li [facility] 08:09:02 Date Recorded Body height Body weight Body mass index (BMI) Heart rate Systolic blood pressure Diastolic blood pressure Provider Name and Address Organization Details Last Updated DateTime 181.61 cm 246706. 39 g 36.3 kg/m2 74 /min 156 mm[Hg] 88 mm[Hg] Julian Li [facility] 6 08:31:59 Date Recorded Body height Provider Name an d Address Organization Details Last Updated DateTime 03/02/2016 181.61 cm Jyoti Isaac [facility] 03/02/2016 15:53:37 Date Recorded Body weight Body mass index (BMI) Heart rate Systolic blood pressure Diastolic blood pressure Provider Name and Address Organization Details Last Updated DateTime 03/02/2016 302264.8 4 g 36.2 kg/m2 80 /min 170 mm[Hg] 98 mm[Hg] Tierra Alves [facility] 16:22:17 Social History Question Answer Notes LastModified by Organizat ion Details LastModified Time Tobacco Smoking Status Former Smoker Quit 1988. Smoked for 2 years Not Available [employer] 01/07/2020 03:17:54 Do You Have An Advance Directive? No [id number] Information not available 01/07/2020 What Is Your Level Of Alcohol Consumption? Occasional [id number] Information not available 01/07/2020 What Is Your Level Of Caffeine Consumption? Occasional 1 20 Oz Regular Soda Per Day, Some Days Less [id number] Information not available 01/07/2020 How Much Tobacco Do You Chew? None Quit 04/2014 After AK/CABG [id number] Information not available 01/07/2020 What Type Of Diet Are You Following? REGULAR Rare Bread And Dairy/cheese, Eats Fruit And Salads (1 Cup Mac Salad) Apple Sauce, Nuts [id number] Information not available 01/07/2020 Which Illicit Or Recreational Drugs Have You Used? 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 16+yearssince lastcigarette [id number] Information not available 01/07/2020 How Many Days In The Past Year Have You Had A Heavy Drinking Consumption (4+ Female, 5+ Male)? 0 [email or web address] Information not available 09/03/2012 Are There Any Guns Present In Your Home? No [id number] Information not available 01/07/2020 Live Alone Or With Others? With Others And Sons Information not available 06/21/2012 Does The Patient Have Difficulty Reading Divehi? No [email or web address] Information not available 06/21/2012 Patient Has Health Care Proxy Signed And In Chart Yes -Khushbu Jasmine [email or web address] Information not available 01/20/2011 Marital Status Khushbu [place] [place] Information not available 12/16/2010 Mosquito Repellent Used Routinely No [email or web address] Information not available 01/20/2011 How Many Children Do You Have? 2 Danny Leon (1993) - [employer] [id number] Information not available 01/07/2020 What Is Your Current Pack Years? 10packyears [id number] Information not available 01/07/2020 Seat Belts Used Routinely Yes [email or web address] Information not available 01/20/2011 Are You Sexually Active? No Monogamous [id number] Information not available 01/07/2020 Smoke Alarm In Home Yes [email or web address] Information not available 01/20/2011 General Stress Level Medium pminer Information not available 09/21/2015 Do You Use Sunscreen Routinely? No [id number] Information not available 01/07/2020 Sex: Unknown Functional Status None recorded. Mental Status None recorded. Family History Relationship Description Onset Age of this Age Resolved Age Notes LastModified by Organization Details LastModified Time Mother Depressive disorder pcarlan Not available 2014 09:00:14 Mother Problem PVD pcarlan Not available 0 09/08/2014 09:00:14 Mother Heart disease 43 pcarlan Not available 2014 09:00:14 Maternal Uncle Heart disease 63 pcarlan Not available 2014 09:00:14 Maternal Uncle Diabetes mellitus pcarlan Not available 2014 09:00:14 Maternal Aunt Heart disease 70 pcarlan Not available 2014 09:00:14 Maternal Aunt Diabetes mellitus pcarlan Not available 2014 09:00:14 Maternal Grandfather Problem PVD pcarlan Not available 2014 09:00:14 Maternal Grandfather Alcoholism pcarlan Not available 08/2014 09:00:14 Maternal Grandfather Diabetes mellitus pcarlan Not available 2014 09:00:14 Father Problem Estran ged, unknow n pcarlan Not available 09/08/2014 09:00:14 Medical History Condition Response Coronary Artery Disease Y Diabetes Type II Y Obesity Y Anxiety Y Erectile Dysfunction Y PSYCHIATRIC Y Hyperlipidemia Y INFECTIOUS DISEASE Y Hypertension Y Kidney Disease Y Immunizations Vaccine Type Date Status Note Provider Nam e and Address Organization Details Recorded Time Td (adult), 2 Lf tetanus toxoid, preservative free, adsorbed 9 completed Not Available [facility] 01/19/2011 05:23:04 Past Encounters Encounter ID Performer Location Encounter Start Date Encounter Closed Date Diagnosis/Indication Diagnosis SNOMED-CT Code Diagnosis ICD10 Code Diagnosis Note [id number] [facility], [address] [place] [address] 06/05/2008 09:38:07 06/05/2008 14:46:17 [id number] [facility], OFFICE [address] [place] [address] 08/11/2008 07:50:23 08/12/2008 09:48:49 [id number] Endocrino logtrevon [facility] [place], [place] [id number] 10/13/2008 07:16:37 10/17/2008 09:42:52 [id number] Endocrino fahad [facility] [place] [id number] 10/27/2008 10:34:33 11/11/2008 09:03:58 [id number] Endocrino fahad [facility] [place] [id number] 12/01/2008 06:45:04 12/05/2008 10:46:20 [id number] LAB - [facility] [place] [id number] 06/05/2008 00:00:00 01/01/2009 02:00:52 [id number] LAB - [facility] [place] [id number] 06/05/2008 14:51:09 06/05/2008 14:51:18 [id number] LAB - [facility] [place] [address] 06/06/2008 08:05:25 06/06/2008 08:05:28 [id number] LAB - [facility] [place] [id number] 08/07/2008 08:05:35 08/07/2008 08:05:41 [id number] LAB - [facility] [place] [id number] 10/13/2008 00:00:00 01/01/2009 02:00:52 [id number] LAB - [facility] [place] [id number] 10/27/2008 00:00:00 01/01/2009 02:00:52 [id number] [place] [id number] 12/01/2008 08:00:21 12/01/2008 08:00:35 [id number] TRAN [facility], OFFICE [address] [place] [address] 06/11/2009 08:31:27 06/12/2009 08:58:44 [id number] Endocrino logy, [facility] [address] [place] [address] 07/31/2009 09:40:58 07/31/2009 14:12:43 [id number] Endocrino logtrevon, [facility] [place] [address] 09/28/2009 08:58:08 10/12/2009 09:52:21 [id number] Endocrino logtrevon [facility] [place] [id number] 12/14/2009 08:23:33 12/15/2009 08:55:16 [id number] TRAN [facility], [address]ICE [address] [place] [address] 12/16/2010 08:22:39 12/16/2010 09:45:27 [id number] Endocrino logtrevon [facility] [place] [id number] 01/17/2011 08:10:48 01/19/2011 08:54:57 [id number] TRAN [facility], OFFICE [address] [place] [address] 02/08/2011 12:51:52 02/09/2011 08:28:21 [id number] Endocrino fahad [facility] [place] [id number] 02/14/2011 11:35:23 03/01/2011 08:51:29 [id number] Ranjit aMnley MD , [facility], OFF[address] [place] [address] 06/21/2012 09:43:21 06/21/2012 11:02:31 [id number] AURELIA Ferrer, [facility], OFFICE [address] [place] [address] 09/03/2012 07:40:34 09/03/2012 08:44:01 [id number] ANDERSON Chauhan, [facility], OFFICE [address] [place] [address] 01/03/2013 08:02:25 01/03/2013 08:30:58 Contusion of multiple sites [id number] Discussed indication s for new opiod presciptio n, risks and benefits of medication , common side effects and how to manage, and reasons to notify prescriber of adverse effects or discontinu ation. Do not take with alcohol, other sedating medication s or recreation al drugs, do not operate machinery or drive while taking. Bowel regimen reviewed. Recommend stool softener like doccusate (colace) 100 mg twice a day. May add a powdered laxative like Miralax or glycolax 1 capful a day mixed with coffee, tea, or juice as needed. These medication s are available over the counter. [id number] Nazia Davalos , [facility] [address] [facility] [place] [address] 02/18/2013 08:01:52 02/18/2013 08:51:12 Uncontrolled type 2 diabetes mellitus 598375155 Uncontroll ed but improved with addition of metformin and glimpereid e, goal A1C < 8-10 due to chronic nonadheren ce due to fear of needles, fatalism, stress. Continue meds Needs to update eye exam, urged to schedule with Buttler. Up to date foot and urinary protein testing. Declines PPV due to fear of needles Hyperlipidemia 82226168 Uncontroll ed and somewhat worse, goal LDL < 100. Elects to work on blood sugars first, then will consider treatment for lipids. He now thinks he was on lipitor before and did not tolerate it but does not recall reaction. Overweight 866693017 Sup ported healthy diet and active lifestyle. Benign ess ential hypertension [id number] Uncontroll ed by office measures but better by home testing, goal < 130-140/80 -90. Check [facility] BPs and report at followup in 3 months [id number] Barbara Barragan RN , [facility], OFFICE [address] [facility] [place] [address] 03/08/2013 15:10:26 03/08/2013 16:18:54 Paresthesia of hand 484766244 Most likely a touch of L ulnar neuropathy due to working my ass off . No history typical of cardiac ischemia. I reassured pt and reviewed typical symptoms to watch for. Follow up 05/2013 with PCP, sooner if new / worsening concerns. Benign ess ential hypertension 3564967 Not at goal under 140/90 here or by home readings. Restart lisinopril at 10mg. Follow up with Dr Manley as planned in May 2013. [id number] Johnny Cobb , [facility], OFFICE [address] [facility] [place] [address] 05/06/2013 13:50:28 05/06/2013 14:29:06 Acute upper respiratory infection 29881729 URI is a viral illness of the upper airways. It is not bacterial and does not benefit from antibiotic s. Average duration of URI is 7-10 days but in a recent trial, treatment at 7-10 days of illness with antibiotic s, intranasal steroids sprays, or placebo (sugar pill), 80% of people were better at 3 weeks REGARDLESS OF TREATMENT. Recommende d symptomati c treatments including semi-uprig ht sleep position, antihistam masha at bedtime (like diphenhydr amine or chlorpheni ramine) to dry nasal secretions , and nasal saline rinses with soft squeeze bottle (Sinus Rinse by [employer]) or Neti pot. Return for fevers > 101 for 3 days, worsening sinus pain, or failure to resolve in 2-4 weeks. Globus sensation 51848364 Suspect relates to URI, possibly post nasal drip. Return if you get fevers, if unable to swallow, or fails to get better in 5-7 days. [id number] Jenny Méndez , [facility], OFFICE [address] [facility] [place] [address] 05/16/2013 08:07:24 05/16/2013 08:59:06 Uncontrolled type 2 diabetes mellitus 846560610 Controlled with addition of metformin and glimpereid e, goal A1C < 8 due to chronic nonadheren ce due to fear of needles, fatalism, stress. Continue meds. Needs to update eye exam, urged to schedule with Clair. Up to date foot and urinary protein testing. Declines PPV due to fear of needles Hyperlipidemia 84113781 Uncontroll ed but improved, goal LDL < 100. Elects to work on blood sugars first, then will consider treatment for lipids. He now thinks he was on lipitor before and did not tolerate it but does not recall reaction. Overweight 804354681 Sup ported healthy diet and active lifestyle. Benign ess ential hypertension 3393346 Controlled by recent office measures but off meds and stressed which I suspect explains recent loss of control, goal < 140/90. Continue meds and self care plan. [id number] Patria Pauljahaira david , [facility], OFFICE [address] [facility] [place] [id number] 02/13/2014 12:46:44 02/14/2014 08:42:11 Cataract [id number] Patient is at low risk of perioperat negar cardiopulm onary complicati ons of a low risk surgery. S/he can proceed without further risk stratifica tion. Uncontroll ed type 2 diabetes mellitus 954189923 Controlled on metformin and glimpereid e, goal A1C < 7. Continue meds. Up to date foot, eye exam, urinary protein testing. Declines PPV due to fear of needles Hyperlipidemia 15861530 Uncontroll ed and stable, goal LDL < 100. Elects to work on blood sugars first, then will consider treatment for lipids. He now thinks he was on lipitor before and did not tolerate it but does not recall reaction. Overweight 783861891 Sup ported healthy diet and active lifestyle. Benign ess ential hypertension 7416392 Controlled , goal < 140/90. Continue meds and self care plan. 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 Discussed local wound care, urged to change back to old boots. F/u 1 week re-check, sooner increasing redness, warmth, fevers, discharge. Electrocar diogram abnormal 536951341 New precordial T wave changes since 2010, multiple risk factors. Will proceed to stress test. This should not delay a low risk surgery. [id number] MD TRAN Voss, [facility] [address] 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 Following with Daniel. Tobacco de pendence syndrome 88718258 Supported abstinence from oral tobacco. Callosity 080847197 I se e no evidence of a limb-threa tening process. Refer to podiatry. Uncontroll ed type 2 diabetes mellitus 400831245 Previously controlled on metformin and glimpereid e, now on metformin and glyburide, goal A1C < 7. Although his sugars are high, I think for now it is best to continue his current meds since he is physically and emotionall y stressed and eating poorly with his recent tobacco quit attempt. I will revisit things in 2 months and uptitrate his meds the if needed. Up to date foot, eye exam, urinary protein testing. Declines PPV due to fear of needles Hyperlipidemia 27288859 Previously uncontroll ed, goal LDL < 100. Now on high dose statin. Benign ess ential hypertension [id number] Overtreate d, goal < 140/90. Continue meds and self care plan. I asked patient and to contact Dr Valdes to clarify plan for meds before starting on lisinopril . I am not sure the immediate need for this given preserved EF and lack of nephropath y; long-term this is a reasonable anti-hyper tensive once off BB and CaCB. Posttrauma tic stress disorder 54710463 I suspect Geovanny's fear of needles and general dislike and distrust of medical care was severely tested by his AK and surgery and his complicate d post-op delirium. I think he has significan t PTSD and possible depression . He has little insight into this. He did begrudging ly agree to talk with [facility] clinician Olivia ashraf. I normalized for him the significan t psychologi niurka toll that a CABG and serious medical illness frequently causes. Obesity 953478026 Suppor kirill healthy diet and active lifestyle. [id number] Podiatry, [address] [place] [address] 05/12/2014 13:08:36 05/12/2014 15:54:15 Callosity 970802130 Hammer toe 201687517 Disorder o f nervous system due to type 2 diabetes mellitus 431816594 Acquired e quinus deformity of foot 03558786 [id number] Podiatry, [address] [place] [address] 06/05/2014 10:01:53 06/05/2014 10:38:50 Disorder of nervous system due to type 2 diabetes mellitus 127209244 Degenerati ve skin disorder 801319573 Pre-ulcer, submetatar brisa right [id number] [facility], OFFICE [address] [facility] [place] [address] 06/11/2014 10:11:48 06/11/2014 10:59:40 Influenza [id number] Using guidance from [facility] and [facility], I discussed clinical versus laboratory diagnosis of influenza, the limited role of testing given delays in treatment and false negative rates of up to 40% with rapid testing. We reviewed methods to prevent contagion and indication s for treatment including illness < 48 hours, severe illness or risk factors for severe illness. He declines anti-viral s. I recommend fluids, rest, and APAP, self-isola tion, and judicious hand-washi ng. May return to work or school when well and afebrile off antipyreti cs for 24 hours. Seek immediate medical care for worsening symptoms including shortness of breath, altered mental status, recrudesce nce of fever, pink sputum, other concerns. [id number] [facility], OFFICE [address] [facility] [place] [address] 07/01/2014 07:45:02 07/01/2014 08:39:34 Posttraumatic stress disorder 36672978 I suspect Geovanny's fear of needles and general dislike and distrust of medical care was severely tested by his AK and surgery and his complicate d post-op delirium. I think he has significan t PTSD and possible depression . He continues to have little insight into this. He did not chose to to talk with [facility] clinician Olivia ashraf. I again normalized for him the significan t psychologi niurka toll that a CABG and serious medical illness frequently causes. Tobacco de pendence syndrome 54232945 Supported abstinence from oral tobacco. Callosity 478780407 Tiarra dc managed by podiatry. Uncontroll ed type 2 diabetes mellitus 089388798 Controlled on metformin and glyburide, goal A1C < 7.5 due to CAD. Continue current meds and self-care plan. Up to date foot, eye exam, urinary protein testing. Declines PPV due to fear of needles Hyperlipidemia 44477103 Controlled , goal LDL < 100. Continue high dose statin. Obesity 484484462 Suppor kirill healthy diet and active lifestyle. Benign ess ential hypertension 2994791 Borderline , goal < 140/90. Continue meds and self care plan. He will see Dr Valdes tomorrow and can consider adjustment of his meds. Angina pectoris S/p NSTEMI, s/p 6 v CABG for severe multivesse l disease, preserved EF, on ASA, Plavix, statin, BB. We discussed the benefits of plant based and Mediterrne an diets after AK but he is not ready to commit to radical lifestyle changes. Following with Daniel. Constipation 03243782 Sandra cubaed common causes and and natural history of constipati on. I recommende d a diet high in fiber (20-30 g/day) or supplement ation with Fibercon or Metamucil as needed. A stool softener like doccusate (brand-nam e Colace), available over the counter, can be used in doses of 100 mg once or twice a day; it is a capsule of soap which helps to lubricate passage of stool. If laxatives are used, powdered non-stimul ant agents are preferred. Glycolax (brand name Miralax), available over the counter, should be taken 1-1.5 capfuls daily mixed in coffee, tea, or juice can be used as needed for a soft, effortless bowel movement daily. If no bowel movement in 3 days, a tap water, soap suds, or Fleet enema or Dulcolax suppositor y can be used. Return if unable to have a bowel movement, if abdominal pain or bleeding develop, or if fever occurs. [id number] , [facility], OFFICE [address] [facility] [place] [address] 09/08/2014 07:46:54 09/08/2014 09:25:50 Adult health examination [id number] Discussed healthy diet, regular exercise, stress reduction, and the importance of achieving and maintainin g a healthy weight. Recommende d routine use of seat belts, helmets for high velocity sports, and applicatio n of sunscreen and insect repellent. Recommende d completion of a Health Care Proxy. Angina pectoris S/p NSTEMI, s/p 6 v CABG for severe multivesse l disease, preserved EF, on ASA, Plavix, statin, BB. We discussed the benefits of plant based and Mediterrne an diets after AK but he is not ready to commit to radical lifestyle changes. Following with aDniel. Posttrauma tic stress disorder [id number] I suspect Geovanny's fear of needles and general dislike and distrust of medical care was severely tested by his AK and surgery and his complicate d post-op delirium. I think he has significan t PTSD and possible depression . He continues to have little insight into this. He did not chose to to talk with [facility] clinician Olivia ashraf. I again normalized for him the significan t psychologi niurka toll that a CABG and serious medical illness frequently causes. I suggested as an alternativ e he consider a [facility] program for people with chronic medical conditions . He declined. Uncontroll ed type 2 diabetes mellitus [id number] Controlled on metformin and glyburide, goal A1C < 7.5 due to CAD. Continue current meds and self-care plan. Up to date foot, eye exam, urinary protein testing. Declines PPV and flu due to fear of needles Hyperlipidemia 28182509 Controlled , goal LDL < 100. Continue high dose statin. Obesity 562438037 Suppor kirill healthy diet and active lifestyle. Benign ess ential hypertension 4103385 Controlled by home measures (reports cuff verified by rehab), goal < 140/90. Continue meds and self care plan. [id number] Ranjit Manley MD , [facility], OFFICE [address] [place] [address] 03/16/2015 07:48:50 03/16/2015 08:39:29 Angina pectoris [id number] I20.9 S/p NSTEMI, s/p 6 v CABG for severe multivesse l disease, preserved EF, on ASA, Plavix, statin, BB, ACEI. He has atypical CP with a recent negative stress test for reversible ischemia. We reviewed the benefits of plant based and Mediterrne an diets after AK but he is not ready to commit to radical lifestyle changes. Following with Rashel. Benign ess ential hypertension 4193755 I10 Controlled , goal < 140/90. Continue meds and self care plan. Uncontroll ed type 2 diabetes mellitus [id number] E11.65 Uncontroll ed on metformin and glyburide, goal A1C < 7.5 due to CAD. Discussed options. Limited by fear of needles, inability to test. Elects to continue current meds and increase self-care plan. See [facility] for plan to start at [facility]. Up to date foot, eye exam, urinary protein testing. Declines PPV and flu due to fear of needles. Options in future might be to add incretin like januvia; I wonder if he could tolerate weekly injectable like bydureon. Hyperlipidemia 28719251 E78.5 Controlled , goal LDL < 100. Continue high dose statin. Obesity 280868170 E66.9 Supported healthy diet and active lifestyle. Posttrauma tic stress disorder 95976730 F43.10 Overall seems improved but remains angry, irritable, and guarded. I think this is straining his relationsh ips. Dysphagia 88386010 R13.1 0 May be gastropare sis but with complaint of dysphagia will see GI, probably needs EGD. Reduced libido 5554399 R 68.82 Complex with significan t ED, likely from advanced DM and associated neuropathy , relationsh ip and mental illness issues, and possible hypogonadi sm. requested testostero ne testing, briefly discussed controvers ies and rationale for and against testing, patient declined. [id number] , [facility], OFFICE [address] [facility] [place] [address] 09/21/2015 08:19:57 09/21/2015 09:30:00 Adult health examination [id number] Z00.00 Discussed healthy diet, regular exercise, stress reduction, and the importance of achieving and maintainin g a healthy weight. Recommende d routine use of seat belts, helmets for high velocity sports, and applicatio n of sunscreen and insect repellent. Recommende d completion of a Health Care Proxy. Angina pectoris [id number] 0 I20.9 S/p NSTEMI, s/p 6 v CABG for severe multivesse l disease, preserved EF, on ASA, statin, BB, ACEI. He has atypical CP with a recent negative stress test for reversible ischemia. We reviewed the benefits of plant based and Mediterrne an diets after AK but he is not ready to commit to radical lifestyle changes. Following with Rashel. Benign ess ential hypertension 4297312 I10 Controlled by home numbers, goal < 140/90. Continue meds and self care plan. See Rashel. Sleep study as below. Uncontroll ed type 2 diabetes mellitus 488422245 E11.65 Uncontroll ed and worsening on metformin and glyburide, goal A1C < 7.5 due to CAD. Discussed options. Limited by fear of needles, inability to test. Elects to try Januvia. Discussed indication s for new prescripti on, risks and benefits of medication , common side effects and how to manage, and reasons to notify prescriber of adverse effects or discontinu ation. Up to date foot, eye exam, urinary protein testing. Declines PPV and flu due to fear of needles. Hyperlipidemia 99139234 E78.5 Controlled , goal LDL < 100. Continue high dose statin. Obesity 992120726 E66.9 Supported healthy diet and active lifestyle. Posttrauma tic stress disorder 20486664 F43.10 Overall seems improved but remains angry, irritable, and guarded. I think this is straining his relationsh ips. Dysphagia 59842570 R13.1 0 Normal EGD, cause unclear. Sleep apnea 39128356 G47 .30 Reports AYANNA when morbidly obese. Cramp in lower limb [id number] R25.2 [id number] Rick Regalado, MSN, PAINTER ORDNANCE-C , [facility], OFFICE [address] [place] [address] 12/15/2015 10:34:42 12/15/2015 12:40:36 Acute sciatica 856206476 M54.31 Reviewed pathogenes is of sciatica using visual aids and reviewed methods of home rehab, including stretching and avoiding prolonged sitting. Also reviewed applicatio n of moist heat. RTO if unresolved and consider PT referral Obesity 459002920 E66.9 [id number] Ranjit Manley MD , [facility], OFFICE [address] [place] [address] 12/21/2015 07:56:10 12/21/2015 08:37:21 Angina pectoris 807685739 I20.9 S/p NSTEMI, s/p 6 v CABG for severe multivesse l disease, preserved EF, on ASA, statin, BB, ACEI. He has atypical CP with a recent negative stress test for reversible ischemia. We reviewed the benefits of plant based and Mediterrne an diets after AK but he is not ready to commit to radical lifestyle changes. Overdue to see Rashel (due 7/16). Benign ess ential hypertension 0347331 I10 Uncontroll ed, goal < 140/90. Continue meds and self care plan. Will need to determine wht patient appears to be back on HCTZ and off chlorthali done at f/u. Uncontroll ed type 2 diabetes mellitus 467410026 E11.65 Uncontroll ed and worsening on metformin and glyburide, goal A1C < 7.5 due to CAD. Discussed options. Limited by fear of needles, inability to test. Unable to afford Januvia. Agrees now to see endo. Up to date foot, eye exam, urinary protein testing. Declines PPV and flu due to fear of needles. Hyperlipidemia 36879922 E78.5 Controlled , goal LDL < 100. Continue high dose statin. Obesity 327817026 E66.9 Supported healthy diet and active lifestyle. Posttrauma tic stress disorder 97399124 F43.10 Overall seems improved but remains angry, irritable, and guarded. I think this is straining his relationsh ips. Dysphagia 56277331 R13.1 0 Normal EGD, cause unclear. Sleep apnea 95622690 G47 .30 Not confirmed by home PSG. Will need to discuss adequacy of study and further workup for nocturnal hypoxia at follow up. Acute sciatica 055305174 M54.31 Reviewed pathophysi ology of acute sciatica. Natural history of gradual resolution over weeks to months reviewed. Recommend PT for review of ergonomics , strengthen ing, stretching , and modalities . May use over the counter nonsteroid al anti-infla mmatories as needed for pain; I suggest Ibuoprofen 400-600 mg every 6 hours with food or Alleve 1-2 tabs twice a day with food unless contraindi cations exist. Discussed risks and benefits of muscle relaxants and mild opiate-lik e emds such as tramadol. They can cause dizziness and sleepiness . They should not be mixed with alcohol or sedating drugs. Those under their influence should not drive or operate machinery as risk of injury or accident is increased. We discussed constipati on and how to avoid. I accessed treadalong on 12/21/2015 ; the patient is not in the database.. Avoid complete bed rest. Avoid lifting > 10 lbs repeatedly if this worsens pain. May participat e in usual activities unless they make pain worse. We reviewed use of imaging and referral for treatment of sciatica. Follow-up in 3 weeks, sooner if numbness, tingling, weakness, incontinen ce, or fever develop or if pain fails to resolve with conservati ve care. [id number] Ranjit Manley MD , [facility], OFFICE [address] [facility] [place] [address] 01/12/2016 08:18:29 01/12/2016 08:56:45 Acute sciatica 937621986 M54.31 Improving. Natural history of gradual resolution over weeks to months reviewed. Limited PT. May use over the counter nonsteroid al anti-infla mmatories as needed for pain; I suggest Ibuoprofen 400-600 mg every 6 hours with food or Alleve 1-2 tabs twice a day with food unless contraindi cations exist. Discussed using tramadol at bedtime only as needed and weaning off soon. Return to [facility], cross train. Angina pectoris 71786987 0 I20.9 S/p NSTEMI, s/p 6 v CABG for severe multivesse l disease, preserved EF, on ASA, statin, BB, ACEI. He has atypical CP with a recent negative stress test for reversible ischemia. We reviewed the benefits of plant based and Mediterran spring diets after AK but he is not ready to commit to radical lifestyle changes. Seeing Rashel 02/18. Benign ess ential hypertension 8924132 I10 Uncontroll ed, goal < 140/90. Suspect due to NSAID use though history suggests signficant white coat as well. Continue meds and self care plan. Sid tells me Dr Kiser reduced him to 1/2 tab of HCTZ after stopping chlorthali done due to orthostasi s (confirmed in [facility]). Has f/u in 02/18. Uncontroll ed type 2 diabetes mellitus 957905424 E11.65 Uncontroll ed and worsening on metformin and glyburide, goal A1C < 7.5 due to CAD. Discussed options. Limited by fear of needles, inability to test. Unable to afford Januvia. Agrees now to see endo. Up to date foot, eye exam, urinary protein testing. Declines PPV and flu due to fear of needles. Agrees to restart insulin after 03/22 if A1C not controlled . Hyperlipidemia 83382951 E78.5 Controlled , goal LDL < 100. Continue high dose statin. Obesity 375287001 E66.9 Supported healthy diet and active lifestyle. Posttrauma tic stress disorder 60250365 F43.10 Overall seems improved but remains angry, irritable, and guarded. I think this is straining his relationsh ips. Dysphagia 25103982 R13.1 0 Normal EGD, cause unclear. Sleep apnea 44162030 G47 .30 Not confirmed by home PSG. Will need to discuss adequacy of study and further workup for nocturnal hypoxia at follow up. [id number] , [facility], OFFICE [address] [facility] [place] [address] 03/02/2016 15:47:48 03/02/2016 17:05:21 Lumbago with sciatica 991170822 M54.41 Hypertensi ve heart disease 52393558 I11.9 Not at goal today d/t pain; just saw cardiologi , who increased meds -- doesn't have current list w/ him today. Constipation 39390127 K5 9.00 Health Concerns Section Related Observation LastModified by Organization Detai ls LastModified Time None Recorded Concern Status LastModified by Organization Details LastModified Time None Recorded Advance Directives Directive N: Payers Encounter Date Sequence Insurance Name Policy Number Policy Rice Covered Member ID Rice Member ID Guarantor Name 09/21/2015 1 [facility] [id number] Khushbu Jasmine [id number] Geovanny Jasmine 12/15/2015 1 [facility] [id number] Khushbu Jasmine [id number] Geovanny Jasmine 12/21/2015 1 [facility] [id number] Khushbu Jasmine [id number] Geovanny Jasmine 01/12/2016 1 [facility] [id number] Khushbu Jasmine [id number] Geovanny Jasmine 03/02/2016 1 [facility] [id number] Khushbu Jamsine [id number] Geovanny Jasmine Notes Date Note Type Note Provider Name and Address Organization Details Recorded Time 6 text/html SEXUAL FUNCTION: complains he lacks libido, has been unable to get erect in 5 years. Significant martial discord is evident, Sid is unwilling to discuss his 's concern or respond to her request to engage in counseling. DYSPHAGIA: Reports he still has trouble with bread getting stuck when he eats. Normal EGD. Ranjit Manley MD [address] [place] [address], [phone], [facility] 09/21/2015 09:24:48 6 text/html Physical Exam/MaleReported bypatient.PHAPatient is here for a Personal Health Appraisal.He describes his health status as fair. Patient's health is the same as last year.Risk Assessment and Lifestyle Change Counseling 18-50Reported bypatient.Coronary Artery Disease Risk Assesment:Family History of Coronary Artery Disease;Personal history of diabetes; No history of peripheral vascular disease, AAA, or carotid disease;Personal history coronary artery disease Lung Cancer Risk Assessment:Former smoker quit more than 15 years ago; No asbestos exposure Cognitive/Behavioral Risk Assessment:No personal history of mental illness; No family history of mental illnessVMG DiabetesReported bypatient.Duration:chronic Control:usually poorly controlled;worsened since last visit; treated with diet and oral medications (metformin and glimeperide); Hemoglobin A1C has been greater than 9; Hemoglobin A1C goal is less than 7; LDL usually runs 70-100, goal is less than <100; BP usually runs greater than 140/90; BP goal is less than 140/90 Compliance:compliant with medications (almost never misses doses, <2 evenings/month); Patient understands medications are to reduce blood sugar and control diabetes; compliant with follow-up visits; compliant with diet (Believes eating less bread and milk, less meat, 1 20 oz soda a day, no beer); Compliant with exercise;noncompliant with home glucose monitoring(2-3 meters, doesn't use them) Barriers to Carehas no time; under stress; absence of motivation; history of depression (possible); other mental illness (PTSD/fear of needles); poor self-care Self Care:not monitoring home glucose Context:seeing eye doctor regularly (01/18 NPDR); checking feet regularly; taking aspirin daily; not missing doses of medications;side effects from medications(some upset stomach, does not interfere with sleep, intermittent) Associated Symptoms:no blurred vision; no kidney disease; no peripheral vascular disease;weight gain (46 lbs);numbness of feet;coronary artery disease;retinopathy(s/p 2 injections OD 2013 for retinopathy, laser);neuropathyNotes:Gain ed 65 lbs in 2 weeks on Actos.VMG HyperlipidemiaReported bypatient.Duration:chronic Control:well controlled; unchanged since last visit; LDL has been <80, goal is <100; treated with medications Compliance:compliant with medications; compliant with follow-up visits;noncompliant with diet Barriers to Carehas no time; under stress; absence of motivation; history of depression; other mental illness Context:Ischemic heart disease;Diabetes; Nonsmoker; No peripheral vascular disease (11908); No carotid artery stenosisVMG HypertensionReported bypatient.Control:BP usually (variable, significant white coat effect); BP Goal less than (<140/90); Treated with medications; Patient understands medications are to lower blood pressure Compliance:Compliant with medications (chlorthalidone added by Rashel); Compliant with diet; Compliant with exercise; Compliant with follow-up visits Barriers to Carefinancial status; has no time; under stress; denial Self Care:Using home BP monitor weekly home BPs range (116/72 from recall) Context:No ischemic heart disease; No kidney disease; No history of CVA; No congestive heart failure; No history of transient ischemic attacks; No peripheral vascular disease;Diabetes Associated Symptoms:No shortness of breath; No edema;Chest pain( I've always got something going on in there, pinching, snapping of rubber band, nerve pain, never exertional, has discussed with Rashel who he reports thinks it is nerve pain, note agrees that he thought it atypical subsequent stress test neg for reversible ischemia);Exertional dyspnea(1 flight of stairs, stable, thinks due to joints);Fatigue Ranjit Manley MD [address] [place] [address], [phone], [facility] 09/21/2015 09:24:48 6 text/html Back PainReported bypatient.Location:pain radiating to the buttocks;pain radiating to the legs;pain radiating to the foot;pain radiating to the ankle Quality:sharp Severity:worsening;pain level 7/10;severe (8-10);interference with sleep;interference with work Duration:constant (for the last week) Context:overuse (bailing hay one day and it began to hurt) Aggravating factors:movement/positionin g;bending over;twisting Associated Symptoms:no fever; no weak limbs; no tingling; no numbness of the legs/feet; no incontinenceNotes:Worse after bailing hay all day roughly 1 week ago, has been taking ibuprofen, with moderate relief, and has also been stretching. Denies any saddle sxs. Notable hx of lumbar trauma and thoracic surgery Rick eRgalado, MSN, PAINTER ORDNANCE-C [address] [place] [address], [phone], [facility] 12/15/2015 11:22:24 6 text/html Back PainReported bypatient.Location:pain radiating to the buttocks;pain radiating to the legs;pain radiating to the foot;pain radiating to the ankle; Right buttocks into right foot Quality:sharp Severity:worsening;pain level 7/10;severe (8-10);interference with sleep;interference with work Duration:2 weeks Context:overuse (bailing hay one day and it began to hurt) Aggravating factors:movement/positionin g;bending over;twisting Alleviating factors:rest (feels better in AM) Associated Symptoms:no fever; no weak limbs; no tingling; no numbness of the legs/feet (or genitals); no incontinenceNotes:Lalit been taking ibuprofen and cyclobenzaprine, with minimal relief, and has also been stretching. Has tried some massage, ice and heat.VMG DiabetesReported bypatient.Duration:chronic Control:usually poorly controlled;worsened since last visit; treated with diet and oral medications (metformin and glimeperide); Hemoglobin A1C has been greater than 9; Hemoglobin A1C goal is less than 7; LDL usually runs 70-100, goal is less than <100; BP usually runs greater than 140/90; BP goal is less than 140/90 Compliance:Patient understands medications are to reduce blood sugar and control diabetes; compliant with follow-up visits; Compliant with exercise;noncompliant with medications(almost never misses doses, <2 evenings/month; Januvia not covered, never started);noncompliant with diet(more work, eating convenience foods);noncompliant with home glucose monitoring(2-3 meters, doesn't use them) Barriers to Carehas no time; under stress; absence of motivation; history of depression (possible); other mental illness (PTSD/fear of needles); poor self-care Self Care:not monitoring home glucose Context:seeing eye doctor regularly (01/18 NPDR); checking feet regularly; taking aspirin daily; not missing doses of medications;side effects from medications(some upset stomach, does not interfere with sleep, intermittent) Associated Symptoms:no blurred vision; no kidney disease; no peripheral vascular disease;weight gain (49 lbs);numbness of feet;coronary artery disease;retinopathy(s/p 2 injections OD 2013 for retinopathy, laser);neuropathyNotes:Gain ed 65 lbs in 2 weeks on Actos.VMG HyperlipidemiaReported bypatient.Duration:chronic Control:well controlled; unchanged since last visit; LDL has been <80, goal is <100; treated with medications Compliance:compliant with medications; compliant with follow-up visits;noncompliant with diet Barriers to Carehas no time; under stress; absence of motivation; history of depression; other mental illness Context:Ischemic heart disease;Diabetes; Nonsmoker; No peripheral vascular disease (065[address]); No carotid artery stenosisVMG HypertensionReported bypatient.Control:BP usually (variable, significant white coat effect); BP Goal less than (<140/90); Treated with medications; Patient understands medications are to lower blood pressure Compliance:Compliant with follow-up visits;Noncompliant with medications(chlorthalidone added by Rashel in 03/21, but per med list appears to be back inb HCTZ);Noncompliant with diet;Noncompliant with exercise Barriers to Carefinancial status; has no time; under stress; denial Self Care:Using home BP monitor home BPs range ; has meter, not reviewed Context:No ischemic heart disease; No kidney disease; No history of CVA; No congestive heart failure; No history of transient ischemic attacks; No peripheral vascular disease;Diabetes Associated Symptoms:No shortness of breath; No edema;Chest pain( I've always got something going on in there, pinching, snapping of rubber band, nerve pain, never exertional, has discussed with Rashel who he reports thinks it is nerve pain, note agrees that he thought it atypical subsequent stress test neg for reversible ischemia);Exertional dyspnea(1 flight of stairs, stable, thinks due to joints);Fatigue Ranjit Manley MD [address] [place] [address], [phone], [facility] 12/21/2015 13:07:57 6 text/html Back PainReported bypatient.Location:pain radiating to the buttocks;pain radiating to the legs;pain radiating to the foot;pain radiating to the ankle; Right buttocks into right foot Quality:sharp Severity:improving (60-70% better);pain level 2-3/10;interference with sleep(at times); back to work Duration:6 weeks Context:overuse (bailing hay one day and it began to hurt) Aggravating factors:movement/positionin g;bending over;twisting Alleviating factors:rest (feels better in AM) Associated Symptoms:no fever; no weak limbs; no tingling; no numbness of the legs/feet (or genitals); no incontinenceNotes:Chiroprac tic helps a lot. Massage made things worse. Stretching but no formal PT (went once, did not sound useful). Using tramadol 2 nights in last week at bedtime only. No side effects from tramadol. Has been taking ibuprofen BID.VMG DiabetesReported bypatient.Duration:chronic Control:usually poorly controlled; treated with diet and oral medications (metformin and glimeperide); Hemoglobin A1C has been greater than 9; Hemoglobin A1C goal is less than 7; LDL usually runs 70-100, goal is less than <100; BP usually runs greater than 140/90; BP goal is less than 140/90; Statin yes Compliance:compliant with medications (almost never misses doses, <2 evenings/month; Januvia not covered, never started); Patient understands medications are to reduce blood sugar and control diabetes; compliant with follow-up visits;noncompliant with diet(more work, eating convenience foods);noncompliant with exercise;noncompliant with home glucose monitoring(2-3 meters, doesn't use them) Barriers to Carehas no time; under stress; absence of motivation; history of depression (possible); other mental illness (PTSD/fear of needles); poor self-care Self Care:not monitoring home glucose Context:seeing eye doctor regularly (01/18 NPDR); checking feet regularly; taking aspirin daily; not missing doses of medications;side effects from medications(some upset stomach, does not interfere with sleep, intermittent) Associated Symptoms:no blurred vision; no kidney disease; no peripheral vascular disease;weight gain (49 lbs);numbness of feet;coronary artery disease;retinopathy(s/p 2 injections OD 2013 for retinopathy, laser);neuropathyNotes:Gain ed 65 lbs in 2 weeks on Actos.VMG HyperlipidemiaReported bypatient.Duration:chronic Control:well controlled; unchanged since last visit; LDL has been <80, goal is <100; treated with medications Compliance:compliant with medications; compliant with follow-up visits;noncompliant with diet Barriers to Carehas no time; under stress; absence of motivation; history of depression; other mental illness Context:Ischemic heart disease;Diabetes; Nonsmoker; No peripheral vascular disease ([address]); No carotid artery stenosisVMG HypertensionReported bypatient.Control:BP usually (variable, significant white coat effect, reports was so orthostatic on full doses of diuretics than Rashel/Fabienne have been weaning meds, last seen 11/19 in [facility] (no note)); BP Goal less than (<140/90); Treated with medications; Patient understands medications are to lower blood pressure Compliance:Compliant with medications (chlorthalidone added by Rashel in 03/21, but then changed back to HCTZ and ultimately dose halved by Fabienne in 11/19); Compliant with follow-up visits;Noncompliant with diet;Noncompliant with exercise Barriers to Carefinancial status; has no time; under stress; denial Self Care:Using home BP monitor home BPs range ; has meter, not using Context:No kidney disease; No history of CVA; No congestive heart failure; No history of transient ischemic attacks; No peripheral vascular disease;Ischemic heart disease;Diabetes Associated Symptoms:No shortness of breath; No edema;Chest pain( I've always got something going on in there, pinching, snapping of rubber band, nerve pain, never exertional, has discussed with Rashel who he reports thinks it is nerve pain, note agrees that he thought it atypical subsequent stress test neg for reversible ischemia);Exertional dyspnea(1 flight of stairs, stable, thinks due to joints);Fatigue Ranjit Manley MD [address] [place] [address], [phone], [facility] 01/12/2016 10:37:52 6 text/html Pt w/ worsening sx since initial back injury in December; sx used to resolve w/ chiropractic. Approx 3 wks ago sx returned w/ a vengeance and chiropractic no longer effective. Ibuprofen 800mg offers slight relief x 4-5 hrs. Hydrocodone-APAP 5-325 provides good relief x 5 hrs. Heat and ice don't help at all. A little walking is OK. Pain extends from R lower back into buttock and down to mid-posterior thigh and then from mid-lateral calf into lateral ankle, worse w/ sitting than standing. He's emphatic that he wants MRI although I've told him it's used primarily to help determine need for surgery -- states he cannot function and needs answers and treatment. He does have radicular sx, denies changes in bladder habits, acknowledges constipation r/t medication -- taking Miralax prn but agrees to take it qd when I explain how it works. Lupe Soares NP [address] [place] [address], [phone], [facility] 03/03/2016 22:55:38
== END 2024-03-11 12:17 | disposition home or self-care (01) ==
PROVIDERS: PCP General Practice; Visit Provider Internal Medicine Nephrology
DX: I12.9 Hypertensive chronic kidney disease with stage 1 through stage 4 chronic kidney disease, or unspecified chronic kidney disease (principal); N18.31 Chronic kidney disease, stage 3a; E87.5 Hyperkalemia; Z90.5 Acquired absence of kidney
CPT/HCPCS: 99214

== ENCOUNTER → 2024-03-11 11:19 | Outpatient (BNVA) | payer OTHER, SELFPAY | PROVIDERS: PCP General Practice; Visit Provider Internal Medicine Nephrology | DX: E11.22 Type 2 diabetes mellitus with diabetic chronic kidney disease (principal); I12.9 Hypertensive chronic kidney disease with stage 1 through stage 4 chronic kidney disease, or unspecified chronic kidney disease; N18.31 Chronic kidney disease, stage 3a; E87.5 Hyperkalemia; Z90.5 Acquired absence of kidney | CPT/HCPCS: 99212 ==